=== PATIENT | female | born 1975 | race Caucasian/White ===

== ENCOUNTER 2016-11-19 01:29 | Emergency (ER) | payer OTHER ==
[2016-11-19] MEDS ORDERED: PROMETHAZINE HCL INJ 25 MG/1 ML VIAL IM ONE (02:59)
[2016-11-19] MEDS ORDERED: NORMAL SALINE 1000 ML 1,000 ML IV ONE (03:00)
[2016-11-19] MEDS ORDERED: METHYLPREDNISOLONE INJ 125 MG/2 ML SDV IV ONE (03:00)
[2016-11-19] MEDS ORDERED: HYDROMORPHONE HCL INJ/PF 2 MG/ML AMPULE IV ONE ×2 (03:00→04:52)
[2016-11-19] MEDS ORDERED: DIPHENHYDRAMINE HCL 50 MG/ML VIAL IV ONE (03:00)
--- NOTE | 2016-11-19 03:02 | ER Document Report ---
ED Headache - General Chief Complaint: Headache Stated Complaint: HEADACHE/VOMITING Time seen by provider: 03:01 Notes: Patient is a 41-year-old female that comes emergency department for chief complaint of a migraine headache that started tonight, patient states that she has severe throbbing behind the right side of her face/eye, she reports nausea, denies vomiting. Patient states this is classic for her migraine headaches, states she gets these about once or twice a month on average, used to get them almost daily but improved significantly on Topamax. Patient denies any fever, head injuries, patient has had a partial hysterectomy. TRAVEL OUTSIDE OF THE [place] IN LAST 30 DAYS: No - Related Data Allergies/Adverse Reactions: ibuprofen Allergy (Verified 10/08/16 01:58) latex Allergy (Verified 10/08/16 01:58) metoclopramide [From Reglan] Allergy (Verified 10/08/16 01:58) Penicillins Allergy (Verified 10/08/16 01:58) sulfamethoxazole [From Septra] Allergy (Verified 10/08/16 01:58) sumatriptan [From Imitrex] Allergy (Verified 10/08/16 01:58) tramadol Allergy (Verified 10/08/16 01:58) trimethoprim [From Septra] Allergy (Verified 10/08/16 01:58) zolmitriptan [From Zomig] Allergy (Verified 10/08/16 01:58) prochlorperazine [From Compazine] Adverse Reaction (Verified 11/19/16 01:48) Past Medical History - General Information source: Patient - Social History Smoking Status: Never Smoker Frequency of alcohol use: Social Drug Abuse: None Lives with: Family Family History: Reviewed & Not Pertinent Patient has suicidal ideation: No Patient has homicidal ideation: No Neurological Medical History: Reports: Hx Migraine Renal/ Medical History: Denies: Hx Peritoneal Dialysis Past Surgical History: Reports: Hx Appendectomy, Hx Cholecystectomy, Hx Hysterectomy, Hx Orthopedic Surgery - back - Immunizations Hx Diphtheria, Pertussis, Tetanus Vaccination: Yes Review of Systems - Review of Systems Constitutional: No symptoms reported EENT: No symptoms reported Cardiovascular: No symptoms reported Respiratory: No symptoms reported Gastrointestinal: No symptoms reported Genitourinary: No symptoms reported Female Genitourinary: No symptoms reported Musculoskeletal: No symptoms reported Skin: No symptoms reported Hematologic/Lymphatic: No symptoms reported Neurological/Psychological: See HPI Physical Exam - Vital signs Vitals: Temp Pulse Resp BP Pulse Ox 98.0 F 44 L 18 110/87 H 98 11/19/16 01:39 11/19/16 01:39 11/19/16 01:39 11/19/16 01:39 11/19/16 01:39 Interpretation: Normal - General General appearance: Alert, Anxious In distress: Mild - Patient denies, appears mildly uncomfortable - HEENT Head: Normocephalic, Atraumatic Eyes: Normal Conjunctiva: Normal Extraocular movements intact: Yes Eyelashes: Normal Pupils: PERRL Nasal: Normal Mouth/Lips: Normal Mucous membranes: Normal Pharynx: Normal Neck: Normal - Respiratory Respiratory status: No respiratory distress Chest status: Nontender Breath sounds: Normal Chest palpation: Normal - Cardiovascular Rhythm: Regular Heart sounds: Normal auscultation Murmur: No - Abdominal Inspection: Normal Distension: No distension Bowel sounds: Normal Tenderness: Nontender Organomegaly: No organomegaly - Back Back: Normal, Nontender - Extremities General upper extremity: Normal inspection, Nontender, Normal color, Normal ROM , Normal temperature General lower extremity: Normal inspection, Nontender, Normal color, Normal ROM , Normal temperature, Normal weight bearing. 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 Patient much improved on reevaluation, request slightly more medication to completely resolve her headache. After this. Completely resolved, patient discharged to follow-up with her primary care, given return precautions. - Vital Signs Vital signs: Temp Pulse Resp BP Pulse Ox 97.8 F 90 14 110/71 97 11/19/16 06:10 11/19/16 06:10 11/19/16 06:10 11/19/16 06:10 11/19/16 06:10 Discharge - Discharge Clinical Impression: Headache Qualifiers: Headache type: unspecified Headache chronicity pattern: acute headache Intractability: not intractable Qualified Code(s): R51 - Headache Condition: Stable Disposition: HOME, SELF-CARE Additional Instructions: Your symptoms and response to treatment are consistent with a migraine. Follow-up with your provider for continued management. Return to the emergency department for any return, worsening, or new concerning symptoms. Forms: Return to Work, Treatment of Relative/Child
[2016-11-19] MEDS ORDERED: PROMETHAZINE HCL INJ 25 MG/1 ML VIAL ONE (03:35)
[2016-11-19] MEDS ORDERED: ONDANSETRON HCL INJ/PF 4 MG/2 ML SDV IV ONE (04:52)
[2016-11-19 06:30] VITALS: BP 110/71
== END 2016-11-19 06:10 | disposition home or self-care (01) ==
LOC: ER 01:29
DX: R51 Headache (principal); R11.10 Vomiting, unspecified; Z79.899 Other long term (current) drug therapy
CPT/HCPCS: 96376; 99284; 96372; 96361; 96374; 96375; J1200; J2930; J1170; J2405; J7030; J2550

== ENCOUNTER 2016-12-02 16:15 | Emergency (ER) | payer OTHER ==
[2016-12-02] MEDS ORDERED: NORMAL SALINE 1000 ML 1,000 ML IV ONE (17:17)
--- NOTE | 2016-12-02 17:17 | ER Document Report ---
ED Headache - General Chief Complaint: Headache >24 hrs old Stated Complaint: HEAD ACHE Mode of Arrival: Ambulatory Information source: Patient Notes: 41 y/o female with history of migraines presents with typical migraine headache for the past 3 days. Gradual worsening, right sided throbbing pain similar to prior migraines. She takes daily Topomax, and usually takes Benadryl and Phenergan for headaches. She has run out of benadryl today. She has had 3 episodes of vomiting today, which prompted her to come to the ER. No fevers, chills. NO neck pain or stiffness. [facility] [place], and states that her migraines have intensified secondary to the stress of moving. She has had prior negative brain imaging in the past. TRAVEL OUTSIDE OF THE [place] IN LAST 30 DAYS: No - Related Data Allergies/Adverse Reactions: ibuprofen Allergy (Verified 12/02/16 16:17) latex Allergy (Verified 12/02/16 16:17) metoclopramide [From Reglan] Allergy (Verified 12/02/16 16:17) Penicillins Allergy (Verified 12/02/16 16:17) sulfamethoxazole [From Septra] Allergy (Verified 12/02/16 16:17) sumatriptan [From Imitrex] Allergy (Verified 12/02/16 16:17) tramadol Allergy (Verified 12/02/16 16:17) trimethoprim [From Septra] Allergy (Verified 12/02/16 16:17) zolmitriptan [From Zomig] Allergy (Verified 12/02/16 16:17) prochlorperazine [From Compazine] Adverse Reaction (Verified 12/02/16 16:17) Past Medical History - Social History Smoking Status: Never Smoker Frequency of alcohol use: Occasional Drug Abuse: None Family History: Reviewed & Not Pertinent Patient has suicidal ideation: No Patient has homicidal ideation: No - Medical History Medical History: Other - [employer] - Past Medical History Cardiac Medical History: Reports: None Pulmonary Medical History: Reports: None EENT Medical History: Reports: None Neurological Medical History: Reports: Hx Migraine Other: "pre-diabetes", on Metformin Renal/ Medical History: Reports: Other - PCOS. Denies: Hx Peritoneal Dialysis Malignancy Medical History: Reports: None GI Medical History: Reports: Hx Gastroesophageal Reflux Disease Past Surgical History: Reports: Hx Appendectomy, Hx Cholecystectomy, Hx Hysterectomy, Hx Orthopedic Surgery - back - Immunizations Hx Diphtheria, Pertussis, Tetanus Vaccination: Yes Review of Systems - Review of Systems Notes: REVIEW OF SYSTEMS: CONSTITUTIONAL : Denies fever, chills, or sweats. Denies recent illness. EENT: Denies ear, throat, or mouth pain or symptoms. Denies nasal or sinus congestion. Mild photophobia with headache CARDIOVASCULAR: Denies chest pain. RESPIRATORY: Denies cough, cold, or chest congestion. Denies shortness of breath, difficulty breathing, or wheezing. GASTROINTESTINAL: Denies abdominal pain. Denies diarrhea. Denies constipation. Nausea/vomiting as per HPI GENITOURINARY: Denies difficulty urinating, painful urination, burning, frequency, or blood in urine. FEMALE GENITOURINARY: Denies vaginal bleeding, abnormal or irregular periods. LMP: MUSCULOSKELETAL: Denies neck or back pain or joint pain or swelling. SKIN: Denies rash or skin lesions. HEMATOLOGIC : Denies easy bruising or bleeding. LYMPHATIC: Denies swollen, enlarged glands. NEUROLOGICAL: Denies altered mental status or loss of consciousness. Denies weakness or paralysis or loss of use of either side. Denies problems with gait or speech. Denies sensory or motor loss. PSYCHIATRIC: Denies anxiety or stress or depression. ALL OTHER SYSTEMS REVIEWED AND NEGATIVE. Physical Exam - Vital signs Vitals: Temp Pulse Resp BP Pulse Ox 98.3 F 99 16 123/79 98 12/02/16 16:18 12/02/16 16:18 12/02/16 16:18 12/02/16 16:18 12/02/16 16:18 - Notes Notes: PHYSICAL EXAMINATION: GENERAL: Well-appearing, well-nourished and in no distress but appears uncomfortable with sunglasses on. Pleasant and very conversant. HEAD: Atraumatic, normocephalic. EYES: Pupils equal round and reactive to light, +photophobia, extraocular movements intact, sclera anicteric, conjunctiva are normal. ENT: nares patent, oropharynx clear without exudates. Moist mucous membranes. NECK: Normal range of motion, supple without lymphadenopathy LUNGS: Breath sounds clear to auscultation bilaterally and equal. No wheezes rales or rhonchi. HEART: Regular rate and rhythm without murmurs ABDOMEN: Soft, nontender, normoactive bowel sounds. No guarding, no rebound. No masses appreciated. EXTREMITIES: Normal range of motion, no pitting or edema. No cyanosis. NEUROLOGICAL: Cranial nerves grossly intact. Normal speech, normal gait. Normal sensory, motor, and reflex exams. PSYCH: Normal mood, normal affect. SKIN: Warm, Dry, normal turgor, no rashes or lesions noted. Course - Re-evaluation Re-evalutation: 12/02/16 18:22 Pt states the throbbing and pressure have much improved, but her head still hurts. Will add IV pain medication (dilaudid) and reassess. 12/02/16 19:08 Pt states her headache is improved. We discussed the fact that she has had 5 visits in past 7-8 weeks, and she is instructed to follow up with PCP ANGELA to discuss pain control and migraine maintenance. She verbalizes understanding. Questions answered, strict return precautions discussed. - Vital Signs Vital signs: Temp Pulse Resp BP Pulse Ox 98.3 F 99 16 123/79 98 12/02/16 16:18 12/02/16 16:18 12/02/16 16:18 12/02/16 16:18 12/02/16 16:18 Discharge - Discharge Clinical Impression: Migraine Qualifiers: Migraine type: unspecified Status migrainosus presence: without status migrainosus Intractability: not intractable Qualified Code(s): G43.909 - Migraine, unspecified, not intractable, without status migrainosus Condition: Good Disposition: HOME, SELF-CARE Additional Instructions: HEADACHE: The physician does not feel that the headache you are experiencing has a serious underlying cause. Most headaches are due to emotional stress, with resultant muscle tension (tension headache). Occasionally, headaches are secondary to changes in the blood vessels of the scalp (vascular headache and migraine headache). Sometimes, a headache is the first symptom of another developing illness, such as a viral infection. You have no evidence of stroke, bleeding, meningitis, or other serious cause of your headache. The treatment of headaches varies with the severity and cause of the pain. Not all headaches need pain shots. In fact, there is evidence that using narcotics for headaches may make them worse in the long run. The physician will determine the therapy that's in your best interest. If you develop a fever, if the headache is different from any you've previously experienced, or if the headache progressively worsens, then call your physician at once or go to the emergency room. USE OF DIPHENHYDRAMINE: Diphenhydramine (Benadryl) is an antihistamine and has been recommended to help treat your headache and to prevent side effects of other medications used to treat headaches. The medication can be repeated four times daily. Age Elixir (12.5 mg/tsp) 25 mg pill adult 1-2 tabs Antihistamines may cause drowsiness, especially with the first dose. Do not operate machinery or drive while under the effects of the medication. Do not combine the medication with alcohol, or with any other medication without talking to your doctor. ANTINAUSEA MEDICATION: You have been given a medication to suppress nausea and vomiting. This type of medication can be given as a shot, pill, or suppository. It will usually last for many hours. Pills and shots usually last six to eight hours, suppositories last about 12 hours. For the typical illness, only one or two doses of the medication may be necessary. Mild lightheadedness may occur. This type of medicine can cause drowsiness. Do not drive or operate dangerous machinery while under its influence. Do not mix with alcohol. See your doctor at once if you have muscle spasms or tightness, or uncontrollable motions (particularly of the neck, mouth, or jaw). Persistent vomiting or severe lightheadedness should also be evaluated by the physician. PAIN MEDICATION INJECTION: You have received an injection of a pain medication. You should experience significant pain relief within 45 minutes. This drug is a narcotic - - it will impair your judgement, slow your reaction time and make you sleepy ( as well as relieve your pain). Narcotics also can cause nausea. You should not drive, work with machinery, or perform any task requiring mental alertness until all effects of the medication are gone -- six to eight hours. Do not take any alcohol, or sedatives, and do not take any other medication without checking with your physician. FOLLOW-UP CARE: If you have been referred to a physician for follow-up care, call the physician s office for an appointment as you were instructed or within the next two days. If you experience worsening or a significant change in your symptoms, notify the physician immediately or return to the Emergency Department at any time for re-evaluation. Chronic Pain Control Stress, inactivity, and depression make pain more severe regardless of the cause of the pain. Stress and poor physical condition can cause pain such as headaches and backache. Relaxation: Rest in a quiet place with your eyes closed for 20 minutes twice daily. Concentrate on a pleasant image, or simply "feel" your breathing. Clear your mind. Stress management: Deal with your "stressors." Either take action, or eliminate the stressor from your life. Don't let things hang over you. Accept those things you can't change. Nutrition: Eat small, balanced meals -- don't skip, don't overeat. Meals should be high-carbohydrate, low-sugar, low-fat. Exercise: Exercise helps painful conditions and eases stress. Get 30 minutes of moderate exercise, five days a week. Do an activity that does not flare your pain. Precautions: Pain which continues to disrupt daily activities, or which changes in nature, requires a medical evaluation. Pain Clinic referral is available. We do not manage chronic pain in the Emergency Department. We will try to appropriately help you through an acute flare of your chronic painful condition , but for on-going chronic pain that does not improve, you will need to see your private doctor or interventional pain physician. We do not provide repeated medication management of chronic painful conditions. If you wish, we can provide the name of local pain management physicians.
[2016-12-02] MEDS ORDERED: DIPHENHYDRAMINE HCL 50 MG/ML VIAL IV ONE ×2 (17:18→18:20)
[2016-12-02] MEDS ORDERED: PROMETHAZINE HCL INJ 25 MG/1 ML VIAL IV ONE (17:18)
[2016-12-02] MEDS ORDERED: HYDROMORPHONE HCL INJ/PF 2 MG/ML AMPULE IV ONE ×2 (18:20→19:07)
[2016-12-02 19:38] VITALS: BP 113/69
== END 2016-12-02 19:30 | disposition home or self-care (01) ==
LOC: ER 16:15
DX: G43.909 Migraine, unspecified, not intractable, without status migrainosus (principal); R11.10 Vomiting, unspecified; Z79.899 Other long term (current) drug therapy; Z88.6 Allergy status to analgesic agent; Z91.040 Latex allergy status; Z88.8 Allergy status to other drugs, medicaments and biological substances; Z88.0 Allergy status to penicillin; Z88.5 Allergy status to narcotic agent
CPT/HCPCS: 96376; 99283; 96361; 96374; 96375; J1200; J1170; J2550; J7030

== ENCOUNTER 2016-12-06 21:38 | Emergency (ER) | payer OTHER ==
[2016-12-06] MEDS ORDERED: ONDANSETRON 4 MG TAB.RAPDIS PO ONE (21:49)
--- NOTE | 2016-12-06 21:51 | ER Document Report ---
ED Medical Screen (RME) - General Stated Complaint: POSSIBLE MIGRANE Notes: States the frequency of her migraines has increased to 1-2 times per month, so her primary care physician has put in a consult for neurology for possible Botox injections. She states when she comes to the emergency room she normally gets IV medications and fluids to help with the headache, other medications do not seem to help. I have greeted and performed a rapid initial assessment of this patient. A comprehensive ED assessment and evaluation of the patient, analysis of test results and completion of the medical decision making process will be conducted by additional ED providers. TRAVEL OUTSIDE OF THE [place] IN LAST 30 DAYS: No - Related Data Allergies/Adverse Reactions: ibuprofen Allergy (Verified 12/06/16 21:46) latex Allergy (Verified 12/06/16 21:46) metoclopramide [From Reglan] Allergy (Verified 12/06/16 21:46) Penicillins Allergy (Verified 12/06/16 21:46) sulfamethoxazole [From Septra] Allergy (Verified 12/06/16 21:46) sumatriptan [From Imitrex] Allergy (Verified 12/06/16 21:46) tramadol Allergy (Verified 12/06/16 21:46) trimethoprim [From Septra] Allergy (Verified 12/06/16 21:46) zolmitriptan [From Zomig] Allergy (Verified 12/06/16 21:46) prochlorperazine [From Compazine] Adverse Reaction (Verified 12/06/16 21:46) Past Medical History Neurological Medical History: Reports: Hx Migraine Renal/ Medical History: Denies: Hx Peritoneal Dialysis GI Medical History: Reports: Hx Gastroesophageal Reflux Disease Past Surgical History: Reports: Hx Appendectomy, Hx Cholecystectomy, Hx Hysterectomy, Hx Orthopedic Surgery - back - Immunizations Hx Diphtheria, Pertussis, Tetanus Vaccination: Yes Physical Exam - Vital signs Vitals: Temp Pulse Resp BP Pulse Ox 98.0 F 116 H 22 H 139/96 H 96 12/06/16 21:44 12/06/16 21:44 12/06/16 21:44 12/06/16 21:44 12/06/16 21:44 Course - Vital Signs Vital signs: Temp Pulse Resp BP Pulse Ox 98.0 F 116 H 22 H 139/96 H 96 12/06/16 21:44 12/06/16 21:44 12/06/16 21:44 12/06/16 21:44 12/06/16 21:44
[2016-12-06] MEDS ORDERED: DIPHENHYDRAMINE HCL 50 MG/ML VIAL IV ONE (23:46)
[2016-12-06] MEDS ORDERED: NORMAL SALINE 1000 ML 1,000 ML IV ONE (23:47)
[2016-12-06] MEDS ORDERED: PROMETHAZINE HCL INJ 25 MG/1 ML VIAL IM ONE (23:47)
[2016-12-06] MEDS ORDERED: DEXAMETHASONE SOD PHOS INJ 10 MG/1 ML VIAL IV ONE (23:47)
--- NOTE | 2016-12-06 23:50 | ER Document Report ---
ED General - General Chief Complaint: Headache Stated Complaint: POSSIBLE MIGRANE Notes: Patient is a 41-year-old female who presents with complaint of a headache. Patient history recurrent migraine headaches. She is to receive Botox injections in the past. She has not had them for a while. Recently her headaches have been a very frequent and hard to control. She does take Benadryl Phenergan at home which usually helps; however, she sometimes develops vomiting or headaches that she's been unable to hold down her medications because she's been vomiting this time. I discussed with this current headache is that she did have an episode of passing out with her. She typically does not pass out with her headaches. Headache is in the same location and feels like her usual headaches. She also tried to take Fioricet but also vomited this as well. She takes Topamax daily basis. She has been referred to a specialist of the Botox injections started; however, she is waiting for the referral appointment to come across. She's had multiple workups for headaches in the past. She does have a history of von Willebrand's disease. She is unsure if she hit her head when she passed out. TRAVEL OUTSIDE OF THE [place] IN LAST 30 DAYS: No - Related Data Allergies/Adverse Reactions: ibuprofen Allergy (Verified 12/06/16 21:46) latex Allergy (Verified 12/06/16 21:46) metoclopramide [From Reglan] Allergy (Verified 12/06/16 21:46) Penicillins Allergy (Verified 12/06/16 21:46) sulfamethoxazole [From Septra] Allergy (Verified 12/06/16 21:46) sumatriptan [From Imitrex] Allergy (Verified 12/06/16 21:46) tramadol Allergy (Verified 12/06/16 21:46) trimethoprim [From Septra] Allergy (Verified 12/06/16 21:46) zolmitriptan [From Zomig] Allergy (Verified 12/06/16 21:46) prochlorperazine [From Compazine] Adverse Reaction (Verified 12/06/16 21:46) Past Medical History - Social History Smoking Status: Never Smoker Frequency of alcohol use: None Drug Abuse: None Family History: Reviewed & Not Pertinent Neurological Medical History: Reports: Hx Migraine Renal/ Medical History: Denies: Hx Peritoneal Dialysis GI Medical History: Reports: Hx Gastroesophageal Reflux Disease Past Surgical History: Reports: Hx Appendectomy, Hx Cholecystectomy, Hx Hysterectomy, Hx Orthopedic Surgery - back - Immunizations Hx Diphtheria, Pertussis, Tetanus Vaccination: Yes Review of Systems - Review of Systems Notes: My Normal Review Basic REVIEW OF SYSTEMS: CONSTITUTIONAL : Denies fever, chills, or sweats. Denies recent illness. CARDIOVASCULAR: Denies chest pain. RESPIRATORY: Denies cough, cold, or chest congestion. Denies shortness of breath, difficulty breathing, or wheezing. GASTROINTESTINAL: Denies abdominal pain. Denies nausea, vomiting, or diarrhea. Denies constipation. Last BM: : MUSCULOSKELETAL: Denies neck or back pain or joint pain or swelling. SKIN: Denies rash or skin lesions. NEUROLOGICAL: Syncopal episode. Has a headache. Denies weakness or paralysis or loss of use of either side. Denies problems with gait or speech. Denies sensory or motor loss. ALL OTHER SYSTEMS REVIEWED AND NEGATIVE. Physical Exam - Vital signs Vitals: Temp Pulse Resp BP Pulse Ox 98.0 F 116 H 22 H 139/96 H 96 12/06/16 21:44 12/06/16 21:44 12/06/16 21:44 12/06/16 21:44 12/06/16 21:44 - Notes Notes: General Appearance: Well nourished, alert, cooperative, no acute distress, moderate obvious discomfort. Vitals: reviewed, See vital signs table. Head: no swelling or tenderness to the head Eyes: PERRL, EOMI, Conjuctiva clear Mouth: No decreasd moisture Neck: Supple, no neck tenderness, No thyromegaly Lungs: No wheezing, No rales, No rhonci, No accessory muscle use, good air exchange bilaterally. Heart: Normal rate, Regular rythm, No murmur, no rub Abdomen: Normal BS, soft, No rigidity, No abdominal tenderness, No guarding, no rebound, no abdominal masses, no organomegaly Extremities: strength 5/5 in all extremities, good pulses in all extremities, no swelling or tenderness in the extremities, no edema. Skin: warm, dry, appropriate color, no rash Neuro: speech clear, oriented x 3, normal affect, responds appropriately to questions. Cranial nerves II through XII are intact. Distal sensation intact. Patient moves all extremities without difficulty. No pronator drift.. Course - Vital Signs Vital signs: Temp Pulse Resp BP Pulse Ox 98.0 F 88 18 117/69 96 12/06/16 21:44 12/07/16 04:24 12/07/16 04:24 12/07/16 04:24 12/07/16 04:24 - Transfer of Care Notes: 12/07/16 03:54 Patient's headache is on was completely gone. There is still one area that continues to throb and bother her. She has had ketamine in the past for her more severe headaches which has helped. I will give her low-dose ketamine and hopefully this will help relieve her headache. 12/07/16 06:59 Patient's headache is completely resolved. She feels much improved. We'll discharge her home. I'll write a prescription for suppository Phenergan so that if she does have some nausea issues able to still take her medications. I encourage her to to follow up with her referral. Encouraged return to ER shows internal headache or feels unwell. CT scan was obtained the patient may have hit her head and does have a history of von Willebrand's disease. CT scan was negative. I did not sit suspect subarachnoid hemorrhage and that her headaches are just like her previous chronic recurring migraine headaches and her headache is gradual in onset not sudden or maximal in onset. Dictation of this chart was performed using voice recognition software; therefore, there may be some unintended grammatical errors. Discharge - Discharge Clinical Impression: Head ache Qualifiers: Headache type: unspecified Headache chronicity pattern: acute headache Intractability: not intractable Qualified Code(s): R51 - Headache Condition: Good Disposition: HOME, SELF-CARE Additional Instructions: HEADACHE: The physician does not feel that the headache you are experiencing has a serious underlying cause. Most headaches are due to emotional stress, with resultant muscle tension (tension headache). Occasionally, headaches are secondary to changes in the blood vessels of the scalp (vascular headache and migraine headache). Sometimes, a headache is the first symptom of another developing illness, such as a viral infection. You have no evidence of stroke, bleeding, meningitis, or other serious cause of your headache. The treatment of headaches varies with the severity and cause of the pain. Not all headaches need pain shots. In fact, there is evidence that using narcotics for headaches may make them worse in the long run. The physician will determine the therapy that's in your best interest. If you develop a fever, if the headache is different from any you've previously experienced, or if the headache progressively worsens, then call your physician at once or go to the emergency room. USE OF DIPHENHYDRAMINE: Diphenhydramine (Benadryl) is an antihistamine and has been recommended to help treat your headache and to prevent side effects of other medications used to treat headaches. The medication can be repeated four times daily. Age Elixir (12.5 mg/tsp) 25 mg pill adult 1-2 tabs Antihistamines may cause drowsiness, especially with the first dose. Do not operate machinery or drive while under the effects of the medication. Do not combine the medication with alcohol, or with any other medication without talking to your doctor. ANTINAUSEA MEDICATION: You have been given a medication to suppress nausea and vomiting. This type of medication can be given as a shot, pill, or suppository. It will usually last for many hours. Pills and shots usually last six to eight hours, suppositories last about 12 hours. For the typical illness, only one or two doses of the medication may be necessary. Mild lightheadedness may occur. This type of medicine can cause drowsiness. Do not drive or operate dangerous machinery while under its influence. Do not mix with alcohol. See your doctor at once if you have muscle spasms or tightness, or uncontrollable motions (particularly of the neck, mouth, or jaw). Persistent vomiting or severe lightheadedness should also be evaluated by the physician. PAIN MEDICATION INJECTION: You have received an injection of a pain medication. You should experience significant pain relief within 45 minutes. This drug is a narcotic - - it will impair your judgement, slow your reaction time and make you sleepy ( as well as relieve your pain). Narcotics also can cause nausea. You should not drive, work with machinery, or perform any task requiring mental alertness until all effects of the medication are gone -- six to eight hours. Do not take any alcohol, or sedatives, and do not take any other medication without checking with your physician. FOLLOW-UP CARE: If you have been referred to a physician for follow-up care, call the physician s office for an appointment as you were instructed or within the next two days. If you experience worsening or a significant change in your symptoms, notify the physician immediately or return to the Emergency Department at any time for re-evaluation. please return to the ER if you have worsening pain, fever,s or feel unwell. Please follow up closely with your doctor for your referral for the Botox injections. Prescriptions: Promethazine HCl [Phenergan 25 mg Supp.rect] 1 supp MI Q6H #20 supp.rect Forms: Return to Work
[2016-12-07] MEDS ORDERED: PROMETHAZINE HCL INJ 25 MG/1 ML VIAL ONE (00:20)
[2016-12-07] MEDS ORDERED: HYDROMORPHONE HCL INJ/PF 2 MG/ML AMPULE IV ONE (01:49)
[2016-12-07] MEDS ORDERED: KETAMINE HCL INJ 500 MG/10 ML VIAL IV ONE (03:54)
[2016-12-07 04:28] VITALS: BP 117/69
== END 2016-12-07 04:54 | disposition home or self-care (01) ==
LOC: ER 21:38
DX: G43.909 Migraine, unspecified, not intractable, without status migrainosus (principal); R11.10 Vomiting, unspecified; R55 Syncope and collapse; D68.0 Von Willebrand disease; Z79.899 Other long term (current) drug therapy; Z88.6 Allergy status to analgesic agent; Z91.040 Latex allergy status; Z88.8 Allergy status to other drugs, medicaments and biological substances; Z88.0 Allergy status to penicillin; Z88.5 Allergy status to narcotic agent; Z88.1 Allergy status to other antibiotic agents
CPT/HCPCS: 99284; 96372; 96361; 96374; 96375; 70450; J1200; S0119; J3490; J1170; J2550; J7030; J1100

== ENCOUNTER 2016-12-10 20:18 | Emergency (ER) | payer OTHER ==
--- NOTE | 2016-12-10 21:27 | ER Document Report ---
ED Medical Screen (RME) - General Stated Complaint: HEADACHE Time seen by provider: 21:22 Mode of Arrival: Wheelchair Information source: Patient Notes: 41 yo female presents to ed for migraine headache post botox treatment yesterday. States she has never had a headache after the botox treatment. She states it feels like a pressure cooker that she cannot get the pain out. all the of the injection sites are also painful and they have never been painful before. she has had a low grade migraine all day but it increased around 7pm so she got into a shower and the pain just blossomed. LMP partial hysterectomy 2009. I examined this patient for a rapid screening and she will be re examined and treated by another provider. TRAVEL OUTSIDE OF THE [place] IN LAST 30 DAYS: No - Related Data Allergies/Adverse Reactions: ibuprofen Allergy (Verified 12/06/16 21:46) latex Allergy (Verified 12/06/16 21:46) metoclopramide [From Reglan] Allergy (Verified 12/06/16 21:46) Penicillins Allergy (Verified 12/06/16 21:46) sulfamethoxazole [From Septra] Allergy (Verified 12/06/16 21:46) sumatriptan [From Imitrex] Allergy (Verified 12/06/16 21:46) tramadol Allergy (Verified 12/06/16 21:46) trimethoprim [From Septra] Allergy (Verified 12/06/16 21:46) zolmitriptan [From Zomig] Allergy (Verified 12/06/16 21:46) prochlorperazine [From Compazine] Adverse Reaction (Verified 12/06/16 21:46) Past Medical History Neurological Medical History: Reports: Hx Migraine Renal/ Medical History: Denies: Hx Peritoneal Dialysis GI Medical History: Reports: Hx Gastroesophageal Reflux Disease Past Surgical History: Reports: Hx Appendectomy, Hx Cholecystectomy, Hx Hysterectomy, Hx Orthopedic Surgery - back - Immunizations Hx Diphtheria, Pertussis, Tetanus Vaccination: Yes Physical Exam - Vital signs Vitals: Temp Pulse Resp BP Pulse Ox 98.1 F 106 H 18 112/79 97 12/10/16 20:26 12/10/16 20:26 12/10/16 20:26 12/10/16 20:26 12/10/16 20:26 Course - Vital Signs Vital signs: Temp Pulse Resp BP Pulse Ox 98.1 F 106 H 18 112/79 97 12/10/16 20:26 12/10/16 20:26 12/10/16 20:26 12/10/16 20:26 12/10/16 20:26
[2016-12-10] MEDS ORDERED: ONDANSETRON 4 MG TAB.RAPDIS PO ONE (21:29)
[2016-12-10] MEDS ORDERED: ONDANSETRON 4 MG TAB.RAPDIS ONE (21:31)
[2016-12-11] MEDS ORDERED: DIPHENHYDRAMINE HCL 50 MG/ML VIAL IV ONE (02:36)
[2016-12-11] MEDS ORDERED: PROCHLORPERAZINE EDISYLATE INJ 10 MG/2 ML VIAL IV ONE (02:36)
[2016-12-11] MEDS ORDERED: KETOROLAC TROMETHAMINE INJ/PF 30 MG/1 ML SDV IV ONE (02:36)
[2016-12-11] MEDS ORDERED: NORMAL SALINE 1000 ML 1,000 ML IV ONE (02:37)
[2016-12-11] MEDS ORDERED: HALOPERIDOL LACTATE INJ 5 MG/1 ML VIAL IV ONE (03:00)
[2016-12-11] MEDS ORDERED: HALOPERIDOL LACTATE INJ 5 MG/1 ML VIAL ONE (03:02)
[2016-12-11] MEDS ORDERED: PROMETHAZINE HCL 25 MG TABLET PO ONE (03:32)
--- NOTE | 2016-12-11 03:38 | ER Document Report ---
ED Headache - General Chief Complaint: Headache Stated Complaint: HEADACHE Time seen by provider: 03:33 Mode of Arrival: Wheelchair Information source: Patient Notes: 41-year-old female presents to ED for migraine headaches post Botox treatment . She was in the emergency room on December 06 for the same complaint. She states that she doesn't usually get the headaches after Botox treatments. States there is a lot of pressure in her head but it is relieved a little bit since she got her Haldol and Benadryl and IV fluids. TRAVEL OUTSIDE OF THE [place] IN LAST 30 DAYS: No - HPI Patient complains to provider of: "Migraine" Patient reports: Hx chronic headaches Onset: Other - States she's had her headache for about a week but it got much worse yesterday Onset was: Gradual Timing: Still present Quality of pain: Pressure Severity: Moderate Pain Level: 3 Associated symptoms: Nausea/vomiting, Other - Pain at the site of the Botox injections Exacerbated by: Light, Noise Similar symptoms previously: Yes Recently seen / treated by doctor: Yes - Related Data Allergies/Adverse Reactions: ibuprofen Allergy (Verified 12/10/16 21:22) latex Allergy (Verified 12/10/16 21:22) metoclopramide [From Reglan] Allergy (Verified 12/10/16 21:22) Penicillins Allergy (Verified 12/10/16 21:22) sulfamethoxazole [From Septra] Allergy (Verified 12/10/16 21:22) sumatriptan [From Imitrex] Allergy (Verified 12/10/16 21:22) tramadol Allergy (Verified 12/10/16 21:22) trimethoprim [From Septra] Allergy (Verified 12/10/16 21:22) zolmitriptan [From Zomig] Allergy (Verified 12/10/16 21:22) prochlorperazine [From Compazine] Adverse Reaction (Verified 12/10/16 21:22) Home Medications: Current Home Medications Atorvastatin Calcium [Lipitor 40 mg Tablet] 40 mg PO QHS 12/11/16 [History] Bupropion HCl [Bupropion Xl] 150 mg PO DAILY 12/11/16 [History] Cetirizine HCl [All Day Allergy] 1 tab PO DAILY 12/11/16 [History] Esomeprazole Magnesium [Nexium] 1 cap PO DAILY 12/11/16 [History] L.acidoph & Paracasei,B.lactis [Probiotic] 1 each PO DAILY 12/11/16 [History] Metformin HCl [Metformin HCl] 1 tab PO DAILY 12/11/16 [History] Tolterodine Tartrate [Detrol LA] 1 cap PO DAILY 12/11/16 [History] Topiramate [Topiramate] 150 mg PO DAILY 12/11/16 [History] Past Medical History - General Information source: Patient - Social History Smoking Status: Never Smoker Chew tobacco use (# tins/day): No Frequency of alcohol use: Rare Drug Abuse: None Lives with: Family Family History: Reviewed & Not Pertinent Patient has suicidal ideation: No Patient has homicidal ideation: No - Past Medical History Cardiac Medical History: Reports: None Pulmonary Medical History: Reports: None EENT Medical History: Reports: None Neurological Medical History: Reports: Hx Migraine Endocrine Medical History: Reports: None Renal/ Medical History: Reports: None Malignancy Medical History: Reports: None GI Medical History: Reports: Hx Gastroesophageal Reflux Disease Musculoskeltal Medical History: Reports None Skin Medical History: Reports None Psychiatric Medical History: Reports: None Traumatic Medical History: Reports: None Infectious Medical History: Reports: None Past Surgical History: Reports: Hx Appendectomy, Hx Cholecystectomy, Hx Hysterectomy, Hx Orthopedic Surgery - back - Immunizations Hx Diphtheria, Pertussis, Tetanus Vaccination: Yes Review of Systems - Review of Systems Constitutional: No symptoms reported EENT: No symptoms reported Cardiovascular: No symptoms reported Respiratory: No symptoms reported Gastrointestinal: No symptoms reported Genitourinary: No symptoms reported Female Genitourinary: No symptoms reported Musculoskeletal: No symptoms reported Skin: No symptoms reported Hematologic/Lymphatic: No symptoms reported Neurological/Psychological: Headaches -: Yes All other systems reviewed and negative Physical Exam - Vital signs Vitals: Temp Pulse Resp BP Pulse Ox 98.1 F 106 H 18 112/79 97 12/10/16 20:26 12/10/16 20:26 12/10/16 20:26 12/10/16 20:26 12/10/16 20:26 Interpretation: Normal - General General appearance: Appears well, Alert - HEENT Head: Normocephalic, Atraumatic Eyes: Normal Pupils: PERRL Ears: Normal External canal: Normal Tympanic membrane: Normal Sinus: Normal Nasal: Normal Mouth/Lips: Normal Mucous membranes: Normal Pharynx: Normal Neck: Normal - Respiratory Respiratory status: No respiratory distress Chest status: Nontender Breath sounds: Normal Chest palpation: Normal - Cardiovascular Rhythm: Regular Heart sounds: Normal auscultation Murmur: No - Abdominal Inspection: Normal Distension: No distension Bowel sounds: Normal Tenderness: Nontender Organomegaly: No organomegaly - Back Back: Normal, Nontender - Extremities General upper extremity: Normal inspection, Nontender, Normal color, Normal ROM , Normal temperature General lower extremity: Normal inspection, Nontender, Normal color, Normal ROM , Normal temperature, Normal weight bearing. 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 She states that her migraine started after her Botox injections yesterday. When I reassessed her she states that her headache is getting better it is now a 3 out of 5 and she is ready to go home. Consult to Dr. Sykes will discharge home. - Vital Signs Vital signs: Temp Pulse Resp BP Pulse Ox 97.8 F 91 14 112/60 98 12/11/16 04:31 12/11/16 04:31 12/11/16 04:31 12/11/16 04:31 12/11/16 04:31 Discharge - Discharge Clinical Impression: Head ache Qualifiers: Headache type: unspecified Headache chronicity pattern: acute headache Intractability: not intractable Qualified Code(s): R51 - Headache Condition: Stable Disposition: HOME, SELF-CARE Additional Instructions: HEADACHE: The physician does not feel that the headache you are experiencing has a serious underlying cause. Most headaches are due to emotional stress, with resultant muscle tension (tension headache). Occasionally, headaches are secondary to changes in the blood vessels of the scalp (vascular headache and migraine headache). Sometimes, a headache is the first symptom of another developing illness, such as a viral infection. You have no evidence of stroke, bleeding, meningitis, or other serious cause of your headache. The treatment of headaches varies with the severity and cause of the pain. Not all headaches need pain shots. In fact, there is evidence that using narcotics for headaches may make them worse in the long run. The physician will determine the therapy that's in your best interest. If you develop a fever, if the headache is different from any you've previously experienced, or if the headache progressively worsens, then call your physician at once or go to the emergency room. Chronic Pain Control Stress, inactivity, and depression make pain more severe regardless of the cause of the pain. Stress and poor physical condition can cause pain such as headaches and backache. Relaxation: Rest in a quiet place with your eyes closed for 20 minutes twice daily. Concentrate on a pleasant image, or simply "feel" your breathing. Clear your mind. Stress management: Deal with your "stressors." Either take action, or eliminate the stressor from your life. Don't let things hang over you. Accept those things you can't change. Nutrition: Eat small, balanced meals -- don't skip, don't overeat. Meals should be high-carbohydrate, low-sugar, low-fat. Exercise: Exercise helps painful conditions and eases stress. Get 30 minutes of moderate exercise, five days a week. Do an activity that does not flare your pain. Precautions: Pain which continues to disrupt daily activities, or which changes in nature, requires a medical evaluation. Pain Clinic referral is available. We do not manage chronic pain in the Emergency Department. 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 We do not provide repeated medication management of chronic painful conditions. If you wish, we can provide the name of local pain management physicians. USE OF DIPHENHYDRAMINE: Diphenhydramine (Benadryl) is an antihistamine and has been recommended to help treat your headache and to prevent side effects of other medications used to treat headaches. The medication can be repeated four times daily. Age Elixir (12.5 mg/tsp) 25 mg pill adult 1-2 tabs Antihistamines may cause drowsiness, especially with the first dose. Do not operate machinery or drive while under the effects of the medication. Do not combine the medication with alcohol, or with any other medication without talking to your doctor. ANTINAUSEA MEDICATION: You have been given a medication to suppress nausea and vomiting. This type of medication can be given as a shot, pill, or suppository. It will usually last for many hours. Pills and shots usually last six to eight hours, suppositories last about 12 hours. For the typical illness, only one or two doses of the medication may be necessary. Mild lightheadedness may occur. This type of medicine can cause drowsiness. Do not drive or operate dangerous machinery while under its influence. Do not mix with alcohol. See your doctor at once if you have muscle spasms or tightness, or uncontrollable motions (particularly of the neck, mouth, or jaw). Persistent vomiting or severe lightheadedness should also be evaluated by the physician. Intravenous (IV) Fluids As part of your care today, you received intravenous (IV) fluids. IV fluids are administered to patients who are dehydrated or to those who have certain chemical (electrolyte) abnormalities that need correcting. FOLLOW-UP CARE: If you have been referred to a physician for follow-up care, call the physician s office for an appointment as you were instructed or within the next two days. If you experience worsening or a significant change in your symptoms, notify the physician immediately or return to the Emergency Department at any time for re-evaluation. Please call your primary doctor today and schedule a follow-up appointment for your chronic headaches.
[2016-12-11 04:52] VITALS: BP 112/60
== END 2016-12-11 04:35 | disposition home or self-care (01) ==
LOC: ER 20:18
DX: G43.909 Migraine, unspecified, not intractable, without status migrainosus (principal); R11.2 Nausea with vomiting, unspecified; Z98.890 Other specified postprocedural states; Z88.6 Allergy status to analgesic agent; Z91.040 Latex allergy status; Z88.8 Allergy status to other drugs, medicaments and biological substances; Z88.0 Allergy status to penicillin; Z88.1 Allergy status to other antibiotic agents; Z88.5 Allergy status to narcotic agent
CPT/HCPCS: 99283; 96361; 96374; 96375; J1200; S0119; J1630; J7030

== ENCOUNTER 2016-12-17 23:08 | Emergency (ER) | payer OTHER ==
[2016-12-18] MEDS ORDERED: KETAMINE HCL INJ 500 MG/10 ML VIAL IV ONE (00:15)
[2016-12-18] MEDS ORDERED: NORMAL SALINE 1000 ML 1,000 ML IV ONE (00:15)
--- NOTE | 2016-12-18 00:26 | ER Document Report ---
ED General - General Chief Complaint: Headache Stated Complaint: VOMITING Notes: Patient is a 41-year-old female who presents with complaint of a headache. They came and something was on the right side. Says pain is around the right frontal part of her head as well as around and below the right eye. Some vomiting. No diarrhea. No fevers. Headache started just before 10 PM. She came here immediately shortly after coming here she received a CT scan of her head which was negative. She does have a family history of cerebral aneurysm with her father. She herself has a history of recurrent severe migraines. She just received Botox injections for her migraines a few days ago. She says the injections were more painful than what they have been in the past. She denies any focal weakness or numbness. No other complaints at this time. She does have a history of von Willebrand's disease. TRAVEL OUTSIDE OF THE [place] IN LAST 30 DAYS: No - Related Data Allergies/Adverse Reactions: ibuprofen Allergy (Verified 12/10/16 21:22) latex Allergy (Verified 12/10/16 21:22) metoclopramide [From Reglan] Allergy (Verified 12/10/16 21:22) Penicillins Allergy (Verified 12/10/16 21:22) sulfamethoxazole [From Septra] Allergy (Verified 12/10/16 21:22) sumatriptan [From Imitrex] Allergy (Verified 12/10/16 21:22) tramadol Allergy (Verified 12/10/16 21:22) trimethoprim [From Septra] Allergy (Verified 12/10/16 21:22) zolmitriptan [From Zomig] Allergy (Verified 12/10/16 21:22) prochlorperazine [From Compazine] Adverse Reaction (Verified 12/10/16 21:22) Past Medical History - Social History Smoking Status: Never Smoker Frequency of alcohol use: Rare Drug Abuse: None Family History: Reviewed & Not Pertinent Patient has suicidal ideation: No Patient has homicidal ideation: No Neurological Medical History: Reports: Hx Migraine Renal/ Medical History: Denies: Hx Peritoneal Dialysis GI Medical History: Reports: Hx Gastroesophageal Reflux Disease Past Surgical History: Reports: Hx Appendectomy, Hx Cholecystectomy, Hx Hysterectomy, Hx Orthopedic Surgery - back - Immunizations Hx Diphtheria, Pertussis, Tetanus Vaccination: Yes Review of Systems - Review of Systems Notes: My Normal Review Basic REVIEW OF SYSTEMS: CONSTITUTIONAL : Denies fever, chills, or sweats. Denies recent illness. RESPIRATORY: Denies cough, cold, or chest congestion. Denies shortness of breath, difficulty breathing, or wheezing. GASTROINTESTINAL: Denies abdominal pain. Denies nausea, vomiting, or diarrhea. Denies constipation. Last BM: MUSCULOSKELETAL: Denies neck or back pain or joint pain or swelling. SKIN: Denies rash or skin lesions. HEMATOLOGIC : Von Willebrand's disease NEUROLOGICAL: Denies altered mental status or loss of consciousness. Has a headache. Denies weakness or paralysis or loss of use of either side. Denies problems with gait or speech. Denies sensory or motor loss. ALL OTHER SYSTEMS REVIEWED AND NEGATIVE. Physical Exam - Vital signs Vitals: Temp Pulse Resp BP Pulse Ox 98.1 F 125 H 18 129/92 H 97 12/17/16 23:15 12/17/16 23:15 12/17/16 23:15 12/17/16 23:15 12/17/16 23:15 - Notes Notes: General Appearance: Well nourished, alert, cooperative, no acute distress, mild to moderate obvious discomfort. Vitals: reviewed, See vital signs table. Head: no swelling or tenderness to the head Eyes: PERRL, EOMI, Conjuctiva clear Mouth: No decreasd moisture Neck: Supple, no neck tenderness, No thyromegaly Lungs: No wheezing, No rales, No rhonci, No accessory muscle use, good air exchange bilaterally. Heart: Normal rate, Regular rythm, No murmur, no rub Abdomen: Normal BS, soft, No rigidity, No abdominal tenderness, No guarding, no rebound, no abdominal masses, no organomegaly Extremities: strength 5/5 in all extremities, good pulses in all extremities, no swelling or tenderness in the extremities, no edema. Skin: warm, dry, appropriate color, no rash Neuro: speech clear, oriented x 3, normal affect, responds appropriately to questions. Cranial nerves II through XII are intact. Distal sensation intact. Patient moves all extremities without difficulty. Course - Vital Signs Vital signs: Temp Pulse Resp BP Pulse Ox 98.2 F 83 18 99/67 L 99 12/18/16 05:12 12/18/16 05:12 12/18/16 05:12 12/18/16 05:12 12/18/16 05:12 - Laboratory Result Diagrams: 12/18/16 00:32 12/18/16 00:32 Laboratory results interpreted by me: 12/18/16 12/18/16 00:32 00:32 WBC 15.8 H RDW 14.5 H Absolute Neutrophils 10.4 H Chloride 113 H Carbon Dioxide 17 L Glucose 126 H - Transfer of Care Notes: 12/18/16 06:15 Patient looks and feels much improved. I did obtain a CT into overhead being that patient says the headache was sudden in onset and she has family history of aneurysms. I informed her that I have very low suspicion for aneurysm mainly because she had a noncontrasted CT scan performed in less than 3 hours after the onset of her symptoms and that was negative. She has a history of von Willebrand's disease and therefore I think a risk of developing a spinal hematoma from the procedure does not outweigh the benefit being that subarachnoid hemorrhage is highly unlikely. I did discuss the option of CT angiogram of the head and she does want this performed. CT angiography showed no evidence of aneurysm. Patient is following up with her doctor today. Patient will be discharged home but is encouraged return to ER she has recurrent headaches not responding to her home medications or she feels unwell. Patient agrees with plan and will be discharged home. Dictation of this chart was performed using voice recognition software; therefore, there may be some unintended grammatical errors. Discharge - Discharge Clinical Impression: Headache Qualifiers: Headache type: unspecified Headache chronicity pattern: acute headache Intractability: not intractable Qualified Code(s): R51 - Headache Condition: Good Disposition: HOME, SELF-CARE Additional Instructions: HEADACHE: The physician does not feel that the headache you are experiencing has a serious underlying cause. Most headaches are due to emotional stress, with resultant muscle tension (tension headache). Occasionally, headaches are secondary to changes in the blood vessels of the scalp (vascular headache and migraine headache). Sometimes, a headache is the first symptom of another developing illness, such as a viral infection. You have no evidence of stroke, bleeding, meningitis, or other serious cause of your headache. The treatment of headaches varies with the severity and cause of the pain. Not all headaches need pain shots. In fact, there is evidence that using narcotics for headaches may make them worse in the long run. The physician will determine the therapy that's in your best interest. If you develop a fever, if the headache is different from any you've previously experienced, or if the headache progressively worsens, then call your physician at once or go to the emergency room. FOLLOW-UP CARE: If you have been referred to a physician for follow-up care, call the physician s office for an appointment as you were instructed or within the next two days. If you experience worsening or a significant change in your symptoms, notify the physician immediately or return to the Emergency Department at any time for re-evaluation. Please return to the ER immediately if you develop recurrent worsening headaches not responding to your medications at home, fevers, or feel unwell. Please follow up with your doctor today as scheduled.
[2016-12-18] MEDS ORDERED: ONDANSETRON HCL INJ/PF 4 MG/2 ML SDV IV ONE (00:50)
[2016-12-18 01:19] LABS: ABSOLUTE BASOPHILS # (AUTO) 0.1 10^3/uL (0.0-0.2); ABSOLUTE EOSINOPHILS # (AUTO) 0.1 10^3/uL (0.0-0.6); ABSOLUTE MONOCYTES (AUTO) 1.4 10^3/uL (0.1-1.4); ABSOLUTE NEUT (AUTO) 10.4 10^3/uL (1.7-8.2); BASOPHILS % (AUTO) 0.4 % (0-2); EOSINOPHILS % (AUTO) 0.3 % (0-6); HEMATOCRIT 37.9 % (36.0-47.0); HEMOGLOBIN 12.5 g/dL (12.0-15.5); HGB HCT DIFFERENCE -0.4; LYMPHOCYTES % (AUTO) 25.1 % (13-45); MEAN CORPUSCULAR HEMOGLOBIN 27.4 pg (27.0-33.4); MEAN CORPUSCULAR HGB CONC 32.9 g/dL (32.0-36.0); MEAN CORPUSCULAR VOLUME 83 fl (80-97); MONOCYTES % (AUTO) 8.6 % (3-13); RED BLOOD COUNT 4.55 10^6/uL (3.72-5.28); RED CELL DISTRIBUTION WIDTH 14.5 % (11.5-14.0); SEGMENTED NEUTROPHILS % (AUTO) 65.6 % (42-78); WHITE BLOOD COUNT 15.8 10^3/uL (4.0-10.5)
[2016-12-18 01:20] LABS: ANION GAP 14 (5-19); BLOOD UREA NITROGEN 13 mg/dL (7-20); CALCIUM 9.5 mg/dL (8.4-10.2); CARBON DIOXIDE 17 mmol/L (22-30); CHLORIDE 113 mmol/L (98-107); CREATININE RESULT 0.75 mg/dL (0.52-1.25); GLUCOSE 126 mg/dL (75-110); POTASSIUM 3.7 mmol/L (3.6-5.0); SODIUM 143.9 mmol/L (137-145)
[2016-12-18] MEDS ORDERED: FENTANYL CITRATE INJ/PF 100 MCG/2 ML AMPUL IV ONE (02:39)
[2016-12-18] MEDS ORDERED: DIPHENHYDRAMINE HCL 50 MG/ML VIAL IV ONE (02:50)
[2016-12-18 05:12] VITALS: BP 99/67
== END 2016-12-18 05:13 | disposition home or self-care (01) ==
LOC: ER 23:08
DX: R51 Headache (principal); R11.10 Vomiting, unspecified; Z91.040 Latex allergy status; Z88.6 Allergy status to analgesic agent; Z88.3 Allergy status to other anti-infective agents; Z90.49 Acquired absence of other specified parts of digestive tract; Z90.710 Acquired absence of both cervix and uterus
CPT/HCPCS: 99284; 96361; 96374; 96375; 36415; 85025; 80048; 70450; 70496; J1200; J3010; J3490; J2405; J7030

== ENCOUNTER 2016-12-25 01:00 | Emergency (ER) | payer OTHER ==
--- NOTE | 2016-12-25 01:13 | ER Document Report ---
ED Headache - General Stated Complaint: POSSIBLE MIGRANE Time seen by provider: 01:12 Mode of Arrival: Ambulatory Information source: Patient Notes: 41-year-old female presents to ED for headache with nausea and vomiting for the past 45 minutes. She has a history of migraines and was here for about a week ago for the same. TRAVEL OUTSIDE OF THE [place] IN LAST 30 DAYS: No - Related Data Allergies/Adverse Reactions: ibuprofen Allergy (Verified 12/10/16 21:22) latex Allergy (Verified 12/10/16 21:22) metoclopramide [From Reglan] Allergy (Verified 12/10/16 21:22) Penicillins Allergy (Verified 12/10/16 21:22) sulfamethoxazole [From Septra] Allergy (Verified 12/10/16 21:22) sumatriptan [From Imitrex] Allergy (Verified 12/10/16 21:22) tramadol Allergy (Verified 12/10/16 21:22) trimethoprim [From Septra] Allergy (Verified 12/10/16 21:22) zolmitriptan [From Zomig] Allergy (Verified 12/10/16 21:22) prochlorperazine [From Compazine] Adverse Reaction (Verified 12/10/16 21:22) Past Medical History - Social History Family History: Reviewed & Not Pertinent Neurological Medical History: Reports: Hx Migraine Renal/ Medical History: Denies: Hx Peritoneal Dialysis GI Medical History: Reports: Hx Gastroesophageal Reflux Disease Past Surgical History: Reports: Hx Appendectomy, Hx Cholecystectomy, Hx Hysterectomy, Hx Orthopedic Surgery - back - Immunizations Hx Diphtheria, Pertussis, Tetanus Vaccination: Yes Physical Exam - Vital signs Vitals: Temp Pulse Resp BP Pulse Ox 98.4 F 115 H 20 128/89 H 98 12/25/16 01:04 12/25/16 01:04 12/25/16 01:04 12/25/16 01:04 12/25/16 01:04 Course - Vital Signs Vital signs: Temp Pulse Resp BP Pulse Ox 98.4 F 115 H 20 128/89 H 98 12/25/16 01:04 12/25/16 01:04 12/25/16 01:04 12/25/16 01:04 12/25/16 01:04
[2016-12-25] MEDS ORDERED: ONDANSETRON 4 MG TAB.RAPDIS PO ONE ×2 (01:16→08:32)
[2016-12-25] MEDS ORDERED: ACETAMINOPHEN 325 MG TABLET PO ONE (01:16)
--- NOTE | 2016-12-25 01:16 | ER Document Report ---
ED Medical Screen (RME) - General Chief Complaint: Headache Stated Complaint: POSSIBLE MIGRANE Time seen by provider: 01:15 Mode of Arrival: Ambulatory Information source: Patient Notes: Patient presents to ED for headache with nausea and vomiting the last 45 minutes. She has a history of migraines and was seen in the ED a week ago for the same thing. She has numerous allergies as listed above. I have greeted and performed a rapid initial assessment of this patient. A comprehensive ED assessment and evaluation of the patient, analysis of test results and completion of medical decision making process will be conducted by an additional ED providers. TRAVEL OUTSIDE OF THE [place] IN LAST 30 DAYS: No - Related Data Allergies/Adverse Reactions: ibuprofen Allergy (Verified 12/10/16 21:22) latex Allergy (Verified 12/10/16 21:22) metoclopramide [From Reglan] Allergy (Verified 12/10/16 21:22) Penicillins Allergy (Verified 12/10/16 21:22) sulfamethoxazole [From Septra] Allergy (Verified 12/10/16 21:22) sumatriptan [From Imitrex] Allergy (Verified 12/10/16 21:22) tramadol Allergy (Verified 12/10/16 21:22) trimethoprim [From Septra] Allergy (Verified 12/10/16 21:22) zolmitriptan [From Zomig] Allergy (Verified 12/10/16 21:22) prochlorperazine [From Compazine] Adverse Reaction (Verified 12/10/16 21:22) Past Medical History - Social History Frequency of alcohol use: Rare Drug Abuse: None Neurological Medical History: Reports: Hx Migraine Renal/ Medical History: Denies: Hx Peritoneal Dialysis GI Medical History: Reports: Hx Gastroesophageal Reflux Disease Past Surgical History: Reports: Hx Appendectomy, Hx Cholecystectomy, Hx Hysterectomy, Hx Orthopedic Surgery - back - Immunizations Hx Diphtheria, Pertussis, Tetanus Vaccination: Yes Physical Exam - Vital signs Vitals: Temp Pulse Resp BP Pulse Ox 98.4 F 115 H 20 128/89 H 98 12/25/16 01:04 12/25/16 01:04 12/25/16 01:04 12/25/16 01:04 12/25/16 01:04 Course - Vital Signs Vital signs: Temp Pulse Resp BP Pulse Ox 98.4 F 115 H 20 128/89 H 98 12/25/16 01:04 12/25/16 01:04 12/25/16 01:04 12/25/16 01:04 12/25/16 01:04
[2016-12-25] MEDS ORDERED: HYDROXYZINE HCL INJ 50 MG/1 ML VIAL IM ONE (07:38)
[2016-12-25] MEDS ORDERED: DEXAMETHASONE 4 MG TABLET PO ONE (07:39)
[2016-12-25] MEDS ORDERED: PROMETHAZINE HCL INJ 25 MG/1 ML VIAL IM ONE (09:12)
[2016-12-25] MEDS ORDERED: HYDROMORPHONE HCL INJ/PF 2 MG/ML AMPULE IM ONE (09:13)
--- NOTE | 2016-12-25 09:14 | ER Document Report ---
ED General - General Chief Complaint: Headache Stated Complaint: POSSIBLE MIGRANE Mode of Arrival: Ambulatory TRAVEL OUTSIDE OF THE [place] IN LAST 30 DAYS: No - HPI Patient complains to provider of: migraine headache Notes: Patient coming in for evaluation of a migraine headache. Patient has been seen in this facility multiple times for these headaches in the past. Patient states similar to past episodes currently is pending her neurology appointment. Patient has tried many headache cocktails and was found to be alerted to most of the headache medications. Patient denies any fevers denies any specific neck pain. Denies any head trauma since last visit. Quick review the patient's previous visit was performed. Multiple CAT scans have been performed: CTA of the head showed no signs of aneurysm. - Related Data Allergies/Adverse Reactions: ibuprofen Allergy (Verified 12/25/16 07:51) latex Allergy (Verified 12/25/16 07:51) metoclopramide [From Reglan] Allergy (Verified 12/25/16 07:51) Penicillins Allergy (Verified 12/25/16 07:51) sulfamethoxazole [From Septra] Allergy (Verified 12/25/16 07:51) sumatriptan [From Imitrex] Allergy (Verified 12/25/16 07:51) tramadol Allergy (Verified 12/25/16 07:51) trimethoprim [From Septra] Allergy (Verified 12/25/16 07:51) zolmitriptan [From Zomig] Allergy (Verified 12/25/16 07:51) prochlorperazine [From Compazine] Adverse Reaction (Verified 12/25/16 07:51) Past Medical History - General Information source: Patient - Social History Smoking Status: Never Smoker Frequency of alcohol use: Rare Drug Abuse: None Family History: Reviewed & Not Pertinent Patient has suicidal ideation: No Patient has homicidal ideation: No - Past Medical History Cardiac Medical History: Reports: Hx Hypercholesterolemia Neurological Medical History: Reports: Hx Migraine Renal/ Medical History: Denies: Hx Peritoneal Dialysis GI Medical History: Reports: Hx Gastroesophageal Reflux Disease Past Surgical History: Reports: Hx Appendectomy, Hx Cholecystectomy, Hx Hysterectomy, Hx Orthopedic Surgery - back - Immunizations Hx Diphtheria, Pertussis, Tetanus Vaccination: Yes Review of Systems - Review of Systems Constitutional: No symptoms reported EENT: No symptoms reported Cardiovascular: No symptoms reported Respiratory: No symptoms reported Gastrointestinal: No symptoms reported Genitourinary: No symptoms reported Female Genitourinary: No symptoms reported Musculoskeletal: No symptoms reported Skin: No symptoms reported Hematologic/Lymphatic: No symptoms reported Neurological/Psychological: No symptoms reported, Headaches -: Yes All other systems reviewed and negative Physical Exam - Vital signs Vitals: Temp Pulse Resp BP Pulse Ox 98.4 F 115 H 20 128/89 H 98 12/25/16 01:04 12/25/16 01:04 12/25/16 01:04 12/25/16 01:04 12/25/16 01:04 Interpretation: Normal - General General appearance: Appears well, Alert - HEENT Head: Normocephalic, Atraumatic Eyes: Normal Pupils: PERRL - Respiratory Respiratory status: No respiratory distress Chest status: Nontender Breath sounds: Normal Chest palpation: Normal - Cardiovascular Rhythm: Regular Heart sounds: Normal auscultation Murmur: No - Abdominal Inspection: Normal Distension: No distension Bowel sounds: Normal Tenderness: Nontender Organomegaly: No organomegaly - Back Back: Normal, Nontender - Extremities General upper extremity: Normal inspection, Nontender, Normal color, Normal ROM , Normal temperature General lower extremity: Normal inspection, Nontender, Normal color, Normal ROM , Normal temperature, Normal weight bearing. No: Gary's sign - Neurological Neuro grossly intact: Yes Cognition: Normal Orientation: AAOx4 Noah Coma Scale Eye Opening: Spontaneous [place] Coma Scale Verbal: Oriented [place] Coma Scale Motor: Obeys Commands Noah Coma Scale Total: 15 Speech: Normal Cranial nerves: Normal Cerebellar coordination: Normal Motor strength normal: LUE, RUE, LLE, RLE Sensory: Normal - Psychological Associated symptoms: Normal affect, Normal mood - Skin Skin Temperature: Warm Skin Moisture: Dry Skin Color: Normal Course - Re-evaluation Re-evalutation: 12/25/16 14:03 Patient coming in for evaluation of headache. Patient after evaluation states she thinks that she is not sleeping very well therefore exacerbating her migraine headaches. A dose of Vistaril was given as a the patient states that she did not react well to Haldol in the past. Patient did not receive any good pain relief with Vistaril therefore patient was given IM dose of Dilaudid. Patient did achieve good pain relief. Will give the patient also doesn't Decadron still prescribe Vistaril for the patient to take at nighttime to hopefully aid in sleep. Patient will also be given a small pressure some oxycodone. Patient was encouraged follow-up with her neurologist for further evaluation as of the patient is allergic to most of the headache medications given here in the ER. Patient states understanding and agrees to plan. - Vital Signs Vital signs: Temp Pulse Resp BP Pulse Ox 98.0 F 97 18 124/78 96 12/25/16 11:07 12/25/16 11:07 12/25/16 07:55 12/25/16 11:07 12/25/16 11:07 Discharge - Discharge Clinical Impression: Headache Qualifiers: Headache type: unspecified Headache chronicity pattern: acute headache Intractability: not intractable Qualified Code(s): R51 - Headache Condition: Good Disposition: HOME, SELF-CARE Instructions: Headache ([facility]), Migraine Headache ([facility]) Additional Instructions: Please take medication as prescribed. Follow-up with your primary care physician and your neurologist. Prescriptions: Hydroxyzine Pamoate [Vistaril 50 mg Capsule] 50 mg PO QHS #14 capsule Oxycodone HCl 5 mg PO Q6 #14 tablet Forms: Return to Work
[2016-12-25 11:10] VITALS: BP 129/66
== END 2016-12-25 11:11 | disposition home or self-care (01) ==
LOC: ER 01:00
DX: G43.909 Migraine, unspecified, not intractable, without status migrainosus (principal); Z88.6 Allergy status to analgesic agent; Z91.040 Latex allergy status; Z88.8 Allergy status to other drugs, medicaments and biological substances; Z88.0 Allergy status to penicillin; Z88.1 Allergy status to other antibiotic agents
CPT/HCPCS: 99283; 96372; S0119; J3490; J1170; J2550

== ENCOUNTER 2017-02-17 05:24 | Emergency (ER) | payer OTHER ==
[2017-02-17] MEDS ORDERED: OXYMETAZOLINE HCL 0.05% NASAL SPRAY 15 ML BOTTLE NASL ONE (08:14)
[2017-02-17 08:27] VITALS: BP 96/50
--- NOTE | 2017-02-17 08:58 | ER Document Report ---
ED General - General Chief Complaint: Headache Stated Complaint: HEADACHE TRAVEL OUTSIDE OF THE [place] IN LAST 30 DAYS: No - HPI Patient complains to provider of: migraine headache Notes: Patient's coming in for her migraine headache. Patient's neurologist is Dr. Hunt. Patient currently receives Botox injections and Stadol sprays for her migraine headaches. Patient states headache ongoing for approximately 24 hours same as her headaches in the past however she has been unable to take her Stadol nasal spray as that she has had a few nasal bleeds in the past few days also feels very congested. Patient is currently on Cipro for urinary tract infection. Patient states she also takes Zyrtec and Flonase for her seasonal allergies. Patient denies any change in her headaches. Patient denies any unilateral weakness patient does have photophobia which is consistent with her present patient to migraines. Upon my evaluation patient is easily arousable she is resting moving all 4 extremities - Related Data Allergies/Adverse Reactions: ibuprofen Allergy (Verified 02/17/17 08:25) latex Allergy (Verified 02/17/17 08:25) metoclopramide [From Reglan] Allergy (Verified 02/17/17 08:25) Penicillins Allergy (Verified 02/17/17 08:25) sulfamethoxazole [From Septra] Allergy (Verified 02/17/17 08:25) sumatriptan [From Imitrex] Allergy (Verified 02/17/17 08:25) tramadol Allergy (Verified 02/17/17 08:25) trimethoprim [From Septra] Allergy (Verified 02/17/17 08:25) zolmitriptan [From Zomig] Allergy (Verified 02/17/17 08:25) prochlorperazine [From Compazine] Adverse Reaction (Verified 02/17/17 08:25) Past Medical History - Social History Smoking Status: Unknown if Ever Smoked Family History: Reviewed & Not Pertinent Patient has suicidal ideation: No Patient has homicidal ideation: No - Past Medical History Cardiac Medical History: Reports: Hx Hypercholesterolemia Neurological Medical History: Reports: Hx Migraine Renal/ Medical History: Denies: Hx Peritoneal Dialysis GI Medical History: Reports: Hx Gastroesophageal Reflux Disease Past Surgical History: Reports: Hx Appendectomy, Hx Cholecystectomy, Hx Hysterectomy, Hx Orthopedic Surgery - back - Immunizations Hx Diphtheria, Pertussis, Tetanus Vaccination: Yes Review of Systems - Review of Systems Constitutional: No symptoms reported EENT: No symptoms reported Cardiovascular: No symptoms reported Respiratory: No symptoms reported Gastrointestinal: No symptoms reported Genitourinary: No symptoms reported Female Genitourinary: No symptoms reported Musculoskeletal: No symptoms reported Skin: No symptoms reported Hematologic/Lymphatic: No symptoms reported Neurological/Psychological: Headaches Physical Exam - Vital signs Vitals: Temp Pulse Resp BP Pulse Ox 98.4 F 72 18 120/76 99 02/17/17 05:28 02/17/17 05:28 02/17/17 05:28 02/17/17 05:28 02/17/17 05:28 Interpretation: Normal - General General appearance: Appears well, Alert - HEENT Head: Normocephalic, Atraumatic Eyes: Normal Cornea: Normal Extraocular movements intact: Yes Eyelashes: Normal Pupils: PERRL Sinus: Frontal - Frontal tenderness Nasal: Normal Pharynx: Normal Neck: Normal - Respiratory Respiratory status: No respiratory distress Chest status: Nontender Breath sounds: Normal Chest palpation: Normal - Cardiovascular Rhythm: Regular Heart sounds: Normal auscultation Murmur: No - Abdominal Inspection: Normal Distension: No distension Bowel sounds: Normal Tenderness: Nontender Organomegaly: No organomegaly - Back Back: Normal, Nontender - Extremities General upper extremity: Normal inspection, Nontender, Normal color, Normal ROM , Normal temperature General lower extremity: Normal inspection, Nontender, Normal color, Normal ROM , Normal temperature, Normal weight bearing. No: Gary's sign - Neurological Neuro grossly intact: Yes Cognition: Normal Orientation: AAOx4 Noah Coma Scale Eye Opening: Spontaneous [place] Coma Scale Verbal: Oriented [place] Coma Scale Motor: Obeys Commands Noah Coma Scale Total: 15 Speech: Normal Motor strength normal: LUE, RUE, LLE, RLE Sensory: Normal - Psychological Associated symptoms: Normal affect, Normal mood - Skin Skin Temperature: Warm Skin Moisture: Dry Skin Color: Normal Course - Re-evaluation Re-evalutation: 02/17/17 09:09 Patient coming in for evaluation of her headaches. Patient states she is unable to take her medication because of nasal congestion and previous nosebleeds. Patient was given a nasal clip for her nosebleeds at home consisting of 2 tongue depressors with tape. Patient was also instructed to hold off for approximately one week of her Flonase as that this may be also contributing to her nosebleeds. This time patient has no active bleeding or sites of bleeding. Because of the patient's congestion I will give the patient Afrin to open up her nasal passages itch therefore that she will be able to take her Stadol. I did explain instructed patient on the use of Afrin and to only use it for the next 72 hours as needed twice a day. Patient stated understanding did encourage patient follow-up with her neurologist for further evaluation and possible medication changes. - Vital Signs Vital signs: Temp Pulse Resp BP Pulse Ox 98.4 F 72 18 120/76 99 02/17/17 05:28 02/17/17 05:28 02/17/17 05:28 02/17/17 05:28 02/17/17 05:28 Discharge - Discharge Clinical Impression: Sinus congestion Migraine Qualifiers: Migraine type: unspecified Status migrainosus presence: without status migrainosus Intractability: not intractable Qualified Code(s): G43.909 - Migraine, unspecified, not intractable, without status migrainosus Condition: Good Disposition: HOME, SELF-CARE Additional Instructions: Please use the Afrin provided to alleviate your sinus congestion so that she may use your Stadol for your migraine headaches at home. I would recommend calling your neurologist today to schedule another follow-up visit. You may use the Afrin 1-2 sprays in each nausea oral twice a day as needed for congestion for the next 72 hours. I would refrain from using Flonase for the next week as that this may be contributing to your nasal bleeds. If you do develop another nosebleed please apply the nasal clip to your nose to hold pressure. He should hold pressure for 3 minutes then removed the clip. If you're still having bleeding please apply the clip for another 30 minutes. Avoid excessive nose wiping or blowing of your nose Referrals: FUNMI MARCOS JR, MD [Primary Care Provider] - Follow up in 3-5 days FLORENCIA HUNT MD [ACTIVE STAFF] - Follow up in 3-5 days
== END 2017-02-17 08:31 | disposition home or self-care (01) ==
LOC: ER 05:24
DX: G43.909 Migraine, unspecified, not intractable, without status migrainosus (principal); J30.2 Other seasonal allergic rhinitis; H53.149 Visual discomfort, unspecified; R09.81 Nasal congestion; N39.0 Urinary tract infection, site not specified; Z79.899 Other long term (current) drug therapy; Z88.6 Allergy status to analgesic agent; Z91.040 Latex allergy status; Z88.0 Allergy status to penicillin; Z88.8 Allergy status to other drugs, medicaments and biological substances; Z88.1 Allergy status to other antibiotic agents; Z88.5 Allergy status to narcotic agent
CPT/HCPCS: 99283; J3490

== ENCOUNTER 2017-04-22 01:58 | Emergency (ER) | payer OTHER ==
[2017-04-22 02:09] VITALS: BP 125/79
[2017-04-22] MEDS ORDERED: PROMETHAZINE HCL 25 MG TABLET PO ONE (03:06)
[2017-04-22] MEDS ORDERED: DEXAMETHASONE SOD PHOS INJ 10 MG/1 ML VIAL IV ONE (03:06)
[2017-04-22] MEDS ORDERED: DIPHENHYDRAMINE HCL 50 MG/ML VIAL IV ONE (03:07)
[2017-04-22] MEDS ORDERED: HYDROMORPHONE HCL INJ/PF 2 MG/ML AMPULE IV ONE ×2 (03:07→04:28)
--- NOTE | 2017-04-22 03:20 | ER Document Report ---
ED Headache - General Chief Complaint: Headache Stated Complaint: HEAD PAIN Time Seen by Provider: 04/22/17 02:49 Mode of Arrival: Ambulatory Information source: Patient Notes: 42-year-old female presents to ED for migraine headache started yesterday. TRAVEL OUTSIDE OF THE [place] IN LAST 30 DAYS: No - HPI Patient complains to provider of: Headache, "Migraine" Patient reports: Hx chronic headaches Onset: Yesterday Onset was: Gradual Timing: Still present Quality of pain: Sharp, Throbbing Severity: Severe Pain Level: 5 Associated symptoms: Nausea/vomiting Exacerbated by: Light, Noise, Movement, Position Similar symptoms previously: Yes Recently seen / treated by doctor: No - Related Data Allergies/Adverse Reactions: ibuprofen Allergy (Verified 02/17/17 08:25) latex Allergy (Verified 02/17/17 08:25) metoclopramide [From Reglan] Allergy (Verified 02/17/17 08:25) Penicillins Allergy (Verified 02/17/17 08:25) sulfamethoxazole [From Septra] Allergy (Verified 02/17/17 08:25) sumatriptan [From Imitrex] Allergy (Verified 02/17/17 08:25) tramadol Allergy (Verified 02/17/17 08:25) trimethoprim [From Septra] Allergy (Verified 02/17/17 08:25) zolmitriptan [From Zomig] Allergy (Verified 02/17/17 08:25) prochlorperazine [From Compazine] Adverse Reaction (Verified 02/17/17 08:25) Past Medical History - General Information source: Patient - Social History Smoking Status: Never Smoker Cigarette use (# per day): No Chew tobacco use (# tins/day): No Smoking Education Provided: No Frequency of alcohol use: Occasional Drug Abuse: None Occupation: none Lives with: Family Family History: Arthritis, COPD, CVA, DM, Hyperlipidemia, Hypertension, Malignancy. denies: CAD, Thyroid Disfunction Patient has suicidal ideation: No Patient has homicidal ideation: No - Past Medical History Cardiac Medical History: Reports: Hx Hypercholesterolemia, Other - Von Willebrand's Pulmonary Medical History: Reports: None EENT Medical History: Reports: None Neurological Medical History: Reports: Hx Migraine Endocrine Medical History: Reports: None Renal/ Medical History: Reports: Hx Ovarian Cysts - PCOS Malignancy Medical History: Reports: None GI Medical History: Reports: Hx Gastroesophageal Reflux Disease, Hx Hiatal Hernia Musculoskeltal Medical History: Reports Hx Arthritis, Reports Hx Musculoskeletal Deformity - Scoliosis, Reports Hx Musculoskeletal Trauma Skin Medical History: Reports None Psychiatric Medical History: Reports: Hx Anxiety, Hx Depression Traumatic Medical History: Reports: None Infectious Medical History: Reports: None Past Surgical History: Reports: Hx Appendectomy, Hx Cholecystectomy, Hx Hysterectomy - Partial, Hx Orthopedic Surgery - Alexander rods - Immunizations Hx Diphtheria, Pertussis, Tetanus Vaccination: Yes Review of Systems - Review of Systems Constitutional: No symptoms reported EENT: Nose discharge, Sinus discharge Cardiovascular: No symptoms reported Respiratory: No symptoms reported Gastrointestinal: No symptoms reported Genitourinary: No symptoms reported Female Genitourinary: No symptoms reported Musculoskeletal: No symptoms reported Skin: No symptoms reported Hematologic/Lymphatic: No symptoms reported Neurological/Psychological: Headaches -: Yes All other systems reviewed and negative Physical Exam - Vital signs Vitals: Temp Pulse Resp BP Pulse Ox 98.6 F 111 H 16 125/79 100 04/22/17 02:06 04/22/17 02:06 04/22/17 02:06 04/22/17 02:06 04/22/17 02:06 Interpretation: Normal - General General appearance: Appears well, Alert - HEENT Head: Normocephalic, Atraumatic Eyes: Normal Pupils: PERRL Visual noble normal: Yes Ears: Normal External canal: Normal Tympanic membrane: Normal Sinus: Normal Nasal: Purulent discharge, Swelling Mouth/Lips: Normal Mucous membranes: Normal Pharynx: Post nasal drainage Neck: Normal - Respiratory Respiratory status: No respiratory distress Chest status: Nontender Breath sounds: Normal Chest palpation: Normal - Cardiovascular Rhythm: Regular Heart sounds: Normal auscultation Murmur: No - Abdominal Inspection: Normal Distension: No distension Bowel sounds: Normal Tenderness: Nontender Organomegaly: No organomegaly - Back Back: Normal, Nontender - Extremities General upper extremity: Normal inspection, Nontender, Normal color, Normal ROM , Normal temperature General lower extremity: Normal inspection, Nontender, Normal color, Normal ROM , Normal temperature, Normal weight bearing. No: Gary's sign - Neurological Neuro grossly intact: Yes Cognition: Normal Orientation: AAOx4 [place] Coma Scale Eye Opening: Spontaneous [place] Coma Scale Verbal: Oriented [place] Coma Scale Motor: Obeys Commands [place] Coma Scale Total: 15 Speech: Normal Cranial nerves: Normal Cerebellar coordination: Normal Motor strength normal: LUE, RUE, LLE, RLE Additional motor exam normals: Equal product builder Babinski reflex: Normal (flexor plantar) Sensory: Normal - Psychological Associated symptoms: Normal affect, Normal mood - Skin Skin Temperature: Warm Skin Moisture: Dry Skin Color: Normal Course - Re-evaluation Re-evalutation: 04/22/17 05:29 States headache is much better is ready to go home. Patient instructed to please follow-up with her neurologist within the next day or so and to be sure to take her Botox injection as scheduled. - Vital Signs Vital signs: Temp Pulse Resp BP Pulse Ox 98.6 F 111 H 16 125/79 100 04/22/17 02:06 04/22/17 02:06 04/22/17 02:06 04/22/17 02:06 04/22/17 02:06 Discharge - Discharge Clinical Impression: Migraine Qualifiers: Migraine type: unspecified Status migrainosus presence: without status migrainosus Intractability: not intractable Qualified Code(s): G43.909 - Migraine, unspecified, not intractable, without status migrainosus Condition: Stable Disposition: HOME, SELF-CARE Additional Instructions: HEADACHE: The physician does not feel that the headache you are experiencing has a serious underlying cause. Most headaches are due to emotional stress, with resultant muscle tension (tension headache). Occasionally, headaches are secondary to changes in the blood vessels of the scalp (vascular headache and migraine headache). Sometimes, a headache is the first symptom of another developing illness, such as a viral infection. You have no evidence of stroke, bleeding, meningitis, or other serious cause of your headache. The treatment of headaches varies with the severity and cause of the pain. Not all headaches need pain shots. In fact, there is evidence that using narcotics for headaches may make them worse in the long run. The physician will determine the therapy that's in your best interest. If you develop a fever, if the headache is different from any you've previously experienced, or if the headache progressively worsens, then call your physician at once or go to the emergency room. USE OF DIPHENHYDRAMINE: Diphenhydramine (Benadryl) is an antihistamine and has been recommended to help treat your headache and to prevent side effects of other medications used to treat headaches. The medication can be repeated four times daily. Age Elixir (12.5 mg/tsp) 25 mg pill adult 1-2 tabs Antihistamines may cause drowsiness, especially with the first dose. Do not operate machinery or drive while under the effects of the medication. Do not combine the medication with alcohol, or with any other medication without talking to your doctor. ANTINAUSEA MEDICATION: You have been given a medication to suppress nausea and vomiting. This type of medication can be given as a shot, pill, or suppository. It will usually last for many hours. Pills and shots usually last six to eight hours, suppositories last about 12 hours. For the typical illness, only one or two doses of the medication may be necessary. Mild lightheadedness may occur. This type of medicine can cause drowsiness. Do not drive or operate dangerous machinery while under its influence. Do not mix with alcohol. See your doctor at once if you have muscle spasms or tightness, or uncontrollable motions (particularly of the neck, mouth, or jaw). Persistent vomiting or severe lightheadedness should also be evaluated by the physician. STEROID MEDICATION: You have been given an injection of medicine of the cortisone/steroid class. This medication is used to control inflammation or allergy. It is often continued as a pill for a short period of time, until the acute process subsides. There are usually no side effects from short-term use of cortisone-like medications. Some persons feel an increased sense of well-being and are not sleepy at bedtime. Long-term use of cortisone medications is best avoided, unless required for a severe condition. If your condition does not remit, or relapses after the course of corticosteroid medication, you should consult your physician. PAIN MEDICATION INJECTION: You have received an injection of a pain medication. You should experience significant pain relief within 45 minutes. This drug is a narcotic - - it will impair your judgement, slow your reaction time and make you sleepy ( as well as relieve your pain). Narcotics also can cause nausea. You should not drive, work with machinery, or perform any task requiring mental alertness until all effects of the medication are gone -- six to eight hours. Do not take any alcohol, or sedatives, and do not take any other medication without checking with your physician. Intravenous (IV) Fluids As part of your care today, you received intravenous (IV) fluids. IV fluids are administered to patients who are dehydrated or to those who have certain chemical (electrolyte) abnormalities that need correcting. FOLLOW-UP CARE: If you have been referred to a physician for follow-up care, call the physician s office for an appointment as you were instructed or within the next two days. If you experience worsening or a significant change in your symptoms, notify the physician immediately or return to the Emergency Department at any time for re-evaluation. Referrals: FLORENCIA HUNT MD [ACTIVE STAFF] - Follow up in 3-5 days
[2017-04-22] MEDS ORDERED: NORMAL SALINE 1000 ML 1,000 ML IV ONE (04:28)
== END 2017-04-22 05:31 | disposition home or self-care (01) ==
LOC: ER 01:58
DX: G43.909 Migraine, unspecified, not intractable, without status migrainosus (principal); R11.2 Nausea with vomiting, unspecified; J34.89 Other specified disorders of nose and nasal sinuses; Z88.6 Allergy status to analgesic agent; Z91.040 Latex allergy status; Z88.8 Allergy status to other drugs, medicaments and biological substances; Z88.0 Allergy status to penicillin; Z88.5 Allergy status to narcotic agent; Z88.1 Allergy status to other antibiotic agents
CPT/HCPCS: 96376; 99283; 96361; 96374; 96375; J1200; J1170; J7030; J1100

== ENCOUNTER 2017-06-15 21:15 | Emergency (ER) | payer OTHER ==
[2017-06-15] MEDS ORDERED: ONDANSETRON HCL INJ/PF 4 MG/2 ML SDV IV ONE (23:26)
[2017-06-15] MEDS ORDERED: NORMAL SALINE 1000 ML 1,000 ML IV ONE (23:26)
[2017-06-15] MEDS ORDERED: METHYLPREDNISOLONE INJ 125 MG/2 ML SDV IV ONE (23:43)
[2017-06-15] MEDS ORDERED: DIPHENHYDRAMINE HCL 50 MG/ML VIAL IV ONE (23:43)
[2017-06-16] MEDS: MAGNESIUM SULFATE/D5W 100 ML IV SCH ×2 (00:13→00:37)
--- NOTE | 2017-06-16 00:13 | ER Document Report ---
HPI - HPI Pain Level: 5 Notes: Patient is a 42-year-old female who presents the ED complaining of a migraine headache 4 days that she is unable to break. She states that she has had a history of migraines and has been evaluated in the past. She does take Stadol and other medications at home to help with her pain, but that has been unsuccessful in reducing her pain at this time. Patient states that she also has some nausea and vomiting along with light sensitivity and noise sensitivity. Patient denies any current vision changes. Patient states that she also has some nasal congestion/discharge and sinus pressure 4 days. Patient states that she is able to keep some fluids down. Denies anyfever, head injury, neck pain/stiffness, changes in vision/speech/mentation/hearing, sore throat, chest pain, palpitations, syncope, cough, shortness of breath, wheeze, dyspnea, abdominal pain, diarrhea, urinary retention, dysuria, hematuria , numbness/tingling, saddle anesthesia, muscle paralysis/weakness, or rash. Patient requesting Benadryl, Phenergan, Decadron, Dilaudid for her headache. - ROS Notes: REVIEW OF SYSTEMS: CONSTITUTIONAL : Denies fever, chills, or sweats. EENT: see hpi CARDIOVASCULAR: Denies chest pain. Denies palpitations or racing or irregular heart beat. Denies ankle edema. RESPIRATORY: Denies cough, cold, or chest congestion. Denies shortness of breath, difficulty breathing, or wheezing. GASTROINTESTINAL: see hpi GENITOURINARY: Denies difficulty urinating, painful urination, burning, frequency, blood in urine, or discharge. MUSCULOSKELETAL: Denies back or neck pain or stiffness. Denies joint pain or swelling. SKIN: Denies rash, lesions or sores. NEUROLOGICAL: see hpi. Denies confusion or altered mental status. Denies passing out or loss of consciousness. Denies dizziness or lightheadedness. Denies weakness or paralysis or loss of use of either side. Denies problems with gait or speech. Denies sensory loss, numbness, or tingling. Denies seizures. PSYCHIATRIC: Denies anxiety or stress. Denies depression, suicidal ideation, or homicidal ideation. ALL OTHER SYSTEMS REVIEWED AND NEGATIVE. Dictation was performed using [employer] voice recognition software - REPRODUCTIVE Reproductive: DENIES: : - DERM Skin Color: Normal, [place] Past Medical History - Social History Smoking Status: Unknown if Ever Smoked Family History: Arthritis, COPD, CVA, DM, Hyperlipidemia, Hypertension, Malignancy. denies: CAD, Thyroid Disfunction - Past Medical History Cardiac Medical History: Reports: Hx Hypercholesterolemia Neurological Medical History: Reports: Hx Migraine Renal/ Medical History: Reports: Hx Ovarian Cysts - PCOS. Denies: Hx Peritoneal Dialysis GI Medical History: Reports: Hx Gastroesophageal Reflux Disease, Hx Hiatal Hernia Musculoskeltal Medical History: Reports Hx Arthritis, Reports Hx Musculoskeletal Deformity - Scoliosis, Reports Hx Musculoskeletal Trauma Psychiatric Medical History: Reports: Hx Anxiety, Hx Depression Past Surgical History: Reports: Hx Appendectomy, Hx Cholecystectomy, Hx Hysterectomy - Partial, Hx Orthopedic Surgery - Alexander rods - Immunizations Hx Diphtheria, Pertussis, Tetanus Vaccination: Yes Vertical Provider Document - CONSTITUTIONAL Agree With Documented VS: Yes Notes: PHYSICAL EXAMINATION: GENERAL: Well-appearing, well-nourished and in no acute distress. HEAD: Atraumatic, normocephalic. EYES: Pupils equal round and reactive to light, extraocular movements intact, sclera anicteric, conjunctiva are normal. Visual noble intact. ENT: EAC clear b/l. TM's intact b/l without erythema, fluid, or perforation. Nares patent and without discharge. oropharynx clear without exudates. No tonsilar hypertrophy or erythema. Moist mucous membranes. No sinus tenderness. No facial swelling. Uvula midline. No palatine shift. No tongue protrusion. NECK: Normal range of motion, supple without lymphadenopathy. No rigidity/ meningismus. LUNGS: Breath sounds clear to auscultation bilaterally and equal. No wheezes rales or rhonchi. HEART: Regular rate and rhythm without murmurs, rubs, gallops. ABDOMEN: Soft, nontender, nondistended abdomen. No guarding, no rebound. No masses appreciated. Normal bowel sounds present. No CVA tenderness bilaterally. Musculoskeletal: Ext b/l: FROM to passive/active. Strength 5+/5. No focal deficits noted. Extremities: No cyanosis, clubbing, or edema b/l. Peripheral pulses 2+. Capillary refill less than 3 seconds. NEUROLOGICAL: MMSE intact. Cranial nerves grossly intact. Normal speech, normal gait. Normal sensory, motor exams PSYCH: Normal mood, normal affect. SKIN: Warm, Dry, normal turgor, no rashes or lesions noted. - INFECTION CONTROL TRAVEL OUTSIDE OF THE [place] IN LAST 30 DAYS: No Course - Re-evaluation Re-evalutation: 06/16/17 01:28 Patient is an afebrile, well-hydrated, 42-year-old female who presents the ED with a headache, suspect migraine based on H&P along with acute sinusitis, suspect viral. Vitals are stable. PE otherwise unremarkable for any focal neurological deficits. Low suspicion for any acute glaucoma, temporal arteritis , meningitis, intracranial hemorrhage, ischemic stroke, or fracture at this time. Patient is aware that his condition can change from initial presentation and that he needs to monitor symptoms closely for any acute changes. Reviewed case with Dr. Ashley who is in agreement with discharge plan. Solu-Medrol 125 mg , Benadryl 50 mg, 2 g of magnesium, zofran, 1 L normal saline given IV today. Reviewed with patient that narcotics are not warranted for chronic ongoing condition that we will not be giving her her Dilaudid. Pt able to tolerate PO intake. HECK did improve with treatment provided today. Pt has zofran at home. Pt to be discharged in stable condition. Advised recheck with her neurologist tomorrow. Conservative measures otherwise for symptoms. Recheck with PCM in 2- 3 days. Return to the ED with any worsening/concerning symptoms otherwise as reviewed discharge. Patient is in agreement. Discharge - Discharge Clinical Impression: Headache Qualifiers: Headache type: unspecified Headache chronicity pattern: acute headache Intractability: not intractable Qualified Code(s): R51 - Headache Condition: Stable Disposition: HOME, SELF-CARE Instructions: Antinausea Medication ([facility]), Use of Diphenhydramine, Headache ( [facility]) Additional Instructions: Maintain adequate fluid intake Home medications as needed Take Zofran as needed for nausea Monitor symptoms for any acute changes Recheck with your neurologist tomorrow Recheck with your PCM in 2-3 days Return to the ED with any worsening symptoms and/or development of fever, worsening headache, changes in mentation/vision/speech/hearing/balance, chest pain, palpitations, syncope, shortness of breath, trouble breathing, abdominal pain, n/v/d, blood in stool/urine, loss of control of bowel/bladder, muscle weakness/paralysis, numbness/tingling, or other worsening symptoms that are concerning to you. Referrals: FLORENCIA HUNT MD [ACTIVE STAFF] - Follow up tomorrow
[2017-06-16 02:07] VITALS: BP 110/56
== END 2017-06-16 02:06 | disposition home or self-care (01) ==
LOC: ER 21:15
DX: R51 Headache (principal); Z79.899 Other long term (current) drug therapy
CPT/HCPCS: 99284; 96375; 96365; J1200; J2930; J3475; J2405; J7030

== ENCOUNTER 2017-06-29 09:24 | Emergency (ER) | payer OTHER ==
--- NOTE | 2017-06-29 10:11 | RADIOLOGY REPORT (SQ) ---
EXAM DESCRIPTION: ANKLE RIGHT COMPLETE COMPLETED DATE/TIME: 06/29/2017 10:03 am REASON FOR STUDY: injury COMPARISON: None. NUMBER OF VIEWS: Three views. TECHNIQUE: AP, lateral, and oblique radiographic images acquired of the right ankle. LIMITATIONS: None. FINDINGS: MINERALIZATION: Normal. BONES: No fracture or dislocation. There is a plantar calcaneal spur. JOINTS: No effusions. SOFT TISSUES: No soft tissue swelling. No foreign body. OTHER: No other significant finding. IMPRESSION: Calcaneal spur with no acute osseous or joint abnormality. TECHNICAL DOCUMENTATION: JOB ID: [id number] [employer]- All Rights Reserved
--- NOTE | 2017-06-29 10:32 | ER Document Report ---
HPI - HPI Pain Level: 5 Notes: Patient is a 42-year-old female who presents the ED complaining of chest pain and right lateral ankle pain 1 day. Patient states that she was playing kickball and started running to first base when her leg and calf began to cramp and she rolled her ankle. Patient states that the pain began as a soreness but has developed into a throbbing pain and she can no longer weight-bear on that leg. Patient continues to have calf pain as well. She is taking some over-the- counter meds with minimal relief. The pain does not radiate otherwise. Patient still able to move her toes without difficulties. Patient states that she has noticed swelling to the lateral side. Patient has a past medical history significant for von Willebrand type IIa. Denies any headache, fever, chest pain, palpitations, syncope, cough, shortness of breath, wheeze, dyspnea, abdominal pain, nausea/vomiting/diarrhea, numbness/tingling, muscle paralysis, or rash. - ROS Notes: REVIEW OF SYSTEMS: CONSTITUTIONAL : Denies fever, chills, or sweats. Denies recent illness. EENT: Denies eye, ear, throat, or mouth pain or symptoms. Denies nasal or sinus congestion or discharge. Denies throat, tongue, or mouth swelling or difficulty swallowing. CARDIOVASCULAR: Denies chest pain. Denies palpitations or racing or irregular heart beat. Denies ankle edema. RESPIRATORY: Denies cough, cold, or chest congestion. Denies shortness of breath, difficulty breathing, or wheezing. GASTROINTESTINAL: Denies abdominal pain or distention. Denies nausea, vomiting , or diarrhea. Denies blood in vomitus, stools, or per rectum. Denies black, tarry stools. Denies constipation. GENITOURINARY: Denies difficulty urinating, painful urination, burning, frequency, blood in urine, or discharge. MUSCULOSKELETAL: See HPI SKIN: Denies rash, lesions or sores. NEUROLOGICAL: Denies confusion or altered mental status. Denies passing out or loss of consciousness. Denies dizziness or lightheadedness. Denies headache. Denies weakness or paralysis or loss of use of either side. Denies problems with gait or speech. Denies sensory loss, numbness, or tingling. ALL OTHER SYSTEMS REVIEWED AND NEGATIVE. Dictation was performed using [employer] voice recognition software - CARDIOVASCULAR Cardiovascular: DENIES: Chest pain - REPRODUCTIVE Reproductive: DENIES: : - DERM Skin Color: Normal Past Medical History - Social History Smoking Status: Unknown if Ever Smoked Family History: Arthritis, COPD, CVA, DM, Hyperlipidemia, Hypertension, Malignancy. denies: CAD, Thyroid Disfunction - Past Medical History Cardiac Medical History: Reports: Hx Hypercholesterolemia Neurological Medical History: Reports: Hx Migraine Renal/ Medical History: Reports: Hx Ovarian Cysts - PCOS. Denies: Hx Peritoneal Dialysis GI Medical History: Reports: Hx Gastroesophageal Reflux Disease, Hx Hiatal Hernia Musculoskeltal Medical History: Reports Hx Arthritis, Reports Hx Musculoskeletal Deformity - Scoliosis, Reports Hx Musculoskeletal Trauma Psychiatric Medical History: Reports: Hx Anxiety, Hx Depression Past Surgical History: Reports: Hx Appendectomy, Hx Cholecystectomy, Hx Hysterectomy, Hx Orthopedic Surgery - Alexander rods - Immunizations Hx Diphtheria, Pertussis, Tetanus Vaccination: Yes Vertical Provider Document - CONSTITUTIONAL Agree With Documented VS: Yes Notes: PHYSICAL EXAMINATION: GENERAL: Well-appearing, well-nourished and in no acute distress. LUNGS: Breath sounds clear to auscultation bilaterally and equal. No wheezes rales or rhonchi. HEART: Regular rate and rhythm without murmurs, rubs, gallops. Musculoskeletal: Rt ankle: LROM to passive/active. Strength 4+/5. + swelling noted to the lateral malleolus. No ecchymosis. Pulse 2+. sensation intact distally. FROM of the toes. + tenderness to palp of the lateral malleolus, increased with inversion. Achilles intact. + tenderness to the rt calf, ? gerda. No warmth, erythema, or swelling. Extremities: No cyanosis, clubbing, or edema b/l. Peripheral pulses 2+. Capillary refill less than 3 seconds. NEUROLOGICAL: Normal sensory. PSYCH: Normal mood, normal affect. SKIN: Warm, Dry, normal turgor, no rashes or lesions noted. - INFECTION CONTROL TRAVEL OUTSIDE OF THE [place] IN LAST 30 DAYS: No - RESPIRATORY O2 Sat by Pulse Oximetry: 100 Course - Re-evaluation Re-evalutation: 06/29/17 11:30 Patient is an afebrile, well-hydrated, 42-year-old female who presents the ED with ankle pain, suspect strain/sprain as well as calf strain. Vitals are stable. PE otherwise unremarkable at this time. X-ray of the ankle did not show any acute fracture or dislocation. Venous ultrasound preliminary report was unremarkable for any acute pathology. Formal radiology report is pending. Reviewed case with patient. Patient would like to go home at this time and if any acute changes in her venous ultrasound report, patient agrees that she will return back to the ED for further management. Risks and benefits understood of her decision at this time. Ankle stirrup splint placed today. She states she has crutches at home to use. Recommend conservative measures otherwise for symptoms. Recheck with your PCM this week. Consider consult with orthopedics/ physical therapy for ongoing/worsening symptoms. Return to the ED with any worsening/concerning symptoms otherwise as reviewed in discharge. Patient is in agreement. - Vital Signs Vital signs: Temp Pulse Resp BP Pulse Ox 98.1 F 90 16 111/73 100 06/29/17 09:30 06/29/17 09:30 06/29/17 09:30 06/29/17 09:30 06/29/17 09:30 Discharge - Discharge Clinical Impression: Ankle sprain Qualifiers: Encounter type: initial encounter Involved ligament of ankle: unspecified ligament Laterality: right Qualified Code(s): S93.401A - Sprain of unspecified ligament of right ankle, initial encounter Condition: Stable Disposition: HOME, SELF-CARE Instructions: Ankle Exercise Program ([facility]), Ankle Stirrup Splint ([facility]), Use of Crutches ([facility]), Ice Packs ([facility]), Sprained Ankle ([facility]) Additional Instructions: Rest, Ice, Compression, Elevation Use crutches/ankle stirrup as directed Tylenol as needed Light stretches daily Strength exercises as able Moist heat and massage may help F/u with your PCP in 2-3 days for a recheck Consider consult(s) with Orthopedics/physical therapy for ongoing/worsening symptoms Return to the ED with any worsening symptoms and/or development of fever, headache, chest pain, palpitations, syncope, shortness of breath, trouble breathing, abdominal pain, n/v/d, muscle weakness/paralysis, numbness/tingling, swelling, redness, or other worsening symptoms that are concerning to you. Referrals: [facility] ([facility] [Provider Group] - Follow up as needed FUNMI MARCOS JR, MD [NO LOCAL MD] - Follow up in 3-5 days
[2017-06-29] MEDS ORDERED: ACETAMINOPHEN 325 MG TABLET PO ONE (11:07)
[2017-06-29 11:35] VITALS: BP 110/70
--- NOTE | 2017-06-29 11:40 | RADIOLOGY REPORT (SQ) ---
EXAM DESCRIPTION: VENOUS UNILATERAL LOWER COMPLETED DATE/TIME: 06/29/2017 11:27 am REASON FOR STUDY: rt calf pain COMPARISON: None. TECHNIQUE: Dynamic and static trent scale and color images acquired of the right leg venous system. S elected spectral images acquired with additional compression and augmentation maneuvers. The contrala teral common femoral vein and saphenofemoral junction were also imaged. Images stored on PACS. LIMITATIONS: None. FINDINGS: COMMON FEMORAL: Normal phasicity, compression and augmentation. No visualized echogenic ma terial on trent scale. No defects on color images. FEMORAL: Normal compression and augmentation. No visualized echogenic material on trent scale. No defe cts on color images. POPLITEAL: Normal compression, augmentation. No visualized echogenic material on trent scale. No defec ts on color images. CALF VESSELS: Normal compression, augmentation. No visualized echogenic material on trent scale. No de fects on color images. GSV and SSV: Normal compression, augmentation. No visualized echogenic material on trent scale. No def ects on color images. ANY DEEP VENOUS INSUFFICIENCY: Not evaluated. ANY EVIDENCE OF POPLITEAL CYST: No. OTHER: No other significant finding. CONTRALATERAL COMMON FEMORAL VEIN AND SAPHENOFEMORAL JUNCTION: Normal phasicity, compression and augmentation. No visualized echogenic material on trent scale. No de fects on color images. IMPRESSION: NO EVIDENCE DVT OR SVT IN THE RIGHT LEG. TECHNICAL DOCUMENTATION: JOB ID: [id number] [employer]- All Rights Reserved
== END 2017-06-29 11:35 | disposition home or self-care (01) ==
LOC: ER 09:24
DX: S93.401A Sprain of unspecified ligament of right ankle, initial encounter (principal); Y93.6A Activity, physical games generally associated with school recess, summer camp and children; X50.0XXA Overexertion from strenuous movement or load, initial encounter; R07.9 Chest pain, unspecified; M25.571 Pain in right ankle and joints of right foot; M79.669 Pain in unspecified lower leg; D68.0 Von Willebrand disease
CPT/HCPCS: 99284; 93971; 73610; L4350

== ENCOUNTER 2017-08-08 16:42 | Emergency (ER) | payer OTHER ==
[2017-08-08 16:47] VITALS: BP 120/80
--- NOTE | 2017-08-08 17:14 | ER Document Report ---
ED ENT - General Chief Complaint: Sinus Congestion Stated Complaint: HEADACHE Time Seen by Provider: 08/08/17 16:59 TRAVEL OUTSIDE OF THE [place] IN LAST 30 DAYS: No - HPI Onset: Last week Onset/Duration: Gradual, Persistent Quality of pain: Achy - pressure Location of pain: Sinus Associated symptoms: Headache - migraine, Sinus pain Similar symptoms previously: No Recently seen / treated by doctor: No Notes: has been using netti pot, pseudophed and zyrtec - Related Data Allergies/Adverse Reactions: ibuprofen Allergy (Verified 08/08/17 16:45) latex Allergy (Verified 08/08/17 16:45) metoclopramide [From Reglan] Allergy (Verified 08/08/17 16:45) Penicillins Allergy (Verified 08/08/17 16:45) sulfamethoxazole [From Septra] Allergy (Verified 08/08/17 16:45) sumatriptan [From Imitrex] Allergy (Verified 08/08/17 16:45) tramadol Allergy (Verified 08/08/17 16:45) trimethoprim [From Septra] Allergy (Verified 08/08/17 16:45) zolmitriptan [From Zomig] Allergy (Verified 08/08/17 16:45) prochlorperazine [From Compazine] Adverse Reaction (Verified 08/08/17 16:45) Past Medical History - Social History Smoking Status: Never Smoker Chew tobacco use (# tins/day): No Frequency of alcohol use: Social Drug Abuse: None Family History: Arthritis, COPD, CVA, DM, Hyperlipidemia, Hypertension, Malignancy. denies: CAD, Thyroid Disfunction - Past Medical History Cardiac Medical History: Reports: Hx Hypercholesterolemia Neurological Medical History: Reports: Hx Migraine Renal/ Medical History: Reports: Hx Ovarian Cysts - PCOS. Denies: Hx Peritoneal Dialysis GI Medical History: Reports: Hx Gastroesophageal Reflux Disease, Hx Hiatal Hernia Musculoskeltal Medical History: Reports Hx Arthritis, Reports Hx Musculoskeletal Deformity - Scoliosis, Reports Hx Musculoskeletal Trauma Psychiatric Medical History: Reports: Hx Anxiety, Hx Depression Past Surgical History: Reports: Hx Appendectomy, Hx Cholecystectomy, Hx Hysterectomy, Hx Orthopedic Surgery - Alexander rods - Immunizations Hx Diphtheria, Pertussis, Tetanus Vaccination: No - 2009 Review of Systems - Review of Systems Constitutional: No symptoms reported EENT: See HPI -: Yes All other systems reviewed and negative Physical Exam - Vital signs Vitals: Temp Pulse Resp BP Pulse Ox 98.2 F 97 16 120/80 98 08/08/17 16:46 08/08/17 16:46 08/08/17 16:46 08/08/17 16:46 08/08/17 16:46 - Notes Notes: PHYSICAL EXAM GENERAL: Alert, interacts well. HEAD: Normocephalic, atraumatic. EYES: Pupils equal, round, and reactive to light. Extraocular movements intact. ENT: Bilateral maxillary and frontal sinus tenderness. No evidence of purulent drainage or erythema oral mucosa moist, tongue midline. Uvula midline. Airway patent. No evidence of tonsillar enlargement, peritonsillar abscess, retropharyngeal abscess. NECK: Full range of motion. Supple. Trachea midline. NEUROLOGICAL: Alert and oriented x4. Normal speech. PSYCH: Normal affect, normal mood. SKIN: Warm, dry, normal turgor. No rashes or lesions noted. Course - Re-evaluation Re-evalutation: 08/08/17 1630 Patient is a 42-year-old female is hemodynamically stable, no acute distress and afebrile. Presentation today is consistent with sinus congestion causing headache. Patient received a migraine cocktail that she is received here in the past. States complete resolution of her migraine with only minimal residual maxillary sinus discomfort. Patient states that she will follow up with her primary care provider. Otherwise vital signs stable. No evidence of fever, concern for sinus infection. Patient stable for discharge home - Vital Signs Vital signs: Temp Pulse Resp BP Pulse Ox 98.2 F 97 16 120/80 98 08/08/17 16:46 08/08/17 16:46 08/08/17 16:46 08/08/17 16:46 08/08/17 16:46 Discharge - Discharge Clinical Impression: Sinus congestion Migraine Qualifiers: Intractability: not intractable Condition: Good Disposition: HOME, SELF-CARE Additional Instructions: Please continue to use the Netti pot, pseuodophedrine and zyrtec. Take prednisone as prescribed Prescriptions: Prednisone 5 mg PO ASDIR 6 Days tab.ds.pk
[2017-08-08] MEDS ORDERED: DEXAMETHASONE SOD PHOS INJ 10 MG/1 ML VIAL IM ONE (17:16)
[2017-08-08] MEDS ORDERED: ONDANSETRON HCL INJ/PF 4 MG/2 ML SDV IM ONE (17:16)
[2017-08-08] MEDS ORDERED: HYDROMORPHONE HCL INJ/PF 2 MG/ML AMPULE IM ONE (17:16)
[2017-08-08] MEDS ORDERED: DIPHENHYDRAMINE HCL 50 MG/ML VIAL IM ONE (17:16)
== END 2017-08-08 18:14 | disposition home or self-care (01) ==
LOC: ER 16:42
DX: G43.909 Migraine, unspecified, not intractable, without status migrainosus (principal); R09.81 Nasal congestion
CPT/HCPCS: 99283; 96372; J1200; J1170; J2405; J1100

== ENCOUNTER 2017-08-21 22:58 | Emergency (ER) | payer OTHER ==
--- NOTE | 2017-08-22 00:02 | RADIOLOGY REPORT (SQ) ---
EXAM DESCRIPTION: CT HEAD WITHOUT COMPLETED DATE/TIME: 08/21/2017 11:50 pm REASON FOR STUDY: headache COMPARISON: 12/18/2016 TECHNIQUE: Axial images acquired through the brain without intravenous contrast. Images reviewed wi th bone, brain and subdural windows. Images stored on PACS. All CT scanners at this facility use dose modulation, iterative reconstruction, and/or weight based d osing when appropriate to reduce radiation dose to as low as reasonably achievable (ALARA). [facility]: Dose Right [facility]: CareDose [facility]: Dose Right [facility]: Teradose 4D [facility]: [employer] RADIATION DOSE: Up-to-date CT equipment and radiation dose reduction techniques were employed. CTDIv ol: 64.6 mGy. DLP: 1292 mGy-cm. mGy. LIMITATIONS: None. FINDINGS: VENTRICLES: Normal size and contour. CEREBRUM: No masses. No hemorrhage. No midline shift. No evidence for acute infarction. Normal gra y/white matter differentiation. No areas of low density in the white matter. CEREBELLUM: No masses. No hemorrhage. No alteration of density. No evidence for acute infarction. EXTRAAXIAL SPACES: No fluid collections. No masses. ORBITS AND GLOBE: No intra- or extraconal masses. Normal contour of globe without masses. CALVARIUM: No fracture. PARANASAL SINUSES: No fluid or mucosal thickening. SOFT TISSUES: No mass or hematoma. OTHER: No other significant finding. IMPRESSION: NORMAL BRAIN CT WITHOUT CONTRAST. EVIDENCE OF ACUTE STROKE: NO. COMMENT: Quality ID # [id number]: Final reports with documentation of one or more dose reduction techniques (e.g., Automated exposure control, adjustment of the mA and/or kV according to patient size, use of iterative reconstruction technique) TECHNICAL DOCUMENTATION: JOB ID: [id number] [email or web address]- All Rights Reserved
[2017-08-22] MEDS ORDERED: NORMAL SALINE 1000 ML 1,000 ML IV ONE (00:12)
[2017-08-22] MEDS ORDERED: PROMETHAZINE HCL INJ 25 MG/1 ML VIAL IM ONE (00:12)
[2017-08-22] MEDS ORDERED: HYDROMORPHONE HCL INJ/PF 2 MG/ML AMPULE IV ONE ×2 (00:13→02:32)
[2017-08-22] MEDS ORDERED: DIPHENHYDRAMINE HCL 50 MG/ML VIAL IV ONE (00:13)
[2017-08-22 01:00] LABS: ABSOLUTE BASOPHILS # (AUTO) 0.1 10^3/uL (0.0-0.2); ABSOLUTE EOSINOPHILS # (AUTO) 0.9 10^3/uL (0.0-0.6); ABSOLUTE LYMPHOCYTES (AUTO) 3.7 10^3/uL (0.5-4.7); ABSOLUTE MONOCYTES (AUTO) 0.8 10^3/uL (0.1-1.4); ABSOLUTE NEUT (AUTO) 5.3 10^3/uL (1.7-8.2); EOSINOPHILS % (AUTO) 8.6 % (0-6); HEMOGLOBIN 13.4 g/dL (12.0-15.5); HGB HCT DIFFERENCE 1.2; LYMPHOCYTES % (AUTO) 34.1 % (13-45); MEAN CORPUSCULAR HEMOGLOBIN 28.5 pg (27.0-33.4); MEAN CORPUSCULAR HGB CONC 34.2 g/dL (32.0-36.0); MEAN CORPUSCULAR VOLUME 83 fl (80-97); MONOCYTES % (AUTO) 7.5 % (3-13); RED BLOOD COUNT 4.69 10^6/uL (3.72-5.28); RED CELL DISTRIBUTION WIDTH 13.7 % (11.5-14.0); SEGMENTED NEUTROPHILS % (AUTO) 48.8 % (42-78); WHITE BLOOD COUNT 10.8 10^3/uL (4.0-10.5)
[2017-08-22 01:15] LABS: ANION GAP 16 (5-19); BLOOD UREA NITROGEN 14 mg/dL (7-20); CALCIUM 10.1 mg/dL (8.4-10.2); CARBON DIOXIDE 19 mmol/L (22-30); CHLORIDE 111 mmol/L (98-107); CREATININE RESULT 0.83 mg/dL (0.52-1.25); GLUCOSE 88 mg/dL (75-110); POTASSIUM 3.9 mmol/L (3.6-5.0); SODIUM 145.5 mmol/L (137-145)
[2017-08-22] MEDS ORDERED: DEXAMETHASONE SOD PHOS INJ 10 MG/1 ML VIAL IV ONE (01:36)
--- NOTE | 2017-08-22 02:12 | RADIOLOGY REPORT (SQ) ---
EXAM DESCRIPTION: CTA HEAD COMPLETED DATE/TIME: 08/22/2017 1:58 am REASON FOR STUDY: headache , blurry vision, nausea. COMPARISON: Noncontrast CT head 08/21/2017. CT angiogram head 12/18/2016. TECHNIQUE: Post IV contrast scanning, thin section axial imaging through the brain to evaluate the a rterial structures. Source and MIP images are saved and reviewed on PACS. Advanced 3D imaging as volume-rendering, MIPs, SSD performed? yes All CT scanners at this facility use dose modulation, iterative reconstruction, and/or weight based d osing when appropriate to reduce radiation dose to as low as reasonably achievable (ALARA). [facility]: Dose Right [facility]: CareDose [facility]: Dose Right [facility]: Teradose 4D [facility]: [employer] CONTRAST TYPE AND DOSE: contrast/concentration: Isovue 370.00 mg/ml; Total Contrast Delivered: 70.0 ml; Total Saline Delivered: 75.0 ml RENAL FUNCTION: Creatinine 0.83 LIMITATIONS: None. FINDINGS: [place]: The anterior, middle, posterior cerebral arteries are all patent. No ev idence of aneurysm or focal stenosis. POSTERIOR CIRCULATION: The distal vertebral arteries are patent as is the basilar artery. No aneurysm . BRAIN: No enhancing lesions. BONES: Intact as visualized. SINUSES: No air-fluid levels. IMPRESSION: NO CTA EVIDENCE OF STENOSIS OR ANEURYSM OF THE [place]. TECHNICAL DOCUMENTATION: JOB ID: [id number] Quality ID # [id number]: Final reports with documentation of one or more dose reduction techniques (e.g., Au tomated exposure control, adjustment of the mA and/or kV according to patient size, use of iterative reconstruction technique) 2010 [employer]- All Rights Reserved
[2017-08-22] MEDS ORDERED: ONDANSETRON HCL INJ/PF 4 MG/2 ML SDV IV ONE (02:32)
--- NOTE | 2017-08-22 02:37 | ER Document Report ---
ED General - General Chief Complaint: Headache Stated Complaint: HEADACHE Time Seen by Provider: 08/21/17 23:45 Notes: Patient is a 42-year-old female presents with complaints of a headache. She says it started suddenly around 1 PM when she is reading a book. She has a history of chronic migraines and is followed by Dr. Hunt. He does have Stadol nasal spray which he uses. Says it did not help this headache. She has been seen here several times in the past for headaches as well. She does have a family history of cerebral aneurysms. Her father in 2014 from a cerebral aneurysm. She says her headaches are sometimes gradual onset but she is also had sudden onset headaches in the past as well. She has had previous CT scans and CTs which showed no evidence of aneurysm in the past. She said this headache is different and that she also developed some blurred vision in the right eye. She says she has had some visual disturbances in the past with her previous migraines but not to this extent. She denies any degree. She did have some vomiting. She does have a history of von Willebrand's disease. She denies any recent bleeding or bruising. No other complaints at this time. TRAVEL OUTSIDE OF THE [place] IN LAST 30 DAYS: No - Related Data Allergies/Adverse Reactions: ibuprofen Allergy (Verified 08/08/17 16:45) latex Allergy (Verified 08/08/17 16:45) metoclopramide [From Reglan] Allergy (Verified 08/08/17 16:45) Penicillins Allergy (Verified 08/08/17 16:45) sulfamethoxazole [From Septra] Allergy (Verified 08/08/17 16:45) sumatriptan [From Imitrex] Allergy (Verified 08/08/17 16:45) tramadol Allergy (Verified 08/08/17 16:45) trimethoprim [From Septra] Allergy (Verified 08/08/17 16:45) zolmitriptan [From Zomig] Allergy (Verified 08/08/17 16:45) prochlorperazine [From Compazine] Adverse Reaction (Verified 08/08/17 16:45) Past Medical History - Social History Smoking Status: Unknown if Ever Smoked Frequency of alcohol use: None Drug Abuse: None Family History: Arthritis, COPD, CVA, DM, Hyperlipidemia, Hypertension, Malignancy. denies: CAD, Thyroid Disfunction Patient has suicidal ideation: No Patient has homicidal ideation: No - Past Medical History Cardiac Medical History: Reports: Hx Hypercholesterolemia Neurological Medical History: Reports: Hx Migraine Renal/ Medical History: Reports: Hx Ovarian Cysts - PCOS. Denies: Hx Peritoneal Dialysis GI Medical History: Reports: Hx Gastroesophageal Reflux Disease, Hx Hiatal Hernia Musculoskeltal Medical History: Reports Hx Arthritis, Reports Hx Musculoskeletal Deformity - Scoliosis, Reports Hx Musculoskeletal Trauma Psychiatric Medical History: Reports: Hx Anxiety, Hx Depression Past Surgical History: Reports: Hx Appendectomy, Hx Cholecystectomy, Hx Hysterectomy, Hx Orthopedic Surgery - Alexander rods - Immunizations Hx Diphtheria, Pertussis, Tetanus Vaccination: No - 2009 Review of Systems - Review of Systems Notes: My Normal Review Basic REVIEW OF SYSTEMS: CONSTITUTIONAL : Denies fever, chills, or sweats. Denies recent illness. EENT: Denies eye, ear, throat, or mouth pain or symptoms. Denies nasal or sinus congestion. RESPIRATORY: Denies cough, cold, or chest congestion. Denies shortness of breath, difficulty breathing, or wheezing. GASTROINTESTINAL: Denies abdominal pain. vomiting 1. Denies nausea, vomiting , or diarrhea. Denies constipation. Last BM: MUSCULOSKELETAL: Denies neck or back pain or joint pain or swelling. No associated neck pain or neck stiffness. SKIN: Denies rash or skin lesions. HEMATOLOGIC : Von Willebrand's type II. NEUROLOGICAL: Denies altered mental status or loss of consciousness. Has a headache. Denies weakness or paralysis or loss of use of either side. Patient complains of some dizziness causing difficulty walking. Denies sensory or motor loss. ALL OTHER SYSTEMS REVIEWED AND NEGATIVE. Physical Exam - Vital signs Vitals: Temp Pulse Resp BP Pulse Ox 99.4 F 104 H 16 107/63 98 08/21/17 23:30 08/21/17 23:30 08/21/17 23:30 08/21/17 23:30 08/21/17 23:30 - Notes Notes: General Appearance: Well nourished, alert, cooperative, no acute distress, moderate obvious discomfort. Vitals: reviewed, See vital signs table. Head: no swelling or tenderness to the head Eyes: PERRL, EOMI, Conjuctiva clear Mouth: No decreasd moisture Neck: Supple, no neck tenderness, Lungs: No wheezing, No rales, No rhonci, No accessory muscle use, good air exchange bilaterally. Heart: Normal rate, Regular rythm, No murmur, no rub Abdomen: Normal BS, soft, No rigidity, No abdominal tenderness, No guarding, no rebound, no abdominal masses, no organomegaly Extremities: strength 5/5 in all extremities, good pulses in all extremities, no swelling or tenderness in the extremities, no edema. Skin: warm, dry, appropriate color, no rash Neuro: speech clear, oriented x 3, normal affect, responds appropriately to questions. Cranial nerves II through XII are intact with exception of some blurred vision on the right eye. Patient has good strength and sensation in all 4 extremities. She is slightly staggered and walking which she says is related to her feeling off balance or dizzy. Course - Re-evaluation Re-evalutation: 08/22/17 03:53 Patient is feeling much improved. For the patient safe to be discharged home. I did obtain a repeat CT of the patient's head due to the fact that the headache was sudden onset. She has had previous migraines of her sudden onset; however, this headache was sudden onset and she also has some blurred vision associated with it and therefore CT was performed. This was negative. I think aneurysm rupture is unlikely being that the patient has a negative CTA tonight and also has previous CTs which never showed a previous aneurysm or AV malformation. Patient's symptoms are now completely resolved after treatment of the headache itself. She does have a neurologist that she follows up with. I encourage her to follow-up closely with him. Encouraged her return to ER immediately if she has recurrence of her symptoms, vomiting, fevers, or feels unwell. Patient denies any neck pain or neck stiffness associated with this headache. No recent fevers. I did retest the patient's gait. Gait is now normal. Dictation of this chart was performed using voice recognition software; therefore, there may be some unintended grammatical errors. - Vital Signs Vital signs: Temp Pulse Resp BP Pulse Ox 99.4 F 104 H 16 107/63 98 08/21/17 23:30 08/21/17 23:30 08/21/17 23:30 08/21/17 23:30 08/21/17 23:30 - Laboratory Result Diagrams: 08/22/17 00:49 10/21/17 00:49 Laboratory results interpreted by me: 08/22/17 08/22/17 00:49 00:49 WBC 10.8 H Eosinophils % 8.6 H Absolute Eosinophils 0.9 H Sodium 145.5 H Chloride 111 H Carbon Dioxide 19 L Discharge - Discharge Clinical Impression: Headache Qualifiers: Headache type: unspecified Headache chronicity pattern: acute headache Intractability: not intractable Qualified Code(s): R51 - Headache Condition: Good Disposition: HOME, SELF-CARE Additional Instructions: HEADACHE: The physician does not feel that the headache you are experiencing has a serious underlying cause. Most headaches are due to emotional stress, with resultant muscle tension (tension headache). Occasionally, headaches are secondary to changes in the blood vessels of the scalp (vascular headache and migraine headache). Sometimes, a headache is the first symptom of another developing illness, such as a viral infection. You have no evidence of stroke, bleeding, meningitis, or other serious cause of your headache. The treatment of headaches varies with the severity and cause of the pain. Not all headaches need pain shots. In fact, there is evidence that using narcotics for headaches may make them worse in the long run. The physician will determine the therapy that's in your best interest. If you develop a fever, if the headache is different from any you've previously experienced, or if the headache progressively worsens, then call your physician at once or go to the emergency room. FOLLOW-UP CARE: If you have been referred to a physician for follow-up care, call the physician s office for an appointment as you were instructed or within the next two days. If you experience worsening or a significant change in your symptoms, notify the physician immediately or return to the Emergency Department at any time for re-evaluation. Please return to the ER immediately if you have worsening headaches, vomiting, fevers, or feel unwell. Please follow up with your neurologist, Dr. Hunt, for close reevaluation. Forms: Return to Work Referrals: FLORENCIA HUNT MD [ACTIVE STAFF] - 08/24/17
[2017-08-22 04:05] VITALS: BP 96/56
== END 2017-08-22 04:05 | disposition home or self-care (01) ==
LOC: ER 22:58
DX: R51 Headache (principal); E78.00 Pure hypercholesterolemia, unspecified; Z91.040 Latex allergy status; Z88.6 Allergy status to analgesic agent; Z88.3 Allergy status to other anti-infective agents
CPT/HCPCS: 96376; 99284; 96372; 96361; 96374; 96375; 36415; 85025; 80048; 70450; 70496; J1200; J1170; J2550; J2405; J7030; J1100

== ENCOUNTER 2017-09-16 19:40 | Emergency (ER) | payer OTHER ==
[2017-09-16] MEDS ORDERED: NORMAL SALINE 1000 ML 1,000 ML IV ONE (21:47)
[2017-09-16] MEDS ORDERED: PROMETHAZINE HCL INJ 25 MG/1 ML VIAL IM ONE (21:47)
[2017-09-16] MEDS ORDERED: DIPHENHYDRAMINE HCL 50 MG/ML VIAL IV ONE (21:48)
[2017-09-16] MEDS ORDERED: HYDROMORPHONE HCL INJ/PF 2 MG/ML AMPULE IV ONE (21:49)
[2017-09-16] MEDS ORDERED: DEXAMETHASONE SOD PHOS INJ 10 MG/1 ML VIAL IV ONE (21:49)
--- NOTE | 2017-09-16 21:57 | ER Document Report ---
ED Headache - General Chief Complaint: Headache Stated Complaint: HEADACHE Time Seen by Provider: 09/16/17 21:28 Mode of Arrival: Ambulatory Information source: Patient Notes: 42 year old female presents to ED today with acute concern of migraine headache , right sided blurred vision, and nausea. Pain unilateral (right side) in frontotemporal and ocular regions, with associated symptoms of sensitivity to light and sound. Patient endorses extensive history of headaches with similar symptoms, occurring approximately 2-3x/month, reporting care is currently managed by a Neurologist. Seen in ED last month (August 18) for same symptoms. Head CT performed at that time with negative/normal results. Patient takes Topamax and Mag/COQ10/B2 daily, and Botox injection every 10 weeks (last injection approximately 4-6 weeks ago), but is only able to utilize Phenergan, Zofran, Benadryl, and [place] for breakthrough symptoms due to multiple drug allergies. Patient reports more frequent headaches over the past few months, stating they are "hit or miss" with home treatments, and states PCM and Neurologist believe this could be related to hormone changes from possible menopause. Patient denies injury or trauma prior to symptoms, reporting symptoms began suddenly this evening at approximately [id number], following a short aura of "strobe lights." Patient attempted to [place] symptoms with Zofran 8mg and [place] 10mg but reports she vomited immediately after taking medications - did not attempt to remedicate due to nausea. Denies additional associated symptoms, including fever/chills, weakness/numbness/tingling, or altered mental status. TRAVEL OUTSIDE OF THE [place] IN LAST 30 DAYS: No - Related Data Allergies/Adverse Reactions: ibuprofen Allergy (Verified 09/16/17 20:27) latex Allergy (Verified 09/16/17 20:27) metoclopramide [From Reglan] Allergy (Verified 09/16/17 20:27) Penicillins Allergy (Verified 09/16/17 20:27) sulfamethoxazole [From Septra] Allergy (Verified 09/16/17 20:27) sumatriptan [From Imitrex] Allergy (Verified 09/16/17 20:27) tramadol Allergy (Verified 09/16/17 20:27) trimethoprim [From Septra] Allergy (Verified 09/16/17 20:27) zolmitriptan [From Zomig] Allergy (Verified 09/16/17 20:27) prochlorperazine [From Compazine] Adverse Reaction (Verified 09/16/17 20:27) Home Medications: Current Home Medications Hydrocodone/Acetaminophen [Hydrocodone-Acetamin 10-325 mg] 1 tab PO Q4 PRN 09/16 [History] Ondansetron [Ondansetron Odt] 1 tab PO Q4 PRN 09/16/17 [History] Promethazine HCl 1 tab PO Q4 PRN 09/16/17 [History] Past Medical History - General Information source: Patient - Social History Smoking Status: Unknown if Ever Smoked Family History: Arthritis, COPD, CVA, DM, Hyperlipidemia, Hypertension, Malignancy. denies: CAD, Thyroid Disfunction - Past Medical History Cardiac Medical History: Reports: Hx Hypercholesterolemia Neurological Medical History: Reports: Hx Migraine Renal/ Medical History: Reports: Hx Ovarian Cysts - PCOS. Denies: Hx Peritoneal Dialysis GI Medical History: Reports: Hx Gastroesophageal Reflux Disease, Hx Hiatal Hernia Musculoskeltal Medical History: Reports Hx Arthritis, Reports Hx Musculoskeletal Deformity - Scoliosis, Reports Hx Musculoskeletal Trauma Psychiatric Medical History: Reports: Hx Anxiety, Hx Depression Past Surgical History: Reports: Hx Appendectomy, Hx Cholecystectomy, Hx Hysterectomy, Hx Orthopedic Surgery - Alexander rods - Immunizations Hx Diphtheria, Pertussis, Tetanus Vaccination: No - 2009 Review of Systems - Review of Systems Constitutional: See HPI EENT: See HPI Cardiovascular: No symptoms reported Respiratory: No symptoms reported Gastrointestinal: See HPI Genitourinary: No symptoms reported Female Genitourinary: No symptoms reported Musculoskeletal: No symptoms reported Skin: No symptoms reported Hematologic/Lymphatic: No symptoms reported Neurological/Psychological: See HPI Physical Exam - Vital signs Vitals: Temp Pulse Resp BP Pulse Ox 98.5 F 107 H 18 108/88 H 97 09/16/17 20:28 09/16/17 20:28 09/16/17 20:28 09/16/17 20:28 09/16/17 20:28 - Notes Notes: PHYSICAL EXAMINATION: GENERAL: Uncomfortable appearing, but in no acute distress. Alert, oriented, cooperative with exam. HEAD: Atraumatic, normocephalic, mild generalized tenderness noted to palpation of right side of face EYES: Pupils equal round and reactive to light, extraocular movements intact, sclera anicteric, conjunctiva are normal. NECK: Normal range of motion, supple without lymphadenopathy, no tenderness LUNGS: CTAB and equal. No wheezes rales or rhonchi. HEART: Regular rate and rhythm without murmurs ABDOMEN: Soft, no tenderness, normoactive bowel sounds x 4 EXTREMITIES: Normal range of motion NEUROLOGICAL: Speech clear, cranial nerves grossly intact, with exception of some blurred vision in the right eye, normal sensory/motor exams in all 4 extremities PSYCH: Normal mood, normal affect. SKIN: Warm, Dry, normal turgor Course - Re-evaluation Re-evalutation: Presentation of a headache that appears to be most consistent with migrainous type headache. Current symptoms are acute flare of chronic issue with no new or worsening symptoms reported, headache was not maximal in onset, patient has no new focal neurologic deficits, no nuchal rigidity, vital signs within normal limits, no papilledema, and patient is overall well in appearance. Based on clinical history and examination I do not suspect an acute subarachnoid hemorrhage, dural venous sinus thrombosis, acute meningitis, or intercranial mass. Given my low clinical suspicion for any acute life-threatening etiology, I do not feel advanced neuro imaging or laboratory testing is indicated at this time. Will proceed with headache cocktail and reassess. Patient resting comfortably and reporting great symptom improvement following administration of IV fluids, Phenergan, Dilaudid, Decadron, and Benadryl. Patient will be discharged home with strict follow up instructions and return precautions. - Vital Signs Vital signs: Temp Pulse Resp BP Pulse Ox 98.4 F 87 12 104/67 98 09/16/17 23:42 09/16/17 23:42 09/16/17 23:42 09/16/17 23:42 09/17/17 00:00 Discharge - Discharge Clinical Impression: Headache Qualifiers: Headache type: unspecified Headache chronicity pattern: acute headache Intractability: not intractable Qualified Code(s): R51 - Headache Condition: Stable Disposition: HOME, SELF-CARE Instructions: Headache ([facility]), Pain Medication Injection ([facility]), Steroid Medication Injection Additional Instructions: You have been seen in the Emergency Department (ED) for a headache. As we have discussed, please follow up with your primary care doctor and neurologist as soon as possible regarding today's ED visit and your headache symptoms. Call your doctor or return to the ED if you have a worsening headache, sudden and severe headache, confusion, slurred speech, facial droop, weakness or numbness in any arm or leg, extreme fatigue, or other symptoms that concern you. Referrals: FLORENCIA HUNT MD [ACTIVE STAFF] - Follow up as needed
[2017-09-16 23:43] VITALS: BP 104/67
== END 2017-09-17 00:18 | disposition home or self-care (01) ==
LOC: ER 19:40
DX: R51 Headache (principal); H53.8 Other visual disturbances; R11.0 Nausea; Z79.899 Other long term (current) drug therapy
CPT/HCPCS: 99284; 96372; 96361; 96374; 96375; J1200; J1170; J2550; J7030; J1100

== ENCOUNTER 2017-09-26 01:29 | Emergency (ER) | payer OTHER ==
--- NOTE | 2017-09-26 02:07 | ER Document Report ---
ED General - General Chief Complaint: Pelvic Pain Stated Complaint: PELVIC PAIN Time Seen by Provider: 09/26/17 01:55 TRAVEL OUTSIDE OF THE [place] IN LAST 30 DAYS: No - HPI Notes: Patient is a 42-year-old female with a history of a total hysterectomy who presents the ED complaining of an episode of vaginal bleeding this evening 1. Patient states that she did have pelvic cramping prior to the episode. Patient states that she does continue to have some pelvic cramping, has not noticed any other vaginal bleeding at this time. Patient states that she did clean herself up and brings up to the ED for evaluation. Patient states that they did leave her ovaries and fallopian tubes that she is aware of, but did remove the uterus and cervix. + occ nausea. Patient still eating and drink without difficulties. She is still urinating normally and having normal bowel movements. She has no other concerns or complaints at this time. Denies any other recent illness. Denies any headache, fever, URI, sore throat, chest pain, palpitations, syncope, cough, shortness of breath, wheeze, dyspnea, vomiting/diarrhea, urinary retention, dysuria, hematuria, back pain, loss of control of bowel or bladder, numbness/tingling, saddle anesthesia, muscle paralysis/weakness, or rash. - Related Data Allergies/Adverse Reactions: ibuprofen Allergy (Verified 09/26/17 01:39) latex Allergy (Verified 09/26/17 01:39) metoclopramide [From Reglan] Allergy (Verified 09/26/17 01:39) Penicillins Allergy (Verified 09/26/17 01:39) sulfamethoxazole [From Septra] Allergy (Verified 09/26/17 01:39) sumatriptan [From Imitrex] Allergy (Verified 09/26/17 01:39) tramadol Allergy (Verified 09/26/17 01:39) trimethoprim [From Septra] Allergy (Verified 09/26/17 01:39) zolmitriptan [From Zomig] Allergy (Verified 09/26/17 01:39) prochlorperazine [From Compazine] Adverse Reaction (Verified 09/26/17 01:39) Past Medical History - Social History Smoking Status: Never Smoker Family History: Arthritis, COPD, CVA, DM, Hyperlipidemia, Hypertension, Malignancy. denies: CAD, Thyroid Disfunction - Past Medical History Cardiac Medical History: Reports: Hx Hypercholesterolemia Neurological Medical History: Reports: Hx Migraine Renal/ Medical History: Reports: Hx Ovarian Cysts - PCOS. Denies: Hx Peritoneal Dialysis GI Medical History: Reports: Hx Gastroesophageal Reflux Disease, Hx Hiatal Hernia Musculoskeltal Medical History: Reports Hx Arthritis, Reports Hx Musculoskeletal Deformity - Scoliosis, Reports Hx Musculoskeletal Trauma Psychiatric Medical History: Reports: Hx Anxiety, Hx Depression Past Surgical History: Reports: Hx Appendectomy, Hx Cholecystectomy, Hx Hysterectomy, Hx Orthopedic Surgery - Alexander rods - Immunizations Hx Diphtheria, Pertussis, Tetanus Vaccination: No - 2009 Review of Systems - Review of Systems Notes: REVIEW OF SYSTEMS: CONSTITUTIONAL : Denies fever, chills, or sweats. Denies recent illness. EENT: Denies eye, ear, throat, or mouth pain or symptoms. Denies nasal or sinus congestion or discharge. Denies throat, tongue, or mouth swelling or difficulty swallowing. CARDIOVASCULAR: Denies chest pain. Denies palpitations or racing or irregular heart beat. RESPIRATORY: Denies cough, cold, or chest congestion. Denies shortness of breath, difficulty breathing, or wheezing. GASTROINTESTINAL: Denies abdominal pain or distention. Denies nausea, vomiting , or diarrhea. Denies blood in vomitus, stools, or per rectum. Denies black, tarry stools. Denies constipation. GENITOURINARY: Denies difficulty urinating, painful urination, burning, frequency, blood in urine, or discharge. FEMALE GENITOURINARY: see hpi MUSCULOSKELETAL: Denies back or neck pain or stiffness. Denies joint pain or swelling. SKIN: Denies rash, lesions or sores. NEUROLOGICAL: Denies confusion or altered mental status. Denies passing out or loss of consciousness. Denies dizziness or lightheadedness. Denies headache. Denies weakness or paralysis or loss of use of either side. Denies problems with gait or speech. Denies sensory loss, numbness, or tingling. ALL OTHER SYSTEMS REVIEWED AND NEGATIVE. Dictation was performed using [employer] voice recognition software Physical Exam - Vital signs Vitals: Temp Pulse Resp BP Pulse Ox 98.2 F 90 16 117/77 99 09/26/17 01:39 09/26/17 01:39 09/26/17 01:39 09/26/17 01:39 09/26/17 01:39 Notes: PHYSICAL EXAMINATION: GENERAL: Well-appearing, well-nourished and in no acute distress. A&Ox4. LUNGS: Breath sounds clear to auscultation bilaterally and equal. No wheezes rales or rhonchi. HEART: Regular rate and rhythm without murmurs, rubs, gallops. ABDOMEN: Soft, nondistended abdomen. No guarding, no rebound. No masses appreciated. Normal bowel sounds present. No CVA tenderness bilaterally. + mild tenderness to the pelvic area. No McBurney tenderness or LLQ tenderness. Musculoskeletal: FROM to passive/active. Strength 5+/5. Extremities: No cyanosis, clubbing, or edema b/l. Peripheral pulses 2+. Capillary refill less than 3 seconds. NEUROLOGICAL: Normal speech, normal gait. Normal sensory, motor exams PSYCH: Normal mood, normal affect. SKIN: Warm, Dry, normal turgor, no rashes or lesions noted. Course - Re-evaluation Re-evalutation: 09/26/17 06:41 Patient is an afebrile, well-hydrated, 42-year-old female who presents the ED with an episode of vaginal bleeding. Vitals are stable. PE is otherwise unremarkable. Patient is no longer having any vaginal bleeding. Patient does continue to have intermittent pelvic cramping. Blood work was unremarkable. Transvaginal ultrasound was also unremarkable. Patient was given Morphine IR for her pain. Low suspicion/risk for acute appendicitis, bowel obstruction, acute cholecystitis, acute cholangitis, perforated diverticulitis, incarcerated hernia, pancreatitis, perforated ulcer, peritonitis, sepsis, pelvic inflammatory disease, ectopic , tubo-ovarian abscess, ovarian torsion, or other systemic emergent condition at this time. Patient is aware that her condition can change from initial presentation and she needs to monitor symptoms closely and seek medical attention if any acute changes. Conservative measures otherwise for symptoms. Recheck with OBGYN in 2-3 days. Recheck with your PCM in 3-5 days. Consider consult with a jr. java developer. Return to the ED with any worsening/concerning symptoms otherwise as reviewed in discharge. Patient is in agreement. - Vital Signs Vital signs: Temp Pulse Resp BP Pulse Ox 98.2 F 91 16 100/65 100 09/26/17 01:39 09/26/17 05:06 09/26/17 05:06 09/26/17 05:06 09/26/17 05:06 - Laboratory Laboratory results interpreted by me: 09/26/17 02:10 Urine Protein 30 H Urine Ketones TRACE H Urine Urobilinogen 2.0 H Discharge - Discharge Clinical Impression: Vaginal bleeding Condition: Stable Disposition: HOME, SELF-CARE Additional Instructions: Maintain fluid intake Tylenol as needed Monitor for any worsening symptoms Recheck with OBGYN in 2-3 days Recheck with PCM in 3-5 days Return to the ED with any worsening symptoms and/or development of fever, headache, chest pain, palpitations, syncope, shortness of breath, trouble breathing, abdominal pain, n/v/d, blood in stool/urine, vaginal bleeding, worsening pelvic cramping, or other worsening symptoms that are concerning to you. Referrals: [facility] [Provider Group] - 09/28/17
[2017-09-26] MEDS ORDERED: ONDANSETRON 4 MG TAB.RAPDIS PO ONE (02:08)
[2017-09-26] MEDS ORDERED: MORPHINE SULFATE IR 15 MG TABLET PO ONE ×2 (02:30→04:42)
[2017-09-26 03:24] LABS: BILIRUBIN,URINE NEGATIVE (NEGATIVE); GLUCOSE, URINE NEGATIVE (NEGATIVE); KETONES,URINE TRACE mg/dL (NEGATIVE); LEUKOCYTE ESTERASE,URINE NEGATIVE (NEGATIVE); NITRITE,URINE NEGATIVE (NEGATIVE); PROTEIN,URINE 30 mg/dL (NEGATIVE); URINE SPECIFIC GRAVITY 1.032
[2017-09-26 03:26] LABS: APPEARANCE,URINE CLEAR
--- NOTE | 2017-09-26 03:52 | RADIOLOGY REPORT (SQ) ---
EXAM DESCRIPTION: U/S NON OB PEL TV W/DOPPLER COMPLETED DATE/TIME: 09/26/2017 3:11 am REASON FOR STUDY: vaginal bleed, h/o total hysterectomy COMPARISON: None. TECHNIQUE: Dynamic and static grayscale images acquired of the pelvis via transvaginal approach and recorded on PACS. Additional selected color Doppler and spectral images recorded. LIMITATIONS: None. FINDINGS: UTERUS: Surgically absent. RIGHT OVARY: No abnormal masses. RIGHT OVARY DOPPLER: Normal arterial vascular flow without evidence for torsion. LEFT OVARY: No abnormal masses. LEFT OVARY DOPPLER: Normal arterial vascular flow without evidence for torsion. FREE FLUID: None noted. OTHER: No other significant finding. MEASUREMENTS: UTERUS: Not applicable. RIGHT OVARY: 3.0 cm. LEFT OVARY: 2.5 cm. IMPRESSION: Normal ovaries. Uterus is surgically absent. TECHNICAL DOCUMENTATION: JOB ID: [id number] [employer]- All Rights Reserved
[2017-09-26 05:08] VITALS: BP 100/65
== END 2017-09-26 04:59 | disposition home or self-care (01) ==
LOC: ER 01:29
DX: N93.9 Abnormal uterine and vaginal bleeding, unspecified (principal); R10.2 Pelvic and perineal pain; R11.0 Nausea; Z90.710 Acquired absence of both cervix and uterus; Z88.6 Allergy status to analgesic agent; Z91.040 Latex allergy status; Z88.8 Allergy status to other drugs, medicaments and biological substances; Z88.1 Allergy status to other antibiotic agents; Z88.5 Allergy status to narcotic agent; Z90.49 Acquired absence of other specified parts of digestive tract
CPT/HCPCS: 99284; 87086; 81001; 76830; 93976; S0119

== ENCOUNTER 2017-09-26 10:21 | Emergency (ER) | payer OTHER ==
[2017-09-26] MEDS ORDERED: NORMAL SALINE 1000 ML 1,000 ML IV ONE ×2 (11:01→12:19)
--- NOTE | 2017-09-26 11:03 | ER Document Report ---
ED Medical Screen (RME) - General Chief Complaint: Pelvic Pain Stated Complaint: PELVIC PAIN Time Seen by Provider: 09/26/17 11:02 TRAVEL OUTSIDE OF THE [place] IN LAST 30 DAYS: No - HPI Notes: 09/26/17 11:02 Patient seen less than 12 hours ago for right-sided pelvic pain states continues now is constant pain no longer just cramping. Ultrasound at that time was normal. Patient states history of cholecystectomy and appendectomy.. Patient states nausea vomiting diarrhea some recently with a GI virus. - Related Data Allergies/Adverse Reactions: ibuprofen Allergy (Verified 09/26/17 10:35) latex Allergy (Verified 09/26/17 10:35) metoclopramide [From Reglan] Allergy (Verified 09/26/17 10:35) Penicillins Allergy (Verified 09/26/17 10:35) sulfamethoxazole [From Septra] Allergy (Verified 09/26/17 10:35) sumatriptan [From Imitrex] Allergy (Verified 09/26/17 10:35) tramadol Allergy (Verified 09/26/17 10:35) trimethoprim [From Septra] Allergy (Verified 09/26/17 10:35) zolmitriptan [From Zomig] Allergy (Verified 09/26/17 10:35) prochlorperazine [From Compazine] Adverse Reaction (Verified 09/26/17 10:35) Home Medications: Current Home Medications Ranitidine HCl [Zantac 75 mg Tablet] 75 mg PO BID 09/26/17 [History] Zolpidem Tartrate [Zolpidem Tartrate] 10 mg PO QHS 09/26/17 [History] Past Medical History - Social History Frequency of alcohol use: Social Drug Abuse: None - Past Medical History Cardiac Medical History: Reports: Hx Hypercholesterolemia Neurological Medical History: Reports: Hx Migraine Renal/ Medical History: Reports: Hx Ovarian Cysts - PCOS. Denies: Hx Peritoneal Dialysis GI Medical History: Reports: Hx Gastroesophageal Reflux Disease, Hx Hiatal Hernia Musculoskeltal Medical History: Reports Hx Arthritis, Reports Hx Musculoskeletal Deformity - Scoliosis, Reports Hx Musculoskeletal Trauma Psychiatric Medical History: Reports: Hx Anxiety, Hx Depression Past Surgical History: Reports: Hx Appendectomy, Hx Cholecystectomy, Hx Hysterectomy, Hx Orthopedic Surgery - Alexander rods - Immunizations Hx Diphtheria, Pertussis, Tetanus Vaccination: No - 2009 History of Influenza Vaccine for 08/2017 - 12/2017 Season: Yes Influenza Administration Date for 08/2017 - 12/2017 Season: 12/03/16 Physical Exam - Vital signs Vitals: Temp Pulse Resp BP Pulse Ox 98.5 F 103 H 20 110/78 98 09/26/17 10:32 09/26/17 10:32 09/26/17 10:32 09/26/17 10:32 09/26/17 10:32 - Respiratory Respiratory status: No respiratory distress Chest status: Nontender Breath sounds: Normal Chest palpation: Normal Course - Vital Signs Vital signs: Temp Pulse Resp BP Pulse Ox 98.5 F 103 H 20 110/78 98 09/26/17 10:32 09/26/17 10:32 09/26/17 10:32 09/26/17 10:32 09/26/17 10:32
[2017-09-26 11:31] LABS: ABSOLUTE BASOPHILS # (AUTO) 0.1 10^3/uL (0.0-0.2); ABSOLUTE EOSINOPHILS # (AUTO) 0.9 10^3/uL (0.0-0.6); ABSOLUTE LYMPHOCYTES (AUTO) 3.5 10^3/uL (0.5-4.7); ABSOLUTE MONOCYTES (AUTO) 0.8 10^3/uL (0.1-1.4); ABSOLUTE NEUT (AUTO) 3.9 10^3/uL (1.7-8.2); BASOPHILS % (AUTO) 0.8 % (0-2); EOSINOPHILS % (AUTO) 9.6 % (0-6); HEMATOCRIT 42.1 % (36.0-47.0); HEMOGLOBIN 13.9 g/dL (12.0-15.5); HGB HCT DIFFERENCE -0.4; LYMPHOCYTES % (AUTO) 38.7 % (13-45); MEAN CORPUSCULAR HEMOGLOBIN 27.6 pg (27.0-33.4); MEAN CORPUSCULAR VOLUME 84 fl (80-97); MONOCYTES % (AUTO) 8.3 % (3-13); RED BLOOD COUNT 5.04 10^6/uL (3.72-5.28); SEGMENTED NEUTROPHILS % (AUTO) 42.6 % (42-78); WHITE BLOOD COUNT 9.1 10^3/uL (4.0-10.5)
[2017-09-26 11:54] LABS: ALANINE AMINOTRANSFERASE 105 U/L (9-52); ALKALINE PHOSPHATASE 52 U/L (38-126); ANION GAP 14 (5-19); ASPARTATE AMINO TRANSFERASE 128 U/L (14-36); BILIRUBIN,DIRECT 0.3 mg/dL (0.0-0.4); BILIRUBIN,TOTAL 0.5 mg/dL (0.2-1.3); BLOOD UREA NITROGEN 14 mg/dL (7-20); CALCIUM 9.2 mg/dL (8.4-10.2); CARBON DIOXIDE 21 mmol/L (22-30); CHLORIDE 110 mmol/L (98-107); CREATININE RESULT 0.97 mg/dL (0.52-1.25); GLUCOSE 89 mg/dL (75-110); POTASSIUM 4.1 mmol/L (3.6-5.0); SODIUM 145.3 mmol/L (137-145); TOTAL PROTEIN 6.8 g/dL (6.3-8.2)
[2017-09-26] MEDS ORDERED: ONDANSETRON HCL INJ/PF 4 MG/2 ML SDV IV ONE (12:00)
[2017-09-26] MEDS ORDERED: HYDROMORPHONE HCL INJ/PF 2 MG/ML AMPULE IV ONE ×2 (12:19→13:39)
--- NOTE | 2017-09-26 12:22 | ER Document Report ---
ED GI/ - General Chief Complaint: Pelvic Pain Stated Complaint: PELVIC PAIN Time Seen by Provider: 09/26/17 11:02 Mode of Arrival: Ambulatory Information source: Patient TRAVEL OUTSIDE OF THE [place] IN LAST 30 DAYS: No - HPI Patient complains to provider of: Pelvic pain Onset: Yesterday Timing/Duration: Gradual, Waxing and waning Quality of pain: Cramping Severity at maximum: Severe Severity in ED: Moderate Context: Other - PCOS. denies: Bad food, Lifting, Out of the country travel, , Recent trauma Location: RLQ Vaginal bleeding (Compared to normal period): None Menstrual period history: denies: Sexual history: Active Associated symptoms: Nausea, Vomiting. denies: Diarrhea, Urinary frequency, Urinary urgency, Vaginal discharge Exacerbated by: Denies Relieved by: Denies Similar symptoms previously: Yes - W/ OVARIAN CYSTS/RUPTURE Recently seen / treated by doctor: Yes - BAILEY Chatterjee, LAST PM - Related Data Allergies/Adverse Reactions: ibuprofen Allergy (Verified 09/26/17 10:35) latex Allergy (Verified 09/26/17 10:35) metoclopramide [From Reglan] Allergy (Verified 09/26/17 10:35) Penicillins Allergy (Verified 09/26/17 10:35) sulfamethoxazole [From Septra] Allergy (Verified 09/26/17 10:35) sumatriptan [From Imitrex] Allergy (Verified 09/26/17 10:35) tramadol Allergy (Verified 09/26/17 10:35) trimethoprim [From Septra] Allergy (Verified 09/26/17 10:35) zolmitriptan [From Zomig] Allergy (Verified 09/26/17 10:35) prochlorperazine [From Compazine] Adverse Reaction (Verified 09/26/17 10:35) Home Medications: Current Home Medications Ranitidine HCl [Zantac 75 mg Tablet] 75 mg PO BID 09/26/17 [History] Zolpidem Tartrate [Zolpidem Tartrate] 10 mg PO QHS 09/26/17 [History] Past Medical History - General Information source: Patient, Parent - Social History Smoking Status: Never Smoker Frequency of alcohol use: Social Drug Abuse: None Family History: Arthritis, COPD, CVA, DM, Hyperlipidemia, Hypertension, Malignancy. denies: CAD, Thyroid Disfunction Patient has suicidal ideation: No Patient has homicidal ideation: No - Past Medical History Cardiac Medical History: Reports: Hx Hypercholesterolemia Pulmonary Medical History: Reports: None Neurological Medical History: Reports: Hx Migraine Endocrine Medical History: Reports: None Renal/ Medical History: Reports: Hx Ovarian Cysts - PCOS. Denies: Hx Peritoneal Dialysis GI Medical History: Reports: Hx Gastroesophageal Reflux Disease, Hx Hiatal Hernia Musculoskeltal Medical History: Reports Hx Arthritis, Reports Hx Musculoskeletal Deformity - Scoliosis, Reports Hx Musculoskeletal Trauma Psychiatric Medical History: Reports: Hx Anxiety, Hx Depression Past Surgical History: Reports: Hx Appendectomy, Hx Cholecystectomy, Hx Hysterectomy, Hx Orthopedic Surgery - Alexander rods - Immunizations Hx Diphtheria, Pertussis, Tetanus Vaccination: No - 2009 Review of Systems - Review of Systems Constitutional: No symptoms reported EENT: No symptoms reported Cardiovascular: No symptoms reported Respiratory: No symptoms reported Gastrointestinal: See HPI Genitourinary: See HPI Female Genitourinary: See HPI Musculoskeletal: No symptoms reported Skin: No symptoms reported Neurological/Psychological: No symptoms reported Physical Exam - Vital signs Vitals: Temp Pulse Resp BP Pulse Ox 98.5 F 103 H 20 110/78 98 09/26/17 10:32 09/26/17 10:32 09/26/17 10:32 09/26/17 10:32 09/26/17 10:32 Interpretation: Tachycardic. No: Tachypneic - General General appearance: Appears well, Alert In distress: None - HEENT Head: Normocephalic Eyes: Normal Conjunctiva: Normal Ears: Normal Nasal: Normal Mouth/Lips: Normal Mucous membranes: Normal - Respiratory Respiratory status: No respiratory distress - Cardiovascular Rhythm: Regular, Tachycardia - Abdominal Inspection: Normal Distension: No distension Bowel sounds: Hypoactive - Back Back: Normal - Extremities General upper extremity: Normal inspection General lower extremity: Normal inspection - Neurological Neuro grossly intact: Yes Cognition: Normal Orientation: AAOx4 - Psychological Associated symptoms: Normal affect, Normal mood - Skin Skin Temperature: Warm Skin Moisture: Dry Skin Color: Normal Skin Turgor: Elastic Course - Re-evaluation Re-evalutation: 09/26/17 13:41 Patient reports pain modestly improved. Intravenous hydration is continuing. Results of laboratory and radiographic studies discussed with patient and spouse. - Vital Signs Vital signs: Temp Pulse Resp BP Pulse Ox 98.5 F 103 H 20 110/78 98 09/26/17 10:32 09/26/17 10:32 09/26/17 10:32 09/26/17 10:32 09/26/17 10:32 - Laboratory Result Diagrams: 09/26/17 11:15 09/26/17 11:15 Laboratory results interpreted by me: 09/26/17 09/26/17 11:15 11:15 Eosinophils % 9.6 H Absolute Eosinophils 0.9 H Sodium 145.3 H Chloride 110 H Carbon Dioxide 21 L AST 128 H ALT 105 H - Diagnostic Test Radiology reviewed: Image reviewed, Reports reviewed Discharge - Discharge Clinical Impression: Pelvic pain Condition: Stable Disposition: HOME, SELF-CARE Instructions: Pain Medication Injection ([facility]), Pelvic Pain ([facility]), Intravenous ( IV) Fluids ([facility]), Oral Narcotic Medication ([facility]) Additional Instructions: REST, DRINK PLENTY OF FLUIDS. YOU MAY TAKE HYDROMORPHONE (DILAUDID) FOR PAIN IF NEEDED, OR IBUPROFEN FOR LESS SEVERE PAIN. FOLLOW UP WITH YOUR PRIMARY CARE PROVIDER OR GROUND OPERATIONS SUPERINTENDENT IF PROBLEMS. Prescriptions: Hydromorphone HCl [Dilaudid 2 Mg Tablet] 2 mg PO Q4HP PRN #10 tablet PRN Reason: For Pain
--- NOTE | 2017-09-26 13:14 | RADIOLOGY REPORT (SQ) ---
EXAM DESCRIPTION: CT ABD/PELVIS WITH IV ONLY COMPLETED DATE/TIME: 09/26/2017 12:48 pm REASON FOR STUDY: pelvic pain n/v/d COMPARISON: Pelvic ultrasound earlier. TECHNIQUE: CT scan of the abdomen and pelvis performed using helical scanning technique with dynamic intravenous contrast injection. No oral contrast. Images reviewed with lung, soft tissue, and bone windows. Reconstructed coronal and sagittal MPR images reviewed. Delayed images for evaluation of the urinary system also acquired. All images stored on PACS. All CT scanners at this facility use dose modulation, iterative reconstruction, and/or weight based d osing when appropriate to reduce radiation dose to as low as reasonably achievable (ALARA). [facility]: Dose Right [facility]: CareDose [facility]: Dose Right [facility]: Teradose 4D [facility]: KidAdmit CONTRAST TYPE AND DOSE: contrast/concentration: Isovue 370.00 mg/ml; Total Contrast Delivered: 91.0 ml; Total Saline Delivered: 70.1 ml RENAL FUNCTION: Acceptable. RADIATION DOSE: CT Rad equipment meets quality standard of care and radiation dose reduction techniq ues were employed. CTDIvol: 8.7 - 13.0 mGy. DLP: 1075 mGy-cm.. LIMITATIONS: None. FINDINGS: LOWER CHEST: No significant findings. No nodules or infiltrates. LIVER: Normal size. No masses. No dilated ducts. SPLEEN: Normal size. No focal lesions. PANCREAS: No masses. No significant calcifications. No adjacent inflammation or peripancreatic fluid collections. Pancreatic duct not dilated. GALLBLADDER: Absent. ADRENAL GLANDS: No significant masses or asymmetry. RIGHT KIDNEY AND URETER: No solid masses. No significant calcification. No hydronephrosis or hydroure ter. LEFT KIDNEY AND URETER: No solid masses. No significant calcification. No hydronephrosis or hydrouret er. AORTA AND VESSELS: No aneurysm. No dissection. Renal arteries, SMA, celiac without stenosis. RETROPERITONEUM: No retroperitoneal adenopathy, hemorrhage or masses. BOWEL AND PERITONEAL CAVITY: No masses or inflammatory changes. No free fluid or peritoneal masses. APPENDIX: Surgically absent. PELVIS: No mass. No free fluid. Normal bladder. ABDOMINAL WALL: No masses. No hernias. BONES: No significant or acute findings. OTHER: No other significant finding. IMPRESSION: NO SIGNIFICANT OR ACUTE FINDING IN THE ABDOMEN OR PELVIS ON CT SCAN WITH IV CONTRAST. TECHNICAL DOCUMENTATION: JOB ID: [id number] Quality ID # [id number]: Final reports with documentation of one or more dose reduction techniques (e.g., Au tomated exposure control, adjustment of the mA and/or kV according to patient size, use of iterative reconstruction technique) 2010 [employer]- All Rights Reserved
[2017-09-26 14:01] LABS: CHLAM PCR NOT DETECTED (NOT DETECT)
[2017-09-26 14:32] VITALS: BP 115/70
== END 2017-09-26 14:33 | disposition home or self-care (01) ==
LOC: ER 10:21
DX: R10.2 Pelvic and perineal pain (principal); Z79.899 Other long term (current) drug therapy
CPT/HCPCS: 96376; 99284; 96361; 96374; 96375; 36415; 85025; 80053; 87491; 87591; 74177; J1170; J2405; J7030

== ENCOUNTER 2017-10-07 23:32 | Emergency (ER) | payer OTHER ==
[2017-10-08] MEDS ORDERED: NORMAL SALINE 1000 ML 1,000 ML IV ONE (01:15)
[2017-10-08] MEDS ORDERED: ONDANSETRON HCL INJ/PF 4 MG/2 ML SDV IV ONE (01:15)
[2017-10-08] MEDS ORDERED: DEXAMETHASONE SOD PHOS INJ 10 MG/1 ML VIAL IV ONE (01:15)
[2017-10-08] MEDS ORDERED: DIPHENHYDRAMINE HCL 50 MG/ML VIAL IV ONE (01:16)
[2017-10-08] MEDS ORDERED: HYDROMORPHONE HCL INJ/PF 2 MG/ML AMPULE IV ONE ×2 (01:16→03:23)
--- NOTE | 2017-10-08 01:18 | ER Document Report ---
ED General - General Chief Complaint: Headache Stated Complaint: HEADACHE Time Seen by Provider: 10/08/17 00:51 Notes: Patient is a 42-year-old female who presents with a migraine headache. She describes it as her typical migraine headache. States that it started earlier today approximately around 5 PM. She notes that it was present when she went to bed but she actually woke up from sleep with severe nausea prompting her to vomit. She states she was unable to take any of her medications at home to try to terminate the migraine headache due to her vomiting. Headache was worsened by lights and sounds. She notes that this is similar to prior migraine headaches that she has had in the past. She denies any focal weakness, numbness , altered mental status. No fever or constitutional symptoms. She is scheduled for a Botox injection in the morning to help control her migraine headaches. TRAVEL OUTSIDE OF THE [place] IN LAST 30 DAYS: No - Related Data Allergies/Adverse Reactions: ibuprofen Allergy (Verified 09/26/17 10:35) latex Allergy (Verified 09/26/17 10:35) metoclopramide [From Reglan] Allergy (Verified 09/26/17 10:35) Penicillins Allergy (Verified 09/26/17 10:35) sulfamethoxazole [From Septra] Allergy (Verified 09/26/17 10:35) sumatriptan [From Imitrex] Allergy (Verified 09/26/17 10:35) tramadol Allergy (Verified 09/26/17 10:35) trimethoprim [From Septra] Allergy (Verified 09/26/17 10:35) zolmitriptan [From Zomig] Allergy (Verified 09/26/17 10:35) prochlorperazine [From Compazine] Adverse Reaction (Verified 09/26/17 10:35) Past Medical History - General Information source: Patient - Social History Smoking Status: Never Smoker Frequency of alcohol use: None Drug Abuse: None Lives with: Spouse/Significant other Family History: Arthritis, COPD, CVA, DM, Hyperlipidemia, Hypertension, Malignancy. denies: CAD, Thyroid Disfunction - Past Medical History Cardiac Medical History: Reports: Hx Hypercholesterolemia Neurological Medical History: Reports: Hx Migraine Renal/ Medical History: Reports: Hx Ovarian Cysts - PCOS. Denies: Hx Peritoneal Dialysis GI Medical History: Reports: Hx Gastroesophageal Reflux Disease, Hx Hiatal Hernia Musculoskeltal Medical History: Reports Hx Arthritis, Reports Hx Musculoskeletal Deformity - Scoliosis, Reports Hx Musculoskeletal Trauma Psychiatric Medical History: Reports: Hx Anxiety, Hx Depression Past Surgical History: Reports: Hx Appendectomy, Hx Cholecystectomy, Hx Hysterectomy, Hx Orthopedic Surgery - Alexander rods - Immunizations Hx Diphtheria, Pertussis, Tetanus Vaccination: No - 2009 Review of Systems - Review of Systems Notes: Constitutional: Negative for fever. HENT: Negative for sore throat. Eyes: Negative for visual changes. Cardiovascular: Negative for chest pain. Respiratory: Negative for shortness of breath. Gastrointestinal: Negative for abdominal pain, vomiting or diarrhea. Genitourinary: Negative for dysuria. Musculoskeletal: Negative for back pain. Skin: Negative for rash. Neurological: Positive for headaches, negative for weakness or numbness. 10 point ROS negative except as marked above and in HPI. Physical Exam - Vital signs Vitals: Temp Pulse Resp BP Pulse Ox 98.8 F 115 H 18 103/66 97 10/07/17 23:46 10/07/17 23:46 10/07/17 23:46 10/07/17 23:46 10/07/17 23:46 Interpretation: Tachycardic Notes: PHYSICAL EXAMINATION: GENERAL: Appears uncomfortable, actively vomiting when I walk into the room HEAD: Atraumatic, normocephalic. EYES: Pupils equal round and reactive to light, extraocular movements intact, sclera anicteric, conjunctiva are normal. ENT: nares patent, oropharynx clear without exudates. Moist mucous membranes. NECK: Normal range of motion, supple without lymphadenopathy LUNGS: Breath sounds clear to auscultation bilaterally and equal. No wheezes rales or rhonchi. HEART: Regular rate and rhythm without murmurs ABDOMEN: Soft, nontender, normoactive bowel sounds. No guarding, no rebound. No masses appreciated. EXTREMITIES: Normal range of motion, no pitting or edema. No cyanosis. NEUROLOGICAL: Face symmetric. Tongue protrudes midline. Extraocular motions intact. Pupils are 2 mm and equally reactive. Normal speech, normal gait. 5 out of 5 strength in both the distal and proximal upper and lower extremities bilaterally. Sensation is grossly intact throughout. Finger to nose testing normal. Pronator drift normal. PSYCH: Normal mood, normal affect. SKIN: Warm, Dry, normal turgor, no rashes or lesions noted. Course - Re-evaluation Re-evalutation: 10/08/17 01:18 Presentation of a headache that appears to be most consistent with tension versus migrainous type headache. Headache was not maximal in onset, patient has no focal neurologic deficits, no nuchal rigidity, vital signs within normal limits, no papilledema, and patient is overall well in appearance. Based on clinical history and examination I do not suspect an acute subarachnoid hemorrhage, dural venous sinus thrombosis, acute meningitis, or intercranial mass. Given my low clinical suspicion for any acute life-threatening etiology, I do not feel advanced neuro imaging or laboratory testing is indicated at this time. Will proceed with headache cocktail and reassess. 10/08/17 03:23 Patient has had resolution of her migraine headache. Disposition At this time will discharge with return precautions and follow-up recommendations. Verbal discharge instructions given a the bedside and opportunity for questions given. Medication warnings reviewed. Patient is in agreement with this plan and has verbalized understanding of return precautions and the need for primary care follow-up in the next 24-72 hours. - Vital Signs Vital signs: Temp Pulse Resp BP Pulse Ox 98.8 F 115 H 18 103/66 97 10/07/17 23:46 10/07/17 23:46 10/07/17 23:46 10/07/17 23:46 10/07/17 23:46 Discharge - Discharge Clinical Impression: Migraine headache Qualifiers: Migraine type: unspecified Status migrainosus presence: with status migrainosus Intractability: not intractable Qualified Code(s): G43.901 - Migraine, unspecified, not intractable, with status migrainosus Condition: Good Disposition: HOME, SELF-CARE Additional Instructions: You were seen today for a migraine headache. Please follow-up with your primary care doctor regarding today's ED visit. Return to emergency department immediately if you develop a headache that gets to its maximum severity within 20 minutes of onset, you pass out, you develop weakness, numbness, changes in your vision, become unable to keep any fluids down for more than 12 hours, or develop a fever greater than 100.4 degrees Fahrenheit.
[2017-10-08 04:18] VITALS: BP 109/72
== END 2017-10-08 04:18 | disposition home or self-care (01) ==
LOC: ER 23:32
DX: G43.901 Migraine, unspecified, not intractable, with status migrainosus (principal); Z88.6 Allergy status to analgesic agent; Z91.040 Latex allergy status; Z88.0 Allergy status to penicillin; Z88.8 Allergy status to other drugs, medicaments and biological substances; Z88.1 Allergy status to other antibiotic agents; Z88.5 Allergy status to narcotic agent; R00.0 Tachycardia, unspecified
CPT/HCPCS: 96376; 99283; 96374; 96375; J1200; J1170; J2405; J7030; J1100

== ENCOUNTER 2017-10-17 17:33 | Emergency (ER) | payer OTHER ==
--- NOTE | 2017-10-17 17:58 | ER Document Report ---
ED Medical Screen (RME) - General Chief Complaint: Flank Pain Stated Complaint: RIGHT FLANK PAIN,BACK PAIN, NAUSEA Notes: 42-year-old female patient reports onset yesterday of cloudy urine with bad odor. Today she developed right flank pain with some chills, nausea and some vomiting. She also developed dysuria today. She denies fever. She is on chronic pain management. RETURN TO THE EMERGENCY ROOM IF ANY NEW OR WORSENING SYMPTOMS. TRAVEL OUTSIDE OF THE [place] IN LAST 30 DAYS: No - Related Data Allergies/Adverse Reactions: ibuprofen Allergy (Verified 10/17/17 17:50) latex Allergy (Verified 10/17/17 17:50) metoclopramide [From Reglan] Allergy (Verified 10/17/17 17:50) Penicillins Allergy (Verified 10/17/17 17:50) sulfamethoxazole [From Septra] Allergy (Verified 10/17/17 17:50) sumatriptan [From Imitrex] Allergy (Verified 10/17/17 17:50) tramadol Allergy (Verified 10/17/17 17:50) trimethoprim [From Septra] Allergy (Verified 10/17/17 17:50) zolmitriptan [From Zomig] Allergy (Verified 10/17/17 17:50) prochlorperazine [From Compazine] Adverse Reaction (Verified 10/17/17 17:50) Past Medical History - Social History Chew tobacco use (# tins/day): No Frequency of alcohol use: Social Drug Abuse: None - Past Medical History Cardiac Medical History: Reports: Hx Hypercholesterolemia Neurological Medical History: Reports: Hx Migraine Renal/ Medical History: Reports: Hx Ovarian Cysts - PCOS. Denies: Hx Peritoneal Dialysis GI Medical History: Reports: Hx Gastroesophageal Reflux Disease, Hx Hiatal Hernia Musculoskeltal Medical History: Reports Hx Arthritis, Reports Hx Musculoskeletal Deformity - Scoliosis, Reports Hx Musculoskeletal Trauma Psychiatric Medical History: Reports: Hx Anxiety, Hx Depression Past Surgical History: Reports: Hx Appendectomy, Hx Cholecystectomy, Hx Hysterectomy, Hx Orthopedic Surgery - Alexander rods - Immunizations Hx Diphtheria, Pertussis, Tetanus Vaccination: No - 2009 History of Influenza Vaccine for 08/2017 - 12/2017 Season: Yes Influenza Administration Date for 08/2017 - 12/2017 Season: 12/03/16
[2017-10-17 18:46] LABS: APPEARANCE,URINE CLEAR; BILIRUBIN,URINE NEGATIVE (NEGATIVE); GLUCOSE, URINE NEGATIVE (NEGATIVE); KETONES,URINE NEGATIVE (NEGATIVE); LEUKOCYTE ESTERASE,URINE NEGATIVE (NEGATIVE); NITRITE,URINE POSITIVE (NEGATIVE); PROTEIN,URINE NEGATIVE (NEGATIVE); URINE SPECIFIC GRAVITY 1.004
--- NOTE | 2017-10-17 18:46 | ER Document Report ---
ED GI/ - General Chief Complaint: Flank Pain Stated Complaint: RIGHT FLANK PAIN,BACK PAIN, NAUSEA Time Seen by Provider: 10/17/17 17:58 Notes: 42 years old female presents today with nearly 2 day history of lower abdominal suprapubic discomfort and right flank discomfort with dark urine and frequency of urination. She states she has a history of chronic UTI. She also has a history of WPW, chronic migraine, multiple visits to the ED. Denies any fever chills or other constitutional symptoms. TRAVEL OUTSIDE OF THE [place] IN LAST 30 DAYS: No - Related Data Allergies/Adverse Reactions: ibuprofen Allergy (Verified 10/17/17 17:50) latex Allergy (Verified 10/17/17 17:50) metoclopramide [From Reglan] Allergy (Verified 10/17/17 17:50) Penicillins Allergy (Verified 10/17/17 17:50) sulfamethoxazole [From Septra] Allergy (Verified 10/17/17 17:50) sumatriptan [From Imitrex] Allergy (Verified 10/17/17 17:50) tramadol Allergy (Verified 10/17/17 17:50) trimethoprim [From Septra] Allergy (Verified 10/17/17 17:50) zolmitriptan [From Zomig] Allergy (Verified 10/17/17 17:50) prochlorperazine [From Compazine] Adverse Reaction (Verified 10/17/17 17:50) Past Medical History - Social History Smoking Status: Never Smoker Chew tobacco use (# tins/day): No Frequency of alcohol use: Social Drug Abuse: None Family History: Arthritis, COPD, CVA, DM, Hyperlipidemia, Hypertension, Malignancy. denies: CAD, Thyroid Disfunction Patient has suicidal ideation: No Patient has homicidal ideation: No - Past Medical History Cardiac Medical History: Reports: Hx Hypercholesterolemia Neurological Medical History: Reports: Hx Migraine Renal/ Medical History: Reports: Hx Ovarian Cysts - PCOS. Denies: Hx Peritoneal Dialysis GI Medical History: Reports: Hx Gastroesophageal Reflux Disease, Hx Hiatal Hernia Musculoskeltal Medical History: Reports Hx Arthritis, Reports Hx Musculoskeletal Deformity - Scoliosis, Reports Hx Musculoskeletal Trauma Psychiatric Medical History: Reports: Hx Anxiety, Hx Depression Past Surgical History: Reports: Hx Appendectomy, Hx Cholecystectomy, Hx Hysterectomy, Hx Orthopedic Surgery - Alexander rods - Immunizations Hx Diphtheria, Pertussis, Tetanus Vaccination: No - 2009 Review of Systems - Review of Systems Notes: REVIEW OF SYSTEMS: CONSTITUTIONAL : Denies fever, chills, or sweats. Denies recent illness. EENT: Denies eye, ear, throat, or mouth pain or symptoms. Denies nasal or sinus congestion or discharge. Denies throat, tongue, or mouth swelling or difficulty swallowing. CARDIOVASCULAR: Denies chest pain. Denies palpitations or racing or irregular heart beat. Denies ankle edema. RESPIRATORY: Denies cough, cold, or chest congestion. Denies shortness of breath, difficulty breathing, or wheezing. GASTROINTESTINAL: Denies abdominal pain or distention. Denies nausea, vomiting , or diarrhea. Denies blood in vomitus, stools, or per rectum. Denies black, tarry stools. Denies constipation. GENITOURINARY: Denies blood in urine, or discharge. FEMALE GENITOURINARY: Denies vaginal bleeding, heavy or abnormal periods, irregular periods. Denies vaginal discharge or odor. MUSCULOSKELETAL: Denies back or neck pain or stiffness. Denies joint pain or swelling. SKIN: Denies rash, lesions or sores. HEMATOLOGIC : Denies easy bruising or bleeding. LYMPHATIC: Denies swollen, enlarged glands. NEUROLOGICAL: Denies confusion or altered mental status. Denies passing out or loss of consciousness. Denies dizziness or lightheadedness. Denies headache. Denies weakness or paralysis or loss of use of either side. Denies problems with gait or speech. Denies sensory loss, numbness, or tingling. Denies seizures. PSYCHIATRIC: Denies anxiety or stress. Denies depression, suicidal ideation, or homicidal ideation. ALL OTHER SYSTEMS REVIEWED AND NEGATIVE. PHYSICAL EXAMINATION: GENERAL: Well-appearing, well-nourished and in no acute distress. HEAD: Atraumatic, normocephalic. EYES: Pupils equal round and reactive to light, extraocular movements intact, conjunctiva are normal. ENT: Nares patent, oropharynx clear without exudates. Moist mucous membranes. NECK: Normal range of motion, supple without lymphadenopathy LUNGS: Breath sounds clear to auscultation bilaterally and equal. No wheezes rales or rhonchi. HEART: Regular rate and rhythm without murmurs ABDOMEN: Questionable left flank tendernes, soft, nontender, nondistended abdomen. No guarding, no rebound. No masses appreciated. Female : deferred Musculoskeletal: Normal range of motion, no pitting or edema. No cyanosis. NEUROLOGICAL: Cranial nerves grossly intact. Normal speech, normal gait. Normal sensory, motor exams PSYCH: Normal mood, normal affect. SKIN: Warm, Dry, normal turgor, no rashes or lesions noted. Dictation was performed using [employer] voice recognition software Course - Laboratory Result Diagrams: 10/17/17 19:54 Laboratory results interpreted by me: 10/17/17 18:23 Urine Nitrite POSITIVE H Urine Urobilinogen 4.0 H Discharge - Discharge Clinical Impression: UTI (urinary tract infection) Qualifiers: Urinary tract infection type: acute cystitis Disposition: HOME, SELF-CARE Instructions: Urinary Tract Infection ([facility]) Prescriptions: Ciprofloxacin HCl [Cipro 500 mg Tablet] 500 mg PO BID #20 tablet Ondansetron [Zofran Odt 4 mg Tablet] 1 - 2 tab PO Q4H PRN #15 tab.rapdis PRN Reason: For Nausea/Vomiting
[2017-10-17] MEDS ORDERED: CIPROFLOXACIN HCL 500 MG TABLET PO ONE (19:34)
[2017-10-17 20:06] LABS: ABSOLUTE LYMPHOCYTES (AUTO) 2.5 10^3/uL (0.5-4.7); ABSOLUTE MONOCYTES (AUTO) 1.2 10^3/uL (0.1-1.4); ABSOLUTE NEUT (AUTO) 14.6 10^3/uL (1.7-8.2); BASOPHILS % (AUTO) 0.1 % (0-2); HEMATOCRIT 42.6 % (36.0-47.0); HEMOGLOBIN 14.3 g/dL (12.0-15.5); HGB HCT DIFFERENCE 0.3; LYMPHOCYTES % (AUTO) 13.4 % (13-45); MEAN CORPUSCULAR HEMOGLOBIN 28.1 pg (27.0-33.4); MEAN CORPUSCULAR HGB CONC 33.6 g/dL (32.0-36.0); MEAN CORPUSCULAR VOLUME 84 fl (80-97); MONOCYTES % (AUTO) 6.6 % (3-13); RED BLOOD COUNT 5.08 10^6/uL (3.72-5.28); RED CELL DISTRIBUTION WIDTH 12.6 % (11.5-14.0); SEGMENTED NEUTROPHILS % (AUTO) 79.9 % (42-78); WHITE BLOOD COUNT 18.3 10^3/uL (4.0-10.5)
[2017-10-17] MEDS ORDERED: ONDANSETRON 4 MG TAB.RAPDIS PO ONE (20:13)
== END 2017-10-17 20:20 | disposition home or self-care (01) ==
LOC: ER 17:33
DX: N30.00 Acute cystitis without hematuria (principal); Z88.6 Allergy status to analgesic agent; Z91.040 Latex allergy status; Z88.0 Allergy status to penicillin; Z88.1 Allergy status to other antibiotic agents; Z88.5 Allergy status to narcotic agent; Z88.8 Allergy status to other drugs, medicaments and biological substances
CPT/HCPCS: 99284; 36415; 87086; 85025; 81001; S0119

== ENCOUNTER 2017-10-21 21:34 | Emergency (ER) | payer OTHER ==
[2017-10-22] MEDS ORDERED: HYDROMORPHONE HCL INJ/PF 2 MG/ML AMPULE IV ONE ×2 (00:54→01:57)
[2017-10-22] MEDS ORDERED: DIPHENHYDRAMINE HCL 50 MG/ML VIAL IV ONE (00:55)
[2017-10-22] MEDS ORDERED: NORMAL SALINE 1000 ML 1,000 ML IV ONE (00:55)
[2017-10-22] MEDS ORDERED: PROMETHAZINE HCL INJ 25 MG/1 ML VIAL IV ONE ×2 (00:55→01:57)
--- NOTE | 2017-10-22 00:56 | ER Document Report ---
ED General - General Chief Complaint: Headache Stated Complaint: HEADACHE/ NAUSEA Time Seen by Provider: 10/22/17 00:46 Notes: Patient is a 42-year-old female with a past medical history of recurrent migraine headaches, often presents to the emergency department for pain complaints, does follow with neurology for chronic headaches and does receive narcotic prescriptions through the neurologist who presents with a typical migraine headache. She states that this started approximately 24 hours ago. She reports it is a global, throbbing, constant severe headache. She notes associated photophobia and phonophobia. She has had persistent nausea and vomiting as well as diarrhea which she attributes to starting ciprofloxacin for urinary tract infection. She denies any focal weakness or numbness. No fever, neck pain, or altered mental status. Nothing is new or different about her headache relative to her typical migraine headaches. She has not seen her neurologist or primary doctor regarding today's concerns. She denies any head trauma. TRAVEL OUTSIDE OF THE [place] IN LAST 30 DAYS: No - Related Data Allergies/Adverse Reactions: ibuprofen Allergy (Verified 10/17/17 17:50) latex Allergy (Verified 10/17/17 17:50) metoclopramide [From Reglan] Allergy (Verified 10/17/17 17:50) Penicillins Allergy (Verified 10/17/17 17:50) sulfamethoxazole [From Septra] Allergy (Verified 10/17/17 17:50) sumatriptan [From Imitrex] Allergy (Verified 10/17/17 17:50) tramadol Allergy (Verified 10/17/17 17:50) trimethoprim [From Septra] Allergy (Verified 10/17/17 17:50) zolmitriptan [From Zomig] Allergy (Verified 10/17/17 17:50) prochlorperazine [From Compazine] Adverse Reaction (Verified 10/17/17 17:50) Past Medical History - General Information source: Patient - Social History Smoking Status: Never Smoker Frequency of alcohol use: None Drug Abuse: None Lives with: Spouse/Significant other Family History: Arthritis, COPD, CVA, DM, Hyperlipidemia, Hypertension, Malignancy. denies: CAD, Thyroid Disfunction - Past Medical History Cardiac Medical History: Reports: Hx Hypercholesterolemia Neurological Medical History: Reports: Hx Migraine Renal/ Medical History: Reports: Hx Ovarian Cysts - PCOS. Denies: Hx Peritoneal Dialysis GI Medical History: Reports: Hx Gastroesophageal Reflux Disease, Hx Hiatal Hernia Musculoskeltal Medical History: Reports Hx Arthritis, Reports Hx Musculoskeletal Deformity - Scoliosis, Reports Hx Musculoskeletal Trauma Psychiatric Medical History: Reports: Hx Anxiety, Hx Depression Past Surgical History: Reports: Hx Appendectomy, Hx Cholecystectomy, Hx Hysterectomy, Hx Orthopedic Surgery - Alexander rods - Immunizations Hx Diphtheria, Pertussis, Tetanus Vaccination: No - 2009 Review of Systems - Review of Systems Notes: Constitutional: Negative for fever. HENT: Negative for sore throat. Eyes: Negative for visual changes. Cardiovascular: Negative for chest pain. Respiratory: Negative for shortness of breath. Gastrointestinal: Positive for vomiting Genitourinary: Negative for dysuria. Musculoskeletal: Negative for back pain. Skin: Negative for rash. Neurological: Positive for headache 10 point ROS negative except as marked above and in HPI. Physical Exam - Vital signs Vitals: Temp Pulse Resp BP Pulse Ox 99 F 126 H 19 115/82 99 10/21/17 21:55 10/21/17 21:55 10/21/17 21:55 10/21/17 21:55 10/21/17 21:55 Interpretation: Tachycardic Notes: PHYSICAL EXAMINATION: GENERAL: Well-appearing, well-nourished and in no acute distress. HEAD: Atraumatic, normocephalic. EYES: Pupils equal round and reactive to light, extraocular movements intact, sclera anicteric, conjunctiva are normal. ENT: nares patent, oropharynx clear without exudates. Moist mucous membranes. NECK: Normal range of motion, supple without lymphadenopathy LUNGS: Breath sounds clear to auscultation bilaterally and equal. No wheezes rales or rhonchi. HEART: Regular rate and rhythm without murmurs ABDOMEN: Soft, nontender, normoactive bowel sounds. No guarding, no rebound. No masses appreciated. EXTREMITIES: Normal range of motion, no pitting or edema. No cyanosis. NEUROLOGICAL: Face symmetric. Tongue protrudes midline. Extraocular motions intact. Pupils are 2 mm and equally reactive. Normal speech, normal gait. 5 out of 5 strength in both the distal and proximal upper and lower extremities bilaterally. Sensation is grossly intact throughout. Finger to nose testing normal. Pronator drift normal. PSYCH: Normal mood, normal affect. SKIN: Warm, Dry, normal turgor, no rashes or lesions noted. Course - Re-evaluation Re-evalutation: 10/22/17 00:55 Presentation of a headache that appears to be most consistent with tension versus migrainous type headache. Headache was not maximal in onset, patient has no focal neurologic deficits, no nuchal rigidity, vital signs within normal limits, no papilledema, and patient is overall well in appearance. Based on clinical history and examination I do not suspect an acute subarachnoid hemorrhage, dural venous sinus thrombosis, acute meningitis, or intercranial mass. Given my low clinical suspicion for any acute life-threatening etiology, I do not feel advanced neuro imaging or laboratory testing is indicated at this time. Will proceed with headache cocktail and reassess. 10/22/17 01:31 Patient has had resolution of her tachycardia and her headache has resolved. At this time will discharge with return precautions and follow-up recommendations. Verbal discharge instructions given a the bedside and opportunity for questions given. Medication warnings reviewed. Patient is in agreement with this plan and has verbalized understanding of return precautions and the need for primary care follow-up in the next 24-72 hours. - Vital Signs Vital signs: Temp Pulse Resp BP Pulse Ox 99 F 126 H 19 115/82 99 10/21/17 21:55 10/21/17 21:55 10/21/17 21:55 10/21/17 21:55 10/21/17 21:55 Discharge - Discharge Clinical Impression: Migraine headache Qualifiers: Migraine type: unspecified Status migrainosus presence: with status migrainosus Intractability: not intractable Qualified Code(s): G43.901 - Migraine, unspecified, not intractable, with status migrainosus Condition: Good Disposition: HOME, SELF-CARE Additional Instructions: You were seen today for a migraine headache. Please follow-up with your primary care doctor regarding today's ED visit. Return to emergency department immediately if you develop a headache that gets to its maximum severity within 20 minutes of onset, you pass out, you develop weakness, numbness, changes in your vision, become unable to keep any fluids down for more than 12 hours, or develop a fever greater than 100.4 degrees Fahrenheit.
[2017-10-22 02:48] VITALS: BP 112/70
== END 2017-10-22 02:48 | disposition home or self-care (01) ==
LOC: ER 21:34
DX: G43.901 Migraine, unspecified, not intractable, with status migrainosus (principal); H53.149 Visual discomfort, unspecified; N39.0 Urinary tract infection, site not specified; R11.2 Nausea with vomiting, unspecified; R19.7 Diarrhea, unspecified; Z79.891 Long term (current) use of opiate analgesic; Z88.6 Allergy status to analgesic agent; Z91.040 Latex allergy status; Z88.8 Allergy status to other drugs, medicaments and biological substances; Z88.0 Allergy status to penicillin; Z88.5 Allergy status to narcotic agent
CPT/HCPCS: 96376; 99283; 96361; 96374; 96375; J1200; J1170; J2550; J7030

== ENCOUNTER 2017-10-25 20:33 | Emergency (ER) | payer OTHER ==
[2017-10-25] MEDS ORDERED: MORPHINE SULFATE 10 MG/ML INJ IM ONE (21:09)
[2017-10-25] MEDS ORDERED: PROMETHAZINE HCL INJ 50 MG/1 ML VIAL IM PRN (21:09)
--- NOTE | 2017-10-25 21:12 | ER Document Report ---
ED Headache - General Chief Complaint: Headache Stated Complaint: HEADACHE Time Seen by Provider: 10/25/17 21:09 Mode of Arrival: Ambulatory Information source: Patient Notes: 42 years old female with a history of migraine presents today with headache involving the entire global area of the head. She says during the ovulation she get these headaches. She is on Topamax. Has multiple other allergies. Denies any neck pain neck stiffness. But had nausea and unable to keep things down. Denies any fever chills or other constitutional symptoms TRAVEL OUTSIDE OF THE [place] IN LAST 30 DAYS: No - Related Data Allergies/Adverse Reactions: ibuprofen Allergy (Verified 10/25/17 20:34) latex Allergy (Verified 10/25/17 20:34) metoclopramide [From Reglan] Allergy (Verified 10/25/17 20:34) Penicillins Allergy (Verified 10/25/17 20:34) sulfamethoxazole [From Septra] Allergy (Verified 10/25/17 20:34) sumatriptan [From Imitrex] Allergy (Verified 10/25/17 20:34) tramadol Allergy (Verified 10/25/17 20:34) trimethoprim [From Septra] Allergy (Verified 10/25/17 20:34) zolmitriptan [From Zomig] Allergy (Verified 10/25/17 20:34) prochlorperazine [From Compazine] Adverse Reaction (Verified 10/25/17 20:34) Past Medical History - Social History Smoking Status: Current Every Day Smoker Family History: Arthritis, COPD, CVA, DM, Hyperlipidemia, Hypertension, Malignancy. denies: CAD, Thyroid Disfunction - Past Medical History Cardiac Medical History: Reports: Hx Hypercholesterolemia Neurological Medical History: Reports: Hx Migraine Renal/ Medical History: Reports: Hx Ovarian Cysts - PCOS. Denies: Hx Peritoneal Dialysis GI Medical History: Reports: Hx Gastroesophageal Reflux Disease, Hx Hiatal Hernia Musculoskeltal Medical History: Reports Hx Arthritis, Reports Hx Musculoskeletal Deformity - Scoliosis, Reports Hx Musculoskeletal Trauma Psychiatric Medical History: Reports: Hx Anxiety, Hx Depression Past Surgical History: Reports: Hx Appendectomy, Hx Cholecystectomy, Hx Hysterectomy, Hx Orthopedic Surgery - Alexander rods - Immunizations Hx Diphtheria, Pertussis, Tetanus Vaccination: No - 2009 Review of Systems - Review of Systems Notes: REVIEW OF SYSTEMS: CONSTITUTIONAL : Denies fever, chills, or sweats. Denies recent illness. EENT: Denies eye, ear, throat, or mouth pain or symptoms. Denies nasal or sinus congestion or discharge. Denies throat, tongue, or mouth swelling or difficulty swallowing. CARDIOVASCULAR: Denies chest pain. Denies palpitations or racing or irregular heart beat. Denies ankle edema. RESPIRATORY: Denies cough, cold, or chest congestion. Denies shortness of breath, difficulty breathing, or wheezing. GASTROINTESTINAL: Denies abdominal pain or distention. Denies nausea, vomiting , or diarrhea. Denies blood in vomitus, stools, or per rectum. Denies black, tarry stools. Denies constipation. GENITOURINARY: Denies difficulty urinating, painful urination, burning, frequency, blood in urine, or discharge. FEMALE GENITOURINARY: Denies vaginal bleeding, heavy or abnormal periods, irregular periods. Denies vaginal discharge or odor. MUSCULOSKELETAL: Denies back or neck pain or stiffness. Denies joint pain or swelling. SKIN: Denies rash, lesions or sores. HEMATOLOGIC : Denies easy bruising or bleeding. LYMPHATIC: Denies swollen, enlarged glands. NEUROLOGICAL: Denies confusion or altered mental status. Denies passing out or loss of consciousness. Denies dizziness or lightheadedness. Denies headache. Denies weakness or paralysis or loss of use of either side. Denies problems with gait or speech. Denies sensory loss, numbness, or tingling. Denies seizures. PSYCHIATRIC: Denies anxiety or stress. Denies depression, suicidal ideation, or homicidal ideation. ALL OTHER SYSTEMS REVIEWED AND NEGATIVE. PHYSICAL EXAMINATION: GENERAL: Well-appearing, well-nourished and in no acute distress. Seems to be in mild to moderate discomfort HEAD: Atraumatic, normocephalic. EYES: Pupils equal round and reactive to light, extraocular movements intact, conjunctiva are normal. ENT: Nares patent, oropharynx clear without exudates. Moist mucous membranes. NECK: Normal range of motion, supple without lymphadenopathy LUNGS: Breath sounds clear to auscultation bilaterally and equal. No wheezes rales or rhonchi. HEART: Regular rate and rhythm without murmurs ABDOMEN: Soft, nontender, nondistended abdomen. No guarding, no rebound. No masses appreciated. Female : deferred Musculoskeletal: Normal range of motion, no pitting or edema. No cyanosis. NEUROLOGICAL: Cranial nerves grossly intact. Normal speech, normal gait. Normal sensory, motor exams PSYCH: Normal mood, normal affect. SKIN: Warm, Dry, normal turgor, no rashes or lesions noted. Dictation was performed using [employer] voice recognition software Physical Exam - Vital signs Vitals: Temp Pulse Resp BP Pulse Ox 98.6 F 113 H 17 107/73 99 10/25/17 20:52 10/25/17 20:52 10/25/17 20:52 10/25/17 20:52 10/25/17 20:52 Course - Re-evaluation Re-evalutation: 10/25/17 21:53 Given 8 mg of morphine and promethazine on today. With clinical improvement discharge home - Vital Signs Vital signs: Temp Pulse Resp BP Pulse Ox 98.6 F 89 16 114/78 98 10/25/17 22:01 10/25/17 22:01 10/25/17 22:01 10/25/17 22:01 10/25/17 22:01 Discharge - Discharge Clinical Impression: Migraine headache Qualifiers: Migraine type: without aura Status migrainosus presence: without status migrainosus Intractability: not intractable Qualified Code(s): G43.009 - Migraine without aura, not intractable, without status migrainosus Disposition: HOME, SELF-CARE Instructions: Headache ([facility])
[2017-10-25] MEDS ORDERED: PROMETHAZINE HCL INJ 50 MG/1 ML VIAL ONE (21:26)
[2017-10-25 22:04] VITALS: BP 114/78
== END 2017-10-25 22:04 | disposition home or self-care (01) ==
LOC: ER 20:33
DX: G43.009 Migraine without aura, not intractable, without status migrainosus (principal); R11.0 Nausea; F17.200 Nicotine dependence, unspecified, uncomplicated; Z79.899 Other long term (current) drug therapy
CPT/HCPCS: 99283; 96372; J2270; J2550

== ENCOUNTER 2017-10-27 00:36 | Emergency (ER) | payer OTHER ==
[2017-10-27] MEDS ORDERED: DIPHENHYDRAMINE HCL 50 MG/ML VIAL IV ONE (01:43)
[2017-10-27] MEDS ORDERED: HALOPERIDOL LACTATE INJ 5 MG/1 ML VIAL IM ONE (01:44)
[2017-10-27] MEDS ORDERED: ONDANSETRON HCL INJ/PF 4 MG/2 ML SDV IV ONE ×2 (01:44→04:41)
[2017-10-27] MEDS ORDERED: NORMAL SALINE 1000 ML 1,000 ML IV ONE (01:45)
--- NOTE | 2017-10-27 01:50 | ER Document Report ---
ED General - General Chief Complaint: Headache Stated Complaint: VOMITING Time Seen by Provider: 10/27/17 01:25 Notes: Patient is a 42-year-old female with a history of chronic migraines who presents to the ER with complaint of a migraine. She does receive Botox injections for her migraines. She is followed by Dr. Francisco neurologist. Patient says she used to be on Fioricet for headaches but, was taken off of it because neurologist did not like this medication. She says her headaches are now very intractable. Review of her records she has been here several times a month for the last several months. In reviewing medications receives she seems to not be able to get headaches under control until she receives opiate medications. It seems that only Dilaudid morphine has been able to control her headaches and she will come back several days later. She denies any focal weakness or numbness. She said this headache has been gradually coming and going for the last for 5 days. She does have history of von Willebrand's disease. She did have a CTA a few months ago which showed no evidence of aneurysms. She is Multiple medical allergies. She took Benadryl, Tylenol, and Phenergan at home. She said this did not relieve her headache. She is allergic to Reglan, Compazine, ibuprofen. She says she cannot take Toradol because of her history of fungal elements disease. She also says she is allergic to Imitrex. She denies any recent fevers or infections. TRAVEL OUTSIDE OF THE [place] IN LAST 30 DAYS: No - Related Data Allergies/Adverse Reactions: ibuprofen Allergy (Verified 10/25/17 20:34) latex Allergy (Verified 10/25/17 20:34) metoclopramide [From Reglan] Allergy (Verified 10/25/17 20:34) Penicillins Allergy (Verified 10/25/17 20:34) sulfamethoxazole [From Septra] Allergy (Verified 10/25/17 20:34) sumatriptan [From Imitrex] Allergy (Verified 10/25/17 20:34) tramadol Allergy (Verified 10/25/17 20:34) trimethoprim [From Septra] Allergy (Verified 10/25/17 20:34) zolmitriptan [From Zomig] Allergy (Verified 10/25/17 20:34) prochlorperazine [From Compazine] Adverse Reaction (Verified 10/25/17 20:34) Past Medical History - Social History Smoking Status: Unknown if Ever Smoked Frequency of alcohol use: None Drug Abuse: None Family History: Arthritis, COPD, CVA, DM, Hyperlipidemia, Hypertension, Malignancy. denies: CAD, Thyroid Disfunction - Past Medical History Cardiac Medical History: Reports: Hx Hypercholesterolemia Neurological Medical History: Reports: Hx Migraine Renal/ Medical History: Reports: Hx Ovarian Cysts - PCOS. Denies: Hx Peritoneal Dialysis GI Medical History: Reports: Hx Gastroesophageal Reflux Disease, Hx Hiatal Hernia Musculoskeltal Medical History: Reports Hx Arthritis, Reports Hx Musculoskeletal Deformity - Scoliosis, Reports Hx Musculoskeletal Trauma Psychiatric Medical History: Reports: Hx Anxiety, Hx Depression Past Surgical History: Reports: Hx Appendectomy, Hx Cholecystectomy, Hx Hysterectomy, Hx Orthopedic Surgery - Alexander rods - Immunizations Hx Diphtheria, Pertussis, Tetanus Vaccination: No - 2009 Review of Systems - Review of Systems Notes: My Normal Review Basic REVIEW OF SYSTEMS: CONSTITUTIONAL : Denies fever, chills, or sweats. Denies recent illness. RESPIRATORY: Denies cough, cold, or chest congestion. Denies shortness of breath, difficulty breathing, or wheezing. GASTROINTESTINAL: Denies abdominal pain. Has vomiting. MUSCULOSKELETAL: Denies neck or back pain or joint pain or swelling. SKIN: Denies rash or skin lesions. HEMATOLOGIC : History of von Willebrand's disease. NEUROLOGICAL: Denies altered mental status or loss of consciousness. Has a headache. Denies weakness or paralysis or loss of use of either side. Denies problems with gait or speech. Denies sensory or motor loss. ALL OTHER SYSTEMS REVIEWED AND NEGATIVE. Physical Exam - Vital signs Vitals: Temp Pulse Resp BP Pulse Ox 98.7 F 123 H 18 116/84 97 10/27/17 00:49 10/27/17 00:49 10/27/17 00:49 10/27/17 00:49 10/27/17 00:49 - Notes Notes: General Appearance: Well nourished, alert, cooperative, no acute distress, moderate obvious discomfort. Vitals: reviewed, See vital signs table. Head: no swelling or tenderness to the head Eyes: PERRL, EOMI, Conjuctiva clear Mouth: No decreasd moisture Throat: No tonsillar inflammation, No airway obstruction, No lymphadenopathy Neck: Supple, no neck tenderness, No thyromegaly Lungs: No wheezing, No rales, No rhonci, No accessory muscle use, good air exchange bilaterally. Heart: Normal rate, Regular rythm, No murmur, no rub Extremities: strength 5/5 in all extremities, good pulses in all extremities, no swelling or tenderness in the extremities, no edema. Skin: warm, dry, appropriate color, no rash Neuro: speech clear, oriented x 3, normal affect, responds appropriately to questions. Cranial nerves II through XII are intact. Distal sensation intact. Patient moves all extremities without difficulty. Course - Re-evaluation Re-evalutation: 10/27/17 03:39 I gave the patient a Benadryl. She refused the Haldol. She says that this makes her jittery. She did not have this listed on her previous allergy list. I did talk to patient length informed her that I would prefer not to use opiate medications as she has been here many times recently and her headache have only seem to be resolved with opiate medications and reviewing what she has received. I try to describe to her that appears she is becoming opiate dependent with her headaches and that is why she is having these recurrent rebound headaches almost immediately after she leaves the ER. I told her that opiates would not be a good idea. Patient then requested ketamine. Informed her I do not think ketamine is a good idea either. I am concerned that the patient is requesting medications that have a somewhat euforic effect. She says her nausea is better. I will give her a dose of Decadron give her a dose of Fioricet. 10/27/17 03:42 10/27/17 04:38 Patient's nausea continues to be improved. So the throbbing is little bit better with the Decadron but she still has a severe headache despite holding on the Fioricet. I informed her that we will do 1 dose of ketamine and 1 dose only. I want to avoid all uses of opiates as again I feel that this is become an issue as it appears that her headaches have become opiate dependent and I do not want to prolong long this effect anymore as it will only do her harm in the long run. 10/27/17 04:42 I also talked to the patient about repeating the CT scan. She had a CT scan several months ago with a CTA which shows she has no aneurysms. I told her my concern is that with von Willebrand's disease she may have just a slow worsening bleed such as subdural being that this is the most times she has been seen in such a short period of time for a headache that seems to be chronic and recurring. I told her that I would want to make sure that she does not have something such a slow-growing subdural that is making her headaches recur. Patient is agreeable to this. 10/27/17 06:45 CT scan is negative. Ketamine did help her headache. She is feeling some improved. She will be discharged home. I will place her back on Fioricet being that she said that she is to really help her headaches in the past. I again talked her length about time I feel that opiate medications and appropriate for headaches as she appears to be developing some opiate dependence due to her frequent visits. Patient is understanding of this. CT scan was obtained due to her large increase of visits over the recent timeframe. I did this to rule out things such as a slow-growing subdural hemorrhage or spontaneous bleed due to her history of bundle-branch disease. I do not suspect subarachnoid hemorrhage being that she has no history of previous aneurysms on her recent CTA and the fact that the headaches are waxing and waning. Patient to follow-up closely with her neurologist, Dr. Francisco. Patient to return to ER immediately if she has intractable worsening headache, vomiting, fevers, or she feels unwell. Patient agrees with plan will be discharged home. Dictation of this chart was performed using voice recognition software; therefore, there may be some unintended grammatical errors. - Vital Signs Vital signs: Temp Pulse Resp BP Pulse Ox 98.7 F 123 H 18 116/84 97 10/27/17 00:49 10/27/17 00:49 10/27/17 00:49 10/27/17 00:49 10/27/17 00:49 Discharge - Discharge Clinical Impression: Headache Qualifiers: Headache type: unspecified Headache chronicity pattern: episodic headache Intractability: not intractable Qualified Code(s): R51 - Headache Condition: Good Disposition: HOME, SELF-CARE Additional Instructions: Please take the Fioricet for your headache. Hopefully this will help give better control. Please follow up with your neurologist, Dr. Francisco. please return to the ER immediately if you have fevers, intractable vomiting, or feel unwell. Prescriptions: Butalb/Acetaminophen/Caffeine [Fioricet (50-325-40 mg) Tablet] 1 tab PO Q4HP PRN #14 tab PRN Reason:
[2017-10-27] MEDS ORDERED: BUTALB/ACETAMINOPHEN/CAFFEINE 1 TAB EACH PO ONE (03:45)
[2017-10-27] MEDS ORDERED: DEXAMETHASONE SOD PHOS INJ 10 MG/1 ML VIAL IV ONE (03:45)
[2017-10-27] MEDS ORDERED: KETAMINE HCL INJ 500 MG/10 ML VIAL IV ONE (04:38)
--- NOTE | 2017-10-27 06:38 | RADIOLOGY REPORT (SQ) ---
EXAM DESCRIPTION: CT HEAD WITHOUT CLINICAL HISTORY: headache COMPARISON: 08/21/2017 TECHNIQUE: Axial CT of the head obtained from the skull apex to the skull base without contrast. FINDINGS: No acute intracranial hemorrhage identified. No mass, mass effect, shift of the midline, abnormal extra-axial fluid collection or CT evidence of acute ischemic change identified. The ventricular system is unremarkable. No acute abnormalities of the supratentorial white matter, basal ganglia, cerebellum, or brainstem. The visualized paranasal sinuses and the mastoids are clear. No skull fracture identified. Visualized orbits and globes are unremarkable. DLP:1162.97 mGy-cm IMPRESSION: 1. No acute intracranial abnormality identified. This exam was performed according to our departmental dose-optimization program, which includes automated exposure control, adjustment of the mA and/or kV according to patient size and/or use of iterative reconstruction technique.
[2017-10-27 07:12] VITALS: BP 119/76
== END 2017-10-27 07:09 | disposition home or self-care (01) ==
LOC: ER 00:36
DX: G43.909 Migraine, unspecified, not intractable, without status migrainosus (principal); D68.0 Von Willebrand disease; Z88.8 Allergy status to other drugs, medicaments and biological substances; Z88.6 Allergy status to analgesic agent; Z91.040 Latex allergy status; Z88.1 Allergy status to other antibiotic agents; Z88.5 Allergy status to narcotic agent
CPT/HCPCS: 96376; 99284; 96361; 96374; 96375; 70450; J3490 ×2; J1200; J2405; J7030; J1100

== ENCOUNTER 2017-11-13 09:47 | Emergency (ER) | payer OTHER ==
[2017-11-13] MEDS ORDERED: FENTANYL CITRATE INJ/PF 100 MCG/2 ML AMPUL IV ONE (10:53)
[2017-11-13] MEDS ORDERED: NORMAL SALINE 1000 ML 1,000 ML IV ONE (10:54)
[2017-11-13] MEDS ORDERED: ONDANSETRON HCL INJ/PF 4 MG/2 ML SDV IV ONE ×2 (10:54→13:56)
--- NOTE | 2017-11-13 10:56 | ER Document Report ---
ED Medical Screen (RME) - General Chief Complaint: Abdominal Pain Stated Complaint: RIGHT SIDE ABDOMINAL PAIN Time Seen by Provider: 11/13/17 10:52 Notes: 42-year-old female here with complaints of right upper quadrant abdominal pain that started 2 weeks ago. She saw her PCP and had a CT scan performed the she reports as normal. She states that the symptoms then resolved however started back up again last night and initially pain was intermittent but now has been constant today. She has also had associated vomiting and diarrhea but no shortness of breath cough or chest pain. She reports that she has been told in the past that her liver enzymes were elevated. She does not have her gallbladder or her appendix as they were both surgically removed. EXAM Mild to moderate tenderness to palpation right upper quadrant No peritoneal signs TRAVEL OUTSIDE OF THE [place] IN LAST 30 DAYS: No - Related Data Allergies/Adverse Reactions: ibuprofen Allergy (Verified 11/13/17 09:47) latex Allergy (Verified 11/13/17 09:47) metoclopramide [From Reglan] Allergy (Verified 11/13/17 09:47) Penicillins Allergy (Verified 11/13/17 09:47) sulfamethoxazole [From Septra] Allergy (Verified 11/13/17 09:47) sumatriptan [From Imitrex] Allergy (Verified 11/13/17 09:47) tramadol Allergy (Verified 11/13/17 09:47) trimethoprim [From Septra] Allergy (Verified 11/13/17 09:47) zolmitriptan [From Zomig] Allergy (Verified 11/13/17 09:47) prochlorperazine [From Compazine] Adverse Reaction (Verified 11/13/17 09:47) Home Medications: Current Home Medications Sucralfate [Carafate 1 gm Tablet] 1 gm PO DAILY 11/13/17 [History] Past Medical History - Social History Chew tobacco use (# tins/day): No Frequency of alcohol use: Social Drug Abuse: None - Past Medical History Cardiac Medical History: Reports: Hx Hypercholesterolemia Neurological Medical History: Reports: Hx Migraine Renal/ Medical History: Reports: Hx Ovarian Cysts - PCOS. Denies: Hx Peritoneal Dialysis GI Medical History: Reports: Hx Gastroesophageal Reflux Disease, Hx Hiatal Hernia Musculoskeltal Medical History: Reports Hx Arthritis, Reports Hx Musculoskeletal Deformity - Scoliosis, Reports Hx Musculoskeletal Trauma Psychiatric Medical History: Reports: Hx Anxiety, Hx Depression Past Surgical History: Reports: Hx Appendectomy, Hx Cholecystectomy, Hx Hysterectomy, Hx Orthopedic Surgery - Alexander rods - Immunizations Hx Diphtheria, Pertussis, Tetanus Vaccination: No - 2009 History of Influenza Vaccine for 08/2017 - 12/2017 Season: Yes Influenza Administration Date for 08/2017 - 12/2017 Season: 12/03/16 Physical Exam - Vital signs Vitals: Temp Pulse Resp BP Pulse Ox 98.5 F 97 20 111/82 100 11/13/17 09:58 11/13/17 09:58 11/13/17 09:58 11/13/17 09:58 11/13/17 09:58 Course - Vital Signs Vital signs: Temp Pulse Resp BP Pulse Ox 98.5 F 97 20 111/82 100 11/13/17 09:58 11/13/17 09:58 11/13/17 09:58 11/13/17 09:58 11/13/17 09:58
[2017-11-13 11:15] LABS: APPEARANCE,URINE CLEAR; BILIRUBIN,URINE NEGATIVE (NEGATIVE); COLOR,URINE YELLOW; GLUCOSE, URINE NEGATIVE (NEGATIVE); KETONES,URINE NEGATIVE (NEGATIVE); LEUKOCYTE ESTERASE,URINE NEGATIVE (NEGATIVE); NITRITE,URINE NEGATIVE (NEGATIVE); PROTEIN,URINE NEGATIVE (NEGATIVE); URINE SPECIFIC GRAVITY 1.026; UROBILINOGEN,URINE NEGATIVE mg/dL (<2.0)
[2017-11-13 11:30] LABS: ABSOLUTE BASOPHILS # (AUTO) 0.1 10^3/uL (0.0-0.2); ABSOLUTE EOSINOPHILS # (AUTO) 0.6 10^3/uL (0.0-0.6); ABSOLUTE LYMPHOCYTES (AUTO) 3.6 10^3/uL (0.5-4.7); ABSOLUTE MONOCYTES (AUTO) 0.8 10^3/uL (0.1-1.4); ABSOLUTE NEUT (AUTO) 5.8 10^3/uL (1.7-8.2); BASOPHILS % (AUTO) 0.9 % (0-2); EOSINOPHILS % (AUTO) 5.4 % (0-6); HEMATOCRIT 41.6 % (36.0-47.0); HEMOGLOBIN 13.9 g/dL (12.0-15.5); LYMPHOCYTES % (AUTO) 33.1 % (13-45); MEAN CORPUSCULAR HEMOGLOBIN 27.3 pg (27.0-33.4); MEAN CORPUSCULAR HGB CONC 33.3 g/dL (32.0-36.0); MEAN CORPUSCULAR VOLUME 82 fl (80-97); PLATELET COUNT 323 10^3/uL (150-450); RED BLOOD COUNT 5.07 10^6/uL (3.72-5.28); RED CELL DISTRIBUTION WIDTH 13.2 % (11.5-14.0); SEGMENTED NEUTROPHILS % (AUTO) 53.6 % (42-78); TOTAL CELLS COUNTED % (AUTO) 100 %; WHITE BLOOD COUNT 10.8 10^3/uL (4.0-10.5)
[2017-11-13] MEDS ORDERED: DIPHENHYDRAMINE HCL 50 MG/ML VIAL IV ONE (12:15)
--- NOTE | 2017-11-13 12:18 | RADIOLOGY REPORT (SQ) ---
EXAM DESCRIPTION: U/S ABDOMEN LIMITED W/O DOP COMPLETED DATE/TIME: 11/13/2017 12:03 pm REASON FOR STUDY: hx of 'hepatitis' now RUQ pain COMPARISON: None. TECHNIQUE: Dynamic and static grayscale images acquired of the abdomen and recorded on PACS. Additio nal selected color Doppler and spectral images recorded. LIMITATIONS: None. FINDINGS: PANCREAS: No masses. Visualized pancreatic duct normal caliber. LIVER: No masses. Echotexture normal. LIVER VASCULATURE: Normal directional flow of the main portal vein and hepatic veins. GALLBLADDER: Surgically absent. ULTRASOUND-DETECTED ORR'S SIGN: Not applicable. INTRAHEPATIC DUCTS AND COMMON DUCT: CBD and intrahepatic ducts normal caliber. No filling defects. INFERIOR VENA CAVA: Normal flow. AORTA: No aneurysm. RIGHT KIDNEY: Normal size. Normal echogenicity. No solid or suspicious masses. No hydronephrosis. No calcifications. PERITONEAL AND RIGHT PLEURAL SPACE: No ascites or effusions. OTHER: No other significant findings. IMPRESSION: NORMAL RIGHT UPPER QUADRANT ULTRASOUND. TECHNICAL DOCUMENTATION: JOB ID: [id number] [employer]- All Rights Reserved
[2017-11-13] MEDS ORDERED: HYDROMORPHONE HCL INJ/PF 2 MG/ML AMPULE IV ONE (13:57)
--- NOTE | 2017-11-13 14:02 | ER Document Report ---
ED GI/ - General Mode of Arrival: Ambulatory Information source: Patient TRAVEL OUTSIDE OF THE [place] IN LAST 30 DAYS: No <GAVIOTA MERRILL - Last Filed: 11/13/17 14:09> <TERESSA YAO - Last Filed: 11/13/17 18:06> - General Chief Complaint: Abdominal Pain Stated Complaint: RIGHT SIDE ABDOMINAL PAIN Time Seen by Provider: 11/13/17 10:52 Notes: Patient is a 42 year old female with a history of GERD, pre-diabetes, and kidney infections presents to the emergency department with complaints of abdominal pain onset yesterday. Patient states she had similar symptoms a few weeks ago and she was diagnosed with gastritis. Patient states the pain originally ceased but started back up again last night. Patient's associated symptoms include vomiting and diarrhea. Patient also states she noticed blood on the toilet paper when she had a bowel movement. Patient denies any fevers or a history of pancreatitis. (GAVIOTA MERRILL) - Related Data Allergies/Adverse Reactions: ibuprofen Allergy (Verified 11/13/17 09:47) latex Allergy (Verified 11/13/17 09:47) metoclopramide [From Reglan] Allergy (Verified 11/13/17 09:47) Penicillins Allergy (Verified 11/13/17 09:47) sulfamethoxazole [From Septra] Allergy (Verified 11/13/17 09:47) sumatriptan [From Imitrex] Allergy (Verified 11/13/17 09:47) tramadol Allergy (Verified 11/13/17 09:47) trimethoprim [From Septra] Allergy (Verified 11/13/17 09:47) zolmitriptan [From Zomig] Allergy (Verified 11/13/17 09:47) prochlorperazine [From Compazine] Adverse Reaction (Verified 11/13/17 09:47) Home Medications: Current Home Medications Pantoprazole Sodium [Protonix] 40 mg PO DAILY 11/13/17 [History] Sucralfate [Carafate 1 gm Tablet] 1 gm PO DAILY 11/13/17 [History] Past Medical History - General Information source: Patient - Social History Smoking Status: Never Smoker Chew tobacco use (# tins/day): No Frequency of alcohol use: Social Drug Abuse: None Family History: Arthritis, COPD, CVA, DM, Hyperlipidemia, Hypertension, Malignancy Patient has suicidal ideation: No Patient has homicidal ideation: No - Past Medical History Cardiac Medical History: Reports: Hx Hypercholesterolemia Neurological Medical History: Reports: Hx Migraine Renal/ Medical History: Reports: Hx Ovarian Cysts - PCOS GI Medical History: Reports: Hx Gastroesophageal Reflux Disease, Hx Hiatal Hernia Musculoskeltal Medical History: Reports Hx Arthritis, Reports Hx Musculoskeletal Deformity - Scoliosis, Reports Hx Musculoskeletal Trauma Psychiatric Medical History: Reports: Hx Anxiety, Hx Depression Past Surgical History: Reports: Hx Appendectomy, Hx Cholecystectomy, Hx Hysterectomy, Hx Orthopedic Surgery - Alexander rods - Immunizations Hx Diphtheria, Pertussis, Tetanus Vaccination: No - 2009 <GAVIOTA MERRILL - Last Filed: 11/13/17 14:09> Review of Systems - Review of Systems Constitutional: No symptoms reported EENT: No symptoms reported Cardiovascular: No symptoms reported Respiratory: No symptoms reported Gastrointestinal: See HPI, Abdominal pain, Vomiting Genitourinary: No symptoms reported Female Genitourinary: No symptoms reported Musculoskeletal: No symptoms reported Skin: No symptoms reported Hematologic/Lymphatic: No symptoms reported Neurological/Psychological: No symptoms reported -: Yes All other systems reviewed and negative <GAVIOTA MERRILL - Last Filed: 11/13/17 14:09> Physical Exam <GAVIOTA MERRILL - Last Filed: 11/13/17 14:09> <TERESSA YAO - Last Filed: 11/13/17 18:06> - Vital signs Vitals: Temp Pulse Resp BP Pulse Ox 98.5 F 97 20 111/82 100 11/13/17 09:58 11/13/17 09:58 11/13/17 09:58 11/13/17 09:58 11/13/17 09:58 - Notes Notes: GENERAL: Alert, interacts well. No acute distress. HEAD: Normocephalic, atraumatic. EYES: Pupils equal, round, and reactive to light. Extraocular movements intact. ENT: Oral mucosa moist, tongue midline. NECK: Full range of motion. Supple. Trachea midline. LUNGS: Clear to auscultation bilaterally, no wheezes, rales, or rhonchi. No respiratory distress. HEART: Regular rate and rhythm. No murmurs, gallops, or rubs. ABDOMEN: Soft, RUQ tender to palpation. Non-distended. Bowel sounds present in all 4 quadrants. EXTREMITIES: Moves all 4 extremities spontaneously. NEUROLOGICAL: Alert and oriented x3. Normal speech. PSYCH: Normal affect, normal mood. SKIN: Warm, dry, normal turgor. No rashes or lesions noted. (GAVIOTA MERRILL) Abdomen has no guarding, rigidity or rebounding. (TERESSA YAO) Course - Laboratory Result Diagrams: 11/13/17 11:19 11/13/17 11:19 <GAVIOTA MERRILL - Last Filed: 11/13/17 14:09> - Laboratory Result Diagrams: 11/13/17 11:19 11/13/17 14:53 <TERESSA YAO - Last Filed: 11/13/17 18:06> - Re-evaluation Re-evalutation: 11/13/17 16:13 CBC shows minimal leukocytosis at 10.8, no shift, CMP shows low CO2 at 19, she has been hydrated with a liter of normal saline, no renal dysfunction, LFTs unremarkable at this time, lipase normal, urinalysis somewhat concentrated at 1.026 otherwise unremarkable, 1+ bacteria and 1 squamous epithelial cell, not suggestive of urinary tract infection at this time, it is sent for culture. Discussed with patient that this could represent gastritis as she reports she was diagnosed with a few weeks ago, could also be a form of irritable bowel or inflammatory bowel disease. Strongly recommend she follow-up with a industrial engineering professor as an outpatient. Discussed that she should not be taking Zantac and Protonix at the same time, also discussed that she should not be taking her metformin with the Carafate. At this time identified no acute intra-abdominal pathology, no evidence of infection or surgical pathology. Patient will be discharged to home. (TERESSA YAO) - Vital Signs Vital signs: Temp Pulse Resp BP Pulse Ox 98.5 F 97 20 111/82 100 11/13/17 09:58 11/13/17 09:58 11/13/17 09:58 11/13/17 09:58 11/13/17 09:58 - Laboratory Laboratory results interpreted by me: 11/13/17 11/13/17 11/13/17 11:00 11:19 14:53 WBC 10.8 H Chloride 113 H Carbon Dioxide 19 L Alkaline Phosphatase 37 L Urine Ascorbic Acid 40 H 11/13/17 16:15 WBC Chloride Carbon Dioxide Alkaline Phosphatase Urine Ascorbic Acid 20 H Discharge <GAVIOTA MERRILL - Last Filed: 11/13/17 14:09> <TREESSA YAO - Last Filed: 11/13/17 18:06> - Discharge Clinical Impression: Right upper quadrant abdominal pain of unknown etiology Condition: Stable Disposition: HOME, SELF-CARE Additional Instructions: I do not know what is causing your abdominal pain. It is possible that you have gastritis that is not responding well to medications. Please pick one antacid and take it. Do not continue taking both Protonix and Zantac. You may also switch to Nexium as you have stated that this is worked well for you in the past. If you continue taking the Carafate take it at least an hour after all of your other medications or ulcer other medications will not work. It is also possible this is not coming from gastritis and you may now have a different cause of your intermittent abdominal pain. It is very important that you follow-up with a industrial engineering professor who can do further studies on your stomach including possible endoscopy and colonoscopy where they can either prove or disprove the presence of gastritis. Please return for vomiting blood, fevers, worsening pain or any new or concerning symptoms. Referrals: FUNMI MARCOS JR, MD [Primary Care Provider] - Follow up as needed BRENDON LEACH MD [ACTIVE STAFF] - Follow up in 1 week Scribe Documentation - Scribe Written by Tere:: Tere Huggins, 11/13/2017 14:05 acting as scribe for :: Aracelis <GAVIOTA MERRILL - Last Filed: 11/13/17 14:09>
[2017-11-13 15:43] LABS: ALANINE AMINOTRANSFERASE 39 U/L (9-52); ALBUMIN 4.2 g/dL (3.5-5.0); ALKALINE PHOSPHATASE 37 U/L (38-126); ANION GAP 10 (5-19); ASPARTATE AMINO TRANSFERASE 20 U/L (14-36); BILIRUBIN,DIRECT 0.3 mg/dL (0.0-0.4); BILIRUBIN,TOTAL 0.5 mg/dL (0.2-1.3); BLOOD UREA NITROGEN 13 mg/dL (7-20); CALCIUM 9.3 mg/dL (8.4-10.2); CARBON DIOXIDE 19 mmol/L (22-30); CHLORIDE 113 mmol/L (98-107); GLUCOSE 79 mg/dL (75-110); LIPASE 112.2 U/L (23-300); POTASSIUM 3.8 mmol/L (3.6-5.0); SODIUM 142.3 mmol/L (137-145); TOTAL PROTEIN 7.1 g/dL (6.3-8.2)
[2017-11-13] MEDS ORDERED: OXYCODONE HCL IR 5 MG TABLET PO ONE (16:08)
[2017-11-13 16:59] LABS: APPEARANCE,URINE CLEAR; BILIRUBIN,URINE NEGATIVE (NEGATIVE); COLOR,URINE YELLOW; GLUCOSE, URINE NEGATIVE (NEGATIVE); KETONES,URINE NEGATIVE (NEGATIVE); LEUKOCYTE ESTERASE,URINE NEGATIVE (NEGATIVE); NITRITE,URINE NEGATIVE (NEGATIVE); PROTEIN,URINE NEGATIVE (NEGATIVE); UROBILINOGEN,URINE NEGATIVE mg/dL (<2.0)
[2017-11-13 20:02] VITALS: BP 101/59
== END 2017-11-13 17:30 | disposition home or self-care (01) ==
LOC: ER 09:47
DX: R10.11 Right upper quadrant pain (principal); K21.9 Gastro-esophageal reflux disease without esophagitis; Z79.899 Other long term (current) drug therapy
CPT/HCPCS: 99284; 96361; 96374; 96375; 36415; 87086; 83690; 85025; 80053; 81001; 76705; J1200; J3010; J1170; J2405; J7030

== ENCOUNTER 2017-12-09 08:49 | Emergency (ER) | payer OTHER ==
[2017-12-09] MEDS ORDERED: DIPHENHYDRAMINE HCL 50 MG/ML VIAL IV PRN (09:30)
[2017-12-09] MEDS ORDERED: DEXAMETHASONE SOD PHOS INJ 10 MG/1 ML VIAL IV ONE (09:30)
[2017-12-09] MEDS ORDERED: NORMAL SALINE 1000 ML 1,000 ML IV ONE (09:30)
[2017-12-09] MEDS ORDERED: PROMETHAZINE HCL INJ 25 MG/1 ML VIAL IV ONE (09:30)
--- NOTE | 2017-12-09 09:32 | ER Document Report ---
ED Medical Screen (RME) - General Chief Complaint: Headache <24 hrs old Stated Complaint: HEADACHE Time Seen by Provider: 12/09/17 09:30 Notes: Patient presents with migraine headache. States she is followed by neurology and has had a normal head CT and MRI in the past. She states she cannot take triptan's. She states she does take Phenergan Topamax and [place] at home but it is not relieving the pain and nausea. She states she normally needs Benadryl Phenergan steroids and Dilaudid to help with her pain. TRAVEL OUTSIDE OF THE [place] IN LAST 30 DAYS: No - Related Data Allergies/Adverse Reactions: ibuprofen Allergy (Verified 12/09/17 08:55) latex Allergy (Verified 12/09/17 08:55) metoclopramide [From Reglan] Allergy (Verified 12/09/17 08:55) Penicillins Allergy (Verified 12/09/17 08:55) sulfamethoxazole [From Septra] Allergy (Verified 12/09/17 08:55) sumatriptan [From Imitrex] Allergy (Verified 12/09/17 08:55) tramadol Allergy (Verified 12/09/17 08:55) trimethoprim [From Septra] Allergy (Verified 12/09/17 08:55) zolmitriptan [From Zomig] Allergy (Verified 12/09/17 08:55) prochlorperazine [From Compazine] Adverse Reaction (Verified 12/09/17 08:55) Past Medical History - Social History Chew tobacco use (# tins/day): No Frequency of alcohol use: Rare Drug Abuse: None - Past Medical History Cardiac Medical History: Reports: Hx Hypercholesterolemia Neurological Medical History: Reports: Hx Migraine Renal/ Medical History: Reports: Hx Ovarian Cysts - PCOS. Denies: Hx Peritoneal Dialysis GI Medical History: Reports: Hx Gastroesophageal Reflux Disease, Hx Hiatal Hernia Musculoskeltal Medical History: Reports Hx Arthritis, Reports Hx Musculoskeletal Deformity - Scoliosis, Reports Hx Musculoskeletal Trauma Psychiatric Medical History: Reports: Hx Anxiety, Hx Depression Past Surgical History: Reports: Hx Appendectomy, Hx Cholecystectomy, Hx Hysterectomy, Hx Orthopedic Surgery - Alexander rods - Immunizations Hx Diphtheria, Pertussis, Tetanus Vaccination: No - 2009 History of Influenza Vaccine for 08/2017 - 12/2017 Season: Yes Influenza Administration Date for 08/201712/2017 Season: 12/03/16 Physical Exam - Vital signs Vitals: Temp Pulse BP Pulse Ox 98.6 F 97 106/72 98 12/09/17 09:04 12/09/17 09:04 12/09/17 09:04 12/09/17 09:04 Course - Vital Signs Vital signs: Temp Pulse Resp BP Pulse Ox 98.6 F 97 106/72 98 12/09/17 09:04 12/09/17 09:04 12/09/17 09:04 12/09/17 09:04
[2017-12-09] MEDS ORDERED: MORPHINE SULFATE 10 MG/ML INJ IV ONE (12:01)
[2017-12-09] MEDS ORDERED: ONDANSETRON HCL INJ/PF 4 MG/2 ML SDV IV ONE (12:01)
[2017-12-09] MEDS ORDERED: NORMAL SALINE 1000 ML 1,000 ML IV PRN (12:33)
--- NOTE | 2017-12-09 12:54 | ER Document Report ---
ED Headache - General Chief Complaint: Headache <24 hrs old Stated Complaint: HEADACHE Time Seen by Provider: 12/09/17 09:30 Notes: 42 yo female with hx/o migraine headaches presents today c/o migraine. typical in quality and location for patient. headache started approx 30 min [employer]. pt is followed by neurology, takes Botox, Topimax and [place] for headaches. Reports anaphylactic reaction to triptans. + nausea and dizziness with this headache. denies fever or neck pain TRAVEL OUTSIDE OF THE [place] IN LAST 30 DAYS: No - HPI Patient complains to provider of: "Migraine" Onset: Just prior to arrival Onset was: Gradual Timing: Still present Quality of pain: Achy, Throbbing Preceding symptoms: Typical of prior aura(s) Associated symptoms: Dizzy, Nausea/vomiting, Photophobia. denies: Fever, Speech problems, Stiff neck Exacerbated by: Light, Noise Similar symptoms previously: Yes Recently seen / treated by doctor: Yes - Dr Saldaña - Related Data Allergies/Adverse Reactions: ibuprofen Allergy (Verified 12/09/17 08:55) latex Allergy (Verified 12/09/17 08:55) metoclopramide [From Reglan] Allergy (Verified 12/09/17 08:55) Penicillins Allergy (Verified 12/09/17 08:55) sulfamethoxazole [From Septra] Allergy (Verified 12/09/17 08:55) sumatriptan [From Imitrex] Allergy (Verified 12/09/17 08:55) tramadol Allergy (Verified 12/09/17 08:55) trimethoprim [From Septra] Allergy (Verified 12/09/17 08:55) zolmitriptan [From Zomig] Allergy (Verified 12/09/17 08:55) prochlorperazine [From Compazine] Adverse Reaction (Verified 12/09/17 08:55) Past Medical History - General Information source: Patient - Social History Smoking Status: Never Smoker Chew tobacco use (# tins/day): No Frequency of alcohol use: Rare Drug Abuse: None Lives with: Family Family History: Arthritis, COPD, CVA, DM, Hyperlipidemia, Hypertension, Malignancy Patient has suicidal ideation: No Patient has homicidal ideation: No - Past Medical History Cardiac Medical History: Reports: Hx Hypercholesterolemia Neurological Medical History: Reports: Hx Migraine Renal/ Medical History: Reports: Hx Ovarian Cysts - PCOS. Denies: Hx Peritoneal Dialysis GI Medical History: Reports: Hx Gastroesophageal Reflux Disease, Hx Hiatal Hernia Musculoskeltal Medical History: Reports Hx Arthritis, Reports Hx Musculoskeletal Deformity - Scoliosis, Reports Hx Musculoskeletal Trauma Psychiatric Medical History: Reports: Hx Anxiety, Hx Depression Past Surgical History: Reports: Hx Appendectomy, Hx Cholecystectomy, Hx Hysterectomy, Hx Orthopedic Surgery - Alexander rods - Immunizations Hx Diphtheria, Pertussis, Tetanus Vaccination: No - 2009 Review of Systems - Review of Systems Constitutional: No symptoms reported EENT: No symptoms reported Cardiovascular: No symptoms reported Respiratory: No symptoms reported Gastrointestinal: No symptoms reported Genitourinary: No symptoms reported Female Genitourinary: No symptoms reported Musculoskeletal: No symptoms reported Skin: No symptoms reported Hematologic/Lymphatic: No symptoms reported Neurological/Psychological: No symptoms reported Physical Exam - Vital signs Vitals: Temp Pulse BP Pulse Ox 98.6 F 97 106/72 98 12/09/17 09:04 12/09/17 09:04 12/09/17 09:04 12/09/17 09:04 Interpretation: Normal - General General appearance: Appears well, Alert In distress: None - HEENT Head: Normocephalic, Atraumatic Eyes: Normal Conjunctiva: Normal Extraocular movements intact: Yes Pupils: PERRL Tympanic membrane: Normal Mucous membranes: Moist Pharynx: Normal Neck: Normal, Supple - Respiratory Respiratory status: No respiratory distress Chest status: Nontender Breath sounds: Normal Chest palpation: Normal - Cardiovascular Rhythm: Regular Heart sounds: Normal auscultation Murmur: No - Abdominal Inspection: Normal Distension: No distension Bowel sounds: Normal Tenderness: Nontender Organomegaly: No organomegaly - Back Back: Normal, Nontender - Extremities General upper extremity: Normal inspection, Nontender, Normal color, Normal ROM , Normal temperature General lower extremity: Normal inspection, Nontender, Normal color, Normal ROM , Normal temperature, Normal weight bearing. No: Gary's sign - Neurological Neuro grossly intact: Yes Cognition: Normal Orientation: AAOx4 [place] Coma Scale Eye Opening: Spontaneous [place] Coma Scale Verbal: Oriented [place] Coma Scale Motor: Obeys Commands [place] Coma Scale Total: 15 Speech: Normal Motor strength normal: LUE, RUE, LLE, RLE Sensory: Normal - Psychological Associated symptoms: Normal affect, Normal mood - Skin Skin Temperature: Warm Skin Moisture: Dry Skin Color: Normal Course - Re-evaluation Re-evalutation: 12/09/17 12:52 H&P c/w migraine headache. low suspicion for acute gl;aucome, temporal ateritis , meningitis, stroke. pt is neurologically intact. + relief with meds and IVF. home care, follow up with neurology, ED return precautions discussed with patient 12/09/17 13:00 pt stable for discharge - Vital Signs Vital signs: Temp Pulse Resp BP Pulse Ox 98.6 F 97 106/72 98 12/09/17 09:04 12/09/17 09:04 12/09/17 09:04 12/09/17 09:04 Discharge - Discharge Clinical Impression: Headache Qualifiers: Headache type: unspecified Headache chronicity pattern: acute headache Intractability: not intractable Qualified Code(s): R51 - Headache Condition: Stable Disposition: HOME, SELF-CARE Instructions: Headache ([facility]), Use of Diphenhydramine, Antinausea Medication ( [facility]), Steroid Medication Injection Additional Instructions: rest and increase hydration continue current meds as prescribed by neurology follow up with primary care/neurology as needed
[2017-12-09 13:48] VITALS: BP 101/60
== END 2017-12-09 14:21 | disposition home or self-care (01) ==
LOC: ER 08:49
DX: R51 Headache (principal); R11.2 Nausea with vomiting, unspecified; R42 Dizziness and giddiness; Z91.040 Latex allergy status; Z88.6 Allergy status to analgesic agent; Z88.0 Allergy status to penicillin; Z90.49 Acquired absence of other specified parts of digestive tract; Z90.710 Acquired absence of both cervix and uterus
CPT/HCPCS: 99284; 96361; 96374; 96375; J1200; J2270; J2550; J2405; J7030; J1100

== ENCOUNTER 2017-12-23 02:41 | Emergency (ER) | payer OTHER ==
--- NOTE | 2017-12-23 02:57 | ER Document Report ---
ED Headache - General Chief Complaint: Headache Stated Complaint: HEADACHE Time Seen by Provider: 12/23/17 02:57 TRAVEL OUTSIDE OF THE [place] IN LAST 30 DAYS: No - HPI Notes: 42-year-old with history of chronic migraines presented today for evaluation of a headache. Patient reported that she typically takes [place] for her pain prescribed by her neurologist. Patient had multiple CT scans as well as MRIs of her brain. Patient is requesting Dilaudid as well as ketamine for pain control. Patient also reports that typically Phenergan, Decadron as well as Benadryl helps her symptoms. Patient denies any double vision, ataxia, focal upper or lower extremity weakness. Patient does have photophobia and mild nausea with her symptoms. - Related Data Allergies/Adverse Reactions: ibuprofen Allergy (Verified 12/23/17 02:55) latex Allergy (Verified 12/23/17 02:55) metoclopramide [From Reglan] Allergy (Verified 12/23/17 02:55) NSAIDS (Non-Steroidal Anti-Inflamma Allergy (Verified 12/23/17 03:07) Penicillins Allergy (Verified 12/23/17 02:55) sulfamethoxazole [From Septra] Allergy (Verified 12/23/17 02:55) sumatriptan [From Imitrex] Allergy (Verified 12/23/17 02:55) tramadol Allergy (Verified 12/23/17 02:55) trimethoprim [From Septra] Allergy (Verified 12/23/17 02:55) zolmitriptan [From Zomig] Allergy (Verified 12/23/17 02:55) prochlorperazine [From Compazine] Adverse Reaction (Verified 12/23/17 02:55) Past Medical History - Social History Smoking Status: Never Smoker Chew tobacco use (# tins/day): No Frequency of alcohol use: None Drug Abuse: None Family History: Arthritis, COPD, CVA, DM, Hyperlipidemia, Hypertension, Malignancy Patient has suicidal ideation: No Patient has homicidal ideation: No - Past Medical History Cardiac Medical History: Reports: Hx Hypercholesterolemia Neurological Medical History: Reports: Hx Migraine Renal/ Medical History: Reports: Hx Ovarian Cysts - PCOS. Denies: Hx Peritoneal Dialysis GI Medical History: Reports: Hx Gastroesophageal Reflux Disease, Hx Hiatal Hernia Musculoskeltal Medical History: Reports Hx Arthritis, Reports Hx Musculoskeletal Deformity - Scoliosis, Reports Hx Musculoskeletal Trauma Psychiatric Medical History: Reports: Hx Anxiety, Hx Depression Past Surgical History: Reports: Hx Appendectomy, Hx Cholecystectomy, Hx Hysterectomy, Hx Orthopedic Surgery - Alexander rods - Immunizations Hx Diphtheria, Pertussis, Tetanus Vaccination: No - 2009 Review of Systems - Review of Systems Notes: REVIEW OF SYSTEMS: CONSTITUTIONAL: -fevers, -chills EENT: -eye pain, -difficulty swallowing, -nasal congestion CARDIOVASCULAR: -chest pain, -syncope. RESPIRATORY: -cough, -SOB GASTROINTESTINAL: -abdominal pain, +nausea, -vomiting, -diarrhea GENITOURINARY: -dysuria, -hematuria MUSCULOSKELETAL: -back pain, -neck pain SKIN: -rash or skin lesions. HEMATOLOGIC: -easy bruising or bleeding. LYMPHATIC: -swollen, enlarged glands. NEUROLOGICAL: -altered mental status or loss of consciousness, +headache, - neurologic symptoms PSYCHIATRIC: -anxiety, -depression. ALL OTHER SYSTEMS REVIEWED AND NEGATIVE. Physical Exam - Vital signs Vitals: Temp Pulse Resp BP Pulse Ox 98.7 F 98 18 115/65 99 12/23/17 02:46 12/23/17 02:46 12/23/17 02:46 12/23/17 02:46 12/23/17 02:46 - Notes Notes: Reviewed vital signs and nursing note as charted by RN. CONSTITUTIONAL: Alert and oriented and responds appropriately to questions HEAD: Normocephalic; atraumatic EYES: PERRL ENT: normal nose; NECK: Supple without meningismus; non-tender; no cervical lymphadenopathy, no masses CARD: Regular rate and rhythm; no murmurs, no clicks, no rubs, no gallops; symmetric distal pulses RESP: Normal chest excursion without splinting or tachypnea; breath sounds clear and equal bilaterally ABD/GI: Normal bowel sounds; non-distended; soft, BACK: The back appears normal and is non-tender to palpation EXT: Normal ROM in all joints; non-tender to palpation; no cyanosis, no effusions, no edema SKIN: Normal color for age and race; warm; dry; good turgor; capillary refill < 2 seconds; no acute lesions noted NEURO: Cranial nerves 3-12 intact. Motor strength 5/5 bilaterally. Sensation intact to touch bilaterally. No pronator drift. Finger to nose intact bilaterally PSYCH: The patient's mood and manner are appropriate Course - Re-evaluation Re-evalutation: 12/23/17 03:58 Patient with history of migraines presented today for evaluation of another migraine No suspicion for acute intracranial process such as malignancy, subdural or epidural hematoma, no suspicion for subarachnoid process as well Her headache is gradual in onset, achy, severity of symptoms is 6 out of 10 We will give patient IV Benadryl, Phenergan as well as Decadron I have educated patient that I am not going to treat her migraines with Dilaudid or ketamine She will follow-up with her neurologist - Vital Signs Vital signs: Temp Pulse Resp BP Pulse Ox 98.2 F 93 20 108/59 L 100 12/23/17 03:51 12/23/17 03:51 12/23/17 03:51 12/23/17 03:51 12/23/17 03:51 Discharge - Discharge Clinical Impression: Migraine Condition: Stable Disposition: HOME, SELF-CARE Instructions: Headache ([facility]) Referrals: FLORENCIA HUNT MD [Primary Care Provider] - Follow up as needed
[2017-12-23] MEDS ORDERED: DIPHENHYDRAMINE HCL 50 MG/ML VIAL IV ONE (03:25)
[2017-12-23] MEDS ORDERED: PROMETHAZINE HCL INJ 25 MG/1 ML VIAL IV ONE (03:25)
[2017-12-23] MEDS ORDERED: DEXAMETHASONE SOD PHOS INJ 10 MG/1 ML VIAL IV ONE (03:25)
[2017-12-23 03:52] VITALS: BP 108/59
== END 2017-12-23 04:35 | disposition home or self-care (01) ==
LOC: ER 02:41
DX: G43.909 Migraine, unspecified, not intractable, without status migrainosus (principal); H53.149 Visual discomfort, unspecified; R11.0 Nausea; Z88.6 Allergy status to analgesic agent; Z88.8 Allergy status to other drugs, medicaments and biological substances; Z88.0 Allergy status to penicillin; Z88.1 Allergy status to other antibiotic agents; Z88.5 Allergy status to narcotic agent
CPT/HCPCS: 99284; 96374; 96375; J1200; J2550; J1100

== ENCOUNTER 2018-01-03 23:47 | Emergency (ER) | payer OTHER ==
[2018-01-04] MEDS ORDERED: DEXAMETHASONE SOD PHOS INJ 10 MG/1 ML VIAL IM ONE (00:36)
[2018-01-04] MEDS ORDERED: PROMETHAZINE HCL INJ 25 MG/1 ML VIAL IM ONE (00:36)
[2018-01-04] MEDS ORDERED: DIPHENHYDRAMINE HCL 50 MG/ML VIAL IM ONE (00:36)
--- NOTE | 2018-01-04 00:39 | ER Document Report ---
ED Headache - General Chief Complaint: Headache Stated Complaint: HEADACHE/VOMITING Time Seen by Provider: 01/04/18 00:14 Mode of Arrival: Ambulatory Information source: Patient TRAVEL OUTSIDE OF THE [place] IN LAST 30 DAYS: No - HPI Patient complains to provider of: "Migraine" Patient reports: Hx chronic headaches Onset: Just prior to arrival Timing: Still present Quality of pain: Fullness Severity: Severe Notes: Patient is here with complaints of headache. The patient has a long history of migraine type headaches. She sees a neurologist. She takes Topamax as well as multiple vitamins. She gets Botox injections by her neurologist and takes [place] prescribed by her neurologist when she has a headache. She states that she developed this headache this evening when going to bed. States that she has photophobia with nausea and vomiting associated with it. She states that this is typical of headaches she has had in the past. She is not on blood thinning medications and denies any recent head injuries. She denies any unilateral numbness, tingling, weakness. No fever. No neck stiffness. No rash. She denies any abdominal pain. She denies any chest pain or shortness of breath. Again this feels like prior headache that she has had in the past. In reviewing her records, the patient has been seen multiple times for migraine headaches in the past. She has had negative head CTAs as well as negative head CTs within the last few months. - Related Data Allergies/Adverse Reactions: ibuprofen Allergy (Verified 01/04/18 00:11) latex Allergy (Verified 01/04/18 00:11) metoclopramide [From Reglan] Allergy (Verified 01/04/18 00:11) NSAIDS (Non-Steroidal Anti-Inflamma Allergy (Verified 01/04/18 00:11) Penicillins Allergy (Verified 01/04/18 00:11) sulfamethoxazole [From Septra] Allergy (Verified 01/04/18 00:11) sumatriptan [From Imitrex] Allergy (Verified 01/04/18 00:11) tramadol Allergy (Verified 01/04/18 00:11) trimethoprim [From Septra] Allergy (Verified 01/04/18 00:11) zolmitriptan [From Zomig] Allergy (Verified 01/04/18 00:11) prochlorperazine [From Compazine] Adverse Reaction (Verified 01/04/18 00:11) Past Medical History - Social History Smoking Status: Unknown if Ever Smoked Family History: Arthritis, COPD, CVA, DM, Hyperlipidemia, Hypertension, Malignancy Patient has suicidal ideation: No Patient has homicidal ideation: No - Past Medical History Cardiac Medical History: Reports: Hx Hypercholesterolemia Neurological Medical History: Reports: Hx Migraine Endocrine Medical History: Comment Only: Hx Diabetes Mellitus Type 2 - pre diabetic Renal/ Medical History: Reports: Hx Ovarian Cysts - PCOS. Denies: Hx Peritoneal Dialysis GI Medical History: Reports: Hx Gastroesophageal Reflux Disease, Hx Hiatal Hernia Musculoskeltal Medical History: Reports Hx Arthritis, Reports Hx Musculoskeletal Deformity - Scoliosis, Reports Hx Musculoskeletal Trauma Psychiatric Medical History: Reports: Hx Anxiety, Hx Depression Past Surgical History: Reports: Hx Appendectomy, Hx Cholecystectomy, Hx Hysterectomy, Hx Orthopedic Surgery - Alexander rods - Immunizations Hx Diphtheria, Pertussis, Tetanus Vaccination: No - 2009 Review of Systems - Review of Systems -: Yes All other systems reviewed and negative Physical Exam - Vital signs Vitals: Temp Pulse Resp BP Pulse Ox 98.5 F 101 H 18 102/60 99 01/04/18 00:06 01/04/18 00:06 01/04/18 00:06 01/04/18 00:06 01/04/18 00:06 - Notes Notes: GENERAL: alert, cooperative, nontoxic, no distress. HEAD: normocephalic, atraumatic EYES: conjunctiva pink without discharge, no external redness or swelling. Pupils are equal, round, reactive to light. EARS: no external swelling, no external redness NOSE: atraumatic, no external swelling MOUTH/THROAT: mucous membranes moist and pink, posterior pharynx without erythema, swelling, exudate. No trismus or drooling. NECK: soft, supple, full range of motion, no meningismus. CHEST: no distress, lungs clear and equal throughout. No wheezing, rales, rhonchi. CARDIAC: regular rate and rhythm, no murmur, normal capillary refill, normal pulses. No peripheral edema noted. ABDOMEN: Soft, nontender. No rebound tenderness or guarding. No mass. BACK: full range of motion, no CVA tenderness. EXTREMITIES: full range of motion of all extremities. No redness, no swelling. NEURO: alert and oriented x 3, cranial nerves II through XII are grossly intact. Upper and lower extremities are equal throughout. Normal sensation. No focal deficits, full range of motion of all extremities. normal finger to nose. PYSCH: appropriate mood, affect. Patient is cooperative. SKIN: pink, warm, dry, no rash. Course - Re-evaluation Re-evalutation: 01/04/18 02:30 Patient is nontoxic appearing with stable vitals. The patient is here with a migraine type headache. The patient has a long-standing history of migraine headaches and is been seen in this emergency department multiple times for these headaches. Patient has multiple allergies aside to narcotic medications. She gets Botox injections and has [place] at home to take for her headaches which is prescribed by her neurologist. Patient states this headache started this evening. It is like migraine she has had in the past. She is on no blood thinners. She has no sign of meningitis or subarachnoid hemorrhage. She has a normal nonfocal neurological exam. She is no meningismus. Vitals are stable. Patient was given IM injections of Benadryl, Phenergan, Decadron. She is also given an IM injection of Zofran. Her vomiting has stopped. She states that she continues to have the headache. She is requesting either injections of Dilaudid or ketamine. I explained that these are not appropriate emergency medicine medications for migraine headaches. I instructed her that she should call her neurologist first thing in the morning to see if they have any other thoughts of what could be used to treat her headaches and she is allergic to essentially all of her normal migraine medications aside from narcotic medications. There is a slight concern for some drug-seeking behavior as the patient is here quite frequently for the same complaints and requests only narcotic or ketamine medications for her headaches. This point the patient will be discharged home. I offered her a prescription for Phenergan suppositories which she declined. She states that she has Zofran at home. I instructed her to take her [place] when she gets home since her vomiting has been under control for the last hour. Follow-up sooner for any worsening pain, high fevers, numbness, tingling, weakness, any further concerns. The patient's emergency department workup and current diagnosis were explained to the patient and or family. Follow-up instructions were provided. Medications if prescribed were discussed. Instructions for when to return to the emergency department including specific worrisome symptoms were discussed with the patient and/or family. - Vital Signs Vital signs: Temp Pulse Resp BP Pulse Ox 98.5 F 101 H 18 102/60 99 01/04/18 00:06 01/04/18 00:06 01/04/18 00:06 01/04/18 00:06 01/04/18 00:06 Discharge - Discharge Clinical Impression: Headache Qualifiers: Headache type: unspecified Headache chronicity pattern: chronic headache Intractability: intractable Qualified Code(s): R51 - Headache Condition: Stable Disposition: HOME, SELF-CARE Instructions: Headache ([facility]) Additional Instructions: Take your [place] when you get home. Follow-up with your neurologist at the next available appointment. Follow-up sooner for worsening pain, high fever, persistent vomiting, numbness, tingling, weakness, any further concerns. Forms: Smoking Cessation Education
[2018-01-04] MEDS ORDERED: ONDANSETRON HCL INJ/PF 4 MG/2 ML SDV IM ONE (01:31)
[2018-01-04 02:44] VITALS: BP 109/69
== END 2018-01-04 02:44 | disposition home or self-care (01) ==
LOC: ER 23:47
DX: R51 Headache (principal); E78.00 Pure hypercholesterolemia, unspecified; Z90.49 Acquired absence of other specified parts of digestive tract; Z90.710 Acquired absence of both cervix and uterus; Z88.0 Allergy status to penicillin; Z88.6 Allergy status to analgesic agent; Z91.040 Latex allergy status
CPT/HCPCS: 99283; 96372; J1200; J2550; J2405; J1100

== ENCOUNTER 2018-02-07 10:35 | Emergency (ER) | payer OTHER ==
--- NOTE | 2018-02-07 10:59 | ER Document Report ---
ED Headache - General Chief Complaint: Headache Stated Complaint: HEADACHE Time Seen by Provider: 02/07/18 10:58 Mode of Arrival: Ambulatory Information source: Patient TRAVEL OUTSIDE OF THE [place] IN LAST 30 DAYS: No - HPI Patient complains to provider of: Headache Patient reports: Frequent migraines Onset: Other - 2 DAYS AGO Onset was: Gradual Timing: Worse - MUCH WORSE TODAY Quality of pain: Dull, Throbbing Severity: Moderate Context: denies: CO exposure, Head injury, Insect bite, Meningitis exposure, Tick bite, Other Preceding symptoms: Typical of prior aura(s), Visual disturbance - BLURRED VISIOON IS COMMON, DIPLOPIA IS NEW. Associated symptoms: Neck pain, Trouble walking - MILD DYSEQUILIBRIUM. denies: Chills, Confusion, Fever, Speech problems Exacerbated by: Light, Noise Similar symptoms previously: Yes - DIPLOPIA IS NEW, NOT TYPICAL Recently seen / treated by doctor: No Notes: Patient is on multiple medications as noted, says she has been compliant. Also , receives Botox injections in the neck. - Related Data Allergies/Adverse Reactions: ibuprofen Allergy (Verified 01/04/18 00:11) latex Allergy (Verified 01/04/18 00:11) metoclopramide [From Reglan] Allergy (Verified 01/04/18 00:11) NSAIDS (Non-Steroidal Anti-Inflamma Allergy (Verified 01/04/18 00:11) Penicillins Allergy (Verified 01/04/18 00:11) sulfamethoxazole [From Septra] Allergy (Verified 01/04/18 00:11) sumatriptan [From Imitrex] Allergy (Verified 01/04/18 00:11) tramadol Allergy (Verified 01/04/18 00:11) trimethoprim [From Septra] Allergy (Verified 01/04/18 00:11) zolmitriptan [From Zomig] Allergy (Verified 01/04/18 00:11) prochlorperazine [From Compazine] Adverse Reaction (Verified 01/04/18 00:11) Past Medical History - General Information source: Patient - Social History Smoking Status: Never Smoker Cigarette use (# per day): No Chew tobacco use (# tins/day): No Frequency of alcohol use: Occasional Drug Abuse: None Lives with: Spouse/Significant other Family History: Arthritis, COPD, CVA, DM, Hyperlipidemia, Hypertension, Malignancy Patient has suicidal ideation: No Patient has homicidal ideation: No - Past Medical History Cardiac Medical History: Reports: Hx Hypercholesterolemia Pulmonary Medical History: Reports: None EENT Medical History: Reports: None Neurological Medical History: Reports: Hx Migraine Endocrine Medical History: Comment Only: Hx Diabetes Mellitus Type 2 - pre diabetic Renal/ Medical History: Reports: Hx Ovarian Cysts - PCOS. Denies: Hx Peritoneal Dialysis Malignancy Medical History: Reports: None GI Medical History: Reports: Hx Gastroesophageal Reflux Disease, Hx Hiatal Hernia Musculoskeltal Medical History: Reports Hx Arthritis, Reports Hx Musculoskeletal Deformity - Scoliosis, Reports Hx Musculoskeletal Trauma Psychiatric Medical History: Reports: Hx Anxiety, Hx Depression Past Surgical History: Reports: Hx Appendectomy, Hx Cholecystectomy, Hx Genitourinary Surgery - "BLADDER SLING", Hx Hysterectomy, Hx Orthopedic Surgery - Alexander rods - Immunizations Hx Diphtheria, Pertussis, Tetanus Vaccination: No - 2009 Review of Systems - Review of Systems Constitutional: No symptoms reported EENT: See HPI, Blurred vision, Double vision, Sinus discharge Cardiovascular: No symptoms reported Respiratory: No symptoms reported Gastrointestinal: See HPI, Nausea, Vomiting Genitourinary: No symptoms reported Female Genitourinary: No symptoms reported Musculoskeletal: See HPI, Neck pain Skin: No symptoms reported Neurological/Psychological: See HPI, Other - MILD DYSEQUILIBRIUM. denies: Weakness, Numbness Physical Exam - Vital signs Vitals: Temp Pulse Resp BP Pulse Ox 98.2 F 98 16 124/76 99 02/07/18 10:51 02/07/18 10:51 02/07/18 10:51 02/07/18 10:51 02/07/18 10:51 Interpretation: Normal. No: Tachycardic, Tachypneic, Febrile - General General appearance: Appears well, Alert In distress: None - HEENT Head: Normocephalic Eyes: Normal Conjunctiva: Normal Ears: Normal Nasal: Normal Mouth/Lips: Normal Mucous membranes: Normal Pharynx: Normal Neck: Other - MILDLY TENDER PARASPINOUS MUSCLES C3 THRU C7. NO TRAPEZIUS TENDERNESS - Respiratory Respiratory status: No respiratory distress Breath sounds: Normal - Cardiovascular Rhythm: Regular Heart sounds: Normal auscultation Murmur: No - Abdominal Inspection: Normal Distension: No distension - Back Back: Normal - Extremities General upper extremity: Normal inspection General lower extremity: Normal inspection - Neurological Neuro grossly intact: Yes Cognition: Normal Orientation: AAOx4 - Psychological Associated symptoms: Normal affect, Normal mood - Skin Skin Temperature: Warm Skin Moisture: Dry Skin Color: Normal Skin Turgor: Elastic Course - Re-evaluation Re-evalutation: 02/07/18 17:10 Patient states overall, headache is much improved, nearly gone. There is some residual pain around the right orbit area. There is some slight persistent nausea. Results of imaging studies and laboratory testing discussed with patient and spouse. Treatment strategies discussed. - Vital Signs Vital signs: Temp Pulse Resp BP Pulse Ox 98.2 F 98 16 124/76 99 02/07/18 10:51 02/07/18 10:51 02/07/18 10:51 02/07/18 10:51 02/07/18 10:51 - Laboratory Result Diagrams: 02/07/18 11:53 02/07/18 11:53 Laboratory results interpreted by me: 02/07/18 02/07/18 11:53 11:53 Eosinophils % 10.5 H Absolute Eosinophils 1.1 H Chloride 112 H Carbon Dioxide 15 L Discharge - Discharge Clinical Impression: Headache Qualifiers: Headache type: unspecified Headache chronicity pattern: acute headache Intractability: not intractable Qualified Code(s): R51 - Headache Condition: Stable Disposition: HOME, SELF-CARE Instructions: Antinausea Medication ([facility]), Use of Diphenhydramine, Oral Narcotic Medication ([facility]), Headache ([facility]) Additional Instructions: REST, DRINK PLENTY OF FLUIDS. CONTINUE YOUR USUAL ,MEDS. YOU MAY TAKE FIORICET IF NEEDED FOR HEADACHE PAIN. FOLLOW UP WITH YOUR PRIMARY CARE PROVIDER OR RETURN TO E.R. IF PROBLEMS. Prescriptions: Butalb/Acetaminophen/Caffeine [Fioricet (50-325-40 mg) Tablet] 1 - 2 tab PO Q4H PRN #20 each PRN Reason: For Headache
[2018-02-07] MEDS ORDERED: RINGERS SOLUTION 1,000 ML IV PRN (11:35)
[2018-02-07] MEDS ORDERED: DIPHENHYDRAMINE HCL 50 MG/ML VIAL IV ONE (11:35)
[2018-02-07] MEDS ORDERED: ONDANSETRON HCL INJ/PF 4 MG/2 ML SDV IV ONE ×3 (11:35→17:09)
[2018-02-07] MEDS ORDERED: VALPROATE SODIUM INJ/PF 500 MG/5 ML SDV IV ONE (12:04)
[2018-02-07 12:29] LABS: ABSOLUTE BASOPHILS # (AUTO) 0.1 10^3/uL (0.0-0.2); ABSOLUTE EOSINOPHILS # (AUTO) 1.1 10^3/uL (0.0-0.6); ABSOLUTE LYMPHOCYTES (AUTO) 2.8 10^3/uL (0.5-4.7); ABSOLUTE MONOCYTES (AUTO) 0.6 10^3/uL (0.1-1.4); ABSOLUTE NEUT (AUTO) 5.6 10^3/uL (1.7-8.2); BASOPHILS % (AUTO) 0.8 % (0-2); EOSINOPHILS % (AUTO) 10.5 % (0-6); HEMATOCRIT 43.3 % (36.0-47.0); HEMOGLOBIN 14.4 g/dL (12.0-15.5); LYMPHOCYTES % (AUTO) 27.3 % (13-45); MEAN CORPUSCULAR HEMOGLOBIN 27.6 pg (27.0-33.4); MEAN CORPUSCULAR HGB CONC 33.2 g/dL (32.0-36.0); MEAN CORPUSCULAR VOLUME 83 fl (80-97); MONOCYTES % (AUTO) 6.3 % (3-13); PLATELET COUNT 316 10^3/uL (150-450); RED CELL DISTRIBUTION WIDTH 12.9 % (11.5-14.0); SEGMENTED NEUTROPHILS % (AUTO) 55.1 % (42-78); TOTAL CELLS COUNTED % (AUTO) 100 %; WHITE BLOOD COUNT 10.1 10^3/uL (4.0-10.5)
--- NOTE | 2018-02-07 12:30 | RADIOLOGY REPORT (SQ) ---
EXAM DESCRIPTION: CT HEAD WITHOUT COMPLETED DATE/TIME: 02/07/2018 12:15 pm REASON FOR STUDY: ATYPICAL HEADACHE COMPARISON: None. TECHNIQUE: Axial images acquired through the brain without intravenous contrast. Images reviewed wi th bone, brain and subdural windows. Additional sagittal and coronal reconstructions were generated. Images stored on PACS. All CT scanners at this facility use dose modulation, iterative reconstruction, and/or weight based d osing when appropriate to reduce radiation dose to as low as reasonably achievable (ALARA). [facility]: Dose Right [facility]: CareDose [facility]: Dose Right [facility]: Teradose 4D [facility]: [employer] RADIATION DOSE: CT Rad equipment meets quality standard of care and radiation dose reduction techniq ues were employed. CTDIvol: 48.6 mGy. DLP: 954 mGy-cm. mGy. LIMITATIONS: None. FINDINGS: VENTRICLES: Normal size and contour. CEREBRUM: No masses. No hemorrhage. No midline shift. No evidence for acute infarction. Normal gra y/white matter differentiation. No areas of low density in the white matter. CEREBELLUM: No masses. No hemorrhage. No alteration of density. No evidence for acute infarction. EXTRAAXIAL SPACES: No fluid collections. No masses. ORBITS AND GLOBE: No intra- or extraconal masses. Normal contour of globe without masses. CALVARIUM: No fracture. PARANASAL SINUSES: No fluid or mucosal thickening. SOFT TISSUES: No mass or hematoma. OTHER: No other significant finding. IMPRESSION: NORMAL BRAIN CT WITHOUT CONTRAST. EVIDENCE OF ACUTE STROKE: NO. COMMENT: Quality ID # [id number]: Final reports with documentation of one or more dose reduction techniques (e.g., Automated exposure control, adjustment of the mA and/or kV according to patient size, use of iterative reconstruction technique) TECHNICAL DOCUMENTATION: JOB ID: [id number] [employer]- All Rights Reserved Reading location - IP/workstation name: [email or web address]
[2018-02-07] MEDS ORDERED: RINGERS SOLUTION,LACTATED 1,000 ML IV PRN (12:39)
[2018-02-07 12:48] LABS: ALBUMIN 4.4 g/dL (3.5-5.0); CARBON DIOXIDE 15 mmol/L (22-30)
[2018-02-07 12:49] LABS: ALANINE AMINOTRANSFERASE 29 U/L (9-52); ALKALINE PHOSPHATASE 43 U/L (38-126); ASPARTATE AMINO TRANSFERASE 21 U/L (14-36); BILIRUBIN,DIRECT 0.4 mg/dL (0.0-0.4); BILIRUBIN,TOTAL 0.6 mg/dL (0.2-1.3); BLOOD UREA NITROGEN 13 mg/dL (7-20); CALCIUM 9.6 mg/dL (8.4-10.2); GLUCOSE 100 mg/dL (75-110); POTASSIUM 4.1 mmol/L (3.6-5.0); TOTAL PROTEIN 7.5 g/dL (6.3-8.2)
[2018-02-07 12:50] LABS: ANION GAP 16 (5-19); CHLORIDE 112 mmol/L (98-107); SODIUM 142.7 mmol/L (137-145)
[2018-02-07 14:08] LABS: APPEARANCE,URINE CLEAR; BILIRUBIN,URINE NEGATIVE (NEGATIVE); COLOR,URINE YELLOW; GLUCOSE, URINE NEGATIVE (NEGATIVE); KETONES,URINE NEGATIVE (NEGATIVE); LEUKOCYTE ESTERASE,URINE NEGATIVE (NEGATIVE); NITRITE,URINE NEGATIVE (NEGATIVE); PROTEIN,URINE NEGATIVE (NEGATIVE); UROBILINOGEN,URINE NEGATIVE mg/dL (<2.0)
[2018-02-07] MEDS ORDERED: HYDROMORPHONE HCL INJ/PF 2 MG/ML AMPULE IV ONE ×2 (14:14→17:09)
[2018-02-07] MEDS ORDERED: LORAZEPAM INJ 2 MG/1 ML VIAL IV ONE (14:14)
--- NOTE | 2018-02-07 16:11 | RADIOLOGY REPORT (SQ) ---
EXAM DESCRIPTION: MRA HEAD WITHOUT COMPLETED DATE/TIME: 02/07/2018 3:55 pm REASON FOR STUDY: ATYPICAL HEADACHE, R/O VENOUS SINUS THROMBOSIS COMPARISON: None. TECHNIQUE: Axial 3-D [id number] acquisition imaging performed through the brain . Images reform atted using 3-D MIPS. Routine non contrasted Magnetic resonance venogram brain. Images stored on PACS. LIMITATIONS: None. FINDINGS: SOURCE IMAGES: No unexpected findings on source images. No large masses. 3-D MIP: No occlusions. No significant stenosis. OTHER: No other significant finding. IMPRESSION: NORMAL MRV OF THE BRAIN. TECHNICAL DOCUMENTATION: JOB ID: [id number] CONTRAST TYPE AND DOSE: None Reading location - IP/workstation name: [email or web address]
[2018-02-07] MEDS ORDERED: FAMOTIDINE INJ/PF 20 MG/2 ML SDV IV ONE (17:09)
[2018-02-07 18:29] VITALS: BP 111/74
== END 2018-02-07 18:23 | disposition home or self-care (01) ==
LOC: ER 10:35
DX: R51 Headache (principal); R26.2 Difficulty in walking, not elsewhere classified; R42 Dizziness and giddiness; H53.8 Other visual disturbances; H53.2 Diplopia; M54.2 Cervicalgia; J34.89 Other specified disorders of nose and nasal sinuses; R11.2 Nausea with vomiting, unspecified; Z79.899 Other long term (current) drug therapy; Z88.6 Allergy status to analgesic agent; Z91.040 Latex allergy status; Z88.0 Allergy status to penicillin; Z88.1 Allergy status to other antibiotic agents; Z86.69 Personal history of other diseases of the nervous system and sense organs
CPT/HCPCS: 96376; 99284; 96375; 96365; 96368; 36415; 85025; 80053; 81001; 70544; 70450; J1200; J1170; J2060; J2405; J7120; S0028; J3490

== ENCOUNTER 2018-02-10 00:14 | Emergency (ER) | payer OTHER ==
[2018-02-10] MEDS ORDERED: ONDANSETRON HCL INJ/PF 4 MG/2 ML SDV IV ONE (01:12)
[2018-02-10] MEDS ORDERED: MAG HYDROX/AL HYDROX/SIMETH SUSP 30 ML UDCUP PO ONE (01:12)
[2018-02-10] MEDS ORDERED: LIDOCAINE 2% VISCOUS SOLN 20 ML UDCUP PO ONE (01:12)
--- NOTE | 2018-02-10 01:17 | ER Document Report ---
ED General - General Chief Complaint: Abdominal pain/ nausea/ vomiting Stated Complaint: ABDOMINAL PAIN,VOMITING Time Seen by Provider: 02/10/18 01:00 Notes: She is a 42-year-old female presents with complaint of epigastric abdominal pain with vomiting. She does admit sharp pain in her abdomen. She says she is recently starting prednisone because a history of migraines by primary care doctor. After that she started having worsening of her reflux type symptoms and slight started having some epigastric sharp pain with vomiting. She said one time she did have some dark blood in her emesis. She does have history of von Willebrand's disease. No previous history of upper GI endoscopy. She does have a previous history of cholecystectomy. She denies any recent fevers or infections. She says her stool has been maybe a little bit dark but not black or tarry. No other complaints at this time. TRAVEL OUTSIDE OF THE [place] IN LAST 30 DAYS: No - Related Data Allergies/Adverse Reactions: ibuprofen Allergy (Verified 01/04/18 00:11) latex Allergy (Verified 01/04/18 00:11) metoclopramide [From Reglan] Allergy (Verified 01/04/18 00:11) NSAIDS (Non-Steroidal Anti-Inflamma Allergy (Verified 01/04/18 00:11) Penicillins Allergy (Verified 01/04/18 00:11) sulfamethoxazole [From Septra] Allergy (Verified 01/04/18 00:11) sumatriptan [From Imitrex] Allergy (Verified 01/04/18 00:11) tramadol Allergy (Verified 01/04/18 00:11) trimethoprim [From Septra] Allergy (Verified 01/04/18 00:11) zolmitriptan [From Zomig] Allergy (Verified 01/04/18 00:11) prochlorperazine [From Compazine] Adverse Reaction (Verified 01/04/18 00:11) Past Medical History - Social History Smoking Status: Never Smoker Frequency of alcohol use: None Drug Abuse: None Family History: Arthritis, COPD, CVA, DM, Hyperlipidemia, Hypertension, Malignancy - Past Medical History Cardiac Medical History: Reports: Hx Hypercholesterolemia Neurological Medical History: Reports: Hx Migraine Endocrine Medical History: Comment Only: Hx Diabetes Mellitus Type 2 - pre diabetic Renal/ Medical History: Reports: Hx Ovarian Cysts - PCOS. Denies: Hx Peritoneal Dialysis GI Medical History: Reports: Hx Gastroesophageal Reflux Disease, Hx Hiatal Hernia Musculoskeltal Medical History: Reports Hx Arthritis, Reports Hx Musculoskeletal Deformity - Scoliosis, Reports Hx Musculoskeletal Trauma Psychiatric Medical History: Reports: Hx Anxiety, Hx Depression Past Surgical History: Reports: Hx Appendectomy, Hx Cholecystectomy, Hx Genitourinary Surgery - "BLADDER SLING", Hx Hysterectomy, Hx Orthopedic Surgery - Alexander rodsComment Only: Hx Gynecologic Surgery - cervix and uterus removed - Immunizations Hx Diphtheria, Pertussis, Tetanus Vaccination: No - 2009 Review of Systems - Review of Systems Notes: My Normal Review Basic REVIEW OF SYSTEMS: CONSTITUTIONAL : Denies fever, chills, or sweats. Denies recent illness. EENT: Denies eye, ear, throat, or mouth pain or symptoms. Denies nasal or sinus congestion. CARDIOVASCULAR: Denies chest pain. RESPIRATORY: Denies cough, cold, or chest congestion. Denies shortness of breath, difficulty breathing, or wheezing. GASTROINTESTINAL: Abdominal pain and vomiting. MUSCULOSKELETAL: Denies neck or back pain or joint pain or swelling. SKIN: Denies rash or skin lesions. HEMATOLOGIC : History of von Willebrand's disease. NEUROLOGICAL: Denies altered mental status or loss of consciousness. Denies headache. Denies weakness or paralysis or loss of use of either side. Denies problems with gait or speech. Denies sensory or motor loss. ALL OTHER SYSTEMS REVIEWED AND NEGATIVE. Physical Exam - Vital signs Vitals: Temp Pulse Resp BP Pulse Ox 98.2 F 99 16 112/74 100 02/10/18 00:23 02/10/18 00:02/10/18 00:02/10/18 00:02/10/18 00:23 - Notes Notes: General Appearance: Well nourished, alert, cooperative, no acute distress, mild obvious discomfort. Well appearing Vitals: reviewed, See vital signs table. Head: no swelling or tenderness to the head Eyes: PERRL, EOMI, Conjuctiva clear Mouth: No decreasd moisture Lungs: No wheezing, No rales, No rhonci, No accessory muscle use, good air exchange bilaterally. Heart: Normal rate, Regular rythm, No murmur, no rub Abdomen: Normal BS, soft, No rigidity, mild to moderate epigastric abdominal tenderness to palpation, No guarding, no rebound, Extremities: strength 5/5 in all extremities, good pulses in all extremities, no swelling or tenderness in the extremities, no edema. Skin: warm, dry, appropriate color, no rash Neuro: speech clear, oriented x 3, normal affect, responds appropriately to questions. Course - Re-evaluation Re-evalutation: 02/10/18 04:38 This patient's today when she started mention that she also has a lot of right- sided abdominal pain. She most her pain is epigastric especially with the one episode of vomiting blood. She had no further episodes of vomiting blood here. I asked her history about her right-sided pain. The right-sided pain appears to be a chronic recurrent pain is been ongoing for a long time now. She has been seen by her primary care doctor referred to this surgery. Surgery evaluated did a CT scan which did not show any concerning findings but informed her that the suspect that the pain is related to nerve damage from her previous surgery over the right side of her abdomen. Previous surgery includes a surgery which she had a cholecystectomy as well as an appendectomy. They therefore referred her back to her neurologist, Dr. Francisco. She says that they want neurologist to do studies checking nerve conduction on her abdominal wall to see if this is affecting and causing her recurrent pain. Patient does have a slight leukocytosis. She does not have a left shift. She does not have a fever. Her chemistry panel does show that her CO2 levels little bit low. In reviewing her previous chemistry panels her CO2 usually runs anywhere from 15- 19. This is normal for her review of her previous test results. Clinically she looks well. She does complain of pain in the right side her abdomen is requesting something stronger for pain. She is allergic to all pain medications except for strong opiate medications Tylenol. I informed her that I do not feel opiates are appropriate at this time as they will decrease gastric emptying which would not be good being that she may have a gastritis or ulcer. Informed her that I would not want to get these medications and calls that type of adverse effect. Informed her that Tylenol be appropriate. She has Phenergan at home for nausea. I will place on Prilosec to take twice a day. I will refer her to GI for further evaluation and endoscopy which most likely is needed. I informed her return to ER if she has any recurrent vomiting of blood, worsening pain, fevers, or she feels unwell. Patient agrees with plan will be discharged home. Dictation of this chart was performed using voice recognition software; therefore, there may be some unintended grammatical errors. - Vital Signs Vital signs: Temp Pulse Resp BP Pulse Ox 98.4 F 79 16 106/66 100 02/10/18 03:47 02/10/18 03:47 02/10/18 03:47 02/10/18 03:47 02/10/18 03:47 - Laboratory Result Diagrams: 02/10/18 02:00 02/10/18 02:00 Laboratory results interpreted by me: 02/10/18 02/10/18 02:00 02:00 WBC 14.1 H Absolute Lymphocytes 4.9 H Sodium 147.2 H Potassium 3.5 L Chloride 113 H Carbon Dioxide 18 L Discharge - Discharge Clinical Impression: Abdominal pain Qualifiers: Abdominal location: unspecified location Qualified Code(s): R10.9 - Unspecified abdominal pain Condition: Good Disposition: HOME, SELF-CARE Additional Instructions: Please follow up with your doctor for reevaluation in 1-2 days. Please take Prilosec 20mg twice a day for 7 days and than switch back to your Zantac. I feel it is important that you follow up with a GI physician as you need to eventually have a upper GI endoscopy. Please return to the ER if you have fevers , recurrent blood vomiting, bloody stools, or if you feel that you are worsening. Please avoid spicy foods, fried foods, and acidic foods. Please take Tylenol for pain. Please stick to clear liquids for the next 12 hours and than slowly progress o a bland diet. Prescriptions: Omeprazole Magnesium [Prilosec Otc] 20 mg PO BID #14 tablet. Referrals: BRENDON LEACH MD [ACTIVE STAFF] - Follow up in 3-5 days
[2018-02-10 02:16] LABS: ABSOLUTE BASOPHILS # (AUTO) 0.1 10^3/uL (0.0-0.2); ABSOLUTE EOSINOPHILS # (AUTO) 0.2 10^3/uL (0.0-0.6); ABSOLUTE LYMPHOCYTES (AUTO) 4.9 10^3/uL (0.5-4.7); ABSOLUTE MONOCYTES (AUTO) 1.1 10^3/uL (0.1-1.4); ABSOLUTE NEUT (AUTO) 7.8 10^3/uL (1.7-8.2); BASOPHILS % (AUTO) 0.9 % (0-2); EOSINOPHILS % (AUTO) 1.2 % (0-6); HEMATOCRIT 40.5 % (36.0-47.0); HEMOGLOBIN 13.4 g/dL (12.0-15.5); MEAN CORPUSCULAR VOLUME 82 fl (80-97); PLATELET COUNT 304 10^3/uL (150-450); RED BLOOD COUNT 4.95 10^6/uL (3.72-5.28); RED CELL DISTRIBUTION WIDTH 12.9 % (11.5-14.0); SEGMENTED NEUTROPHILS % (AUTO) 54.9 % (42-78); TOTAL CELLS COUNTED % (AUTO) 100 %; WHITE BLOOD COUNT 14.1 10^3/uL (4.0-10.5)
[2018-02-10 02:22] LABS: INTERNATIONAL RATION (INR) 0.84; PARTIAL THROMBOPLASTIN TIME 26.9 SEC (23.5-35.8); PROTHROMBIN TIME 11.9 SEC (11.4-15.4)
[2018-02-10] MEDS ORDERED: NORMAL SALINE 500 ML IV ONE (02:33)
[2018-02-10] MEDS ORDERED: PANTOPRAZOLE SODIUM 40 MG VIAL IV ONE (02:36)
[2018-02-10 02:37] LABS: ALANINE AMINOTRANSFERASE 25 U/L (9-52); ALBUMIN 4.1 g/dL (3.5-5.0); ALKALINE PHOSPHATASE 38 U/L (38-126); ANION GAP 16 (5-19); ASPARTATE AMINO TRANSFERASE 15 U/L (14-36); BILIRUBIN,DIRECT 0.4 mg/dL (0.0-0.4); BILIRUBIN,TOTAL 0.4 mg/dL (0.2-1.3); BLOOD UREA NITROGEN 14 mg/dL (7-20); CALCIUM 9.6 mg/dL (8.4-10.2); CARBON DIOXIDE 18 mmol/L (22-30); CHLORIDE 113 mmol/L (98-107); GLUCOSE 91 mg/dL (75-110); LIPASE 138.3 U/L (23-300); POTASSIUM 3.5 mmol/L (3.6-5.0); SODIUM 147.2 mmol/L (137-145); TOTAL PROTEIN 7.2 g/dL (6.3-8.2)
[2018-02-10] MEDS ORDERED: ACETAMINOPHEN 325 MG TABLET PO ONE (03:42)
[2018-02-10] MEDS ORDERED: PROMETHAZINE HCL INJ 25 MG/1 ML VIAL IM ONE (03:42)
--- NOTE | 2018-02-10 03:45 | RADIOLOGY REPORT (SQ) ---
EXAM DESCRIPTION: ACUTE ABDOMEN SERIES CLINICAL HISTORY: 42 years, Female, abdominal pain COMPARISON: Ultrasound, 11/13/2017. LIMITATIONS: None. FINDINGS: Hardware fixation of the thoracolumbar spine. Right upper abdominal clips. Bilateral pelvic clips Intestinal gas pattern is within normal limits. No suspicious calcification. Grossly intact skeletal structures. No acute cardiopulmonary findings. IMPRESSION: No acute findings.
[2018-02-10 03:48] VITALS: BP 106/66
== END 2018-02-10 03:58 | disposition home or self-care (01) ==
LOC: ER 00:14
DX: R10.9 Unspecified abdominal pain (principal); R10.13 Epigastric pain; K92.0 Hematemesis; D68.0 Von Willebrand disease; Z90.49 Acquired absence of other specified parts of digestive tract; Z88.6 Allergy status to analgesic agent; Z91.040 Latex allergy status; Z88.8 Allergy status to other drugs, medicaments and biological substances; Z88.0 Allergy status to penicillin; Z88.1 Allergy status to other antibiotic agents; Z88.5 Allergy status to narcotic agent; D72.829 Elevated white blood cell count, unspecified
CPT/HCPCS: 99284; 36415; 83690; 85025; 85610; 85730; 80053; 74022; J3490; S0164; J2550; J2405; J7040

== ENCOUNTER 2018-02-10 17:29 | Emergency (ER) | payer OTHER ==
[2018-02-10] MEDS ORDERED: ONDANSETRON 4 MG TAB.RAPDIS PO ONE (18:25)
[2018-02-10] MEDS ORDERED: MORPHINE SULFATE 10 MG/ML INJ IM ONE (18:25)
--- NOTE | 2018-02-10 18:26 | ER Document Report ---
ED Medical Screen (RME) - General Chief Complaint: Abdominal Pain Stated Complaint: ABDOMINAL PAIN, VOMITING Time Seen by Provider: 02/10/18 18:22 Notes: Patient presents with right upper quadrant pain. She has been seen for this pain multiple times including last evening. She states she has been tried on multiple different reflux medications but these do not help. She also states that she has had a normal CAT scan and ultrasound. She states she has seen both her primary care physician and her surgeon for this pain and they are unable to ascertain a cause for the pain. She states at this time they are thinking of referring her to a neurologist for an assessment of her abdominal wall musculature. TRAVEL OUTSIDE OF THE [place] IN LAST 30 DAYS: No - Related Data Allergies/Adverse Reactions: ibuprofen Allergy (Verified 02/10/18 17:30) latex Allergy (Verified 02/10/18 17:30) metoclopramide [From Reglan] Allergy (Verified 02/10/18 17:30) NSAIDS (Non-Steroidal Anti-Inflamma Allergy (Verified 02/10/18 17:30) Penicillins Allergy (Verified 02/10/18 17:30) sulfamethoxazole [From Septra] Allergy (Verified 02/10/18 17:30) sumatriptan [From Imitrex] Allergy (Verified 02/10/18 17:30) tramadol Allergy (Verified 02/10/18 17:30) trimethoprim [From Septra] Allergy (Verified 02/10/18 17:30) zolmitriptan [From Zomig] Allergy (Verified 02/10/18 17:30) prochlorperazine [From Compazine] Adverse Reaction (Verified 02/10/18 17:30) Past Medical History - Social History Chew tobacco use (# tins/day): No Frequency of alcohol use: Social Drug Abuse: None - Past Medical History Cardiac Medical History: Reports: Hx Hypercholesterolemia Neurological Medical History: Reports: Hx Migraine Endocrine Medical History: Comment Only: Hx Diabetes Mellitus Type 2 - pre diabetic Renal/ Medical History: Reports: Hx Ovarian Cysts - PCOS. Denies: Hx Peritoneal Dialysis GI Medical History: Reports: Hx Gastroesophageal Reflux Disease, Hx Hiatal Hernia Musculoskeltal Medical History: Reports Hx Arthritis, Reports Hx Musculoskeletal Deformity - Scoliosis, Reports Hx Musculoskeletal Trauma Psychiatric Medical History: Reports: Hx Anxiety, Hx Depression Past Surgical History: Reports: Hx Appendectomy, Hx Cholecystectomy, Hx Genitourinary Surgery - "BLADDER SLING", Hx Hysterectomy, Hx Orthopedic Surgery - Alexander rodsComment Only: Hx Gynecologic Surgery - cervix and uterus removed - Immunizations Hx Diphtheria, Pertussis, Tetanus Vaccination: No - 2009 History of Influenza Vaccine for 08/2017 - 12/2017 Season: Yes Influenza Administration Date for 08/2017 - 12/2017 Season: 12/03/16 Physical Exam - Vital signs Vitals: Temp Pulse Resp BP Pulse Ox 98.2 F 85 18 104/64 98 02/10/18 17:34 02/10/18 17:34 02/10/18 17:34 02/10/18 17:34 02/10/18 17:34 Course - Vital Signs Vital signs: Temp Pulse Resp BP Pulse Ox 98.2 F 85 18 104/64 98 02/10/18 17:34 02/10/18 17:34 02/10/18 17:34 02/10/18 17:34 02/10/18 17:34
[2018-02-10 19:15] LABS: ABSOLUTE BASOPHILS # (AUTO) 0.1 10^3/uL (0.0-0.2); ABSOLUTE EOSINOPHILS # (AUTO) 0.3 10^3/uL (0.0-0.6); ABSOLUTE NEUT (AUTO) 9.2 10^3/uL (1.7-8.2); BASOPHILS % (AUTO) 0.9 % (0-2); EOSINOPHILS % (AUTO) 1.9 % (0-6); HEMATOCRIT 41.7 % (36.0-47.0); HEMOGLOBIN 13.7 g/dL (12.0-15.5); LYMPHOCYTES % (AUTO) 27.5 % (13-45); MEAN CORPUSCULAR HEMOGLOBIN 27.3 pg (27.0-33.4); MEAN CORPUSCULAR VOLUME 83 fl (80-97); MONOCYTES % (AUTO) 6.7 % (3-13); PLATELET COUNT 281 10^3/uL (150-450); RED BLOOD COUNT 5.04 10^6/uL (3.72-5.28); RED CELL DISTRIBUTION WIDTH 13.1 % (11.5-14.0); TOTAL CELLS COUNTED % (AUTO) 100 %; WHITE BLOOD COUNT 14.7 10^3/uL (4.0-10.5)
[2018-02-10 19:30] LABS: ALANINE AMINOTRANSFERASE 26 U/L (9-52); ALBUMIN 4.3 g/dL (3.5-5.0); ALKALINE PHOSPHATASE 35 U/L (38-126); ANION GAP 14 (5-19); ASPARTATE AMINO TRANSFERASE 24 U/L (14-36); BILIRUBIN,DIRECT 0.3 mg/dL (0.0-0.4); BILIRUBIN,TOTAL 0.4 mg/dL (0.2-1.3); BLOOD UREA NITROGEN 21 mg/dL (7-20); CALCIUM 9.4 mg/dL (8.4-10.2); CARBON DIOXIDE 21 mmol/L (22-30); CHLORIDE 112 mmol/L (98-107); GLUCOSE 103 mg/dL (75-110); LIPASE 136.3 U/L (23-300); POTASSIUM 3.7 mmol/L (3.6-5.0); SODIUM 146.8 mmol/L (137-145); TOTAL PROTEIN 7.5 g/dL (6.3-8.2)
[2018-02-10] MEDS ORDERED: CYCLOBENZAPRINE HCL 10 MG TABLET PO ONE (22:16)
--- NOTE | 2018-02-10 22:18 | ER Document Report ---
ED GI/ - General Chief Complaint: Abdominal Pain Stated Complaint: ABDOMINAL PAIN, VOMITING Time Seen by Provider: 02/10/18 18:22 Mode of Arrival: Ambulatory Information source: Patient TRAVEL OUTSIDE OF THE [place] IN LAST 30 DAYS: No - HPI Patient complains to provider of: Abdominal pain, Vomiting Onset: Other - 3-4 months Timing/Duration: Intermittent Quality of pain: Burning, Sharp, Stabbing Severity at maximum: Moderate Severity in ED: Moderate Pain Level: 3 Location: Epigastric Associated symptoms: Nausea, Vomiting Exacerbated by: Movement Relieved by: Denies Similar symptoms previously: Yes Recently seen / treated by doctor: Yes Notes: 02/10/18 23:16 Patient is a 42-year-old female presenting to the emergency room complaining of epigastric abdominal pain that has been going on intermittently over the past 3- 4 months, she was seen in this department yesterday and evaluated and discharged with instructions for follow-up, she reports her pain returned today , she has been seen by her primary care provider and a neurologist for these symptoms, but they continue despite having taken Protonix, Zantac, Carafate, GI cocktails, she states she vomited a small amount of blood yesterday and has not since then, she has been working out more, which seems to increase the pain in her abdomen - Related Data Allergies/Adverse Reactions: ibuprofen Allergy (Verified 02/10/18 17:30) latex Allergy (Verified 02/10/18 17:30) metoclopramide [From Reglan] Allergy (Verified 02/10/18 17:30) NSAIDS (Non-Steroidal Anti-Inflamma Allergy (Verified 02/10/18 17:30) Penicillins Allergy (Verified 02/10/18 17:30) sulfamethoxazole [From Septra] Allergy (Verified 02/10/18 17:30) sumatriptan [From Imitrex] Allergy (Verified 02/10/18 17:30) tramadol Allergy (Verified 02/10/18 17:30) trimethoprim [From Septra] Allergy (Verified 02/10/18 17:30) zolmitriptan [From Zomig] Allergy (Verified 02/10/18 17:30) prochlorperazine [From Compazine] Adverse Reaction (Verified 02/10/18 17:30) Past Medical History - General Information source: Patient - Social History Smoking Status: Never Smoker Chew tobacco use (# tins/day): No Frequency of alcohol use: Social Drug Abuse: None Family History: Arthritis, COPD, CVA, DM, Hyperlipidemia, Hypertension, Malignancy Patient has suicidal ideation: No Patient has homicidal ideation: No - Past Medical History Cardiac Medical History: Reports: Hx Hypercholesterolemia Neurological Medical History: Reports: Hx Migraine Endocrine Medical History: Comment Only: Hx Diabetes Mellitus Type 2 - pre diabetic Renal/ Medical History: Reports: Hx Ovarian Cysts - PCOS. Denies: Hx Peritoneal Dialysis GI Medical History: Reports: Hx Gastroesophageal Reflux Disease, Hx Hiatal Hernia Musculoskeltal Medical History: Reports Hx Arthritis, Reports Hx Musculoskeletal Deformity - Scoliosis, Reports Hx Musculoskeletal Trauma Psychiatric Medical History: Reports: Hx Anxiety, Hx Depression Past Surgical History: Reports: Hx Appendectomy, Hx Cholecystectomy, Hx Genitourinary Surgery - "BLADDER SLING", Hx Hysterectomy, Hx Orthopedic Surgery - Alexander rodsComment Only: Hx Gynecologic Surgery - cervix and uterus removed - Immunizations Hx Diphtheria, Pertussis, Tetanus Vaccination: No - 2009 Review of Systems - Review of Systems Constitutional: No symptoms reported EENT: No symptoms reported Cardiovascular: No symptoms reported Respiratory: No symptoms reported Gastrointestinal: See HPI Genitourinary: No symptoms reported Female Genitourinary: No symptoms reported Musculoskeletal: No symptoms reported Skin: No symptoms reported Hematologic/Lymphatic: No symptoms reported Neurological/Psychological: No symptoms reported -: Yes All other systems reviewed and negative Physical Exam - Vital signs Vitals: Temp Pulse Resp BP Pulse Ox 98.2 F 85 18 104/64 98 02/10/18 17:34 02/10/18 17:34 02/10/18 17:34 02/10/18 17:34 02/10/18 17:34 Interpretation: Normal - General General appearance: Appears well, Alert - HEENT Head: Normocephalic, Atraumatic Eyes: Normal Pupils: PERRL - Respiratory Respiratory status: No respiratory distress Chest status: Nontender Breath sounds: Normal Chest palpation: Normal - Cardiovascular Rhythm: Regular Heart sounds: Normal auscultation Murmur: No - Abdominal Inspection: Normal, Healed incision Distension: No distension Bowel sounds: Normal Tenderness: Tender - epigastric Organomegaly: No organomegaly - Back Back: Normal, Nontender - Extremities General upper extremity: Normal inspection, Nontender, Normal color, Normal ROM , Normal temperature General lower extremity: Normal inspection, Nontender, Normal color, Normal ROM , Normal temperature, Normal weight bearing. No: Gary's sign - Neurological Neuro grossly intact: Yes Cognition: Normal Orientation: AAOx4 Mcclave Coma Scale Eye Opening: Spontaneous Noah Coma Scale Verbal: Oriented Mcclave Coma Scale Motor: Obeys Commands Noah Coma Scale Total: 15 Speech: Normal Motor strength normal: LUE, RUE, LLE, RLE Sensory: Normal - Psychological Associated symptoms: Normal affect, Normal mood - Skin Skin Temperature: Warm Skin Moisture: Dry Skin Color: Normal Course - Re-evaluation Re-evalutation: 02/10/18 23:43 Patient with chronic abdominal pain, likely musculoskeletal in nature, possibly from scar tissue from previous surgeries, she is requesting narcotic pain medication to "take the edge off", she was seen in this department yesterday for similar symptoms, had a relatively benign workup, today she noted to once again have mild leukocytosis, bicarb is improving so she is likely hydrating well, she was recently on steroids which is likely the cause of her leukocytosis is there are no other indications for an infectious process, she has a history of cholecystectomy as well as appendectomy, symptoms seem to be worsened when she is exercising, she has been seen by her primary care provider and neurologist for these symptoms, but has not yet seen gas, she reports having a CAT scan in December at [facility] when she was having similar symptoms and was told this was unremarkable, she did have a CAT scan here in September of last year which was unremarkable as well, therefore patient was discharged with instructions for follow-up with gastroenterology and advised to return if symptoms worsen, patient acknowledges understanding and agreement with this plan - Vital Signs Vital signs: Temp Pulse Resp BP Pulse Ox 98.5 F 69 20 104/66 100 02/10/18 22:29 02/10/18 22:29 02/10/18 22:29 02/10/18 22:29 02/10/18 22:29 - Laboratory Result Diagrams: 02/10/18 19:03 02/10/18 19:03 Laboratory results interpreted by me: 02/10/18 02/10/18 19:03 19:03 WBC 14.7 H Absolute Neutrophils 9.2 H Sodium 146.8 H Chloride 112 H Carbon Dioxide 21 L BUN 21 H Alkaline Phosphatase 35 L Discharge - Discharge Clinical Impression: Abdominal pain Qualifiers: Abdominal location: epigastric Qualified Code(s): R10.13 - Epigastric pain Condition: Stable Disposition: HOME, SELF-CARE Instructions: Abdominal Pain ([facility]), Gastroenterology Additional Instructions: Follow up with your primary care provider and sports teacher in one to 2 days. Return to the emergency room immediately if symptoms worsen or any additional concerns.
[2018-02-10 22:31] VITALS: BP 104/66
== END 2018-02-10 22:43 | disposition home or self-care (01) ==
LOC: ER 17:29
DX: G89.29 Other chronic pain (principal); R10.13 Epigastric pain; K21.9 Gastro-esophageal reflux disease without esophagitis; R11.2 Nausea with vomiting, unspecified; D72.829 Elevated white blood cell count, unspecified; Z91.040 Latex allergy status; Z88.6 Allergy status to analgesic agent; Z88.0 Allergy status to penicillin; Z88.5 Allergy status to narcotic agent; Z88.1 Allergy status to other antibiotic agents; Z88.8 Allergy status to other drugs, medicaments and biological substances; Z90.49 Acquired absence of other specified parts of digestive tract
CPT/HCPCS: 99284; 96372; 36415; 83690; 85025; 80053; S0119; J2270

== ENCOUNTER 2018-03-02 09:51 | Emergency (ER) | payer OTHER ==
--- NOTE | 2018-03-02 10:29 | ER Document Report ---
ED Medical Screen (RME) - General Chief Complaint: Back Pain Stated Complaint: LOWER BACK PAIN Time Seen by Provider: 03/02/18 10:15 Notes: Patient is a 42-year-old female, past medical history of scoliosis with thoracic and lumbar fusions, von Willebrand's disease, presents with low back pain and intermittent saddle anesthesia since a Mud Run 3 days ago. She went to her neurosurgeon's office and was told to come to the ER for further evaluation. She denies difficulty walking or difficulty urinating or stooling. PE: Diffuse lower back tenderness, sensation intact in legs I have greeted and performed a rapid initial assessment of this patient. A comprehensive ED assessment and evaluation of the patient, analysis of test results and completion of the medical decision making process will be conducted by additional ED providers. TRAVEL OUTSIDE OF THE [place] IN LAST 30 DAYS: No - Related Data Allergies/Adverse Reactions: ibuprofen Allergy (Verified 03/02/18 09:52) latex Allergy (Verified 03/02/18 09:52) metoclopramide [From Reglan] Allergy (Verified 03/02/18 09:52) NSAIDS (Non-Steroidal Anti-Inflamma Allergy (Verified 03/02/18 09:52) Penicillins Allergy (Verified 03/02/18 09:52) sulfamethoxazole [From Septra] Allergy (Verified 03/02/18 09:52) sumatriptan [From Imitrex] Allergy (Verified 03/02/18 09:52) tramadol Allergy (Verified 03/02/18 09:52) trimethoprim [From Septra] Allergy (Verified 03/02/18 09:52) zolmitriptan [From Zomig] Allergy (Verified 03/02/18 09:52) prochlorperazine [From Compazine] Adverse Reaction (Verified 03/02/18 09:52) Home Medications: zyrtec, zantac, metformin, topamax, ambien, lipitor, zanaflex prn, Multi-vitamins, probiotic, B2, coq10, magnesium Past Medical History - Social History Chew tobacco use (# tins/day): No Frequency of alcohol use: Social Drug Abuse: None - Past Medical History Cardiac Medical History: Reports: Hx Hypercholesterolemia Neurological Medical History: Reports: Hx Migraine Endocrine Medical History: Comment Only: Hx Diabetes Mellitus Type 2 - pre diabetic Renal/ Medical History: Reports: Hx Ovarian Cysts - PCOS. Denies: Hx Peritoneal Dialysis GI Medical History: Reports: Hx Gastroesophageal Reflux Disease, Hx Hiatal Hernia Musculoskeltal Medical History: Reports Hx Arthritis, Reports Hx Musculoskeletal Deformity - Scoliosis, Reports Hx Musculoskeletal Trauma Psychiatric Medical History: Reports: Hx Anxiety, Hx Depression Past Surgical History: Reports: Hx Appendectomy, Hx Cholecystectomy, Hx Genitourinary Surgery - "BLADDER SLING", Hx Hysterectomy, Hx Orthopedic Surgery - Alexander rodsComment Only: Hx Gynecologic Surgery - cervix and uterus removed - Immunizations Hx Diphtheria, Pertussis, Tetanus Vaccination: No - 2009 History of Influenza Vaccine for 08/2017 - 12/2017 Season: Yes Influenza Administration Date for 08/2017 - 12/2017 Season: 12/03/16 Physical Exam - Vital signs Vitals: Temp Pulse Resp BP Pulse Ox 98.5 F 80 16 119/73 99 03/02/18 09:56 03/02/18 09:56 03/02/18 09:56 03/02/18 09:56 03/02/18 09:56 Course - Vital Signs Vital signs: Temp Pulse Resp BP Pulse Ox 98.5 F 80 16 119/73 99 03/02/18 09:56 03/02/18 09:56 03/02/18 09:56 03/02/18 09:56 03/02/18 09:56
[2018-03-02] MEDS ORDERED: DEXAMETHASONE 4 MG TABLET PO ONE (10:30)
--- NOTE | 2018-03-02 10:37 | ER Document Report ---
ED General - General Chief Complaint: Back Pain Stated Complaint: LOWER BACK PAIN Time Seen by Provider: 03/02/18 10:15 Mode of Arrival: Ambulatory Information source: Patient TRAVEL OUTSIDE OF THE [place] IN LAST 30 DAYS: No - HPI Notes: 42-year-old female with a past medical history of thoracic and lumbar scoliosis with fusions presents today for complaints of severe back pain with numbness between her legs that started Thursday after she completed a mud run race x 3 days ago. denies any n/t down her legs. Dr. iNnfa Lepe, pt's neurosurgeon, advised her to go to the ER for further evaluation. Pt has had multiple lumbar fusions performed in the past. Patient denies falling or any trauma. States she is able to walk without issues. Denies fevers, chills, chest pain, palpitations, shortness of breath, dyspnea, nausea, vomiting, diarrhea, abdominal pain, hematuria,blurred vision, double vision, loss of vision, speech changes, LH, dizziness, syncope, headaches, wheezing, ST, URI, neck pain, weakness, bowel or bladder dysfunction, saddle anesthesia, numbness or tingling in bilateral upper or lower extremities equally besides pelvic area, muscle paralysis, weakness in bilateral upper or lower extremities equally or rash. Denies IV drug use. - Related Data Allergies/Adverse Reactions: ibuprofen Allergy (Verified 03/02/18 09:52) latex Allergy (Verified 03/02/18 09:52) metoclopramide [From Reglan] Allergy (Verified 03/02/18 09:52) NSAIDS (Non-Steroidal Anti-Inflamma Allergy (Verified 03/02/18 09:52) Penicillins Allergy (Verified 03/02/18 09:52) sulfamethoxazole [From Septra] Allergy (Verified 03/02/18 09:52) sumatriptan [From Imitrex] Allergy (Verified 03/02/18 09:52) tramadol Allergy (Verified 03/02/18 09:52) trimethoprim [From Septra] Allergy (Verified 03/02/18 09:52) zolmitriptan [From Zomig] Allergy (Verified 03/02/18 09:52) prochlorperazine [From Compazine] Adverse Reaction (Verified 03/02/18 09:52) Home Medications: zyrtec, zantac, metformin, topamax, ambien, lipitor, zanaflex prn, Multi-vitamins, probiotic, B2, coq10, magnesium Past Medical History - General Information source: Patient - Social History Smoking Status: Never Smoker Chew tobacco use (# tins/day): No Frequency of alcohol use: Social Drug Abuse: None Family History: Arthritis, COPD, CVA, DM, Hyperlipidemia, Hypertension, Malignancy Patient has suicidal ideation: No Patient has homicidal ideation: No - Past Medical History Cardiac Medical History: Reports: Hx Hypercholesterolemia Neurological Medical History: Reports: Hx Migraine Endocrine Medical History: Comment Only: Hx Diabetes Mellitus Type 2 - pre diabetic Renal/ Medical History: Reports: Hx Ovarian Cysts - PCOS. Denies: Hx Peritoneal Dialysis GI Medical History: Reports: Hx Gastroesophageal Reflux Disease, Hx Hiatal Hernia Musculoskeltal Medical History: Reports Hx Arthritis, Reports Hx Musculoskeletal Deformity - Scoliosis, Reports Hx Musculoskeletal Trauma Psychiatric Medical History: Reports: Hx Anxiety, Hx Depression Past Surgical History: Reports: Hx Appendectomy, Hx Cholecystectomy, Hx Genitourinary Surgery - "BLADDER SLING", Hx Hysterectomy, Hx Orthopedic Surgery - Alexander rodsComment Only: Hx Gynecologic Surgery - cervix and uterus removed - Immunizations Hx Diphtheria, Pertussis, Tetanus Vaccination: No - 2009 Review of Systems - Review of Systems Constitutional: No symptoms reported EENT: No symptoms reported Cardiovascular: No symptoms reported Respiratory: No symptoms reported Gastrointestinal: No symptoms reported Genitourinary: No symptoms reported Female Genitourinary: No symptoms reported Musculoskeletal: See HPI Skin: No symptoms reported Hematologic/Lymphatic: No symptoms reported Neurological/Psychological: See HPI Physical Exam - Vital signs Vitals: Temp Pulse Resp BP Pulse Ox 98.5 F 80 16 119/73 99 03/02/18 09:56 03/02/18 09:56 03/02/18 09:56 03/02/18 09:56 03/02/18 09:56 - Notes Notes: PHYSICAL EXAMINATION: GENERAL: Well-appearing, well-nourished and in no acute distress. HEAD: Atraumatic, normocephalic. EYES: Pupils equal round and reactive to light, extraocular movements intact, conjunctiva are normal. ENT: Nares patent, oropharynx clear without exudates. Moist mucous membranes. NECK: Normal range of motion, supple without lymphadenopathy LUNGS: Breath sounds clear to auscultation bilaterally and equal. No wheezes rales or rhonchi. HEART: Regular rate and rhythm without murmurs ABDOMEN: Soft, nontender, nondistended abdomen. No guarding, no rebound. No masses appreciated. Female : Patient has good sphincter tone on rectal exam. No external or internal hemorrhoids. Musculoskeletal: Normal range of motion, no pitting or edema. No cyanosis. Pain with flexion and extension at 20 degrees, positive straight leg test bilaterally. Normal hip rotation. DTR +2 in BLE equally. Strength 5 out of 5 both distally and proximally to bilateral lower extremities normal motor and sensory function in BLE equally. Recent able to discuss Finnish between sharp and soft bilateral lower extremities equally. Distal pulses + 2 BLE equally. Noted spinal and paraspinal tenderness near L1 and L3. No CVA tenderness bilaterally. Femoral pulses + 2 bilaterally and equally. No abrasions, scars, lacerations, ecchymosis of any recent trauma. normal gait. NEUROLOGICAL: Cranial nerves grossly intact. Normal speech, normal gait. Normal sensory, motor exams. PERRLA, EOMI. Full motor and sensory function throughout. Interactive Marketing Strategist + 2 equal bilaterally in BUE. Tongue midline. No pronator drift. No ataxia. Neck with APROM. Raises eyebrows. Strength is 5 out of 5 in bilateral upper and lower extremities equally.Speaks in full sentences. Left greater than right with strength 4 out of 5 on right, 5 out of 5 on the left. Romberg gait steady able to walk straight line. Able to recall 5 objects. PSYCH: Normal mood, normal affect. SKIN: Warm, Dry, normal turgor, no rashes or lesions noted. Course - Re-evaluation Re-evalutation: 42-year-old female presents today for evaluation of numbness and tingling to pelvic area that started 3 days after doing a mud run. Patient denies any trauma or falling. Patient has been told by her neurologist to limit the amount of miles that she runs due to extensive damage to back. MRI of lumbar spine was negative but the radiologist was unable to see the conus area due to the surgical hardware that has been placed. pt's rectal is intact. post void residual was zero on bladder scan. rechecked three times by this provider. On reevaluation, patient states her pain reduced to 3 out of 10 after pain medication. She was afebrile, vitals stable she was not in any distress after pain medications were given. Her urinalysis was negative for UTI, hematuria or proteinuria. Discussed diagnostic imaging findings with patient. Discussed with patient that she likely has a musculoskeletal strain, MRI lumbar spine was negative for any acute findings although they could not visualize the conus she does have normal rectal tone and she is not retaining any urine, there is a low risk of cauda equina syndrome as well as osteomyelitis, epidural mass abscess or lesion, fracture, compression fracture, cancer, retroperitoneal bleed, spinal epidural hematoma, herniated disks causing severe spinal stenosis, ruptured abdominal aortic aneurysm patient was able to ambulate though she was experiencing some lower back pain. Her strength is 5 out of 5 bilaterally, full motor and sensory function of bilateral lower extremities. Discussed results with Dr. Ashley, ER attending took the call from Dr. Crump that the conus cannot be visualized, but patient has normal rectal tone as well as not retaining urine, it was felt that patient would be okay to go home with pain medication and the strict instructions to follow-up with her neurosurgeon, Dr. Lepe within the next couple of days, thus I consider the discharge disposition reasonable. I have reevaluated this patient multiple times and no significant life threatening changes, no signs of toxicity, sepsis or peritonitis are noted. The patient and I have discussed the diagnosis and risks, and we agree with discharging home and close follow-up. We also discussed returning to the Emergency Department immediately if new or worsening symptoms occur with the understanding that symptoms and presentations can change. We have discussed the symptoms which are most concerning (e.g., saddle anesthesia, urinary or bowel incontinence or retention, changing or worsening pain) that necessitate immediate return. Patient and agree with plan of care and verbalized understanding plan of care. Patient discharged home. - Vital Signs Vital signs: Temp Pulse Resp BP Pulse Ox 98.4 F 78 16 108/67 99 03/02/18 15:20 03/02/18 15:20 03/02/18 15:20 03/02/18 15:20 03/02/18 15:20 Discharge - Discharge Clinical Impression: Muscle spasm, Acute exacerbation of chronic low back pain Condition: Poor Disposition: HOME, SELF-CARE Instructions: Low Back Pain ([facility]), Muscle Strain ([facility]), Oral Narcotic Medication ([facility]) Additional Instructions: You have been seen in the Emergency Department (ED) today for back pain. Your workup and exam have not shown any acute abnormalities and you are likely suffering from muscle strain or possible problems with your discs, but there is no treatment that will fix your symptoms at this time. Please take the naproxen that has been prescribed as directed. You should also purchase a local lidocaine cream such as "aspercreme with lidocaine" and use per bottle instructions to the affected area. Apply heat to the area as often as you are able. Continue to keep active and avoid prolonged periods of bed rest. Please follow up with your doctor as soon as possible regarding today's ED visit and your back pain. Return to the ED for worsening back pain, fever, weakness or numbness of either leg, or if you develop either (1) an inability to urinate or have bowel movements, or (2) loss of your ability to control your bathroom functions (if you start having "accidents"), or if you develop other new symptoms that concern you.concern you. Follow-up with your neurosurgeon as well as primary care provider as directed. Do not drive, drink or operate heavy machinery while taking Flexeril and [place]. Apply heat 20 minutes on 20 minutes on several times a day. Take prednisone as directed. Advised to discontinue running this will likely aggravate your back/ Return immediately for any new or worsening symptoms. Follow up with primary care provider, call tomorrow to make followup appointment. Prescriptions: Cyclobenzaprine HCl [Flexeril 5 mg Tablet] 5 mg PO TID #15 tablet Prednisone 20 mg PO BID #20 tablet Forms: Return to Work Referrals: FUNMI MARCOS JR, MD [Primary Care Provider] - Follow up as needed NINFA LEPE MD [COMMUNITY BASED STAFF] - Follow up in 3-5 days
[2018-03-02 11:02] LABS: AMORPHOUS SEDIMENT,URINE TRACE /HPF; APPEARANCE,URINE CLOUDY; BILIRUBIN,URINE NEGATIVE (NEGATIVE); COLOR,URINE YELLOW; GLUCOSE, URINE NEGATIVE (NEGATIVE); KETONES,URINE NEGATIVE (NEGATIVE); LEUKOCYTE ESTERASE,URINE NEGATIVE (NEGATIVE); NITRITE,URINE NEGATIVE (NEGATIVE); PROTEIN,URINE NEGATIVE (NEGATIVE); URINE SPECIFIC GRAVITY 1.018; UROBILINOGEN,URINE NEGATIVE mg/dL (<2.0)
[2018-03-02] MEDS ORDERED: LORAZEPAM 0.5 MG TABLET PO ONE (11:05)
[2018-03-02] MEDS ORDERED: ONDANSETRON 4 MG TAB.RAPDIS PO ONE ×2 (11:15→14:00)
[2018-03-02] MEDS ORDERED: ONDANSETRON 4 MG TAB.RAPDIS ONE (11:17)
--- NOTE | 2018-03-02 12:35 | RADIOLOGY REPORT (SQ) ---
EXAM DESCRIPTION: MRI LUMBAR SPINE WITHOUT COMPLETED DATE/TIME: 03/02/2018 12:14 pm REASON FOR STUDY: saddle anesthesia COMPARISON: MRV of the brain 02/07/2018 CT brain 02/07/2018 CT abdomen pelvis 09/26/2017 TECHNIQUE: Sagittal and Axial imaging includes T1, T2, STIR and gradient echo sequences. Coronal T2/ HASTE imaging. LIMITATIONS: Patient has had scoliosis surgery with thoracic Alexander rods. The rods extend infer iorly down to the L1 posterior elements which effectively obscures the conus from metallic artifact. Limitations of this study were discussed with Dr. Ashley in the emergency room FINDINGS: VISUALIZED UPPER ABDOMEN: Convex leftward lumbar curvature. Artifact from Alexander rods over the upper lumbar spine SEGMENTATION: No transitional anatomy. The lowest well-developed disc space is labeled L5-S1. ALIGNMENT: Convex leftward lumbar curvature VERTEBRAE: Intact. BONE MARROW: Normal. No marrow replacement or reactive changes. DISC SIGNAL: Diffuse decreased T2 weighted intervertebral disc signal throughout the lumbar spine POSTERIOR ELEMENTS: Diffuse lumbar facet arthropathy HARDWARE: Alexander rods are present obscuring the posterior elements at the T12, L1, and upper L2 l evels. CORD AND CONUS: Not visualized due to metallic hardware from Alexander rods SOFT TISSUES: No aortic aneurysm seen. No bulky retroperitoneal adenopathy or mass. No paraspinal mas s or fluid. L1-L2: Not visualized due date Alexander rods L2-L3: No significant spinal stenosis or exit foraminal stenosis. Moderate lumbar facet arthropathy L3-L4: Borderline central canal narrowing results from broad diffuse posterior disc bulge and bulky b ilateral facet arthropathy. No significant foraminal narrowing. L4-L5: Borderline central canal narrowing results from broad diffuse posterior disc bulge and moderat e bilateral facet and ligament hypertrophy. No significant foraminal narrowing. L5-S1: No significant spinal stenosis or exit foraminal stenosis. LOWER THORACIC: Not visualized due to metallic artifact SACRUM: Grossly intact OTHER: Findings and limitations of this study were discussed with Dr. Ashley in the emergency room IMPRESSION: No high-grade lumbar central or foraminal stenosis. Conus not visualized due to metallic artifact from Alexander rods TECHNICAL DOCUMENTATION: JOB ID: [id number] [employer]- All Rights Reserved Reading location - IP/workstation name: [email or web address]
[2018-03-02] MEDS ORDERED: HYDROCODONE/ACETAMINOPHEN 7.5-325 MG TABLET PO ONE (13:42)
[2018-03-02] MEDS ORDERED: HYDROCODONE/ACETAMINOPHEN 5-325 MG (6 TAB/ER DISP) PO PRN (14:18)
[2018-03-02 15:22] VITALS: BP 108/67
== END 2018-03-02 15:03 | disposition home or self-care (01) ==
LOC: ER 09:51
DX: M54.5 Low back pain (principal); G89.29 Other chronic pain; M62.838 Other muscle spasm; R20.0 Anesthesia of skin; E78.00 Pure hypercholesterolemia, unspecified; R73.03 Prediabetes; K21.9 Gastro-esophageal reflux disease without esophagitis; Z79.899 Other long term (current) drug therapy; Z79.84 Long term (current) use of oral hypoglycemic drugs; Z98.1 Arthrodesis status; Z88.6 Allergy status to analgesic agent; Z91.040 Latex allergy status; Z88.8 Allergy status to other drugs, medicaments and biological substances; Z88.0 Allergy status to penicillin; Z88.1 Allergy status to other antibiotic agents; R20.2 Paresthesia of skin
CPT/HCPCS: 99284; 81025; 81001; 72148; S0119

== ENCOUNTER 2018-04-16 03:40 | Emergency (ER) | payer OTHER ==
[2018-04-16] MEDS ORDERED: ONDANSETRON HCL INJ/PF 4 MG/2 ML SDV IV ONE (04:20)
[2018-04-16] MEDS ORDERED: NORMAL SALINE 1000 ML 1,000 ML IV ONE (04:21)
--- NOTE | 2018-04-16 04:25 | ER Document Report ---
ED Medical Screen (RME) - General Chief Complaint: Nausea/Vomiting/Diarrhea Stated Complaint: ABDOMINAL PAIN Time Seen by Provider: 04/16/18 04:18 Mode of Arrival: Ambulatory Information source: Patient Notes: 43-year-old female patient presenting with complaint of nausea vomiting and diarrhea. Diarrhea has been ongoing for the last 2 days. Nausea and vomiting began last night after eating dinner. Patient reports that she has had a cholecystectomy in the past and that this feels similar to when she had her gallbladder issues prior to surgery. Patient denies any fever, denies any blood in her stool or emesis, patient denies any urinary symptoms. I have greeted and performed a rapid initial assessment of this patient. A comprehensive ED assessment and evaluation of the patient, analysis of test results and completion of the medical decision making process will be conducted by additional ED providers. TRAVEL OUTSIDE OF THE [place] IN LAST 30 DAYS: No - Related Data Allergies/Adverse Reactions: ibuprofen Allergy (Verified 03/02/18 09:52) latex Allergy (Verified 03/02/18 09:52) metoclopramide [From Reglan] Allergy (Verified 03/02/18 09:52) NSAIDS (Non-Steroidal Anti-Inflamma Allergy (Verified 03/02/18 09:52) Penicillins Allergy (Verified 03/02/18 09:52) sulfamethoxazole [From Septra] Allergy (Verified 03/02/18 09:52) sumatriptan [From Imitrex] Allergy (Verified 03/02/18 09:52) tramadol Allergy (Verified 03/02/18 09:52) trimethoprim [From Septra] Allergy (Verified 03/02/18 09:52) zolmitriptan [From Zomig] Allergy (Verified 03/02/18 09:52) prochlorperazine [From Compazine] Adverse Reaction (Verified 03/02/18 09:52) Past Medical History - General Information source: Patient - Social History Chew tobacco use (# tins/day): No Frequency of alcohol use: Social Drug Abuse: None Lives with: Family Family history: Reviewed & Not Pertinent - Past Medical History Cardiac Medical History: Reports: Hx Hypercholesterolemia Neurological Medical History: Reports: Hx Migraine Endocrine Medical History: Comment Only: Hx Diabetes Mellitus Type 2 - pre diabetic Renal/ Medical History: Reports: Hx Ovarian Cysts - PCOS. Denies: Hx Peritoneal Dialysis GI Medical History: Reports: Hx Gastroesophageal Reflux Disease, Hx Hiatal Hernia Musculoskeltal Medical History: Reports Hx Arthritis, Reports Hx Musculoskeletal Deformity - Scoliosis, Reports Hx Musculoskeletal Trauma Psychiatric Medical History: Reports: Hx Anxiety, Hx Depression Past Surgical History: Reports: Hx Appendectomy, Hx Cholecystectomy, Hx Genitourinary Surgery - "BLADDER SLING", Hx Hysterectomy, Hx Orthopedic Surgery - Alexander rodsComment Only: Hx Gynecologic Surgery - cervix and uterus removed - Immunizations Hx Diphtheria, Pertussis, Tetanus Vaccination: No - 2009 History of Influenza Vaccine for 08/2017 - 12/2017 Season: Yes Influenza Administration Date for 08/2017 - 12/2017 Season: 12/03/16 Review of Systems - Review of Systems Constitutional: No symptoms reported EENT: No symptoms reported Cardiovascular: No symptoms reported Respiratory: No symptoms reported Gastrointestinal: See HPI Genitourinary: No symptoms reported Female Genitourinary: No symptoms reported Musculoskeletal: No symptoms reported Skin: No symptoms reported Hematologic/Lymphatic: No symptoms reported Neurological/Psychological: No symptoms reported Physical Exam - Vital signs Vitals: Temp Pulse Resp BP Pulse Ox 98.1 F 105 H 20 117/72 98 04/16/18 03:47 04/16/18 03:47 04/16/18 03:47 04/16/18 03:47 04/16/18 03:47 - Notes Notes: PHYSICAL EXAMINATION: GENERAL: Well-appearing, well-nourished and in no acute distress. HEAD: Atraumatic, normocephalic. EYES: Pupils equal round and reactive to light, extraocular movements intact, conjunctiva are normal. ENT: Nares patent, oropharynx clear without exudates. Moist mucous membranes. NECK: Normal range of motion, supple without lymphadenopathy LUNGS: Breath sounds clear to auscultation bilaterally and equal. No wheezes rales or rhonchi. HEART: Regular rate and rhythm without murmurs ABDOMEN: Soft, nondistended abdomen. TTP to upper abdomen/epigastric area with radiation to right flank/back. No guarding, no rebound. No masses appreciated. Female : deferred Musculoskeletal: Normal range of motion, no pitting or edema. No cyanosis. NEUROLOGICAL: Cranial nerves grossly intact. Normal speech, normal gait. Normal sensory, motor exams PSYCH: Normal mood, normal affect. SKIN: Warm, Dry, normal turgor, no rashes or lesions noted. Course - Vital Signs Vital signs: Temp Pulse Resp BP Pulse Ox 98.1 F 105 H 20 117/72 98 04/16/18 03:47 04/16/18 03:47 04/16/18 03:47 04/16/18 03:47 04/16/18 03:47 Doctor's Discharge - Discharge Referrals: FUNMI MARCOS JR, MD [Primary Care Provider] - Follow up as needed
--- NOTE | 2018-04-16 04:29 | ER Document Report ---
ED General - General Chief Complaint: Nausea/Vomiting/Diarrhea Stated Complaint: ABDOMINAL PAIN Time Seen by Provider: 04/16/18 04:18 Mode of Arrival: Ambulatory Notes: 43-year-old female patient presenting with complaint of nausea vomiting and diarrhea. Diarrhea has been ongoing for the last 2 days. Nausea and vomiting began last night after eating dinner. Patient reports that she has had a cholecystectomy in the past and that this feels similar to when she had her gallbladder issues prior to surgery. Patient denies any fever, denies any blood in her stool or emesis, patient denies any urinary symptoms. TRAVEL OUTSIDE OF THE [place] IN LAST 30 DAYS: No - Related Data Allergies/Adverse Reactions: ibuprofen Allergy (Verified 03/02/18 09:52) latex Allergy (Verified 03/02/18 09:52) metoclopramide [From Reglan] Allergy (Verified 03/02/18 09:52) NSAIDS (Non-Steroidal Anti-Inflamma Allergy (Verified 03/02/18 09:52) Penicillins Allergy (Verified 03/02/18 09:52) sulfamethoxazole [From Septra] Allergy (Verified 03/02/18 09:52) sumatriptan [From Imitrex] Allergy (Verified 03/02/18 09:52) tramadol Allergy (Verified 03/02/18 09:52) trimethoprim [From Septra] Allergy (Verified 03/02/18 09:52) zolmitriptan [From Zomig] Allergy (Verified 03/02/18 09:52) prochlorperazine [From Compazine] Adverse Reaction (Verified 03/02/18 09:52) Past Medical History - General Information source: Patient - Social History Smoking Status: Never Smoker Chew tobacco use (# tins/day): No Frequency of alcohol use: Social Drug Abuse: None Lives with: Family Family History: Arthritis, COPD, CVA, DM, Hyperlipidemia, Hypertension, Malignancy Patient has suicidal ideation: No Patient has homicidal ideation: No - Past Medical History Cardiac Medical History: Reports: Hx Hypercholesterolemia Neurological Medical History: Reports: Hx Migraine Endocrine Medical History: Comment Only: Hx Diabetes Mellitus Type 2 - pre diabetic Renal/ Medical History: Reports: Hx Ovarian Cysts - PCOS. Denies: Hx Peritoneal Dialysis GI Medical History: Reports: Hx Gastroesophageal Reflux Disease, Hx Hiatal Hernia Musculoskeltal Medical History: Reports Hx Arthritis, Reports Hx Musculoskeletal Deformity - Scoliosis, Reports Hx Musculoskeletal Trauma Psychiatric Medical History: Reports: Hx Anxiety, Hx Depression Past Surgical History: Reports: Hx Appendectomy, Hx Cholecystectomy, Hx Genitourinary Surgery - "BLADDER SLING", Hx Hysterectomy, Hx Orthopedic Surgery - Alexander rodsComment Only: Hx Gynecologic Surgery - cervix and uterus removed - Immunizations Hx Diphtheria, Pertussis, Tetanus Vaccination: No - 2009 Review of Systems - Review of Systems Constitutional: No symptoms reported EENT: No symptoms reported Cardiovascular: No symptoms reported Respiratory: No symptoms reported Gastrointestinal: See HPI Genitourinary: No symptoms reported Female Genitourinary: No symptoms reported Musculoskeletal: No symptoms reported Skin: No symptoms reported Hematologic/Lymphatic: No symptoms reported Neurological/Psychological: No symptoms reported Physical Exam - Vital signs Vitals: Temp Pulse Resp BP Pulse Ox 98.1 F 105 H 20 117/72 98 04/16/18 03:47 04/16/18 03:47 04/16/18 03:47 04/16/18 03:47 04/16/18 03:47 - Notes Notes: PHYSICAL EXAMINATION: GENERAL: Well-appearing, well-nourished and in no acute distress. HEAD: Atraumatic, normocephalic. EYES: Pupils equal round and reactive to light, extraocular movements intact, conjunctiva are normal. ENT: Nares patent, oropharynx clear without exudates. Moist mucous membranes. NECK: Normal range of motion, supple without lymphadenopathy LUNGS: Breath sounds clear to auscultation bilaterally and equal. No wheezes rales or rhonchi. HEART: Regular rate and rhythm without murmurs ABDOMEN: Soft, nondistended abdomen. TTP to upper abdomen/epigastric area with radiation to right flank/back. No guarding, no rebound. No masses appreciated. Female : No CVA tenderness Musculoskeletal: Normal range of motion, no pitting or edema. No cyanosis. NEUROLOGICAL: Cranial nerves grossly intact. Normal speech, normal gait. Normal sensory, motor exams PSYCH: Normal mood, normal affect. SKIN: Warm, Dry, normal turgor, no rashes or lesions noted. Course - Re-evaluation Re-evalutation: 48-year-old non-toxic well-appearing female patient presenting with nausea and vomiting and right upper quadrant pain that started last night after eating dinner. Patient has been here recently for the same complaint and had an extensive workup. Today patient's labs to include CBC, comprehensive, lipase and urinalysis are all unremarkable. Patient was treated with antiemetics which resolved her nausea. Patient states that she has a pending referral to a system validation engineer. Patient will be discharged home with antiemetics and given ED return precautions. Patient is agreeable to this plan of care. - Vital Signs Vital signs: Temp Pulse Resp BP Pulse Ox 98.1 F 105 H 20 117/72 98 04/16/18 03:47 04/16/18 03:47 04/16/18 03:47 04/16/18 03:47 04/16/18 03:47 - Laboratory Result Diagrams: 04/16/18 04:20 04/16/18 04:20 Laboratory results interpreted by me: 04/16/18 04/16/18 04/16/18 04:20 04:20 04:20 WBC 11.4 H Eosinophils % 11.0 H Absolute Eosinophils 1.3 H Chloride 108 H Urine Blood SMALL H Discharge - Discharge Clinical Impression: Abdominal pain Qualifiers: Abdominal location: upper abdomen, unspecified Qualified Code(s): R10.10 - Upper abdominal pain, unspecified Nausea & vomiting Qualifiers: Vomiting type: unspecified Vomiting Intractability: non-intractable Qualified Code(s): R11.2 - Nausea with vomiting, unspecified Additional Instructions: Please follow-up with your primary care doctor in the next 2-3 days for recheck. You mentioned that you have a pending referral to a GI specialist. Please call today to your aviation operations specialist and see if you can get this appointment scheduled. Return to the emergency department if you develop abdominal pain that is accompanied by fever, persistent vomiting that is unrelieved by Zofran. Prescriptions: Ondansetron [Zofran Odt 4 mg Tablet] 1 - 2 tab PO Q4H PRN #15 tab.rapdis PRN Reason: For Nausea/Vomiting Referrals: FUNMI MARCOS JR, MD [Primary Care Provider] - Follow up as needed
[2018-04-16 04:45] LABS: ABSOLUTE BASOPHILS # (AUTO) 0.1 10^3/uL (0.0-0.2); ABSOLUTE EOSINOPHILS # (AUTO) 1.3 10^3/uL (0.0-0.6); ABSOLUTE LYMPHOCYTES (AUTO) 4.1 10^3/uL (0.5-4.7); ABSOLUTE MONOCYTES (AUTO) 0.9 10^3/uL (0.1-1.4); ABSOLUTE NEUT (AUTO) 5.1 10^3/uL (1.7-8.2); BASOPHILS % (AUTO) 0.8 % (0-2); HEMATOCRIT 42.2 % (36.0-47.0); LYMPHOCYTES % (AUTO) 35.9 % (13-45); MEAN CORPUSCULAR HEMOGLOBIN 27.2 pg (27.0-33.4); MEAN CORPUSCULAR HGB CONC 33.2 g/dL (32.0-36.0); MEAN CORPUSCULAR VOLUME 82 fl (80-97); MONOCYTES % (AUTO) 7.9 % (3-13); PLATELET COUNT 318 10^3/uL (150-450); RED BLOOD COUNT 5.15 10^6/uL (3.72-5.28); RED CELL DISTRIBUTION WIDTH 13.4 % (11.5-14.0); SEGMENTED NEUTROPHILS % (AUTO) 44.4 % (42-78); TOTAL CELLS COUNTED % (AUTO) 100 %; WHITE BLOOD COUNT 11.4 10^3/uL (4.0-10.5)
[2018-04-16 04:50] LABS: APPEARANCE,URINE SLIGHTLY-CLOUDY; BILIRUBIN,URINE NEGATIVE (NEGATIVE); COLOR,URINE YELLOW; GLUCOSE, URINE NEGATIVE (NEGATIVE); KETONES,URINE NEGATIVE (NEGATIVE); LEUKOCYTE ESTERASE,URINE NEGATIVE (NEGATIVE); NITRITE,URINE NEGATIVE (NEGATIVE); PROTEIN,URINE NEGATIVE (NEGATIVE); URINE SPECIFIC GRAVITY 1.019; UROBILINOGEN,URINE NEGATIVE mg/dL (<2.0)
[2018-04-16 04:58] LABS: ALANINE AMINOTRANSFERASE 40 U/L (9-52); ALBUMIN 4.3 g/dL (3.5-5.0); ALKALINE PHOSPHATASE 54 U/L (38-126); ANION GAP 13 (5-19); ASPARTATE AMINO TRANSFERASE 27 U/L (14-36); BILIRUBIN,DIRECT 0.3 mg/dL (0.0-0.4); BILIRUBIN,TOTAL 0.5 mg/dL (0.2-1.3); BLOOD UREA NITROGEN 18 mg/dL (7-20); CALCIUM 9.9 mg/dL (8.4-10.2); CARBON DIOXIDE 23 mmol/L (22-30); CHLORIDE 108 mmol/L (98-107); GLUCOSE 101 mg/dL (75-110); LIPASE 162.4 U/L (23-300); POTASSIUM 4.1 mmol/L (3.6-5.0); TOTAL PROTEIN 7.5 g/dL (6.3-8.2)
[2018-04-16] MEDS ORDERED: ONDANSETRON ODT 4 MG TAB (6 TAB/ER DISP) PO PRN (05:31)
[2018-04-16 05:59] VITALS: BP 103/64
== END 2018-04-16 06:02 | disposition home or self-care (01) ==
LOC: ER 03:40
DX: R10.11 Right upper quadrant pain (principal); R11.2 Nausea with vomiting, unspecified; R19.7 Diarrhea, unspecified; Z90.49 Acquired absence of other specified parts of digestive tract; R73.03 Prediabetes
CPT/HCPCS: 99284; 96361; 96374; 36415; 83690; 85025; 80053; 81001; J2405; J7030

== ENCOUNTER 2018-06-21 04:04 | Emergency (ER) | payer OTHER ==
[2018-06-21] MEDS ORDERED: ONDANSETRON HCL INJ/PF 4 MG/2 ML SDV IV ONE (04:40)
[2018-06-21] MEDS ORDERED: HYDROMORPHONE HCL INJ/PF 2 MG/ML AMPULE IV ONE ×2 (04:40→06:10)
[2018-06-21] MEDS ORDERED: NORMAL SALINE 1000 ML 1,000 ML IV ONE ×2 (04:41→06:09)
--- NOTE | 2018-06-21 04:42 | ER Document Report ---
ED Medical Screen (RME) - General Chief Complaint: Vomiting Stated Complaint: VOMITING Time Seen by Provider: 06/21/18 04:34 Notes: 43-year-old female with chief complaint of sudden onset sharp right pelvic pain causing her to vomit several times, symptoms started just prior to arrival, she does have a history of ovarian cysts with PCO S, she has had a partial hysterectomy, appendectomy, cholecystectomy. TRAVEL OUTSIDE OF THE [place] IN LAST 30 DAYS: No - Related Data Allergies/Adverse Reactions: ibuprofen Allergy (Verified 03/02/18 09:52) latex Allergy (Verified 03/02/18 09:52) metoclopramide [From Reglan] Allergy (Verified 03/02/18 09:52) NSAIDS (Non-Steroidal Anti-Inflamma Allergy (Verified 03/02/18 09:52) Penicillins Allergy (Verified 03/02/18 09:52) sulfamethoxazole [From Septra] Allergy (Verified 03/02/18 09:52) sumatriptan [From Imitrex] Allergy (Verified 03/02/18 09:52) tramadol Allergy (Verified 03/02/18 09:52) trimethoprim [From Septra] Allergy (Verified 03/02/18 09:52) zolmitriptan [From Zomig] Allergy (Verified 03/02/18 09:52) prochlorperazine [From Compazine] Adverse Reaction (Verified 03/02/18 09:52) Past Medical History - Social History Family history: Reviewed & Not Pertinent - Past Medical History Cardiac Medical History: Reports: Hx Hypercholesterolemia Neurological Medical History: Reports: Hx Migraine Endocrine Medical History: Comment Only: Hx Diabetes Mellitus Type 2 - pre diabetic Renal/ Medical History: Reports: Hx Ovarian Cysts - PCOS. Denies: Hx Peritoneal Dialysis GI Medical History: Reports: Hx Gastroesophageal Reflux Disease, Hx Hiatal Hernia Musculoskeltal Medical History: Reports Hx Arthritis, Reports Hx Musculoskeletal Deformity - Scoliosis, Reports Hx Musculoskeletal Trauma Psychiatric Medical History: Reports: Hx Anxiety, Hx Depression Past Surgical History: Reports: Hx Appendectomy, Hx Cholecystectomy, Hx Genitourinary Surgery - "BLADDER SLING", Hx Hysterectomy, Hx Orthopedic Surgery - Alexander rodsComment Only: Hx Gynecologic Surgery - cervix and uterus removed - Immunizations Hx Diphtheria, Pertussis, Tetanus Vaccination: No - 2009 History of Influenza Vaccine for 08/2017 - 12/2017 Season: Yes Influenza Administration Date for 08/2017 - 12/2017 Season: 12/03/16 Physical Exam - Vital signs Vitals: Temp Pulse Resp BP Pulse Ox 98.2 F 104 H 20 121/80 99 06/21/18 04:09 06/21/18 04:09 06/21/18 04:09 06/21/18 04:09 06/21/18 04:09 - Abdominal Tenderness: Tender - Very tender in the right pelvic area, remaining abdomen is soft and benign Course - Vital Signs Vital signs: Temp Pulse Resp BP Pulse Ox 98.2 F 104 H 20 121/80 99 06/21/18 04:09 06/21/18 04:09 06/21/18 04:09 06/21/18 04:09 06/21/18 04:09 Doctor's Discharge - Discharge Referrals: FUNMI MARCOS JR, MD [Primary Care Provider] - Follow up as needed
[2018-06-21] MEDS ORDERED: FENTANYL CITRATE INJ/PF 100 MCG/2 ML AMPUL IV ONE (04:43)
[2018-06-21 05:10] LABS: ABSOLUTE BASOPHILS # (AUTO) 0.1 10^3/uL (0.0-0.2); ABSOLUTE EOSINOPHILS # (AUTO) 1.5 10^3/uL (0.0-0.6); ABSOLUTE LYMPHOCYTES (AUTO) 3.3 10^3/uL (0.5-4.7); ABSOLUTE MONOCYTES (AUTO) 0.9 10^3/uL (0.1-1.4); ABSOLUTE NEUT (AUTO) 5.1 10^3/uL (1.7-8.2); BASOPHILS % (AUTO) 0.7 % (0-2); EOSINOPHILS % (AUTO) 13.4 % (0-6); HEMATOCRIT 37.2 % (36.0-47.0); HEMOGLOBIN 12.4 g/dL (12.0-15.5); LYMPHOCYTES % (AUTO) 30.7 % (13-45); MEAN CORPUSCULAR HEMOGLOBIN 27.4 pg (27.0-33.4); MEAN CORPUSCULAR HGB CONC 33.2 g/dL (32.0-36.0); MEAN CORPUSCULAR VOLUME 83 fl (80-97); MONOCYTES % (AUTO) 8.3 % (3-13); PLATELET COUNT 323 10^3/uL (150-450); RED BLOOD COUNT 4.51 10^6/uL (3.72-5.28); RED CELL DISTRIBUTION WIDTH 13.9 % (11.5-14.0); SEGMENTED NEUTROPHILS % (AUTO) 46.9 % (42-78); TOTAL CELLS COUNTED % (AUTO) 100 %; WHITE BLOOD COUNT 10.9 10^3/uL (4.0-10.5)
[2018-06-21] MEDS ORDERED: DIPHENHYDRAMINE HCL 25 MG CAPSULE PO ONE (05:19)
[2018-06-21 05:28] LABS: ALANINE AMINOTRANSFERASE 45 U/L (9-52); ALBUMIN 4.2 g/dL (3.5-5.0); ALKALINE PHOSPHATASE 61 U/L (38-126); ANION GAP 14 (5-19); ASPARTATE AMINO TRANSFERASE 45 U/L (14-36); BILIRUBIN,DIRECT 0.3 mg/dL (0.0-0.4); BILIRUBIN,TOTAL 0.5 mg/dL (0.2-1.3); BLOOD UREA NITROGEN 11 mg/dL (7-20); CARBON DIOXIDE 21 mmol/L (22-30); CHLORIDE 109 mmol/L (98-107); GLUCOSE 122 mg/dL (75-110); POTASSIUM 3.6 mmol/L (3.6-5.0); SODIUM 143.5 mmol/L (137-145); TOTAL PROTEIN 7.7 g/dL (6.3-8.2)
[2018-06-21 06:30] LABS: APPEARANCE,URINE SLIGHTLY-CLOUDY; BILIRUBIN,URINE NEGATIVE (NEGATIVE); COLOR,URINE STRAW; GLUCOSE, URINE NEGATIVE (NEGATIVE); KETONES,URINE NEGATIVE (NEGATIVE); LEUKOCYTE ESTERASE,URINE NEGATIVE (NEGATIVE); NITRITE,URINE NEGATIVE (NEGATIVE); PROTEIN,URINE NEGATIVE (NEGATIVE); URINE SPECIFIC GRAVITY 1.003; UROBILINOGEN,URINE NEGATIVE mg/dL (<2.0)
[2018-06-21 06:48] LABS: URINE AMPHETAMINES SCREEN NEGATIVE; URINE BARBITURATES SCREEN NEGATIVE; URINE BENZODIAZEPINES SCREEN NEGATIVE; URINE COCAINE SCREEN NEGATIVE; URINE MARIJUANA (THC) SCREEN NEGATIVE; URINE METHADONE SCREEN NEGATIVE; URINE PHENCYCLIDINE SCREEN NEGATIVE
--- NOTE | 2018-06-21 07:38 | RADIOLOGY REPORT (SQ) ---
EXAM DESCRIPTION: U/S NON OB PEL TV W/DOPPLER COMPLETED DATE/TIME: 06/21/2018 6:02 am REASON FOR STUDY: right pelvic pain, vomiting COMPARISON: CT abdomen pelvis 09/26/2017 Ob ultrasound 09/26/2017 TECHNIQUE: Dynamic and static grayscale images acquired of the pelvis via transvaginal approach and recorded on PACS. Additional selected color Doppler and spectral images recorded. LIMITATIONS: None. FINDINGS: UTERUS: Surgically absent RIGHT OVARY AND DOPPLER: Not visualized due to adnexal bowel gas LEFT OVARY AND DOPPLER: Not visualized due to adnexal bowel gas. FREE FLUID: No posterior cul-de-sac free fluid. OTHER: No other significant finding. IMPRESSION: Post hysterectomy Ovaries not visualized TECHNICAL DOCUMENTATION: JOB ID: [id number] [employer] ([employer])- All Rights Reserved Rev-03/19 Reading location - IP/workstation name: [email or web address] BY [facility]
[2018-06-21] MEDS ORDERED: PROMETHAZINE HCL INJ 25 MG/1 ML VIAL IV ONE (08:28)
--- NOTE | 2018-06-21 08:43 | RADIOLOGY REPORT (SQ) ---
EXAM DESCRIPTION: CT ABD/PELVIS WITH IV ONLY COMPLETED DATE/TIME: 06/21/2018 8:29 am REASON FOR STUDY: abdominal pain COMPARISON: None. TECHNIQUE: CT scan of the abdomen and pelvis performed using helical scanning technique with dynamic intravenous contrast injection. No oral contrast. Images reviewed with lung, soft tissue, and bone windows. Reconstructed coronal and sagittal MPR images reviewed. Delayed images for evaluation of the urinary system also acquired. All images stored on PACS. All CT scanners at this facility use dose modulation, iterative reconstruction, and/or weight based d osing when appropriate to reduce radiation dose to as low as reasonably achievable (ALARA). [facility]: Dose Right [facility]: CareDose [facility]: Dose Right [facility]: Teradose 4D [facility]: Mayi Zhaopin CONTRAST TYPE AND DOSE: contrast/concentration: Isovue 350.00 mg/ml; Total Contrast Delivered: 98.0 ml; Total Saline Delivered: 43.6 ml RENAL FUNCTION: GFR > 60. RADIATION DOSE: CT Rad equipment meets quality standard of care and radiation dose reduction techniq ues were employed. CTDIvol: 14.0 - 17.6 mGy. DLP: 1705 mGy-cm.. LIMITATIONS: Artifact from spinal fusion. FINDINGS: LOWER CHEST: Hiatal hernia. LIVER: Normal size. No masses. No dilated ducts. SPLEEN: Normal size. No focal lesions. PANCREAS: No masses. No significant calcifications. No adjacent inflammation or peripancreatic fluid collections. Pancreatic duct not dilated. GALLBLADDER: Surgically absent. ADRENAL GLANDS: No significant masses or asymmetry. RIGHT KIDNEY AND URETER: No solid masses. No significant calcifications. No hydronephrosis or hyd roureter. LEFT KIDNEY AND URETER: No solid masses. No significant calcifications. No hydronephrosis or hydr oureter. AORTA AND VESSELS: No aneurysm. No dissection. Renal arteries, SMA, celiac without stenosis. RETROPERITONEUM: No retroperitoneal adenopathy, hemorrhage or masses. BOWEL AND PERITONEAL CAVITY: No masses or inflammatory changes. No free fluid or peritoneal masses. APPENDIX: Surgically absent. PELVIS: No mass. No free fluid. Normal bladder. ABDOMINAL WALL: No masses. No hernias. BONES: Scoliosis status post spinal fusion. OTHER: No other significant finding. IMPRESSION: No acute findings. TECHNICAL DOCUMENTATION: JOB ID: [id number] Quality ID # [id number]: Final reports with documentation of one or more dose reduction techniques (e.g., Au tomated exposure control, adjustment of the mA and/or kV according to patient size, use of iterative reconstruction technique) 2010 [employer]- All Rights Reserved Reading location - IP/workstation name: [email or web address]
--- NOTE | 2018-06-21 10:20 | ER Document Report ---
ED GI/ - General Chief Complaint: Vomiting Stated Complaint: VOMITING Time Seen by Provider: 06/21/18 04:34 Mode of Arrival: Ambulatory Information source: Patient Notes: Patient said that only narcotics help with abdominal pain. TRAVEL OUTSIDE OF THE [place] IN LAST 30 DAYS: No - HPI Patient complains to provider of: Abdominal pain Onset: This morning Timing/Duration: Sudden Quality of pain: Cramping, Sharp Severity at maximum: Severe Severity in ED: Moderate Pain Level: 4 Location: No: Chest pain Vaginal bleeding (Compared to normal period): None Associated symptoms: Nausea, Vomiting. denies: Fever Exacerbated by: Denies Relieved by: Other - Narcotic pain medicine Similar symptoms previously: Yes Recently seen / treated by doctor: No - Related Data Allergies/Adverse Reactions: ibuprofen Allergy (Verified 06/21/18 06:40) latex Allergy (Verified 06/21/18 06:40) metoclopramide [From Reglan] Allergy (Verified 06/21/18 06:40) NSAIDS (Non-Steroidal Anti-Inflamma Allergy (Verified 06/21/18 06:40) Penicillins Allergy (Verified 06/21/18 06:40) sulfamethoxazole [From Septra] Allergy (Verified 06/21/18 06:40) sumatriptan [From Imitrex] Allergy (Verified 06/21/18 06:40) tramadol Allergy (Verified 06/21/18 06:40) trimethoprim [From Septra] Allergy (Verified 06/21/18 06:40) zolmitriptan [From Zomig] Allergy (Verified 06/21/18 06:40) prochlorperazine [From Compazine] Adverse Reaction (Verified 06/21/18 06:40) Past Medical History - Social History Smoking Status: Current Every Day Smoker Chew tobacco use (# tins/day): No Family History: Arthritis, COPD, CVA, DM, Hyperlipidemia, Hypertension, Malignancy Patient has suicidal ideation: No Patient has homicidal ideation: No - Past Medical History Cardiac Medical History: Reports: Hx Hypercholesterolemia Neurological Medical History: Reports: Hx Migraine Endocrine Medical History: Comment Only: Hx Diabetes Mellitus Type 2 - pre diabetic Renal/ Medical History: Reports: Hx Ovarian Cysts - PCOS. Denies: Hx Peritoneal Dialysis GI Medical History: Reports: Hx Gastroesophageal Reflux Disease, Hx Hiatal Hernia Musculoskeletal Medical History: Reports Hx Arthritis, Reports Hx Musculoskeletal Deformity - Scoliosis, Reports Hx Musculoskeletal Trauma Psychiatric Medical History: Reports: Hx Anxiety, Hx Depression Past Surgical History: Reports: Hx Appendectomy, Hx Cholecystectomy, Hx Genitourinary Surgery - "BLADDER SLING", Hx Hysterectomy, Hx Orthopedic Surgery - Alexander rodsComment Only: Hx Gynecologic Surgery - cervix and uterus removed - Immunizations Hx Diphtheria, Pertussis, Tetanus Vaccination: No - 2009 Review of Systems - Review of Systems Constitutional: denies: Chills, Fever EENT: No symptoms reported Cardiovascular: No symptoms reported Respiratory: denies: Cough, Short of breath Gastrointestinal: Abdominal pain, Nausea, Vomiting Genitourinary: No symptoms reported Female Genitourinary: No symptoms reported Musculoskeletal: No symptoms reported Skin: No symptoms reported Hematologic/Lymphatic: No symptoms reported Neurological/Psychological: No symptoms reported -: Yes All other systems reviewed and negative Physical Exam - Vital signs Vitals: Temp Pulse Resp BP Pulse Ox 98.2 F 104 H 20 121/80 99 06/21/18 04:09 06/21/18 04:09 06/21/18 04:09 06/21/18 04:09 06/21/18 04:09 - General General appearance: Appears well, Alert In distress: None - HEENT Head: Normocephalic, Atraumatic Eyes: Normal Pupils: PERRL - Respiratory Respiratory status: No respiratory distress Chest status: Nontender Breath sounds: Normal Chest palpation: Normal - Cardiovascular Rhythm: Regular Heart sounds: Normal auscultation Murmur: No - Abdominal Inspection: Normal Distension: No distension Bowel sounds: Normal Tenderness: Nontender Organomegaly: No organomegaly - Back Back: Normal, Nontender - Extremities General upper extremity: Normal inspection, Nontender, Normal color, Normal ROM , Normal temperature General lower extremity: Normal inspection, Nontender, Normal color, Normal ROM , Normal temperature, Normal weight bearing. No: Gary's sign - Neurological Neuro grossly intact: Yes Cognition: Normal Orientation: AAOx4 Noah Coma Scale Eye Opening: Spontaneous Noah Coma Scale Verbal: Oriented Noah Coma Scale Motor: Obeys Commands [place] Coma Scale Total: 15 Speech: Normal Motor strength normal: LUE, RUE, LLE, RLE Sensory: Normal - Psychological Associated symptoms: Normal affect, Normal mood - Skin Skin Temperature: Warm Skin Moisture: Dry Skin Color: Normal Course - Re-evaluation Re-evalutation: 06/21/18 16:50 On reevaluation patient abdominal pain has resolved. We will discharge home to follow-up with a windlace machine operator. - Vital Signs Vital signs: Temp Pulse Resp BP Pulse Ox 98.1 F 76 16 91/53 L 97 06/21/18 10:39 06/21/18 10:39 06/21/18 10:39 06/21/18 10:39 06/21/18 10:39 - Laboratory Result Diagrams: 06/21/18 05:00 06/21/18 05:00 Laboratory results interpreted by me: 06/21/18 06/21/18 05:00 05:00 WBC 10.9 H Eosinophils % 13.4 H Absolute Eosinophils 1.5 H Chloride 109 H Carbon Dioxide 21 L Glucose 122 H AST 45 H Discharge - Discharge Clinical Impression: Abdominal pain Qualifiers: Abdominal location: generalized Qualified Code(s): R10.84 - Generalized abdominal pain Condition: Stable Disposition: HOME, SELF-CARE Instructions: Abdominal Pain ([facility]) Additional Instructions: Please follow-up with Dr. Kiran Sarmiento for further evaluation regarding abdominal pain. Return to the emergency room if her condition worsens. Prescriptions: Acetaminophen [Tylenol Extra Strength 500 mg Tablet] 1 tab PO Q6 PRN #20 tab PRN Reason: pain Ondansetron [Zofran Odt 4 mg Tablet] 1 tab PO Q4H PRN #15 tab.rapdis PRN Reason: For Nausea/Vomiting Referrals: FUNMI MARCOS JR, MD [Primary Care Provider] - Follow up as needed ISAIAH SARMIENTO MD [ACTIVE STAFF] - Follow up as needed
[2018-06-21 10:42] VITALS: BP 91/53
== END 2018-06-21 10:50 | disposition home or self-care (01) ==
LOC: ER 04:04
DX: R10.84 Generalized abdominal pain (principal); R11.2 Nausea with vomiting, unspecified; F17.200 Nicotine dependence, unspecified, uncomplicated; Z88.6 Allergy status to analgesic agent; Z91.040 Latex allergy status; Z88.8 Allergy status to other drugs, medicaments and biological substances; Z88.0 Allergy status to penicillin; Z88.1 Allergy status to other antibiotic agents; Z90.49 Acquired absence of other specified parts of digestive tract; Z90.710 Acquired absence of both cervix and uterus
CPT/HCPCS: 99284; 96361; 96374; 96375; 36415; 85025; 80053; 81001; 80307; 76830; 93976; 74177; J3010; J1170; J2550; J2405; J7030

== ENCOUNTER 2018-08-01 19:41 | Emergency (ER) | payer OTHER ==
[2018-08-01] MEDS ORDERED: NORMAL SALINE 1000 ML 1,000 ML IV ONE (20:24)
[2018-08-01] MEDS ORDERED: ONDANSETRON HCL INJ/PF 4 MG/2 ML SDV IV ONE (20:25)
--- NOTE | 2018-08-01 20:26 | ER Document Report ---
ED Medical Screen (RME) - General Chief Complaint: Nausea/Vomiting Stated Complaint: CHEST PAIN,NAUSEA/VOMITING/FEVER Time Seen by Provider: 08/01/18 20:24 Mode of Arrival: Ambulatory Information source: Patient Notes: There is this is a 43-year-old female with a history of PCO S, migraines, reflux , dyslipidemia who presents to the emergency room with fever of 101.5, right chest pain worse with cough, dizziness, decreased p.o. intake. TRAVEL OUTSIDE OF THE [place] IN LAST 30 DAYS: No - Related Data Allergies/Adverse Reactions: ibuprofen Allergy (Verified 06/21/18 06:40) latex Allergy (Verified 06/21/18 06:40) metoclopramide [From Reglan] Allergy (Verified 06/21/18 06:40) NSAIDS (Non-Steroidal Anti-Inflamma Allergy (Verified 06/21/18 06:40) Penicillins Allergy (Verified 06/21/18 06:40) sulfamethoxazole [From Septra] Allergy (Verified 06/21/18 06:40) sumatriptan [From Imitrex] Allergy (Verified 06/21/18 06:40) tramadol Allergy (Verified 06/21/18 06:40) trimethoprim [From Septra] Allergy (Verified 06/21/18 06:40) zolmitriptan [From Zomig] Allergy (Verified 06/21/18 06:40) haloperidol [From Haldol] Adverse Reaction (Verified 08/01/18 19:45) prochlorperazine [From Compazine] Adverse Reaction (Verified 06/21/18 06:40) Past Medical History - Social History Family history: Reviewed & Not Pertinent - Past Medical History Cardiac Medical History: Reports: Hx Hypercholesterolemia Neurological Medical History: Reports: Hx Migraine Endocrine Medical History: Comment Only: Hx Diabetes Mellitus Type 2 - pre diabetic Renal/ Medical History: Reports: Hx Ovarian Cysts - PCOS. Denies: Hx Peritoneal Dialysis GI Medical History: Reports: Hx Gastroesophageal Reflux Disease, Hx Hiatal Hernia Musculoskeltal Medical History: Reports Hx Arthritis, Reports Hx Musculoskeletal Deformity - Scoliosis, Reports Hx Musculoskeletal Trauma Psychiatric Medical History: Reports: Hx Anxiety, Hx Depression Past Surgical History: Reports: Hx Appendectomy, Hx Cholecystectomy, Hx Genitourinary Surgery - "BLADDER SLING", Hx Hysterectomy, Hx Orthopedic Surgery - Alexander rodsComment Only: Hx Gynecologic Surgery - cervix and uterus removed - Immunizations Hx Diphtheria, Pertussis, Tetanus Vaccination: No - 2009 History of Influenza Vaccine for 08/2017 - 12/2017 Season: Yes Influenza Administration Date for 08/2017 - 12/2017 Season: 12/03/16 Physical Exam - Vital signs Vitals: Temp Pulse Resp BP Pulse Ox 101.0 F H 109 H 22 H 127/73 H 99 08/01/18 20:01 08/01/18 20:01 08/01/18 20:01 08/01/18 20:01 08/01/18 20:01 Course - Vital Signs Vital signs: Temp Pulse Resp BP Pulse Ox 101.0 F H 109 H 20 127/73 H 99 08/01/18 20:01 08/01/18 20:01 08/01/18 20:02 08/01/18 20:01 08/01/18 20:01 Doctor's Discharge - Discharge Referrals: FUNMI MARCOS JR, MD [Primary Care Provider] - Follow up as needed
[2018-08-01 21:06] LABS: ABSOLUTE LYMPHOCYTES (AUTO) 1.3 10^3/uL (0.5-4.7); ABSOLUTE MONOCYTES (AUTO) 1.7 10^3/uL (0.1-1.4); ABSOLUTE NEUT (AUTO) 12.8 10^3/uL (1.7-8.2); BASOPHILS % (AUTO) 0.2 % (0-2); EOSINOPHILS % (AUTO) 0.1 % (0-6); HEMATOCRIT 40.1 % (36.0-47.0); HEMOGLOBIN 13.6 g/dL (12.0-15.5); LYMPHOCYTES % (AUTO) 8.3 % (13-45); MEAN CORPUSCULAR HGB CONC 34.1 g/dL (32.0-36.0); MEAN CORPUSCULAR VOLUME 82 fl (80-97); MONOCYTES % (AUTO) 10.5 % (3-13); PLATELET COUNT 275 10^3/uL (150-450); RED BLOOD COUNT 4.88 10^6/uL (3.72-5.28); RED CELL DISTRIBUTION WIDTH 13.2 % (11.5-14.0); SEGMENTED NEUTROPHILS % (AUTO) 80.9 % (42-78); TOTAL CELLS COUNTED % (AUTO) 100 %; WHITE BLOOD COUNT 15.8 10^3/uL (4.0-10.5)
[2018-08-01 21:07] LABS: VENOUS BLOOD BASE EXCESS -1.7 mmol/L; VENOUS BLOOD HCO3 22.7 mmol/L (20-32); VENOUS BLOOD PCO2 37.8 mmHg (35-63); VENOUS BLOOD PH 7.4 (7.30-7.42)
--- NOTE | 2018-08-01 21:08 | EKG REPORT ---
SEVERITY:- BORDERLINE ECG - SINUS TACHYCARDIA BORDERLINE T ABNORMALITIES, INFERIOR LEADS : Confirmed by: Cintia Plascencia MD 01-Aug-2018 21:07:35
[2018-08-01 21:14] LABS: INTERNATIONAL RATION (INR) 1.04; PROTHROMBIN TIME 14.1 SEC (11.4-15.4)
--- NOTE | 2018-08-01 22:51 | RADIOLOGY REPORT (SQ) ---
EXAM DESCRIPTION: XR CHEST 1 VIEW COMPLETED DATE/TME: 08/01/2018 20:17 CLINICAL HISTORY: 43 years Female, fever COMPARISON: None. NUMBER OF VIEWS/TECHNIQUE: 1/AP FINDINGS: Adequate lung volume, moderate consolidated diffuse hazy opacification of the right upper lobe with air bronchograms, normal cardiac silhouette, and extensive spinal hardware. IMPRESSION: Right upper lobar pneumonia.
[2018-08-01] MEDS ORDERED: DOXYCYCLINE HYCLATE 100 MG TABLET PO ONE (23:10)
[2018-08-01] MEDS ORDERED: LIDOCAINE 5% (700 MG) TRANSDERMAL ADH..PATCH TP ONE (23:10)
[2018-08-01] MEDS ORDERED: MORPHINE SULFATE IR 15 MG TABLET PO ONE (23:10)
[2018-08-01 23:18] LABS: APPEARANCE,URINE CLOUDY; BILIRUBIN,URINE NEGATIVE (NEGATIVE); COLOR,URINE AMBER; GLUCOSE, URINE NEGATIVE (NEGATIVE); KETONES,URINE NEGATIVE (NEGATIVE); LEUKOCYTE ESTERASE,URINE NEGATIVE (NEGATIVE); NITRITE,URINE NEGATIVE (NEGATIVE); PROTEIN,URINE >=500 mg/dL (NEGATIVE); URINE SPECIFIC GRAVITY 1.025
[2018-08-01] MEDS ORDERED: PROMETHAZINE HCL 25 MG TABLET PO ONE (23:30)
--- NOTE | 2018-08-01 23:32 | ER Document Report ---
ED General - General Chief Complaint: Nausea/Vomiting Stated Complaint: CHEST PAIN,NAUSEA/VOMITING/FEVER Time Seen by Provider: 08/01/18 20:24 Mode of Arrival: Ambulatory Notes: Patient is a 43-year-old female with a past medical history of von Willebrand's disease, cholesterolemia, who presents with 2 days of right-sided chest pain, shortness of breath and cough. She also notes that she has had nausea with associated vomiting. Symptoms started gradually, been worsening since that time. Describes the pain of her right chest as being a throbbing, aching, constant pain worsened by taking a deep breath. She has not tried any to improve her symptoms. Nothing has worsened her symptoms. She has not seen her general doctor regarding today's concerns. She denies a history of similar symptoms in the past. She denies any history of DVT or pulmonary embolus. TRAVEL OUTSIDE OF THE [place] IN LAST 30 DAYS: No - Related Data Allergies/Adverse Reactions: ibuprofen Allergy (Verified 06/21/18 06:40) latex Allergy (Verified 06/21/18 06:40) metoclopramide [From Reglan] Allergy (Verified 06/21/18 06:40) NSAIDS (Non-Steroidal Anti-Inflamma Allergy (Verified 06/21/18 06:40) Penicillins Allergy (Verified 06/21/18 06:40) sulfamethoxazole [From Septra] Allergy (Verified 06/21/18 06:40) sumatriptan [From Imitrex] Allergy (Verified 06/21/18 06:40) tramadol Allergy (Verified 06/21/18 06:40) trimethoprim [From Septra] Allergy (Verified 06/21/18 06:40) zolmitriptan [From Zomig] Allergy (Verified 06/21/18 06:40) haloperidol [From Haldol] Adverse Reaction (Verified 08/01/18 19:45) prochlorperazine [From Compazine] Adverse Reaction (Verified 06/21/18 06:40) Past Medical History - General Information source: Patient - Social History Smoking Status: Never Smoker Frequency of alcohol use: None Drug Abuse: None Lives with: Spouse/Significant other Family History: Arthritis, COPD, CVA, DM, Hyperlipidemia, Hypertension, Malignancy Patient has suicidal ideation: No Patient has homicidal ideation: No - Past Medical History Cardiac Medical History: Reports: Hx Hypercholesterolemia Neurological Medical History: Reports: Hx Migraine Endocrine Medical History: Comment Only: Hx Diabetes Mellitus Type 2 - pre diabetic Renal/ Medical History: Reports: Hx Ovarian Cysts - PCOS. Denies: Hx Peritoneal Dialysis GI Medical History: Reports: Hx Gastroesophageal Reflux Disease, Hx Hiatal Hernia Musculoskeletal Medical History: Reports Hx Arthritis, Reports Hx Musculoskeletal Deformity - Scoliosis, Reports Hx Musculoskeletal Trauma Psychiatric Medical History: Reports: Hx Anxiety, Hx Depression Past Surgical History: Reports: Hx Appendectomy, Hx Cholecystectomy, Hx Genitourinary Surgery - "BLADDER SLING", Hx Hysterectomy, Hx Orthopedic Surgery - Alexander rodsComment Only: Hx Gynecologic Surgery - cervix and uterus removed - Immunizations Hx Diphtheria, Pertussis, Tetanus Vaccination: No - 2009 Review of Systems - Review of Systems Notes: Constitutional: Positive for fever. HENT: Negative for sore throat. Eyes: Negative for visual changes. Cardiovascular: Positive for chest pain. Respiratory: Positive for shortness of breath. Gastrointestinal: Negative for abdominal pain, vomiting or diarrhea. Genitourinary: Negative for dysuria. Musculoskeletal: Negative for back pain. Skin: Negative for rash. Neurological: Negative for headaches, weakness or numbness. 10 point ROS negative except as marked above and in HPI. Physical Exam - Vital signs Vitals: Temp Pulse Resp BP Pulse Ox 101.0 F H 109 H 22 H 127/73 H 99 08/01/18 20:01 08/01/18 20:01 08/01/18 20:01 08/01/18 20:01 08/01/18 20:01 Interpretation: Tachycardic, Tachypneic, Febrile Notes: PHYSICAL EXAMINATION: GENERAL: Well-appearing, well-nourished and in no acute distress. HEAD: Atraumatic, normocephalic. EYES: Pupils equal round and reactive to light, extraocular movements intact, sclera anicteric, conjunctiva are normal. ENT: nares patent, oropharynx clear without exudates. Moderately dry mucous membranes. NECK: Normal range of motion, supple without lymphadenopathy LUNGS: No wheezing or rales. Mildly diminished breath sounds at the right upper lobe. HEART: Regular rate and rhythm without murmurs ABDOMEN: Soft, nontender, normoactive bowel sounds. No guarding, no rebound. No masses appreciated. EXTREMITIES: Normal range of motion, no pitting or edema. No cyanosis. NEUROLOGICAL: No focal neurological deficits. Moves all extremities spontaneously and on command. PSYCH: Normal mood, normal affect. SKIN: Warm, Dry, normal turgor, no rashes or lesions noted. Course - Re-evaluation Re-evalutation: 08/01/18 23:30 Patient presents with complaints of right sided chest wall pain with fever, cough, and nausea and vomiting. Chest x-ray shows a prominent right upper lobe pneumonia which would be consistent with the patient's presentation. She is otherwise nontoxic in appearance, no longer tachycardic the time my assessment after defervescing and having IV fluids. She has been able to tolerate oral intake without any difficulty. Abdominal exam is benign without any localization of tenderness and patient does deny any abdominal pain. The patient is appropriate for outpatient management. Curb 65 score is 0. She has been started on doxycycline for the next 10 days. At this time will discharge with return precautions and follow-up recommendations. Verbal discharge instructions given a the bedside and opportunity for questions given. Medication warnings reviewed. Patient is in agreement with this plan and has verbalized understanding of return precautions and the need for primary care follow-up in the next 24-72 hours. - Vital Signs Vital signs: Temp Pulse Resp BP Pulse Ox 101.0 F H 109 H 23 H 104/65 100 08/01/18 20:01 08/01/18 20:01 08/02/18 00:22 08/02/18 00:23 08/01/18 23:00 - Laboratory Result Diagrams: 08/01/18 20:41 08/01/18 22:55 Laboratory results interpreted by me: 08/01/18 08/01/18 08/01/18 20:41 22:55 22:55 WBC 15.8 H Seg Neutrophils % 80.9 H Lymphocytes % 8.3 L Absolute Neutrophils 12.8 H Absolute Monocytes 1.7 H Carbon Dioxide 17 L Total Bilirubin 1.5 H Direct Bilirubin 1.1 H AST 38 H Urine Protein >=500 H Urine Urobilinogen 4.0 H - Diagnostic Test Radiology reviewed: Image reviewed, Reports reviewed Radiology results interpreted by me: 08/01/18 23:31 Chest x-ray: Right upper lobe infiltrate consistent with a right upper lobe pneumonia Discharge - Discharge Clinical Impression: Right-sided chest wall pain Right upper lobe pneumonia Qualifiers: Pneumonia type: due to unspecified organism Qualified Code(s): J18.1 - Lobar pneumonia, unspecified organism Nausea and vomiting Qualifiers: Vomiting type: unspecified Vomiting Intractability: non-intractable Qualified Code(s): R11.2 - Nausea with vomiting, unspecified Condition: Good Disposition: HOME, SELF-CARE Additional Instructions: You have been diagnosed with a pneumonia. It is very important that you take all of your antibiotics until they are gone even if you are feeling better. Please return to the emergency department immediately if you began having worsening shortness of breath, become confused, have worsening pain, pass out, have persistent vomiting that prevents you from being able to drink fluids for more than 12 hours, or have any other symptoms that are worrisome to you. Please follow-up with your primary care doctor in the next 1-2 days. Prescriptions: Doxycycline Hyclate 100 mg PO BID #20 capsule Referrals: FUNMI MARCOS JR, MD [NO LOCAL MD] - Follow up tomorrow
[2018-08-02 00:32] VITALS: BP 104/65
[2018-08-02 02:31] LABS: ALANINE AMINOTRANSFERASE 42 U/L (9-52); ALBUMIN 4.1 g/dL (3.5-5.0); ALKALINE PHOSPHATASE 90 U/L (38-126); ANION GAP 16 (5-19); ASPARTATE AMINO TRANSFERASE 38 U/L (14-36); BILIRUBIN,DIRECT 1.1 mg/dL (0.0-0.4); BILIRUBIN,TOTAL 1.5 mg/dL (0.2-1.3); BLOOD UREA NITROGEN 9 mg/dL (7-20); CALCIUM 9.3 mg/dL (8.4-10.2); CARBON DIOXIDE 17 mmol/L (22-30); CHLORIDE 105 mmol/L (98-107); GLUCOSE 104 mg/dL (75-110); POTASSIUM 3.7 mmol/L (3.6-5.0); SODIUM 137.6 mmol/L (137-145)
== END 2018-08-02 00:33 | disposition home or self-care (01) ==
LOC: ER 19:41
DX: J18.1 Lobar pneumonia, unspecified organism (principal); R11.2 Nausea with vomiting, unspecified; R07.89 Other chest pain; R06.02 Shortness of breath; R05 Cough; R50.9 Fever, unspecified; Z88.6 Allergy status to analgesic agent; Z91.040 Latex allergy status; Z88.8 Allergy status to other drugs, medicaments and biological substances; Z88.0 Allergy status to penicillin; Z88.1 Allergy status to other antibiotic agents
CPT/HCPCS: 93005; 99284; 96361; 96374; 36415; 87040; 87086; 84703; 85025; 85610; 80053; 81001; 82803; 83605; 71045; 93010; J2405

== ENCOUNTER 2018-09-24 15:31 | Emergency (ER) | payer OTHER ==
[2018-09-24] MEDS ORDERED: DEXAMETHASONE SOD PHOS INJ 10 MG/1 ML VIAL IM ONE (18:22)
--- NOTE | 2018-09-24 18:30 | ER Document Report ---
ED Neck/Back Problem - General Chief Complaint: Leg Pain Stated Complaint: LEG PAIN Time Seen by Provider: 09/24/18 17:56 Mode of Arrival: Ambulatory Information source: Patient Notes: 43-year-old female presents to ED with complaint of pain to the low back left buttocks going down the left leg with numbness to across the buttocks and down the leg for 1 day. She states she been being treated for piriformis muscle injury since before [place] and she saw Dr. Crawford on 08/14/2018 and was told that she had piriformis muscle injury. She states that she gave her steroid Medrol Dosepak Zanaflex and oxycodone and she completed the steroid pack and has been taking the Zanaflex and oxycodone but yesterday when she was standing a lot to do Thanksgiving the pain got a lot more severe and then today she did do stretching exercises in the heat and things were worse. She states she was a little unsteady on her feet so she became concerned and came to the emergency room. She states her primary doctor through [facility]. She has a history of scoliosis with her Alexander rods and screws. TRAVEL OUTSIDE OF THE [place] IN LAST 30 DAYS: No - HPI Patient complains to provider of: Pain, Lower back Onset: Other - She has had pain off and on in the low back but she injured it during the last [place] and worse yesterday Where: Outdoors Onset: Chronic Timing: Waxing and waning, Worse Quality of pain: Sharp, Other - With numbness Severity: Moderate Pain Level: 4 Context: Turning, Other - Sitting Recent injury: No Associated symptoms: Like prior neck/back pain, Numbness/tingling, Radiation to leg, Lower back pain. denies: Constipation, Incontinence, Radiation to arm, Radiation to chest, Unable to urinate, Upper back pain Exacerbated by: Movement of trunk, Sitting position Relieved by: Nothing Similar symptoms previously: Yes Recently seen / treated by doctor: Yes - Related Data Allergies/Adverse Reactions: ibuprofen Allergy (Verified 06/21/18 06:40) latex Allergy (Verified 06/21/18 06:40) metoclopramide [From Reglan] Allergy (Verified 06/21/18 06:40) NSAIDS (Non-Steroidal Anti-Inflamma Allergy (Verified 06/21/18 06:40) Penicillins Allergy (Verified 06/21/18 06:40) sulfamethoxazole [From Septra] Allergy (Verified 06/21/18 06:40) sumatriptan [From Imitrex] Allergy (Verified 06/21/18 06:40) tramadol Allergy (Verified 06/21/18 06:40) trimethoprim [From Septra] Allergy (Verified 06/21/18 06:40) zolmitriptan [From Zomig] Allergy (Verified 06/21/18 06:40) haloperidol [From Haldol] Adverse Reaction (Verified 08/01/18 19:45) prochlorperazine [From Compazine] Adverse Reaction (Verified 06/21/18 06:40) Past Medical History - General Information source: Patient - Social History Smoking Status: Never Smoker Cigarette use (# per day): No Chew tobacco use (# tins/day): No Smoking Education Provided: No Frequency of alcohol use: Rare Lives with: Family Family History: Arthritis, COPD, CVA, DM, Hyperlipidemia, Hypertension, Malignancy - Past Medical History Cardiac Medical History: Reports: Hx Hypercholesterolemia Pulmonary Medical History: Reports: None Neurological Medical History: Reports: Hx Migraine Endocrine Medical History: Comment Only: Hx Diabetes Mellitus Type 2 - pre diabetic Renal/ Medical History: Reports: Hx Ovarian Cysts - PCOS Malignancy Medical History: Reports: None GI Medical History: Reports: Hx Gastroesophageal Reflux Disease, Hx Hiatal Hernia Musculoskeletal Medical History: Reports Hx Arthritis, Reports Hx Musculoskeletal Deformity - Scoliosis, Reports Hx Musculoskeletal Trauma Skin Medical History: Reports None Psychiatric Medical History: Reports: Hx Anxiety, Hx Depression Traumatic Medical History: Reports: Hx Fractures - Arm Infectious Medical History: Reports: None Past Surgical History: Reports: Hx Appendectomy, Hx Cholecystectomy, Hx Genitourinary Surgery - "BLADDER SLING", Hx Hysterectomy, Hx Orthopedic Surgery - Alexander rods - Immunizations Hx Diphtheria, Pertussis, Tetanus Vaccination: No - 2009 Review of Systems - Review of Systems Notes: REVIEW OF SYSTEMS: CONSTITUTIONAL : Denies fever, chills, or sweats. Denies recent illness. EENT: Denies eye, ear, throat, or mouth pain or symptoms. Denies nasal or sinus congestion or discharge. Denies throat, tongue, or mouth swelling or difficulty swallowing. CARDIOVASCULAR: Denies chest pain. Denies palpitations or racing or irregular heart beat. Denies ankle edema. RESPIRATORY: Denies cough, cold, or chest congestion. Denies shortness of breath, difficulty breathing, or wheezing. GASTROINTESTINAL: Denies abdominal pain or distention. Denies nausea, vomiting , or diarrhea. Denies blood in vomitus, stools, or per rectum. Denies black, tarry stools. Denies constipation. GENITOURINARY: Denies difficulty urinating, painful urination, burning, frequency, blood in urine, or discharge. FEMALE GENITOURINARY: Denies vaginal bleeding, heavy or abnormal periods, irregular periods. Denies vaginal discharge or odor. MUSCULOSKELETAL: Complains of low back pain radiating across the left buttocks and down the left leg all the way to the foot. She states she does have some numbness to the buttocks and the thigh. She denies any loss of control of bowel or bladder loss control of the lower extremity.. Patient states she has been being treated for piriformis syndrome with oxycodone, Zanaflex, and a Medrol Dosepak. She states she finished the steroids and she did a lot on Thanksgiving and the pain got a lot worse. SKIN: Denies rash, lesions or sores. HEMATOLOGIC : Denies easy bruising or bleeding. LYMPHATIC: Denies swollen, enlarged glands. NEUROLOGICAL: Denies confusion or altered mental status. Denies passing out or loss of consciousness. Denies dizziness or lightheadedness. Denies headache. Denies weakness or paralysis or loss of use of either side. Denies problems with gait or speech. Denies sensory loss, numbness, or tingling. Denies seizures. PHYSICAL EXAMINATION: GENERAL: Well-appearing, well-nourished and in no acute distress. HEAD: Atraumatic, normocephalic. EYES: Pupils equal round and reactive to light, extraocular movements intact, conjunctiva are normal. ENT: Nares patent, oropharynx clear without exudates. Moist mucous membranes. NECK: Normal range of motion, supple without lymphadenopathy LUNGS: Breath sounds clear to auscultation bilaterally and equal. No wheezes rales or rhonchi. HEART: Regular rate and rhythm without murmurs ABDOMEN: Soft, nontender, nondistended abdomen. No guarding, no rebound. No masses appreciated. Female : deferred Musculoskeletal: Pain with any movement to the low back or left leg. Tenderness to the lumbar spine SI joint and down the left thigh. NEUROLOGICAL: Cranial nerves grossly intact. Normal speech, normal gait. Normal sensory, motor exams PSYCH: Normal mood, normal affect. SKIN: Warm, Dry, normal turgor, no rashes or lesions noted. PSYCHIATRIC: Denies anxiety or stress. Denies depression, suicidal ideation, or homicidal ideation. ALL OTHER SYSTEMS REVIEWED AND NEGATIVE. Dictation was performed using [email or web address] voice recognition software Physical Exam - Vital signs Vitals: Temp Pulse Resp BP Pulse Ox 98.2 F 96 16 119/76 99 09/24/18 16:34 09/24/18 16:34 09/24/18 16:34 09/24/18 16:34 09/24/18 16:34 Course - Vital Signs Vital signs: Temp Pulse Resp BP Pulse Ox 98.2 F 79 17 117/73 98 09/24/18 19:47 09/24/18 19:47 09/24/18 19:47 09/24/18 19:47 09/24/18 19:47 - Diagnostic Test Radiology reviewed: Image reviewed, Reports reviewed Discharge - Discharge Clinical Impression: Chronic low back pain with left-sided sciatica Qualifiers: Back pain laterality: left Qualified Code(s): M54.42 - Lumbago with sciatica, left side Condition: Stable Disposition: HOME, SELF-CARE Additional Instructions: LOW BACK PAIN: Three out of every four people will have an episode of disabling back pain during their lifetime. Most commonly the pain is due to straining of the muscles and ligaments in the low back. Usual treatment includes: (1) Rest on a firm surface. Avoid lying on your stomach. (2) Ice pack the painful area. After a few days, gentle heat may be used intermittently to relax the area, or ice packs can be continued. (3) Medication may be needed -- muscle relaxers and antiinflammatory medicines are commonly used. (4) As the back improves, exercises are prescribed to strengthen the back and abdominal muscles. Your doctor will advise you on the proper care for your back at each stage in your recovery. You may be better in a few days -- or healing may take several weeks. If new symptoms of a "herniated disc" (radiation of pain, numbness, or tingling down the back of the leg or weakness in the leg) occur, you should be re-examined. Further testing may be necessary. Sciatica Your symptoms suggest "sciatica." The pain of sciatica typically radiates down the leg. Numbness in the foot or calf may also occur. Sciatica is caused by irritation of the sciatic nerve or its branches. The irritation can be due to a herniated disk in the spine, swelling and inflammation in the muscles surrounding the sciatic nerve, or direct injury of the nerve itself. Most cases of sciatica will resolve with medical treatment. Bed rest is usually recommended initially. Surgery is only necessary when the condition will not improve with rest and antiinflammatory medication. Muscle relaxers are often given if muscle soreness is present. A CAT scan of the back may be performed if a herniated disk is suspected. Re-examination is necessary if you develop increasing numbness, localized weakness in the foot or ankle, or if the pain does not respond to rest. ORAL NARCOTIC MEDICATION: You have been given a percocet for pain control. This medication is a narcotic. It's best taken with food, as nausea can result if taken on an empty stomach. Don't operate machinery or drive within six hours of taking this medication. Do not combine this medicine with alcohol, or with any medication which can cause sedation (such as cold tablets or sleeping pills) unless you get permission from the physician. Narcotics tend to cause constipation. If possible, drink plenty of fluids and eat a diet high in fiber and fruits. Please be aware that prescription narcotics also have the potential for abuse. People become addicted to these medications because of the general sense of wellbeing that they induce. This feeling along with a significant reduction in tension, anxiety, and aggression provides a stimulating seductive quality to these drugs. Once your pain is under control, we encourage you to discard your unused narcotics. STEROID MEDICATION: You have been given an injection of medicine of the cortisone/steroid class. This medication is used to control inflammation or allergy. It is often continued as a pill for a short period of time, until the acute process subsides. There are usually no side effects from short-term use of cortisone-like medications. Some persons feel an increased sense of well-being and are not sleepy at bedtime. Long-term use of cortisone medications is best avoided, unless required for a severe condition. If your condition does not remit, or relapses after the course of corticosteroid medication, you should consult your physician. Antinausea Medication You have been given a medication to suppress nausea and vomiting. This type of medication can be given as a shot, pill, or suppository. It will usually last for many hours. Pills and shots usually last six to eight hours, suppositories last about 12 hours. For the typical illness, only one or two doses of the medication may be necessary. Mild lightheadedness may occur. This type of medicine can cause drowsiness. Do not drive or operate dangerous machinery while under its influence. Do not mix with alcohol. See your doctor at once if you have muscle spasms or tightness, or uncontrollable motions (particularly of the neck, mouth, or jaw). Persistent vomiting or severe lightheadedness should also be evaluated by the physician. ICE PACKS: Apply ice packs frequently against the painful area. Many different schedules are recommended, such as "20 minutes on, 20 minutes off" or "one hour ice, two hours rest." If you need to work, you may need to go longer between ice treatments. You should plan to have the area ice packed AT LEAST one fourth of the time. The ice should be applied over the wrap, tape, or splint, or over a layer of cloth -- not directly against the skin. Some ice bags have a built-in cloth and can be put directly on the skin. WARM PACKS: After approximately two days, apply gentle heat (such as a heating pad or hot water bottle) for about 20 to 30 minutes about every two hours -- at least four times daily. Warmth and elevation will help you make a more rapid recovery , and will ease the pain considerably. Do not use HOT heat, and never apply heat for longer than 30 minutes. The continuous heat can invisibly damage skin and muscles -- even when no burn is seen on the surface. Damaged muscles can make you MORE sore. Stretching Exercises for the Back The physician has recommended that you begin stretching exercises for your back. These are often used even while the back is painful. However, you should notify the physician if the activities seem to increase your pain. PELVIC TILT: Lie flat on your back with knees bent. Tighten your stomach and buttock muscles so it flattens your lower back against the floor. Hold 10 seconds. Repeat 10 times, twice daily. KNEE RAISE: Lying on the back with knees bent, raise one knee to your chest, then the other. Hold both knees against the chest 10 seconds, then lower one knee at a time. Repeat 10 times, twice daily. PARTIAL TRUNK RAISE: Lie face down, arms at your sides. Keeping your waist on the floor, use your arms raise your chest up. Support yourself on your elbows for 30 seconds. Repeat twice daily, increasing the time to two minutes as you recover. FOLLOW-UP CARE: If you have been referred to a physician for follow-up care, call the physician s office for an appointment as you were instructed or within the next two days. If you experience worsening or a significant change in your symptoms, notify the physician immediately or return to the Emergency Department at any time for re-evaluation. Please follow-up with your primary doctor and your neurosurgeon or neurologist on Thursday. I have given you a CD of your x-ray to take with you for your follow -up.
--- NOTE | 2018-09-24 18:51 | RADIOLOGY REPORT (SQ) ---
EXAM DESCRIPTION: L SPINE WHOLE COMPLETED DATE/TIME: 09/24/2018 6:38 pm REASON FOR STUDY: pain with radiation to left leg COMPARISON: None. NUMBER OF VIEWS: Five views including obliques. TECHNIQUE: AP, lateral, oblique, and sacral radiographic images acquired of the lumbar spine. LIMITATIONS: None. FINDINGS: MINERALIZATION: Normal. SEGMENTATION: Normal. No transitional anatomy. ALIGNMENT: Rotatory levoscoliosis. VERTEBRAE: Maintained height. No fracture or worrisome bone lesion. DISCS: Preserved height. No significant osteophytes or end plate irregularity. POSTERIOR ELEMENTS: Hypertrophic facet changes from L2-S1. HARDWARE: Rods are present extending from L1 up into the thoracic spine. PARASPINAL SOFT TISSUES: Normal. PELVIS: Intact as visualized. No fractures or worrisome bone lesions. SI joints intact. OTHER: No other significant finding. IMPRESSION: Scoliosis. Facet arthropathy. No acute abnormality. Surgical changes. TECHNICAL DOCUMENTATION: JOB ID: [id number] [employer]- All Rights Reserved Reading location - IP/workstation name: [email or web address]
[2018-09-24] MEDS ORDERED: ONDANSETRON 4 MG TAB.RAPDIS PO ONE (19:08)
[2018-09-24] MEDS ORDERED: OXYCODONE-ACETAMINOPHEN 5-325 MG TABLET PO ONE (19:23)
[2018-09-24] MEDS ORDERED: DIPHENHYDRAMINE HCL 50 MG CAPSULE PO ONE (19:23)
[2018-09-24 19:48] VITALS: BP 117/73
== END 2018-09-24 19:47 | disposition home or self-care (01) ==
LOC: ER 15:31
DX: M54.42 Lumbago with sciatica, left side (principal); M79.605 Pain in left leg; G57.02 Lesion of sciatic nerve, left lower limb; R73.03 Prediabetes; Z79.899 Other long term (current) drug therapy
CPT/HCPCS: 99283; 96372; 72110; S0119; J1100

== ENCOUNTER 2018-09-25 08:17 | Emergency (ER) | payer OTHER ==
[2018-09-25] MEDS ORDERED: OXYCODONE-ACETAMINOPHEN 5-325 MG TABLET PO ONE (09:31)
[2018-09-25] MEDS ORDERED: ONDANSETRON 4 MG TAB.RAPDIS PO ONE (09:31)
--- NOTE | 2018-09-25 09:37 | ER Document Report ---
ED General - General Chief Complaint: Urinary Problem Stated Complaint: BACK PAIN, BLOOD IN URINE Time Seen by Provider: 09/25/18 09:08 TRAVEL OUTSIDE OF THE [place] IN LAST 30 DAYS: No - HPI Notes: Patient is a 43 that presents to the emergency department for chief complaint of dysuria and hematuria. Patient states she has a history of chronic UTIs. She is not on any baseline prophylactic antibiotic. She was seen in the emergency room yesterday for low back pain and pain in her left gluteal region. She does have a history of piriformis syndrome and states that pain was an exacerbation of her piriformis syndrome. She received a steroid injection yesterday and is complaining of pain in her injection site. She states that her low back pain has gotten worse. She denies new injury or trauma. She denies any fevers or chills but does feel nauseated. She has not had any episodes of emesis. She denies any saddle anesthesia, lower extremity numbness or weakness, and incontinence. Past Medical History: Piriformis syndrome, frequent UTIs, von Willebrand's, migraines, PCOS, eosinophilic esophagitis Past Surgical History: Cholecystectomy, appendectomy, partial hysterectomy, back surgery Social History: Denies tobacco. Occasional alcohol. Denies drugs. Family History: Reviewed and noncontributory for presenting illness Allergies: Reviewed, see documented allergy list. REVIEW OF SYSTEMS: CONSTITUTIONAL : No fever chills No diaphoresis No recent illness EENT: No vision changes No congestion No sore throat CARDIOVASCULAR: No chest pain No palpitations RESPIRATORY: No shortness of breath No cough No difficulty breathing GASTROINTESTINAL: No abdominal pain nausea No vomiting No diarrhea GENITOURINARY: dysuria hematuria No difficulty urinating MUSCULOSKELETAL: back pain No leg pain No arm pain SKIN: No rashes No lesions LYMPHATIC: No swollen, enlarged glands. NEUROLOGICAL: No lightheadedness No headache No weakness No paresthesias PSYCHIATRIC: No anxiety No depression PHYSICAL EXAMINATION: Vital signs reviewed, nursing noted reviewed. GENERAL: Well-appearing, well-nourished and in no acute distress. HEAD: Atraumatic, normocephalic. EYES: Eyes appear normal, extraocular movements intact, sclera anicteric, conjunctiva are normal. ENT: nares patent, oropharynx clear without exudates. Moist mucous membranes. NECK: Normal range of motion, supple without lymphadenopathy LUNGS: Breath sounds clear to auscultation bilaterally and equal. No wheezes rales or rhonchi. HEART: Regular rate and rhythm without murmurs ABDOMEN: Soft, nontender, normoactive bowel sounds. No rebound, guarding, or rigidity. No masses appreciated. EXTREMITIES: Nontender, good range of motion, no pitting or edema. Back: No midline spinal tenderness. Bilateral lumbar paraspinal tenderness. No overlying erythema or rash. NEUROLOGICAL: No focal neurological deficits. Moves all extremities spontaneously Motor and sensory grossly intact on exam. PSYCH: Normal mood, normal affect. SKIN: Warm, Dry, normal turgor, no rashes or lesions noted on exposed skin. No visible injection site on gluteal region - Related Data Allergies/Adverse Reactions: ibuprofen Allergy (Verified 06/21/18 06:40) latex Allergy (Verified 06/21/18 06:40) metoclopramide [From Reglan] Allergy (Verified 06/21/18 06:40) NSAIDS (Non-Steroidal Anti-Inflamma Allergy (Verified 06/21/18 06:40) Penicillins Allergy (Verified 06/21/18 06:40) sulfamethoxazole [From Septra] Allergy (Verified 06/21/18 06:40) sumatriptan [From Imitrex] Allergy (Verified 06/21/18 06:40) tramadol Allergy (Verified 06/21/18 06:40) trimethoprim [From Septra] Allergy (Verified 06/21/18 06:40) zolmitriptan [From Zomig] Allergy (Verified 06/21/18 06:40) haloperidol [From Haldol] Adverse Reaction (Verified 08/01/18 19:45) prochlorperazine [From Compazine] Adverse Reaction (Verified 06/21/18 06:40) Past Medical History - Social History Smoking Status: Never Smoker Chew tobacco use (# tins/day): No Frequency of alcohol use: Rare Drug Abuse: None Family History: Arthritis, COPD, CVA, DM, Hyperlipidemia, Hypertension, Malignancy Patient has suicidal ideation: No Patient has homicidal ideation: No - Past Medical History Cardiac Medical History: Reports: Hx Hypercholesterolemia Neurological Medical History: Reports: Hx Migraine Endocrine Medical History: Comment Only: Hx Diabetes Mellitus Type 2 - pre diabetic Renal/ Medical History: Reports: Hx Ovarian Cysts - PCOS. Denies: Hx Peritoneal Dialysis GI Medical History: Reports: Hx Gastroesophageal Reflux Disease, Hx Hiatal Hernia Musculoskeletal Medical History: Reports Hx Arthritis, Reports Hx Musculoskeletal Deformity - Scoliosis, Reports Hx Musculoskeletal Trauma Psychiatric Medical History: Reports: Hx Anxiety, Hx Depression Traumatic Medical History: Reports: Hx Fractures - Arm Past Surgical History: Reports: Hx Appendectomy, Hx Cholecystectomy, Hx Genitourinary Surgery - "BLADDER SLING", Hx Hysterectomy, Hx Orthopedic Surgery - Alexander rods - Immunizations Hx Diphtheria, Pertussis, Tetanus Vaccination: No - 2009 Review of Systems - Review of Systems Notes: Dictated Physical Exam - Vital signs Vitals: Temp Pulse Resp BP Pulse Ox 97.8 F 99 18 130/85 H 98 09/25/18 08:26 09/25/18 08:26 09/25/18 08:26 09/25/18 08:26 09/25/18 08:26 - Notes Notes: Dictated Course - Re-evaluation Re-evalutation: 09/25/18 09:45 Vitals reviewed. Nursing notes reviewed. Patient is nontoxic-appearing. She was given Zofran and 1 Percocet for symptom medic management. 09/25/18 13:13 Patient reevaluated and is hemodynamically stable. She did get improvement of symptoms after pain medication. CT scan shows no acute process. Lab work shows no renal insufficiency or electrolyte derangements. She has a mild leukocytosis but did receive steroids yesterday. Patient may have passed a small kidney stone but none is currently visualized. I did psychosocial rehabilitation counselor her on her hematuria. She has not had hematuria while in the emergency room and I do not suspect active bleeding. She will be discharged home in stable condition. She will follow with primary care for reevaluation in the next few days. She will return for new or worsening symptoms. Stable at discharge. Laboratory 09/25/18 09/25/18 09/25/18 09:18 10:42 10:42 WBC 13.3 H RBC 4.81 Hgb 13.2 Hct 39.0 MCV 81 MCH 27.4 MCHC 33.7 RDW 13.5 Plt Count 335 Seg Neutrophils % 73.9 Lymphocytes % 18.7 Monocytes % 7.1 Eosinophils % 0.0 Basophils % 0.3 Absolute Neutrophils 9.8 H Absolute Lymphocytes 2.5 Absolute Monocytes 1.0 Absolute Eosinophils 0.0 Absolute Basophils 0.0 Sodium 142.1 Potassium 4.4 Chloride 106 Carbon Dioxide 22 Anion Gap 14 BUN 15 Creatinine 0.65 Est GFR ( Amer) > 60 Est GFR (Non-Af Amer) > 60 Glucose 132 H Calcium 10.1 Urine Color YELLOW Urine Appearance SLIGHTLY-CLOUDY Urine pH 5.0 Ur Specific [place] 1.028 Urine Protein NEGATIVE Urine Glucose (UA) NEGATIVE Urine Ketones NEGATIVE Urine Blood SMALL H Urine Nitrite NEGATIVE Urine Bilirubin NEGATIVE Urine Urobilinogen NEGATIVE Ur Leukocyte Esterase NEGATIVE Urine WBC (Auto) 1 Urine RBC (Auto) 3 Squamous Epi Cells Auto 3 Urine Mucus (Auto) FEW Urine Ascorbic Acid NEGATIVE Abdomen/Pelvis CT 09/25/18 10:17 IMPRESSION: NO SIGNIFICANT OR ACUTE PROCESS IN THE ABDOMEN OR PELVIS. - Vital Signs Vital signs: Temp Pulse Resp BP Pulse Ox 97.8 F 99 18 130/85 H 98 09/25/18 08:26 09/25/18 08:26 09/25/18 08:26 09/25/18 08:26 09/25/18 08:26 - Laboratory Result Diagrams: 09/25/18 10:42 09/25/18 10:42 Laboratory results interpreted by me: 09/25/18 09/25/18 09/25/18 09:18 10:42 10:42 WBC 13.3 H Absolute Neutrophils 9.8 H Glucose 132 H Urine Blood SMALL H Discharge - Discharge Clinical Impression: Back pain Qualifiers: Back pain location: low back pain Chronicity: acute Back pain laterality: unspecified Sciatica presence: without sciatica Qualified Code(s): M54.5 - Low back pain Hematuria Qualifiers: Hematuria type: other microscopic Qualified Code(s): R31.29 - Other microscopic hematuria; R31.2 - Other microscopic hematuria Condition: Stable Disposition: HOME, SELF-CARE Instructions: Hematuria ([facility]), Low Back Pain ([facility]) Additional Instructions: Please return to the emergency department if you have any worsening, or concern of your symptoms. Please return to the emergency department if you develop chest pain, difficulty breathing, severe abdominal pain, or ongoing vomiting. Please follow-up with your primary care physician in 2-3 days and any other recommended physicians. If prescribed, take all medications as directed. If you have any questions or concerns do not hesitate to return the emergency department for evaluation. [] Referrals: [facility] [Provider Group] - Follow up in 3-5 days
[2018-09-25 09:41] LABS: APPEARANCE,URINE SLIGHTLY-CLOUDY; BILIRUBIN,URINE NEGATIVE (NEGATIVE); COLOR,URINE YELLOW; GLUCOSE, URINE NEGATIVE (NEGATIVE); KETONES,URINE NEGATIVE (NEGATIVE); LEUKOCYTE ESTERASE,URINE NEGATIVE (NEGATIVE); NITRITE,URINE NEGATIVE (NEGATIVE); PROTEIN,URINE NEGATIVE (NEGATIVE); URINE SPECIFIC GRAVITY 1.028; UROBILINOGEN,URINE NEGATIVE mg/dL (<2.0)
[2018-09-25] MEDS ORDERED: NORMAL SALINE 1000 ML 1,000 ML IV ONE (10:17)
[2018-09-25 10:57] LABS: ABSOLUTE LYMPHOCYTES (AUTO) 2.5 10^3/uL (0.5-4.7); ABSOLUTE NEUT (AUTO) 9.8 10^3/uL (1.7-8.2); BASOPHILS % (AUTO) 0.3 % (0-2); HEMOGLOBIN 13.2 g/dL (12.0-15.5); LYMPHOCYTES % (AUTO) 18.7 % (13-45); MEAN CORPUSCULAR HEMOGLOBIN 27.4 pg (27.0-33.4); MEAN CORPUSCULAR HGB CONC 33.7 g/dL (32.0-36.0); MEAN CORPUSCULAR VOLUME 81 fl (80-97); MONOCYTES % (AUTO) 7.1 % (3-13); PLATELET COUNT 335 10^3/uL (150-450); RED BLOOD COUNT 4.81 10^6/uL (3.72-5.28); RED CELL DISTRIBUTION WIDTH 13.5 % (11.5-14.0); SEGMENTED NEUTROPHILS % (AUTO) 73.9 % (42-78); TOTAL CELLS COUNTED % (AUTO) 100 %; WHITE BLOOD COUNT 13.3 10^3/uL (4.0-10.5)
[2018-09-25 11:24] LABS: ANION GAP 14 (5-19); BLOOD UREA NITROGEN 15 mg/dL (7-20); CALCIUM 10.1 mg/dL (8.4-10.2); CARBON DIOXIDE 22 mmol/L (22-30); CHLORIDE 106 mmol/L (98-107); GLUCOSE 132 mg/dL (75-110); POTASSIUM 4.4 mmol/L (3.6-5.0); SODIUM 142.1 mmol/L (137-145)
[2018-09-25] MEDS ORDERED: ONDANSETRON HCL INJ/PF 4 MG/2 ML SDV IV ONE (11:56)
[2018-09-25] MEDS ORDERED: MORPHINE SULFATE 10 MG/ML INJ IV ONE ×2 (11:56→13:20)
[2018-09-25] MEDS ORDERED: DIPHENHYDRAMINE HCL 25 MG CAPSULE PO ONE (12:15)
--- NOTE | 2018-09-25 12:39 | RADIOLOGY REPORT (SQ) ---
EXAM DESCRIPTION: CT ABD/PELVIS NO ORAL OR IV COMPLETED DATE/TIME: 09/25/2018 12:07 pm REASON FOR STUDY: right flank pain COMPARISON: CT abdomen pelvis 06/21/2018, 09/26/2017 TECHNIQUE: CT scan of the abdomen and pelvis performed without intravenous or oral contrast. Images reviewed with lung, soft tissue, and bone windows. Reconstructed coronal and sagittal MPR images revi ewed. All images stored on PACS. All CT scanners at this facility use dose modulation, iterative reconstruction, and/or weight based d osing when appropriate to reduce radiation dose to as low as reasonably achievable (ALARA). [facility]: Dose Right [facility]: CareDose [facility]: Dose Right [facility]: Teradose 4D [facility]: [employer] RADIATION DOSE: CT Rad equipment meets quality standard of care and radiation dose reduction techniq ues were employed. CTDIvol: 14.4 mGy. DLP: 799 mGy-cm.mGy. LIMITATIONS: None. FINDINGS: LOWER CHEST: Small hiatal hernia. Lung bases are clear. Alexander rods over the lower t horacic and upper lumbar spine. NON-CONTRASTED LIVER, SPLEEN, ADRENALS: Evaluation limited by lack of IV contrast. No identified sign ificant masses. PANCREAS: No masses. No peripancreatic inflammatory changes. GALLBLADDER: Surgically absent RIGHT KIDNEY AND URETER: No suspicious masses. Assessment limited by lack of IV contrast. No signif icant calcifications. No hydronephrosis or hydroureter. LEFT KIDNEY AND URETER: No suspicious masses. Assessment limited by lack of IV contrast. 2 mm left upper pole intrarenal nonobstructive stone No hydronephrosis or hydroureter. AORTA AND RETROPERITONEUM: No aneurysm. No retroperitoneal masses or adenopathy. BOWEL AND PERITONEAL CAVITY: No obvious masses or inflammatory changes. No free fluid. APPENDIX: Surgically absent PELVIS, BLADDER, AND ABDOMINAL WALL:No abnormal masses. No free fluid. Bladder normal. Post hysterec valentina BONES: Convex leftward lumbar curvature OTHER: No other significant finding. IMPRESSION: NO SIGNIFICANT OR ACUTE PROCESS IN THE ABDOMEN OR PELVIS. COMMENT: Quality ID # [id number]: Final reports with documentation of one or more dose reduction techniques (e.g., Automated exposure control, adjustment of the mA and/or kV according to patient size, use of iterative reconstruction technique) TECHNICAL DOCUMENTATION: JOB ID: [id number]- All Rights Reserved Reading location - IP/workstation name: [email or web address]
[2018-09-25 13:13] VITALS: BP 118/67
== END 2018-09-25 13:35 | disposition home or self-care (01) ==
LOC: ER 08:17
DX: R31.29 Other microscopic hematuria (principal); G57.00 Lesion of sciatic nerve, unspecified lower limb; M54.5 Low back pain; R11.0 Nausea; R30.0 Dysuria; D72.829 Elevated white blood cell count, unspecified; Z87.440 Personal history of urinary (tract) infections; Z88.6 Allergy status to analgesic agent; Z91.040 Latex allergy status; Z88.8 Allergy status to other drugs, medicaments and biological substances; Z88.0 Allergy status to penicillin; Z88.1 Allergy status to other antibiotic agents; Z88.5 Allergy status to narcotic agent
CPT/HCPCS: 96376; 99284; 96361; 96374; 96375; 36415; 85025; 80048; 81001; 74176; S0119; J2270; J2405; J7030

== ENCOUNTER 2018-09-29 23:19 | Emergency (ER) | payer OTHER ==
[2018-09-29] MEDS ORDERED: ONDANSETRON HCL INJ/PF 4 MG/2 ML SDV IV ONE (23:56)
[2018-09-29] MEDS ORDERED: NORMAL SALINE 1000 ML 1,000 ML IV ONE (23:57)
[2018-09-30 00:17] LABS: APPEARANCE,URINE CLEAR; BILIRUBIN,URINE NEGATIVE (NEGATIVE); GLUCOSE, URINE NEGATIVE (NEGATIVE); KETONES,URINE NEGATIVE (NEGATIVE); LEUKOCYTE ESTERASE,URINE NEGATIVE (NEGATIVE); NITRITE,URINE POSITIVE (NEGATIVE); PROTEIN,URINE NEGATIVE (NEGATIVE); URINE SPECIFIC GRAVITY 1.004
[2018-09-30] MEDS ORDERED: MORPHINE SULFATE 10 MG/ML INJ IV ONE (00:20)
[2018-09-30 00:21] LABS: COLOR,URINE YELLOW
[2018-09-30] MEDS ORDERED: DIPHENHYDRAMINE HCL 50 MG/ML VIAL IV ONE (00:21)
[2018-09-30 00:22] LABS: ABSOLUTE BASOPHILS # (AUTO) 0.1 10^3/uL (0.0-0.2); ABSOLUTE EOSINOPHILS # (AUTO) 0.4 10^3/uL (0.0-0.6); ABSOLUTE LYMPHOCYTES (AUTO) 4.4 10^3/uL (0.5-4.7); ABSOLUTE MONOCYTES (AUTO) 1.1 10^3/uL (0.1-1.4); ABSOLUTE NEUT (AUTO) 6.8 10^3/uL (1.7-8.2); BASOPHILS % (AUTO) 0.8 % (0-2); EOSINOPHILS % (AUTO) 3.4 % (0-6); HEMATOCRIT 41.2 % (36.0-47.0); HEMOGLOBIN 13.7 g/dL (12.0-15.5); LYMPHOCYTES % (AUTO) 34.3 % (13-45); MEAN CORPUSCULAR HGB CONC 33.3 g/dL (32.0-36.0); MEAN CORPUSCULAR VOLUME 81 fl (80-97); MONOCYTES % (AUTO) 8.2 % (3-13); PLATELET COUNT 342 10^3/uL (150-450); RED BLOOD COUNT 5.07 10^6/uL (3.72-5.28); RED CELL DISTRIBUTION WIDTH 13.7 % (11.5-14.0); SEGMENTED NEUTROPHILS % (AUTO) 53.3 % (42-78); TOTAL CELLS COUNTED % (AUTO) 100 %; WHITE BLOOD COUNT 12.8 10^3/uL (4.0-10.5)
[2018-09-30 00:33] LABS: ALANINE AMINOTRANSFERASE 19 U/L (9-52); ALBUMIN 4.5 g/dL (3.5-5.0); ALKALINE PHOSPHATASE 51 U/L (38-126); ANION GAP 15 (5-19); ASPARTATE AMINO TRANSFERASE 19 U/L (14-36); BILIRUBIN,DIRECT 0.1 mg/dL (0.0-0.4); BILIRUBIN,TOTAL 0.5 mg/dL (0.2-1.3); BLOOD UREA NITROGEN 14 mg/dL (7-20); CALCIUM 9.8 mg/dL (8.4-10.2); CARBON DIOXIDE 22 mmol/L (22-30); CHLORIDE 104 mmol/L (98-107); GLUCOSE 100 mg/dL (75-110); SODIUM 141.3 mmol/L (137-145); TOTAL PROTEIN 7.8 g/dL (6.3-8.2)
--- NOTE | 2018-09-30 00:41 | ER Document Report ---
ED General - General Chief Complaint: Flank Pain Stated Complaint: FLANK PAIN, BLADDER PAIN Time Seen by Provider: 09/29/18 23:36 Notes: Patient is a 43-year-old female presenting to the emergency department complaining of left flank pain. Patient states she has had left flank pain for the last couple of days and has also complaining of hematuria. Patient states she was to this facility on 09/25/[address] States staff at this facility told her she did not have a kidney stone and that was not the cause of her back pain. Patient states she went to her primary care provider Dr. Le at the [facility] on Thursday where she got a repeat CT and UA. Patient states she met with Dr. Le today who told her her urine was infected and that she did have a kidney stone. States he placed her on Pyridium and Cipro. States she has taken 1 dose of each[address] States Dr. Le did not give her any pain medicine. Patient states she presents to the emergency room because left flank pain has increased and she was not given pain medicine by Dr. Le. Patient does admit to some nausea with one episode of vomiting today. Patient denies diarrhea, or abdominal pain. Patient also denies suprapubic tenderness. Patient denies fever. Past medical history: Von Willebrand's, migraines, PCOS, eosinophilic esophagitis, GERD, hyperlipidemia Medications: Metformin, Topamax, Lipitor, Nexium, Zyrtec, calcium, Ambien Allergies: Ibuprofen, latex, metoclopamide surgical history: Cholecystectomy, appendectomy, Partial hysterectomy to include her cervix and uterus. Patient denies cigarette smoking, denies illicit drug use, admits to occasional EtOH use. TRAVEL OUTSIDE OF THE [place] IN LAST 30 DAYS: No - Related Data Allergies/Adverse Reactions: ibuprofen Allergy (Verified 06/21/18 06:40) latex Allergy (Verified 06/21/18 06:40) metoclopramide [From Reglan] Allergy (Verified 06/21/18 06:40) NSAIDS (Non-Steroidal Anti-Inflamma Allergy (Verified 06/21/18 06:40) Penicillins Allergy (Verified 06/21/18 06:40) sulfamethoxazole [From Septra] Allergy (Verified 06/21/18 06:40) sumatriptan [From Imitrex] Allergy (Verified 06/21/18 06:40) tramadol Allergy (Verified 06/21/18 06:40) trimethoprim [From Septra] Allergy (Verified 06/21/18 06:40) zolmitriptan [From Zomig] Allergy (Verified 06/21/18 06:40) haloperidol [From Haldol] Adverse Reaction (Verified 08/01/18 19:45) prochlorperazine [From Compazine] Adverse Reaction (Verified 06/21/18 06:40) Past Medical History - Social History Smoking Status: Never Smoker Chew tobacco use (# tins/day): No Frequency of alcohol use: None Drug Abuse: None Family History: Arthritis, COPD, CVA, DM, Hyperlipidemia, Hypertension, Malignancy Patient has suicidal ideation: No Patient has homicidal ideation: No - Past Medical History Cardiac Medical History: Reports: Hx Hypercholesterolemia Neurological Medical History: Reports: Hx Migraine Endocrine Medical History: Comment Only: Hx Diabetes Mellitus Type 2 - pre diabetic Renal/ Medical History: Reports: Hx Ovarian Cysts - PCOS. Denies: Hx Peritoneal Dialysis GI Medical History: Reports: Hx Gastroesophageal Reflux Disease, Hx Hiatal Hernia Musculoskeletal Medical History: Reports Hx Arthritis, Reports Hx Musculoskeletal Deformity - Scoliosis, Reports Hx Musculoskeletal Trauma Psychiatric Medical History: Reports: Hx Anxiety, Hx Depression Traumatic Medical History: Reports: Hx Fractures - Arm Past Surgical History: Reports: Hx Appendectomy, Hx Cholecystectomy, Hx Genitourinary Surgery - "BLADDER SLING", Hx Hysterectomy, Hx Orthopedic Surgery - Alexander rods - Immunizations Hx Diphtheria, Pertussis, Tetanus Vaccination: No - 2009 Review of Systems - Review of Systems Constitutional: denies: Fever, Weakness EENT: No symptoms reported Cardiovascular: No symptoms reported Respiratory: No symptoms reported Gastrointestinal: See HPI Genitourinary: See HPI Female Genitourinary: See HPI Musculoskeletal: See HPI Skin: No symptoms reported Hematologic/Lymphatic: No symptoms reported Neurological/Psychological: No symptoms reported Physical Exam - Vital signs Vitals: Temp Pulse Resp BP Pulse Ox 98.2 F 105 H 17 123/89 H 98 09/29/18 23:24 09/29/18 23:24 09/29/18 23:24 09/29/18 23:24 09/29/18 23:24 Course - Re-evaluation Re-evalutation: In reviewing Pts CT on 09/25/2018 it appears Pt. has a 2mm L upper pole intrarenal non obstructive stone. 11/29/18 00:37 Pt. stated that when she gets the morphine she is also to get Benadryl. Stated with Morphine alone she gets "itchy" denies hives or shortness of breath. Urine does show +nitrites but Pt. is already being treated for UTI with Cipro. Discussed continuing Cipro at home. +small blood also seen. 09/30/18 00:46 Leukocytosis 12.8, down from 13.3 on 09/25/2018 09/30/18 02:58 Attempted to p.o. the patient prior to discharge. She was able to drink a half a small glass of ledy terra and then states she vomited it. Pure ledy terra was seen in the emesis basin, nursing staff or myself did not see the patient vomit. Will try Phenergan at this time. Patient states she does have a prescription for Phenergan at home states it typically helps better than Zofran. Phenergan helped to the patient's nausea, she was able to p.o. ledy terra without vomiting. Discussed need for follow-up with primary care provider. Ultrasound shows equivocal hydronephrosis left kidney. Last HR noted on monitor was 99. - Vital Signs Vital signs: Temp Pulse Resp BP Pulse Ox 98.2 F 98 17 116/74 98 09/29/18 23:24 09/30/18 03:01 09/29/18 23:24 09/30/18 02:44 09/30/18 02:44 - Laboratory Result Diagrams: 09/30/18 00:08 09/30/18 00:08 Laboratory results interpreted by me: 09/29/18 09/30/18 23:40 00:08 WBC 12.8 H Urine Blood SMALL H Urine Nitrite POSITIVE H Urine Urobilinogen 2.0 H Discharge - Discharge Clinical Impression: Left flank pain Hematuria Qualifiers: Hematuria type: unspecified type Qualified Code(s): R31.9 - Hematuria, unspecified Vomiting Qualifiers: Vomiting type: unspecified Vomiting Intractability: non-intractable Nausea presence: with nausea Qualified Code(s): R11.2 - Nausea with vomiting, unspecified Urinary tract infection Qualifiers: Urinary tract infection type: site unspecified Hematuria presence: with hematuria Qualified Code(s): N39.0 - Urinary tract infection, site not specified Condition: Stable Disposition: HOME, SELF-CARE Instructions: Antinausea Medication ([facility]), Flank Pain ([facility]), Intravenous (IV) Fluids ([facility]), Urinary Anesthetic Agent ([facility]), Urinary Tract Infection ([facility]) Additional Instructions: As we discussed you have been seen and treated in the emergency department for left flank pain. You should take medications as prescribed. Please follow-up with your primary care provider in the next 24-48 hours. Please return to the emergency room for any other concerning symptoms. Referrals: FUNMI LE JR, MD [Primary Care Provider] - Follow up as needed
[2018-09-30] MEDS ORDERED: ONDANSETRON HCL INJ/PF 4 MG/2 ML SDV IV ONE (01:40)
--- NOTE | 2018-09-30 02:09 | RADIOLOGY REPORT (SQ) ---
EXAM DESCRIPTION: US RETROPERITONEUM LIMITED COMPLETED DATE/TME: 09/29/2018 23:59 CLINICAL HISTORY: 43 years, Female, BL flank pain COMPARISON: CT 09/25/2018 TECHNIQUE: Transverse and longitudinal sonographic images of the kidneys and urinary bladder LIMITATIONS: None. FINDINGS: Right kidney has maximal diameter of 10.4 cm, the left 10.8 cm. Equivocal/mild left-sided hydronephrosis. No discrete renal calculus or mass. No perinephric fluid collection. The cortical medullary differentiation is preserved bilaterally. Bilateral ureteral jets extending into the urinary bladder. Prevoid urinary bladder volume 239 mL. Post void residual 60 mL. IMPRESSION: Equivocal/mild left hydronephrosis. Remainder unremarkable copyright 2010 [employer]- All Rights Reserved
[2018-09-30] MEDS ORDERED: PROMETHAZINE HCL INJ 25 MG/1 ML VIAL IV ONE (02:58)
[2018-09-30 03:23] VITALS: BP 118/68
== END 2018-09-30 03:25 | disposition home or self-care (01) ==
LOC: ER 23:19
DX: N39.0 Urinary tract infection, site not specified (principal); R31.9 Hematuria, unspecified; R11.2 Nausea with vomiting, unspecified; G43.909 Migraine, unspecified, not intractable, without status migrainosus; K21.9 Gastro-esophageal reflux disease without esophagitis; E78.5 Hyperlipidemia, unspecified; E78.00 Pure hypercholesterolemia, unspecified; E28.2 Polycystic ovarian syndrome; Z79.84 Long term (current) use of oral hypoglycemic drugs; Z79.899 Other long term (current) drug therapy; Z88.6 Allergy status to analgesic agent; Z91.040 Latex allergy status; Z88.8 Allergy status to other drugs, medicaments and biological substances; Z88.0 Allergy status to penicillin; Z88.1 Allergy status to other antibiotic agents; Z88.5 Allergy status to narcotic agent
CPT/HCPCS: 96376; 99284; 96361; 96374; 96375; 36415; 85025; 80053; 81001; 76775; J1200; J2270; J2550; J2405; J7030

== ENCOUNTER 2018-10-28 21:02 | Emergency (ER) | payer OTHER ==
[2018-10-28] MEDS ORDERED: ONDANSETRON 4 MG TAB.RAPDIS PO ONE (22:52)
--- NOTE | 2018-10-28 22:53 | ER Document Report ---
ED Medical Screen (RME) - General Chief Complaint: Nausea/Vomiting/Diarrhea Stated Complaint: URINARY COMPLAINTS Time Seen by Provider: 10/28/18 22:50 Notes: 43-year-old female with complaints of dysuria starting 4 days ago, she had recently completed a course of Cipro for UTI, she was placed on Macrobid but states her symptoms have not improved for the past 4 days. She has had vomiting, pain starting in her left abdomen to her left flank. She has had chills but denies fevers. She has also started to have diarrhea, she has had C. difficile in the past. She states she was told she had a stone in her left kidney, does not believe she is ever passed it. TRAVEL OUTSIDE OF THE [place] IN LAST 30 DAYS: No - Related Data Allergies/Adverse Reactions: ibuprofen Allergy (Verified 06/21/18 06:40) latex Allergy (Verified 06/21/18 06:40) metoclopramide [From Reglan] Allergy (Verified 06/21/18 06:40) NSAIDS (Non-Steroidal Anti-Inflamma Allergy (Verified 06/21/18 06:40) Penicillins Allergy (Verified 06/21/18 06:40) sulfamethoxazole [From Septra] Allergy (Verified 06/21/18 06:40) sumatriptan [From Imitrex] Allergy (Verified 06/21/18 06:40) tramadol Allergy (Verified 06/21/18 06:40) trimethoprim [From Septra] Allergy (Verified 06/21/18 06:40) zolmitriptan [From Zomig] Allergy (Verified 06/21/18 06:40) haloperidol [From Haldol] Adverse Reaction (Verified 08/01/18 19:45) prochlorperazine [From Compazine] Adverse Reaction (Verified 06/21/18 06:40) Past Medical History - Social History Family history: Reviewed & Not Pertinent - Past Medical History Cardiac Medical History: Reports: Hx Hypercholesterolemia Neurological Medical History: Reports: Hx Migraine Endocrine Medical History: Comment Only: Hx Diabetes Mellitus Type 2 - pre diabetic Renal/ Medical History: Reports: Hx Ovarian Cysts - PCOS. Denies: Hx Peritoneal Dialysis GI Medical History: Reports: Hx Gastroesophageal Reflux Disease, Hx Hiatal Hernia Musculoskeltal Medical History: Reports Hx Arthritis, Reports Hx Musculoskeletal Deformity - Scoliosis, Reports Hx Musculoskeletal Trauma Psychiatric Medical History: Reports: Hx Anxiety, Hx Depression Traumatic Medical History: Reports: Hx Fractures - Arm Past Surgical History: Reports: Hx Appendectomy, Hx Cholecystectomy, Hx Genitourinary Surgery - "BLADDER SLING", Hx Hysterectomy, Hx Orthopedic Surgery - Alexander rods - Immunizations Hx Diphtheria, Pertussis, Tetanus Vaccination: No - 2009 History of Influenza Vaccine for 08/2017 - 12/2017 Season: Yes Influenza Administration Date for 08/2017 - 12/2017 Season: 12/03/16 Physical Exam - Vital signs Vitals: Temp Pulse Resp BP Pulse Ox 98.8 F 96 18 120/78 96 10/28/18 21:57 10/28/18 21:57 10/28/18 21:57 10/28/18 21:57 10/28/18 21:57 - General General appearance: Appears well In distress: None - Abdominal Tenderness: Tender - Tender in the general left abdomen, nonspecific, no specific guarding Course - Re-evaluation Re-evalutation: I have greeted and performed a rapid initial assessment of this patient. A comprehensive ED assessment and evaluation of the patient, analysis of test results and completion of the medical decision making process will be conducted by additional ED providers. - Vital Signs Vital signs: Temp Pulse Resp BP Pulse Ox 98.8 F 96 18 120/78 96 10/28/18 21:57 10/28/18 21:57 10/28/18 21:57 10/28/18 21:57 10/28/18 21:57 Doctor's Discharge - Discharge Referrals: FUNMI MARCOS JR, MD [Primary Care Provider] - Follow up as needed
[2018-10-28 23:20] LABS: ABSOLUTE BASOPHILS # (AUTO) 0.1 10^3/uL (0.0-0.2); ABSOLUTE EOSINOPHILS # (AUTO) 0.4 10^3/uL (0.0-0.6); ABSOLUTE LYMPHOCYTES (AUTO) 3.2 10^3/uL (0.5-4.7); ABSOLUTE MONOCYTES (AUTO) 0.9 10^3/uL (0.1-1.4); ABSOLUTE NEUT (AUTO) 7.8 10^3/uL (1.7-8.2); BASOPHILS % (AUTO) 0.9 % (0-2); HEMATOCRIT 44.2 % (36.0-47.0); HEMOGLOBIN 14.8 g/dL (12.0-15.5); MEAN CORPUSCULAR HEMOGLOBIN 27.6 pg (27.0-33.4); MEAN CORPUSCULAR HGB CONC 33.5 g/dL (32.0-36.0); MEAN CORPUSCULAR VOLUME 82 fl (80-97); MONOCYTES % (AUTO) 7.3 % (3-13); PLATELET COUNT 396 10^3/uL (150-450); RED BLOOD COUNT 5.36 10^6/uL (3.72-5.28); RED CELL DISTRIBUTION WIDTH 13.7 % (11.5-14.0); SEGMENTED NEUTROPHILS % (AUTO) 62.8 % (42-78); TOTAL CELLS COUNTED % (AUTO) 100 %; WHITE BLOOD COUNT 12.5 10^3/uL (4.0-10.5)
[2018-10-28 23:44] LABS: BILIRUBIN,URINE NEGATIVE (NEGATIVE); COLOR,URINE AMBER; GLUCOSE, URINE NEGATIVE (NEGATIVE); KETONES,URINE NEGATIVE (NEGATIVE); LEUKOCYTE ESTERASE,URINE NEGATIVE (NEGATIVE); NITRITE,URINE POSITIVE (NEGATIVE); PROTEIN,URINE NEGATIVE (NEGATIVE); URINE SPECIFIC GRAVITY 1.023
[2018-10-28 23:49] LABS: ALANINE AMINOTRANSFERASE 18 U/L (9-52); ALBUMIN 4.9 g/dL (3.5-5.0); ALKALINE PHOSPHATASE 48 U/L (38-126); ANION GAP 13 (5-19); ASPARTATE AMINO TRANSFERASE 16 U/L (14-36); BILIRUBIN,TOTAL 0.7 mg/dL (0.2-1.3); BLOOD UREA NITROGEN 16 mg/dL (7-20); CALCIUM 10.5 mg/dL (8.4-10.2); CARBON DIOXIDE 21 mmol/L (22-30); CHLORIDE 109 mmol/L (98-107); GLUCOSE 99 mg/dL (75-110); TOTAL PROTEIN 8.5 g/dL (6.3-8.2)
[2018-10-28 23:57] LABS: APPEARANCE,URINE TURBID
[2018-10-29] MEDS ORDERED: MORPHINE SULFATE 10 MG/ML INJ IV ONE (00:19)
--- NOTE | 2018-10-29 00:26 | ER Document Report ---
ED General - General Chief Complaint: Nausea/Vomiting/Diarrhea Stated Complaint: URINARY COMPLAINTS Time Seen by Provider: 10/28/18 22:50 Notes: 43-year-old female with history of UTIs since to the emergency department with chief complaint of "goff to pee ". She said when she urinated that "particles were coming out of my pee". Patient was seen at the [facility] 2 days ago and was diagnosed with a UTI and placed on Macrobid which she is actively taking, this is day 2. She endorses chills, hot flashes, vomiting, diarrhea that started today, abdominal pain in the left lower quadrant, left flank pain, dysuria, frequency. She denies fevers, sweats, shortness of breath, chest pain. Patient was seen in this emergency room 1 month ago for similar symptoms, CT abdomen was performed which revealed a 2 mm stone within the left kidney. TRAVEL OUTSIDE OF THE [place] IN LAST 30 DAYS: No - HPI Patient complains to provider of: goff to urinate - Related Data Allergies/Adverse Reactions: ibuprofen Allergy (Verified 06/21/18 06:40) latex Allergy (Verified 06/21/18 06:40) metoclopramide [From Reglan] Allergy (Verified 06/21/18 06:40) NSAIDS (Non-Steroidal Anti-Inflamma Allergy (Verified 06/21/18 06:40) Penicillins Allergy (Verified 06/21/18 06:40) sulfamethoxazole [From Septra] Allergy (Verified 06/21/18 06:40) sumatriptan [From Imitrex] Allergy (Verified 06/21/18 06:40) tramadol Allergy (Verified 06/21/18 06:40) trimethoprim [From Septra] Allergy (Verified 06/21/18 06:40) zolmitriptan [From Zomig] Allergy (Verified 06/21/18 06:40) haloperidol [From Haldol] Adverse Reaction (Verified 08/01/18 19:45) prochlorperazine [From Compazine] Adverse Reaction (Verified 06/21/18 06:40) Past Medical History - Social History Smoking Status: Never Smoker Family History: Arthritis, COPD, CVA, DM, Hyperlipidemia, Hypertension, Malignancy - Past Medical History Cardiac Medical History: Reports: Hx Hypercholesterolemia Neurological Medical History: Reports: Hx Migraine Endocrine Medical History: Comment Only: Hx Diabetes Mellitus Type 2 - pre diabetic Renal/ Medical History: Reports: Hx Ovarian Cysts - PCOS. Denies: Hx Peritoneal Dialysis GI Medical History: Reports: Hx Gastroesophageal Reflux Disease, Hx Hiatal Hernia Musculoskeletal Medical History: Reports Hx Arthritis, Reports Hx Musculoskeletal Deformity - Scoliosis, Reports Hx Musculoskeletal Trauma Psychiatric Medical History: Reports: Hx Anxiety, Hx Depression Traumatic Medical History: Reports: Hx Fractures - Arm Past Surgical History: Reports: Hx Appendectomy, Hx Cholecystectomy, Hx Genitourinary Surgery - "BLADDER SLING", Hx Hysterectomy, Hx Orthopedic Surgery - Alexander rods - Immunizations Hx Diphtheria, Pertussis, Tetanus Vaccination: No - 2009 Review of Systems - Review of Systems Constitutional: See HPI EENT: No symptoms reported Cardiovascular: See HPI Respiratory: See HPI Gastrointestinal: See HPI Genitourinary: See HPI Female Genitourinary: No symptoms reported Musculoskeletal: No symptoms reported Skin: No symptoms reported Hematologic/Lymphatic: No symptoms reported Neurological/Psychological: No symptoms reported Physical Exam - Vital signs Vitals: Temp Pulse Resp BP Pulse Ox 98.8 F 96 18 120/78 96 10/28/18 21:57 10/28/18 21:57 10/28/18 21:57 10/28/18 21:57 10/28/18 21:57 - Notes Notes: Reviewed vital signs and nursing note as charted by RN. CONSTITUTIONAL: Well-appearing, well-nourished, acting appropriately for age HEAD: Normocephalic, atraumatic, no swelling EYES: PERRL, Conjunctivae clear, no drainage, EOMI, no scleral icterus ENT: External ears without lesions, External auditory canal is patent, airway patent, mucous membranes pink and moist NECK: Supple, no cervical lymphadenopathy, no masses CARD: Regular rate and rhythm, no murmurs, no rubs, no gallops, symmetric pulses RESP: The lungs are clear to auscultation bilaterally, no wheezing, no rales, no rhonchi. Respiratory rate and effort are normal, normal chest excursion. No respiratory distress, no retractions, no stridor, no nasal flaring, no accessory muscle use. ABD/GI: Normal bowel sounds, non-distended, soft, tenderness to palpation left lower quadrant, no rebound, no guarding, no palpable organomegaly : CVA tenderness to light palpation EXT: Normal ROM in all joints, non-tender to palpation, no effusions, no edema SKIN: Normal color for age and race, warm, dry, good turgor, no acute lesions noted NEURO: No facial asymmetry, moves all extremities equally, motor and sensory function intact Course - Re-evaluation Re-evalutation: 10/29/18 00:26 Well-appearing 43-year-old female in no acute distress presents to the emergency department for urinary symptoms of dysuria, frequency, left flank and left lower quadrant abdominal pain. She was seen at the [facility] 2 days ago and was diagnosed with a UTI and placed on Macrobid for which she is on day 2 of treatment. Also, she was seen here 1 month ago for similar symptoms, CT was performed which revealed a 2 mm stone within her left kidney. She has exquisite left CVA tenderness and some left lower quadrant abdominal pain. Ultrasound was ordered to assess for hydronephrosis. Urinalysis was positive for nitrites but patient has recently taken Pyridium which could confound the result. Furthermore patient is on a course of Macrobid for 1 week, currently on day 2. Patient cannot take NSAIDs due to history of von Willebrand's disease. At this time plan is to give morphine 2 mg for pain control so she can tolerate the ultrasound. 10/29/18 01:57 Ultrasound performed and radiologist read completed. Read stated mild hydronephrosis of left kidney consistent with previous exam. Radiologist did not see any renal calculus. Patient with equivocal UTI, plan is to instruct patient to complete her course of Macrobid follow-up with a primary care doctor. It could be that the stone has exited the kidney and is currently passing in the ureter. 10/29/18 01:58 - Vital Signs Vital signs: Temp Pulse Resp BP Pulse Ox 98.8 F 96 18 120/78 96 10/28/18 21:57 10/28/18 21:57 10/28/18 21:57 10/28/18 21:57 10/28/18 21:57 - Laboratory Result Diagrams: 10/28/18 23:07 10/28/18 23:07 Laboratory results interpreted by me: 10/28/18 10/28/18 10/28/18 21:52 23:07 23:07 WBC 12.5 H RBC 5.36 H Chloride 109 H Carbon Dioxide 21 L Calcium 10.5 H Total Protein 8.5 H Urine Nitrite POSITIVE H Urine Urobilinogen 4.0 H Discharge - Discharge Clinical Impression: Abdominal pain Qualifiers: Abdominal location: left lower quadrant Qualified Code(s): R10.32 - Left lower quadrant pain Condition: Good Disposition: HOME, SELF-CARE Instructions: Abdominal Pain ([facility]) Additional Instructions: You were seen in the emergency department this evening for back and abdominal pain. The ultrasound showed no evidence of a kidney stone in the actual kidney which means that you could currently be passing it. Also, your urinalysis did not show any evidence of a UTI, although you should continue taking the Macrobid and complete the entire course. We are sending you home with some pain medication, you can take this for breakthrough pain. If you develop fever, severe, intractable abdominal pain, you pass out, or have any other concerns please immediately return to the emergency department. Referrals: FUNMI MARCOS JR, MD [Primary Care Provider] - Follow up as needed ISHAAN ALVAREZ MD [NO LOCAL MD] - Follow up as needed
[2018-10-29] MEDS ORDERED: DIPHENHYDRAMINE HCL 50 MG/ML VIAL IV ONE (01:01)
--- NOTE | 2018-10-29 01:03 | RADIOLOGY REPORT (SQ) ---
EXAM DESCRIPTION: US RETROPERITONEUM COMPLETED DATE/TME: 10/28/2018 22:51 CLINICAL HISTORY: 43 years, Female, left flank pain COMPARISON: Prior ultrasound 09/30/2018. TECHNIQUE: Transverse and longitudinal sonographic images of the kidneys and urinary bladder LIMITATIONS: None. FINDINGS: The right kidney measures 10.4 x 5.4 x 4.1 cm. Left kidney measures 11.4 x 5.9 x 5.2 cm. Urinary bladder is not distended, limiting its evaluation. No renal calculus, mass, or right-sided hydronephrosis. Equivocal prominence of the left pelvicalyceal system as before may reflect mild left hydronephrosis. No perinephric fluid collection. Cortical medullary differentiation preserved bilaterally. IMPRESSION: Equivocal left-sided hydronephrosis, similar to the prior. Remainder unremarkable copyright 2011 [employer] [facility] [employer] [facility]- All Rights Reserved
[2018-10-29] MEDS ORDERED: HYDROCODONE/ACETAMINOPHEN 5-325 MG TABLET PO PRN (02:03)
[2018-10-29] MEDS ORDERED: HYDROCODONE/ACETAMINOPHEN 5-325 MG (6 TAB/ER DISP) PO PRN (02:05)
[2018-10-29 02:22] VITALS: BP 111/70
== END 2018-10-29 02:39 | disposition home or self-care (01) ==
LOC: ER 21:02
DX: N39.0 Urinary tract infection, site not specified (principal); N13.30 Unspecified hydronephrosis; R10.32 Left lower quadrant pain; R68.83 Chills (without fever); R19.7 Diarrhea, unspecified; R11.2 Nausea with vomiting, unspecified; Z87.442 Personal history of urinary calculi; Z88.6 Allergy status to analgesic agent; Z91.040 Latex allergy status; Z88.8 Allergy status to other drugs, medicaments and biological substances; Z88.0 Allergy status to penicillin; Z88.1 Allergy status to other antibiotic agents; Z88.5 Allergy status to narcotic agent
CPT/HCPCS: 99284; 96374; 96375; 36415; 87086; 85025; 87088; 80053; 81001; 76770; J1200; S0119; J2270

== ENCOUNTER 2018-11-21 03:05 | Emergency (ER) | payer OTHER ==
[2018-11-21] MEDS ORDERED: ONDANSETRON 4 MG TAB.RAPDIS PO ONE (04:19)
[2018-11-21] MEDS ORDERED: HYDROMORPHONE HCL INJ/PF 2 MG/ML AMPULE IM ONE (04:19)
[2018-11-21] MEDS ORDERED: DIAZEPAM 5 MG TABLET PO ONE (04:20)
--- NOTE | 2018-11-21 04:25 | ER Document Report ---
ED General - General Chief Complaint: Abdominal Pain Stated Complaint: LEFT SIDE PAIN Time Seen by Provider: 11/21/18 04:05 Mode of Arrival: Ambulatory Information source: Patient, [facility] Records Notes: 43-year-old female with hyperlipidemia, type 2 diabetes, depression, anxiety, von Willebrand's disorder, known left urolithiasis presents with complaint of left flank pain that started 2 days prior to arrival. Patient dips scribes the pain as throbbing, intermittent and now with radiation to the left lower quadrant. Patient has been seen 4 times in the last 2 months for similar symptoms. Her last visit was on October 28, 2018 where she was diagnosed with a urinary tract infection and placed on Macrobid. Patient states since that time she has been under urology care. She states that the urologist told her that he does see the kidney stones and expects her to be able to pass it within the next few weeks because the size is small. Patient has had associated nausea, vomiting but denies fever, chills, chest pain. TRAVEL OUTSIDE OF THE [place] IN LAST 30 DAYS: No - HPI Onset: Other Onset/Duration: Intermittent, Worse Quality of pain: Stabbing Severity: Moderate Associated symptoms: Nausea, Vomiting. denies: Chest pain, Chills, Fever, Headache, Shortness of breath, Slow to respond Exacerbated by: Movement Relieved by: Denies Similar symptoms previously: Yes Recently seen / treated by doctor: Yes - Related Data Allergies/Adverse Reactions: ibuprofen Allergy (Verified 06/21/18 06:40) latex Allergy (Verified 06/21/18 06:40) metoclopramide [From Reglan] Allergy (Verified 06/21/18 06:40) NSAIDS (Non-Steroidal Anti-Inflamma Allergy (Verified 06/21/18 06:40) Penicillins Allergy (Verified 06/21/18 06:40) sulfamethoxazole [From Septra] Allergy (Verified 06/21/18 06:40) sumatriptan [From Imitrex] Allergy (Verified 06/21/18 06:40) tramadol Allergy (Verified 06/21/18 06:40) trimethoprim [From Septra] Allergy (Verified 06/21/18 06:40) zolmitriptan [From Zomig] Allergy (Verified 06/21/18 06:40) haloperidol [From Haldol] Adverse Reaction (Verified 08/01/18 19:45) prochlorperazine [From Compazine] Adverse Reaction (Verified 06/21/18 06:40) Past Medical History - General Information source: Patient, [facility] Records - Social History Smoking Status: Never Smoker Frequency of alcohol use: None Drug Abuse: None Lives with: Spouse/Significant other Family History: Arthritis, COPD, CVA, DM, Hyperlipidemia, Hypertension, Malignancy Patient has suicidal ideation: No Patient has homicidal ideation: No - Past Medical History Cardiac Medical History: Reports: Hx Hypercholesterolemia Neurological Medical History: Reports: Hx Migraine Endocrine Medical History: Comment Only: Hx Diabetes Mellitus Type 2 - pre diabetic Renal/ Medical History: Reports: Hx Ovarian Cysts - PCOS. Denies: Hx Peritoneal Dialysis GI Medical History: Reports: Hx Gastroesophageal Reflux Disease, Hx Hiatal Hernia Musculoskeletal Medical History: Reports Hx Arthritis, Reports Hx Musculoskeletal Deformity - Scoliosis, Reports Hx Musculoskeletal Trauma Psychiatric Medical History: Reports: Hx Anxiety, Hx Depression Traumatic Medical History: Reports: Hx Fractures - Arm Past Surgical History: Reports: Hx Appendectomy, Hx Cholecystectomy, Hx Genitourinary Surgery - "BLADDER SLING", Hx Hysterectomy, Hx Orthopedic Surgery - Alexander rods - Immunizations Hx Diphtheria, Pertussis, Tetanus Vaccination: No - 2009 Review of Systems - Review of Systems Notes: REVIEW OF SYSTEMS: CONSTITUTIONAL : Denies fever, chills, or sweats. Denies recent illness. Denies weight loss, recent hospitalizations. EENT: Denies visual changes, eye pain. Denies sore throat, oral lesions, difficulty swallowing. CARDIOVASCULAR: Denies chest pain. Denies palpitations. Denies lower extremity edema. RESPIRATORY: Denies cough. Denies shortness of breath, wheezing. GASTROINTESTINAL: Denies abdominal pain or distention. Denies diarrhea. Denies blood in vomitus, stools, or per rectum. Denies black, tarry stools. Denies constipation. GENITOURINARY: Denies painful urination, frequency, blood in urine, or vaginal discharge. MUSCULOSKELETAL: Denies neck pain or stiffness. Denies joint pain or swelling. SKIN: Denies rash, lesions or sores. HEMATOLOGIC : Denies easy bruising or bleeding. LYMPHATIC: Denies swollen glands. NEUROLOGICAL: Denies confusion or altered mental status. Denies loss of consciousness. Denies dizziness or lightheadedness. Denies headache. Denies weakness or paralysis. Denies problems difficulty with ambulation, slurred speech. Denies sensory loss, numbness, or tingling. Denies seizures. PSYCHIATRIC: Denies anxiety or stress. Denies depression, suicidal ideation, or homicidal ideation. Denies visual or auditory hallucinations. Physical Exam - Vital signs Vitals: Temp Pulse Resp BP Pulse Ox 98.3 F 100 22 H 120/90 H 96 11/21/18 03:12 11/21/18 03:12 11/21/18 03:12 11/21/18 03:12 11/21/18 03:12 - Notes Notes: PHYSICAL EXAMINATION: GENERAL: Well-appearing, well-nourished and in no acute distress. HEAD: Atraumatic, normocephalic. EYES: Pupils equal round and reactive to light, extraocular movements intact, conjunctiva are normal. ENT: Nares patent, oropharynx clear without exudates. Moist mucous membranes. NECK: Normal range of motion, supple without lymphadenopathy LUNGS: Breath sounds clear to auscultation bilaterally and equal. No wheezes rales or rhonchi. HEART: Regular rate and rhythm without murmurs ABDOMEN: Tenderness with palpation to the left lower quadrant. No guarding, no rebound. No masses appreciated. No CVA tenderness. Female : deferred Musculoskeletal: Normal range of motion, no pitting or edema. No cyanosis. NEUROLOGICAL: Cranial nerves grossly intact. Normal speech, normal gait. Normal sensory, motor exams PSYCH: Normal mood, normal affect. SKIN: Warm, Dry, normal turgor, no rashes or lesions noted. Course - Re-evaluation Re-evalutation: Temp Pulse Resp BP Pulse Ox 98.2 F 85 20 122/76 98 11/21/18 05:52 11/21/18 05:52 11/21/18 05:52 11/21/18 05:52 11/21/18 05:52 Laboratory 11/21/18 11/21/18 04:00 04:00 WBC 11.2 H RBC 5.08 Hgb 13.8 Hct 41.8 MCV 82 MCH 27.1 MCHC 33.0 RDW 12.9 Plt Count 312 Seg Neutrophils % 52.5 Lymphocytes % 32.6 Monocytes % 7.9 Eosinophils % 6.1 H Basophils % 0.9 Absolute Neutrophils 5.9 Absolute Lymphocytes 3.6 Absolute Monocytes 0.9 Absolute Eosinophils 0.7 H Absolute Basophils 0.1 Sodium 142.9 Potassium 4.1 Chloride 113 H Carbon Dioxide 19 L Anion Gap 11 BUN 15 Creatinine 0.72 Est GFR ( Amer) > 60 Est GFR (Non-Af Amer) > 60 Glucose 111 H Calcium 9.8 Total Bilirubin 0.4 Direct Bilirubin 0.3 Neonat Total Bilirubin Not Reportable Neonat Direct Bilirubin Not Reportable Neonat Indirect Bili Not Reportable AST 38 H ALT 62 H Alkaline Phosphatase 68 Total Protein 7.7 Albumin 4.6 Lipase 124.1 Temp Pulse Resp BP Pulse Ox 98.2 F 85 20 122/76 98 11/21/18 05:52 11/21/18 05:52 11/21/18 05:52 11/21/18 05:52 11/21/18 05:52 11/21/18 19:04 43-year-old female presents with left flank pain. Patient has presented multiple times for similar symptoms. She has a known stone and is being seen by urology. She is afebrile, normotensive, not tachycardic or hypoxic. She appears uncomfortable but not toxic or dehydrated. Previous medical records and nursing notes were reviewed as well as previous imaging. Patient reports recent follow-up with your her urologist who has a urine culture pending. Because of her history of chronic recurrent urinary tract infections and recent antibiotic therapy I have told the patient that she should contact her urologist to find out the results of the straight cath culture. Patient did receive IM pain medications and on reevaluation is resting more comfortably. She is tolerating p.o. Patient encouraged to follow-up with urology for any further pain complaints. Patient was evaluated and treated as appropriate for the patient's presenting symptoms and complaint, with consideration of any critical or life threatening conditions that may be associated with their obtained history and exam as noted above. All results were discussed with patient. Patient provided the opportunity to ask questions, and express concerns. Patient was educated on treatments based on their presumed diagnosis as noted above. At this time we will discharge the patient with return precautions and follow-up recommendations. Verbal discharge instructions given a the bedside. Medication warnings reviewed. Patient is in agreement with this plan and has verbalized understanding of return precautions. After careful consideration I feel that that patient can be safely discharged from the emergency department, they were advised to followup with a primary care physician in 2-3 days. Dictation on this chart was performed using voice recognition software and may result in unintended grammatical, spelling, syntax or errors. - Vital Signs Vital signs: Temp Pulse Resp BP Pulse Ox 98.2 F 85 20 122/76 98 11/21/18 05:52 11/21/18 05:52 11/21/18 05:52 11/21/18 05:52 11/21/18 05:52 - Laboratory Result Diagrams: 11/21/18 04:00 11/21/18 04:00 Laboratory results interpreted by me: 11/21/18 11/21/18 04:00 04:00 WBC 11.2 H Eosinophils % 6.1 H Absolute Eosinophils 0.7 H Chloride 113 H Carbon Dioxide 19 L Glucose 111 H AST 38 H ALT 62 H Discharge - Discharge Clinical Impression: Chronic left flank pain, History of left hydronephrosis, Nephrolithiasis, Renal colic on left side Condition: Good Disposition: HOME, SELF-CARE Instructions: Antinausea Medication ([facility]), Colic ([facility]), Pain Medication Injection ([facility]) Additional Instructions: Your symptoms should improve over the course of the next one week. If you continue to have pain for greater than one week or your pain is not controlled with the pain medications that you have been sent home with you need to return to the emergency department. Please also return if you develop fever, persistent vomiting, or any other symptoms that are concerning to you. You should take i Tylenol every 4 hours and use the Vicodin as prescribed only for pain not controlled by ibuprofen. You've been given Zofran to assist with nausea. Please follow-up with urology in the next 2-3 days. Prescriptions: Hydrocodone/Acetaminophen [Carey 5-325 mg Tablet] 1 tab PO Q6H #12 tablet Ondansetron [Zofran Odt 4 mg Tablet] 1 - 2 tab PO Q4H PRN #15 tab.rapdis PRN Reason: For Nausea/Vomiting Forms: Elevated Blood Pressure, Return to Work Referrals: FUNMI MARCOS JR, MD [Primary Care Provider] - Follow up as needed
[2018-11-21 04:28] LABS: ALANINE AMINOTRANSFERASE 62 U/L (9-52); ALBUMIN 4.6 g/dL (3.5-5.0); ALKALINE PHOSPHATASE 68 U/L (38-126); ANION GAP 11 (5-19); ASPARTATE AMINO TRANSFERASE 38 U/L (14-36); BILIRUBIN,DIRECT 0.3 mg/dL (0.0-0.4); BILIRUBIN,TOTAL 0.4 mg/dL (0.2-1.3); BLOOD UREA NITROGEN 15 mg/dL (7-20); CALCIUM 9.8 mg/dL (8.4-10.2); CARBON DIOXIDE 19 mmol/L (22-30); CHLORIDE 113 mmol/L (98-107); GLUCOSE 111 mg/dL (75-110); LIPASE 124.1 U/L (23-300); POTASSIUM 4.1 mmol/L (3.6-5.0); SODIUM 142.9 mmol/L (137-145); TOTAL PROTEIN 7.7 g/dL (6.3-8.2)
[2018-11-21 04:29] LABS: ABSOLUTE BASOPHILS # (AUTO) 0.1 10^3/uL (0.0-0.2); ABSOLUTE EOSINOPHILS # (AUTO) 0.7 10^3/uL (0.0-0.6); ABSOLUTE LYMPHOCYTES (AUTO) 3.6 10^3/uL (0.5-4.7); ABSOLUTE MONOCYTES (AUTO) 0.9 10^3/uL (0.1-1.4); ABSOLUTE NEUT (AUTO) 5.9 10^3/uL (1.7-8.2); BASOPHILS % (AUTO) 0.9 % (0-2); EOSINOPHILS % (AUTO) 6.1 % (0-6); HEMATOCRIT 41.8 % (36.0-47.0); HEMOGLOBIN 13.8 g/dL (12.0-15.5); LYMPHOCYTES % (AUTO) 32.6 % (13-45); MEAN CORPUSCULAR HEMOGLOBIN 27.1 pg (27.0-33.4); MEAN CORPUSCULAR VOLUME 82 fl (80-97); MONOCYTES % (AUTO) 7.9 % (3-13); PLATELET COUNT 312 10^3/uL (150-450); RED BLOOD COUNT 5.08 10^6/uL (3.72-5.28); RED CELL DISTRIBUTION WIDTH 12.9 % (11.5-14.0); SEGMENTED NEUTROPHILS % (AUTO) 52.5 % (42-78); TOTAL CELLS COUNTED % (AUTO) 100 %; WHITE BLOOD COUNT 11.2 10^3/uL (4.0-10.5)
[2018-11-21 05:55] VITALS: BP 122/76
== END 2018-11-21 06:09 | disposition home or self-care (01) ==
LOC: ER 03:05
DX: N20.0 Calculus of kidney (principal); R10.9 Unspecified abdominal pain; G89.29 Other chronic pain; R11.2 Nausea with vomiting, unspecified; R10.814 Left lower quadrant abdominal tenderness; Z87.440 Personal history of urinary (tract) infections; Z88.6 Allergy status to analgesic agent; Z91.040 Latex allergy status; Z88.8 Allergy status to other drugs, medicaments and biological substances; Z88.0 Allergy status to penicillin; Z88.1 Allergy status to other antibiotic agents; Z88.5 Allergy status to narcotic agent; Z87.19 Personal history of other diseases of the digestive system; Z90.49 Acquired absence of other specified parts of digestive tract
CPT/HCPCS: 99284; 96372; 51701; 36415; 83690; 85025; 80053; S0119; J1170

== ENCOUNTER 2018-12-01 03:39 | Emergency (ER) | payer OTHER ==
--- NOTE | 2018-12-01 04:22 | ER Document Report ---
ED GI/ - General Chief Complaint: Flank Pain Stated Complaint: FLANK PAIN Time Seen by Provider: 12/01/18 04:21 Primary Care Provider: FUNMI MARCOS JR, MD [Primary Care Provider] - Follow up as needed Mode of Arrival: Ambulatory Information source: Patient Notes: HISTORY OF PRESENT ILLNESS: Patient is a 43-year-old female with a past medical history of several chronic health conditions including chronic abdominal pain, von Willebrand's disease, and recent treatment for both urinary tract infection as well as a 6 mm left ureteral stone status post lithotripsy status post left ureteral stent placement 1 week ago who presents with worsening left-sided flank pain. Patient denies fevers or chills, nausea with nonbloody and nonbilious emesis, has had normal bowel movements. Of note, the patient has been evaluated multiple times in the emergency department for similar symptoms in the past 4-8 weeks. Location: Left flank Onset: Gradual, chronic Alleviation: None Provocation: Movement Quality: Aching, twisting, sharp Radiation: None Severity: "Severe" Timing: Constant History of abdominal surgery: Yes, lithotripsy and ureteral stent placed 1 week ago Associated symptoms: Nausea, no fevers or chills, normal bowel movements Last bowel movement: Yesterday Last menstrual period: Patient is status post hysterectomy REVIEW OF SYSTEMS: CONSTITUTIONAL : Denies fever or chills, no sweats. Denies recent illness. EENT: Denies eye, ear, throat, or mouth pain or symptoms. Denies nasal or sinus congestion. CARDIOVASCULAR: Denies chest pain. Denies swelling of the legs. RESPIRATORY: Denies cough, cold, or chest congestion. Denies shortness of abelardo ath or difficulty breathing. Denies wheezing. GASTROINTESTINAL: Positive for abdominal and left flank pain. Positive for nonbilious and non-bloody emesis, no diarrhea. Denies constipation. GENITOURINARY: Denies difficulty urinating, painful urination, burning, frequency, or blood in urine. FEMALE GENITOURINARY: Denies vaginal bleeding, abnormal or irregular periods. MUSCULOSKELETAL: Denies neck or back pain or joint pain or swelling. SKIN: Denies rash or skin lesions. HEMATOLOGIC : Denies easy bruising or bleeding. LYMPHATIC: Denies swollen, enlarged glands. NEUROLOGICAL: Denies altered mental status or loss of consciousness. Denies headache. Denies weakness or paralysis or loss of use of either side. Denies problems with gait or speech. Denies sensory or motor loss. PSYCHIATRIC: Denies anxiety or stress or depression. All other systems reviewed and negative. PHYSICAL EXAMINATION: GENERAL: Well-appearing, well-nourished and in no acute distress. HEAD: Atraumatic, normocephalic. No scalp deformity, depression, or crepitance. EYES: Pupils are 3 mm and equal/round/reactive to light, extraocular movements intact, sclera anicteric, conjunctiva are normal. ENT: Nares patent bilaterally, oropharynx. Moist mucous membranes. No tonsil hypertrophy. NECK: Normal range of motion, supple without lymphadenopathy. LUNGS: Breath sounds present, equal, and clear to auscultation bilaterally. No wheezes, rales, or rhonchi. HEART: Regular rate and rhythm without murmurs, rubs, or gallops. 2+ peripheral pulses. Normal capillary refill. ABDOMEN: Soft and nondistended, moderate left lower quadrant and left flank tenderness without CVA tenderness. Normoactive bowel sounds. No guarding, no rebound. No masses appreciated. BACK: Normal contour, no midline tenderness. Rectal exam deferred. GENITAL/PELVIC: Deferred. EXTREMITIES: Normal range of motion, no pitting or edema. No cyanosis. NEUROLOGICAL: No focal neurological deficits. Moves all extremities spontaneousl y and on command. PSYCH: Normal mood, normal affect. No suicidal thoughts/ideations. No homocidal thoughts/ideations. No hallucinations. SKIN: Warm, dry, normal turgor, no rashes or lesions noted. ASSESSMENT AND PLAN: This patient is a 43-year-old female who presents with recurrent left flank pain in the setting of a recent lithotripsy with left ureteral stent placement 1 week ago. The patient was instructed by her urologist that it was okay to have it pulled this week, which the did at home and reports it was uneventful. Question injury to the left kidney versus pyelonephritis versus UTI versus retained stone. 1. Will obtain labs, urine with drug screen, and obtain CT scan stone protocol. 2. Will give IV fluids with morphine and Zofran then reassess. TRAVEL OUTSIDE OF THE [place] IN LAST 30 DAYS: No - Related Data Allergies/Adverse Reactions: ibuprofen Allergy (Verified 06/21/18 06:40) latex Allergy (Verified 06/21/18 06:40) metoclopramide [From Reglan] Allergy (Verified 06/21/18 06:40) NSAIDS (Non-Steroidal Anti-Inflamma Allergy (Verified 06/21/18 06:40) Penicillins Allergy (Verified 06/21/18 06:40) sulfamethoxazole [From Septra] Allergy (Verified 06/21/18 06:40) sumatriptan [From Imitrex] Allergy (Verified 06/21/18 06:40) tramadol Allergy (Verified 06/21/18 06:40) trimethoprim [From Septra] Allergy (Verified 06/21/18 06:40) zolmitriptan [From Zomig] Allergy (Verified 06/21/18 06:40) haloperidol [From Haldol] Adverse Reaction (Verified 08/01/18 19:45) prochlorperazine [From Compazine] Adverse Reaction (Verified 06/21/18 06:40) Past Medical History - General Information source: Patient - Social History Smoking Status: Never Smoker Chew tobacco use (# tins/day): No Frequency of alcohol use: None Drug Abuse: None Lives with: Family Family History: Arthritis, COPD, CVA, DM, Hyperlipidemia, Hypertension, Malignancy Patient has suicidal ideation: No Patient has homicidal ideation: No - Past Medical History Cardiac Medical History: Reports: Hx Hypercholesterolemia Pulmonary Medical History: Reports: None EENT Medical History: Reports: None Neurological Medical History: Reports: Hx Migraine Endocrine Medical History: Reports: NoneComment Only: Hx Diabetes Mellitus Type 2 - pre diabetic Renal/ Medical History: Reports: Hx Ovarian Cysts - PCOS. Denies: Hx Peritoneal Dialysis Malignancy Medical History: Reports: None GI Medical History: Reports: Hx Gastroesophageal Reflux Disease, Hx Hiatal Hernia Musculoskeletal Medical History: Reports Hx Arthritis, Reports Hx Musculoskeletal Deformity - Scoliosis, Reports Hx Musculoskeletal Trauma Skin Medical History: Reports None Psychiatric Medical History: Reports: Hx Anxiety, Hx Depression Traumatic Medical History: Reports: Hx Fractures - Arm Infectious Medical History: Reports: None Past Surgical History: Reports: Hx Appendectomy, Hx Cholecystectomy, Hx Genit ourinary Surgery - "BLADDER SLING", Hx Hysterectomy, Hx Orthopedic Surgery - Alexander rods - Immunizations Hx Diphtheria, Pertussis, Tetanus Vaccination: No - 2009 Physical Exam - Vital signs Vitals: Pulse Resp BP Pulse Ox 117 H 24 H 136/104 H 99 12/01/18 03:41 12/01/18 03:41 12/01/18 03:41 12/01/18 03:41 Course - Vital Signs Vital signs: Temp Pulse Resp BP Pulse Ox 117 H 16 134/97 H 100 12/01/18 03:41 12/01/18 06:01 12/01/18 06:01 12/01/18 06:01 - Laboratory Result Diagrams: 12/01/18 04:20 12/01/18 04:20 Laboratory results interpreted by me: 12/01/18 12/01/18 04:20 04:20 Eosinophils % 11.6 H Absolute Eosinophils 0.9 H AST 68 H ALT 103 H - Diagnostic Test Radiology reviewed: Image reviewed, Reports reviewed - Transfer of Care Care transferred to following provider: Dr. Archuleta Notes: 12/01/18 06:35 Plan is to await urinalysis and disposition accordingly. If evidence of UTI, patient will be given antibiotics. I have already instructed the patient to follow-up with her this Thursday, 3 days away, as planned. She will also be provided with a 3-day prescription for pain medications. Discharge - Discharge Clinical Impression: Flank pain Condition: Good Instructions: Flank Pain ([facility]) Additional Instructions: You have been evaluated in the Emergency Department for flank pain related to a recently removed ureteral stent after having removal of a kidney stone. All of your labs, including kidney function, are normal a CT scan was performed that showed no evidence of injury to the kidney or a left over kidney stone. Please follow-up with your urologist this Thursday as scheduled. You have been provided with prescriptions for medications, take these as instructed. Return to the Emergency Department if you experience the inability to urinate, high fevers, or any other concerning symptoms. Prescriptions: Hydrocodone/Acetaminophen [Omega 5-325 Tablet] 1 each PO Q6H PRN #12 tablet PRN Reason: For Pain Referrals: FUNMI MARCOS JR, MD [Primary Care Provider] - Follow up as needed Print Language: Nepalese
[2018-12-01] MEDS ORDERED: MORPHINE SULFATE 10 MG/ML INJ IV ONE (05:11)
[2018-12-01 05:23] LABS: ABSOLUTE BASOPHILS # (AUTO) 0.1 10^3/uL (0.0-0.2); ABSOLUTE EOSINOPHILS # (AUTO) 0.9 10^3/uL (0.0-0.6); ABSOLUTE LYMPHOCYTES (AUTO) 2.3 10^3/uL (0.5-4.7); ABSOLUTE MONOCYTES (AUTO) 0.7 10^3/uL (0.1-1.4); ABSOLUTE NEUT (AUTO) 3.8 10^3/uL (1.7-8.2); EOSINOPHILS % (AUTO) 11.6 % (0-6); HEMATOCRIT 39.8 % (36.0-47.0); HEMOGLOBIN 13.2 g/dL (12.0-15.5); LYMPHOCYTES % (AUTO) 29.7 % (13-45); MEAN CORPUSCULAR HEMOGLOBIN 27.6 pg (27.0-33.4); MEAN CORPUSCULAR HGB CONC 33.2 g/dL (32.0-36.0); MEAN CORPUSCULAR VOLUME 83 fl (80-97); MONOCYTES % (AUTO) 8.8 % (3-13); PLATELET COUNT 310 10^3/uL (150-450); SEGMENTED NEUTROPHILS % (AUTO) 48.9 % (42-78); TOTAL CELLS COUNTED % (AUTO) 100 %; WHITE BLOOD COUNT 7.7 10^3/uL (4.0-10.5)
[2018-12-01 05:28] LABS: ALANINE AMINOTRANSFERASE 103 U/L (9-52); ALBUMIN 4.4 g/dL (3.5-5.0); ALKALINE PHOSPHATASE 65 U/L (38-126); ANION GAP 9 (5-19); ASPARTATE AMINO TRANSFERASE 68 U/L (14-36); BILIRUBIN,DIRECT 0.4 mg/dL (0.0-0.4); BILIRUBIN,TOTAL 0.5 mg/dL (0.2-1.3); BLOOD UREA NITROGEN 13 mg/dL (7-20); CALCIUM 9.3 mg/dL (8.4-10.2); CARBON DIOXIDE 29 mmol/L (22-30); CHLORIDE 106 mmol/L (98-107); GLUCOSE 106 mg/dL (75-110); LIPASE 60.1 U/L (23-300); SODIUM 144.2 mmol/L (137-145); TOTAL PROTEIN 7.7 g/dL (6.3-8.2)
--- NOTE | 2018-12-01 06:03 | RADIOLOGY REPORT (SQ) ---
CLINICAL HISTORY: Flank pain COMPARISON: September 25, 2018. 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 FINDINGS: Lower lungs are clear. Abdomen: The liver is normal in appearance. There is no biliary dilatation. Cholecystectomy was performed. The pancreas and spleen are normal in appearance. Adrenal glands and right kidney are unremarkable. There is mild left hydronephrosis. Left ureter is dilated. There are no clear obstructing lesions. Abdominal aorta is normal in course and caliber without aneurysm. There is no free air. There is no retroperitoneal adenopathy. Pelvis: There is no bowel obstruction. Urinary bladder is unremarkable. There is no free fluid. Hysterectomy was performed. Appendix is not clearly seen. Skeleton: There are no acute osseous findings. No suspicious bony lesions. IMPRESSION: New left hydronephrosis with no clear obstructing lesion. This may be secondary to recently passed calculus versus a soft tissue ureteral lesion. Underlying pyelonephritis is not excluded.
[2018-12-01] MEDS ORDERED: DIPHENHYDRAMINE HCL 50 MG/ML VIAL IV ONE (06:17)
[2018-12-01 06:54] LABS: APPEARANCE,URINE SLIGHTLY-CLOUDY; BILIRUBIN,URINE NEGATIVE (NEGATIVE); COLOR,URINE YELLOW; GLUCOSE, URINE NEGATIVE (NEGATIVE); KETONES,URINE NEGATIVE (NEGATIVE); LEUKOCYTE ESTERASE,URINE NEGATIVE (NEGATIVE); NITRITE,URINE NEGATIVE (NEGATIVE); PROTEIN,URINE 100 mg/dL (NEGATIVE); URINE SPECIFIC GRAVITY 1.024; UROBILINOGEN,URINE NEGATIVE mg/dL (<2.0)
[2018-12-01 07:08] LABS: URINE AMPHETAMINES SCREEN NEGATIVE; URINE BARBITURATES SCREEN NEGATIVE; URINE BENZODIAZEPINES SCREEN UNCONFIRMED POSITIVE; URINE COCAINE SCREEN NEGATIVE; URINE MARIJUANA (THC) SCREEN NEGATIVE; URINE METHADONE SCREEN NEGATIVE; URINE PHENCYCLIDINE SCREEN NEGATIVE
[2018-12-01 09:05] VITALS: BP 123/86
== END 2018-12-01 09:09 | disposition home or self-care (01) ==
LOC: ER 03:39
DX: R10.9 Unspecified abdominal pain (principal); R11.0 Nausea; E78.00 Pure hypercholesterolemia, unspecified; Z90.710 Acquired absence of both cervix and uterus; Z88.6 Allergy status to analgesic agent; Z91.040 Latex allergy status; Z88.2 Allergy status to sulfonamides; Z90.49 Acquired absence of other specified parts of digestive tract
CPT/HCPCS: 99284; 96374; 96375; 36415; 83690; 85025; 80053; 81001; 80307; 74176; J1200; J2270

== ENCOUNTER 2018-12-28 01:33 | Emergency (ER) | payer OTHER ==
[2018-12-28] MEDS ORDERED: OXYCODONE-ACETAMINOPHEN 5-325 MG TABLET PO ONE (03:01)
[2018-12-28] MEDS ORDERED: PROMETHAZINE HCL 25 MG TABLET PO ONE (03:01)
--- NOTE | 2018-12-28 03:03 | ER Document Report ---
ED Medical Screen (RME) - General Chief Complaint: Flank Pain Stated Complaint: FLANK PAIN Time Seen by Provider: 12/28/18 03:01 Primary Care Provider: FUNMI MARCOS JR, MD [Primary Care Provider] - Follow up as needed Notes: 43-year-old female with a history of kidney stones, just had a large stone removed via a stent which was placed at [facility], she states she self removed the stent Thursday morning using strings as she was instructed, she states that this evening she started having severe pain which caused vomiting. Denies fever or chills. TRAVEL OUTSIDE OF THE [place] IN LAST 30 DAYS: No - Related Data Allergies/Adverse Reactions: ibuprofen Allergy (Verified 06/21/18 06:40) latex Allergy (Verified 06/21/18 06:40) metoclopramide [From Reglan] Allergy (Verified 06/21/18 06:40) NSAIDS (Non-Steroidal Anti-Inflamma Allergy (Verified 06/21/18 06:40) Penicillins Allergy (Verified 06/21/18 06:40) sulfamethoxazole [From Septra] Allergy (Verified 06/21/18 06:40) sumatriptan [From Imitrex] Allergy (Verified 06/21/18 06:40) tramadol Allergy (Verified 06/21/18 06:40) trimethoprim [From Septra] Allergy (Verified 06/21/18 06:40) zolmitriptan [From Zomig] Allergy (Verified 06/21/18 06:40) haloperidol [From Haldol] Adverse Reaction (Verified 08/01/18 19:45) prochlorperazine [From Compazine] Adverse Reaction (Verified 06/21/18 06:40) Past Medical History - Social History Family history: Reviewed & Not Pertinent - Past Medical History Cardiac Medical History: Reports: Hx Hypercholesterolemia Neurological Medical History: Reports: Hx Migraine Endocrine Medical History: Comment Only: Hx Diabetes Mellitus Type 2 - pre diabetic Renal/ Medical History: Reports: Hx Ovarian Cysts - PCOS. Denies: Hx Peritoneal Dialysis GI Medical History: Reports: Hx Gastroesophageal Reflux Disease, Hx Hiatal Hernia Musculoskeltal Medical History: Reports Hx Arthritis, Reports Hx Musculoskeletal Deformity - Scoliosis, Reports Hx Musculoskeletal Trauma Psychiatric Medical History: Reports: Hx Anxiety, Hx Depression Traumatic Medical History: Reports: Hx Fractures - Arm Past Surgical History: Reports: Hx Appendectomy, Hx Cholecystectomy, Hx Genitourinary Surgery - "BLADDER SLING", Hx Hysterectomy, Hx Orthopedic Surgery - Alexander rods - Immunizations Hx Diphtheria, Pertussis, Tetanus Vaccination: No - 2009 History of Influenza Vaccine for 08/2017 - 12/2017 Season: Yes Influenza Administration Date for 08/2017 - 12/2017 Season: 12/03/16 Physical Exam - Vital signs Vitals: Temp Pulse Resp BP Pulse Ox 98.9 F 103 H 18 119/84 97 12/28/18 01:50 12/28/18 01:50 12/28/18 01:50 12/28/18 01:50 12/28/18 01:50 - General General appearance: Anxious In distress: Mild - Back Back: Other - Left-sided CVA tenderness which is mild Course - Vital Signs Vital signs: Temp Pulse Resp BP Pulse Ox 98.9 F 103 H 18 119/84 97 12/28/18 01:50 12/28/18 01:50 12/28/18 01:50 12/28/18 01:50 12/28/18 01:50 Doctor's Discharge - Discharge Referrals: FUNMI MARCOS JR, MD [Primary Care Provider] - Follow up as needed
[2018-12-28 04:58] LABS: ABSOLUTE BASOPHILS # (AUTO) 0.1 10^3/uL (0.0-0.2); ABSOLUTE EOSINOPHILS # (AUTO) 0.3 10^3/uL (0.0-0.6); ABSOLUTE LYMPHOCYTES (AUTO) 2.5 10^3/uL (0.5-4.7); ABSOLUTE MONOCYTES (AUTO) 0.7 10^3/uL (0.1-1.4); ABSOLUTE NEUT (AUTO) 4.6 10^3/uL (1.7-8.2); BASOPHILS % (AUTO) 1.2 % (0-2); EOSINOPHILS % (AUTO) 3.8 % (0-6); HEMATOCRIT 39.9 % (36.0-47.0); HEMOGLOBIN 13.7 g/dL (12.0-15.5); LYMPHOCYTES % (AUTO) 30.9 % (13-45); MEAN CORPUSCULAR HGB CONC 34.3 g/dL (32.0-36.0); MEAN CORPUSCULAR VOLUME 82 fl (80-97); PLATELET COUNT 388 10^3/uL (150-450); RED BLOOD COUNT 4.87 10^6/uL (3.72-5.28); RED CELL DISTRIBUTION WIDTH 13.8 % (11.5-14.0); SEGMENTED NEUTROPHILS % (AUTO) 56.1 % (42-78); TOTAL CELLS COUNTED % (AUTO) 100 %; WHITE BLOOD COUNT 8.1 10^3/uL (4.0-10.5)
[2018-12-28 05:01] LABS: APPEARANCE,URINE SLIGHTLY-CLOUDY; BILIRUBIN,URINE NEGATIVE (NEGATIVE); COLOR,URINE YELLOW; GLUCOSE, URINE NEGATIVE (NEGATIVE); KETONES,URINE NEGATIVE (NEGATIVE); LEUKOCYTE ESTERASE,URINE NEGATIVE (NEGATIVE); NITRITE,URINE NEGATIVE (NEGATIVE); PROTEIN,URINE NEGATIVE (NEGATIVE); URINE SPECIFIC GRAVITY 1.025; UROBILINOGEN,URINE NEGATIVE mg/dL (<2.0)
[2018-12-28 05:14] LABS: ANION GAP 14 (5-19); BLOOD UREA NITROGEN 19 mg/dL (7-20); CALCIUM 10.2 mg/dL (8.4-10.2); CARBON DIOXIDE 22 mmol/L (22-30); CHLORIDE 108 mmol/L (98-107); GLUCOSE 102 mg/dL (75-110); POTASSIUM 3.9 mmol/L (3.6-5.0)
--- NOTE | 2018-12-28 05:18 | RADIOLOGY REPORT (SQ) ---
EXAM DESCRIPTION: CT ABDOMEN PELVIS WITHOUT IV CONTRAST COMPLETED DATE/TME: 12/28/2018 03:01 CLINICAL HISTORY: 43 years Female, left flank pain, abd pain, vomiting, recent stent Comparison:12/01/2018 Technique: No contrast. Coronal and sagittal reformat. This exam was performed according to our departmental dose-optimization program, which includes automated exposure control, adjustment of the mA and/or kV according to patient size and/or use of iterative reconstruction technique.[facility]: Dose Right [facility]: CareDose [facility]: Dose Right [facility]: Teradose 4D [facility]: [employer] LIMITATIONS: None Findings: Moderate hiatal hernia. Cholecystectomy. Appendectomy. Uterus not discerned which may indicate prior hysterectomy. Thoracolumbar spinal hardware. Stool retention. No ascites. No pneumoperitoneum. No bowel obstruction. No hydronephrosis or hydroureter. No renal/ureteral stone. Unenhanced lower thorax, abdominopelvic structures, and musculoskeleton appear otherwise grossly unremarkable. Impression: No acute findings. Moderate hiatal hernia.
[2018-12-28] MEDS ORDERED: ONDANSETRON 4 MG TAB.RAPDIS PO ONE (07:10)
[2018-12-28] MEDS ORDERED: HYDROMORPHONE HCL INJ/PF 2 MG/ML AMPULE IM ONE (07:10)
--- NOTE | 2018-12-28 07:12 | ER Document Report ---
ED General - General Chief Complaint: Flank Pain Stated Complaint: FLANK PAIN Time Seen by Provider: 12/28/18 03:01 Primary Care Provider: FUNMI MARCOS JR, MD [Primary Care Provider] - Follow up in 3-5 days Notes: Patient is a 43-year-old female with history of kidney stones and von Willebrand's disease that presents to the emergency department for chief complaint of left flank pain. Patient was recently diagnosed with a kidney stone, and had ureteral stenting, on 25 November, she had a removed on the , she removed at home. Was a 6 mm stone, she states she was doing relatively well over the past several weeks, the last night she turned over in her left side, and had significant pain and nausea and decided come back to the emergency department to be reevaluated as she is concerned that she may have another kidney stone, or something happened when she removed the stent. She did have an episode of vomiting in the emergency department, prior to my evaluation. She is still complaining of nausea and some pain on the left side which she currently rates as a 7 out of 10 describes as an aching constant sensation. She denies any dysuria, hematuria prior to ED arrival, however in the ED she felt that she had a burning and pressure sensation when she urinated. Past Medical History: Kidney stones, von Willebrand disease, migraines Past Surgical History: Ureteral stenting, Alexander rods, hysterectomy Social History: Denies tobacco, alcohol or drug use. Family History: Reviewed and noncontributory for presenting illness Allergies: Reviewed, see documented allergy list. REVIEW OF SYSTEMS: Other than noted above, the 12 point review of systems was reviewed with the patient and were negative, all pertinent findings are included in the HPI. PHYSICAL EXAMINATION: Vital signs reviewed, nursing noted reviewed. GENERAL: Patient appears uncomfortable, but no apparent significant distress HEAD: Atraumatic, normocephalic. EYES: Eyes appear normal, extraocular movements intact, sclera anicteric, conjunctiva are normal. ENT: nares patent, oropharynx clear without exudates. Moist mucous membranes. NECK: Normal range of motion, supple without lymphadenopathy LUNGS: Breath sounds clear to auscultation bilaterally and equal. No wheezes rales or rhonchi. HEART: Regular rate and rhythm without murmurs ABDOMEN: Soft, mild left-sided CVA tenderness with palpation, normoactive bowel sounds. No rebound, guarding, or rigidity. No masses appreciated. EXTREMITIES: Nontender, good range of motion, no pitting or edema. NEUROLOGICAL: No focal neurological deficits. Moves all extremities spontaneously Motor and sensory grossly intact on exam. PSYCH: Normal mood, normal affect. SKIN: Warm, Dry, normal turgor, no rashes or lesions noted on exposed skin TRAVEL OUTSIDE OF THE [place] IN LAST 30 DAYS: No - Related Data Allergies/Adverse Reactions: ibuprofen Allergy (Verified 06/21/18 06:40) latex Allergy (Verified 06/21/18 06:40) metoclopramide [From Reglan] Allergy (Verified 06/21/18 06:40) NSAIDS (Non-Steroidal Anti-Inflamma Allergy (Verified 06/21/18 06:40) Penicillins Allergy (Verified 06/21/18 06:40) sulfamethoxazole [From Septra] Allergy (Verified 06/21/18 06:40) sumatriptan [From Imitrex] Allergy (Verified 06/21/18 06:40) tramadol Allergy (Verified 06/21/18 06:40) trimethoprim [From Septra] Allergy (Verified 06/21/18 06:40) zolmitriptan [From Zomig] Allergy (Verified 06/21/18 06:40) haloperidol [From Haldol] Adverse Reaction (Verified 08/01/18 19:45) prochlorperazine [From Compazine] Adverse Reaction (Verified 06/21/18 06:40) Past Medical History - Social History Smoking Status: Unknown if Ever Smoked Family History: Arthritis, COPD, CVA, DM, Hyperlipidemia, Hypertension, Ma lignancy Patient has suicidal ideation: No Patient has homicidal ideation: No - Past Medical History Cardiac Medical History: Reports: Hx Hypercholesterolemia Neurological Medical History: Reports: Hx Migraine Endocrine Medical History: Comment Only: Hx Diabetes Mellitus Type 2 - pre diabetic Renal/ Medical History: Reports: Hx Ovarian Cysts - PCOS. Denies: Hx Peritoneal Dialysis GI Medical History: Reports: Hx Gastroesophageal Reflux Disease, Hx Hiatal Hernia Musculoskeletal Medical History: Reports Hx Arthritis, Reports Hx Musculoskeletal Deformity - Scoliosis, Reports Hx Musculoskeletal Trauma Psychiatric Medical History: Reports: Hx Anxiety, Hx Depression Traumatic Medical History: Reports: Hx Fractures - Arm Past Surgical History: Reports: Hx Appendectomy, Hx Cholecystectomy, Hx Genitourinary Surgery - "BLADDER SLING", Hx Hysterectomy, Hx Orthopedic Surgery - Alexander rods - Immunizations Hx Diphtheria, Pertussis, Tetanus Vaccination: No - 2009 Physical Exam - Vital signs Vitals: Temp Pulse Resp BP Pulse Ox 98.9 F 103 H 18 119/84 97 12/28/18 01:50 12/28/18 01:50 12/28/18 01:50 12/28/18 01:50 12/28/18 01:50 Course - Re-evaluation Re-evalutation: Patient seen and examined vital signs reviewed. Laboratory data and imaging were ordered as appropriate for the patient's presenting symptoms and complaint, with consideration of any critical or life threatening conditions that may be associated with their obtained history and exam as noted above. Patient was treated with p.o. Phenergan and Percocet initially, which she states she threw up shortly after taking it, she was therefore given IM Dilaudid, and p.o. Zofran Results were reviewed when available and demonstrated negative CT imaging of the abdomen and pelvis, no renal stone, blood work was unremarkable as well, only trace blood in the urine, otherwise negative The patient was re-evaluated and was stable and improved Evaluation was most consistent with flank pain, possibly recently passed stone versus renal colic, advised follow-up with urology, given a prescription for Percocet and Zofran to take at home. Results were discussed with the patient at this point, after careful consideration I feel that that patient can be discharged from the emergency department, the patient was educated treatments and reasons to return to the emergency department based on their presumed diagnosis as noted above, they were advised to followup with a primary care physician in 2-3 days. Patient was agreeable to plan of care. *Note is created using voice recognition software and may contain spelling, syntax or grammatical errors. Laboratory 12/28/18 12/28/18 12/28/18 04:00 04:00 04:00 WBC Cancelled RBC Cancelled Hgb Cancelled Hct Cancelled MCV Cancelled MCH Cancelled MCHC Cancelled RDW Cancelled Plt Count Cancelled Seg Neutrophils % Cancelled Lymphocytes % Cancelled Monocytes % Cancelled Eosinophils % Cancelled Basophils % Cancelled Absolute Neutrophils Cancelled Absolute Lymphocytes Cancelled Absolute Monocytes Cancelled Absolute Eosinophils Cancelled Absolute Basophils Cancelled Platelet Estimate Cancelled Sodium Cancelled Potassium Cancelled Chloride Cancelled Carbon Dioxide Cancelled Anion Gap Cancelled BUN Cancelled Creatinine Cancelled Est GFR ( Amer) Cancelled Est GFR (Non-Af Amer) Cancelled Glucose Cancelled Calcium Cancelled Serum HCG, Qual Cancelled Urine Color Urine Appearance Urine pH Ur Specific [place] Urine Protein Urine Glucose (UA) Urine Ketones Urine Blood Urine Nitrite Urine Bilirubin Urine Urobilinogen Ur Leukocyte Esterase Urine WBC (Auto) Urine RBC (Auto) Urine Bacteria (Auto) Squamous Epi Cells Auto Urine Mucus (Auto) Urine Ascorbic Acid Slides for Path Review Cancelled 12/28/18 12/28/18 12/28/18 04:00 04:48 04:48 WBC 8.1 RBC 4.87 Hgb 13.7 Hct 39.9 MCV 82 MCH 28.0 MCHC 34.3 RDW 13.8 Plt Count 388 Seg Neutrophils % 56.1 Lymphocytes % 30.9 Monocytes % 8.0 Eosinophils % 3.8 Basophils % 1.2 Absolute Neutrophils 4.6 Absolute Lymphocytes 2.5 Absolute Monocytes 0.7 Absolute Eosinophils 0.3 Absolute Basophils 0.1 Platelet Estimate Sodium 144.0 Potassium 3.9 Chloride 108 H Carbon Dioxide 22 Anion Gap 14 BUN 19 Creatinine 0.79 Est GFR ( Amer) > 60 Est GFR (Non-Af Amer) > 60 Glucose 102 Calcium 10.2 Serum HCG, Qual Urine Color YELLOW Urine Appearance SLIGHTLY-CLOUDY Urine pH 5.0 Ur Specific [place] 1.025 Urine Protein NEGATIVE Urine Glucose (UA) NEGATIVE Urine Ketones NEGATIVE Urine Blood SMALL H Urine Nitrite NEGATIVE Urine Bilirubin NEGATIVE Urine Urobilinogen NEGATIVE Ur Leukocyte Esterase NEGATIVE Urine WBC (Auto) 0 Urine RBC (Auto) 1 Urine Bacteria (Auto) TRACE Squamous Epi Cells Auto 6 Urine Mucus (Auto) RARE Urine Ascorbic Acid NEGATIVE Slides for Path Review 12/28/18 04:48 WBC RBC Hgb Hct MCV MCH MCHC RDW Plt Count Seg Neutrophils % Lymphocytes % Monocytes % Eosinophils % Basophils % Absolute Neutrophils Absolute Lymphocytes Absolute Monocytes Absolute Eosinophils Absolute Basophils Platelet Estimate Sodium Potassium Chloride Carbon Dioxide Anion Gap BUN Creatinine Est GFR ( Amer) Est GFR (Non-Af Amer) Glucose Calcium Serum HCG, Qual NEGATIVE Urine Color Urine Appearance Urine pH Ur Specific [place] Urine Protein Urine Glucose (UA) Urine Ketones Urine Blood Urine Nitrite Urine Bilirubin Urine Urobilinogen Ur Leukocyte Esterase Urine WBC (Auto) Urine RBC (Auto) Urine Bacteria (Auto) Squamous Epi Cells Auto Urine Mucus (Auto) Urine Ascorbic Acid Slides for Path Review - Vital Signs Vital signs: Temp Pulse Resp BP Pulse Ox 98.5 F 85 16 127/89 H 99 12/28/18 07:27 12/28/18 07:27 12/28/18 07:27 12/28/18 07:27 12/28/18 07:27 - Laboratory Result Diagrams: 12/28/18 04:48 12/28/18 04:48 Laboratory results interpreted by me: 12/28/18 12/28/18 04:00 04:48 Chloride 108 H Urine Blood SMALL H Discharge - Discharge Clinical Impression: Flank pain Condition: Stable Disposition: HOME, SELF-CARE Instructions: Flank Pain ([facility]) Additional Instructions: Please follow-up with your urologist, continue to drink plenty of fluids, you can take the prescribed Zofran and Percocet if needed for nausea, vomiting and pain. If your symptoms worsen or do not improve or if you develop fevers, or intractable pain, do not hesitate to return to the emergency department. Prescriptions: Ondansetron [Zofran Odt 4 mg Tablet] 1 tab PO Q8H PRN #15 tab.rapdis PRN Reason: For Nausea/Vomiting Oxycodone HCl/Acetaminophen [Percocet 5-325 mg Tablet] 1 tab PO Q8H PRN #15 tab PRN Reason: general pain Referrals: FUNMI MARCOS JR, MD [Primary Care Provider] - Follow up in 3-5 days
[2018-12-28 07:28] VITALS: BP 127/89
== END 2018-12-28 07:36 | disposition home or self-care (01) ==
LOC: ER 01:33
DX: R10.9 Unspecified abdominal pain (principal); D68.0 Von Willebrand disease; E11.9 Type 2 diabetes mellitus without complications
CPT/HCPCS: 99284; 96372; 36415; 84703; 85025; 80048; 81001; 74176; S0119; J1170

== ENCOUNTER 2019-03-26 01:17 | Emergency (ER) | payer OTHER ==
[2019-03-26] MEDS ORDERED: ONDANSETRON 4 MG TAB.RAPDIS PO ONE (02:44)
--- NOTE | 2019-03-26 02:44 | ER Document Report ---
ED Medical Screen (RME) - General Chief Complaint: Abdominal Pain Stated Complaint: ABDOMINAL PAIN Time Seen by Provider: 03/26/19 02:39 Primary Care Provider: FUNMI MARCOS JR, MD [Primary Care Provider] - Follow up as needed TRAVEL OUTSIDE OF THE [place] IN LAST 30 DAYS: No - HPI Notes: 03/26/19 02:41 Patient is a 44-year-old female with a history of von Willebrand's, EOE, jason ady, PCOS who presents to the emergency department for left upper quadrant pain. Patient states that the pain started 2 days ago and has become more continuous and painful. Patient states she does see Dr. Martin her motorboat operator for her EOE. Patient states that she spoke with him yesterday regarding the discomfort that she was having and was told to try some medications to see if it would help. Patient has taken Bentyl, Nexium, Carafate, viscous lidocaine, and Tylenol without relief. Patient has had her gallbladder and appendix removed. Patient denies drinking alcohol. Patient s tates that the pain in the left upper quadrant is sharp in nature and worse when eating or attempting to drink. Patient reports nausea and vomiting x2. Patient denies urinary symptoms. - Related Data Allergies/Adverse Reactions: ibuprofen Allergy (Verified 06/21/18 06:40) latex Allergy (Verified 06/21/18 06:40) metoclopramide [From Reglan] Allergy (Verified 06/21/18 06:40) NSAIDS (Non-Steroidal Anti-Inflamma Allergy (Verified 06/21/18 06:40) Penicillins Allergy (Verified 06/21/18 06:40) sulfamethoxazole [From Septra] Allergy (Verified 06/21/18 06:40) sumatriptan [From Imitrex] Allergy (Verified 06/21/18 06:40) tramadol Allergy (Verified 06/21/18 06:40) trimethoprim [From Septra] Allergy (Verified 06/21/18 06:40) zolmitriptan [From Zomig] Allergy (Verified 06/21/18 06:40) haloperidol [From Haldol] Adverse Reaction (Verified 08/01/18 19:45) prochlorperazine [From Compazine] Adverse Reaction (Verified 06/21/18 06:40) Past Medical History - Social History Family history: Reviewed & Not Pertinent - Past Medical History Cardiac Medical History: Reports: Hx Hypercholesterolemia Neurological Medical History: Reports: Hx Migraine Endocrine Medical History: Comment Only: Hx Diabetes Mellitus Type 2 - pre diabetic Renal/ Medical History: Reports: Hx Ovarian Cysts - PCOS. Denies: Hx Peritoneal Dialysis GI Medical History: Reports: Hx Gastroesophageal Reflux Disease, Hx Hiatal Hernia Musculoskeltal Medical History: Reports Hx Arthritis, Reports Hx Musculoskeletal Deformity - Scoliosis, Reports Hx Musculoskeletal Trauma Psychiatric Medical History: Reports: Hx Anxiety, Hx Depression Traumatic Medical History: Reports: Hx Fractures - Arm Past Surgical History: Reports: Hx Appendectomy, Hx Cholecystectomy, Hx Genitourinary Surgery - "BLADDER SLING", Hx Hysterectomy, Hx Orthopedic Surgery - Alexander rods - Immunizations Hx Diphtheria, Pertussis, Tetanus Vaccination: No - 2009 History of Influenza Vaccine for 08/2017 - 12/2017 Season: Yes Influenza Administration Date for 08/2017 - 12/2017 Season: 12/03/16 Physical Exam - Vital signs Vitals: Temp Pulse Resp BP Pulse Ox 98.5 F 92 20 113/78 97 03/26/19 01:36 03/26/19 01:36 03/26/19 01:36 03/26/19 01:36 03/26/19 01:36 - Abdominal Inspection: Normal Distension: No distension Bowel sounds: Normal Tenderness: Tender - LUQ tenderness Course - Re-evaluation Re-evalutation: 03/26/19 02:44 I have greeted and performed a rapid initial assessment of this patient. A comprehensive ED assessment and evaluation of the patient, analysis of test results and completion of the medical decision making process will be conducted by additional ED providers. - Vital Signs Vital signs: Temp Pulse Resp BP Pulse Ox 98.5 F 92 20 113/78 97 03/26/19 01:36 03/26/19 01:36 03/26/19 01:36 03/26/19 01:36 03/26/19 01:36 Doctor's Discharge - Discharge Referrals: FUNMI MARCOS JR, MD [Primary Care Provider] - Follow up as needed
[2019-03-26 04:09] LABS: ABSOLUTE BASOPHILS # (AUTO) 0.1 10^3/uL (0.0-0.2); ABSOLUTE EOSINOPHILS # (AUTO) 0.4 10^3/uL (0.0-0.6); ABSOLUTE LYMPHOCYTES (AUTO) 3.4 10^3/uL (0.5-4.7); ABSOLUTE MONOCYTES (AUTO) 0.9 10^3/uL (0.1-1.4); ABSOLUTE NEUT (AUTO) 6.6 10^3/uL (1.7-8.2); BASOPHILS % (AUTO) 0.8 % (0-2); EOSINOPHILS % (AUTO) 3.7 % (0-6); HEMOGLOBIN 13.7 g/dL (12.0-15.5); LYMPHOCYTES % (AUTO) 29.9 % (13-45); MEAN CORPUSCULAR HEMOGLOBIN 27.3 pg (27.0-33.4); MEAN CORPUSCULAR HGB CONC 33.5 g/dL (32.0-36.0); MEAN CORPUSCULAR VOLUME 82 fl (80-97); MONOCYTES % (AUTO) 8.3 % (3-13); PLATELET COUNT 350 10^3/uL (150-450); RED BLOOD COUNT 5.03 10^6/uL (3.72-5.28); RED CELL DISTRIBUTION WIDTH 13.2 % (11.5-14.0); SEGMENTED NEUTROPHILS % (AUTO) 57.3 % (42-78); TOTAL CELLS COUNTED % (AUTO) 100 %; WHITE BLOOD COUNT 11.4 10^3/uL (4.0-10.5)
[2019-03-26 04:19] LABS: APPEARANCE,URINE CLOUDY; BILIRUBIN,URINE NEGATIVE (NEGATIVE); COLOR,URINE YELLOW; GLUCOSE, URINE NEGATIVE (NEGATIVE); KETONES,URINE NEGATIVE (NEGATIVE); LEUKOCYTE ESTERASE,URINE NEGATIVE (NEGATIVE); NITRITE,URINE NEGATIVE (NEGATIVE); PROTEIN,URINE NEGATIVE (NEGATIVE); URINE SPECIFIC GRAVITY 1.027; UROBILINOGEN,URINE NEGATIVE mg/dL (<2.0)
[2019-03-26 04:23] LABS: ALANINE AMINOTRANSFERASE 23 U/L (9-52); ALBUMIN 4.7 g/dL (3.5-5.0); ALKALINE PHOSPHATASE 56 U/L (38-126); ANION GAP 13 (5-19); ASPARTATE AMINO TRANSFERASE 16 U/L (14-36); BILIRUBIN,DIRECT 0.2 mg/dL (0.0-0.4); BILIRUBIN,TOTAL 0.3 mg/dL (0.2-1.3); BLOOD UREA NITROGEN 13 mg/dL (7-20); CARBON DIOXIDE 24 mmol/L (22-30); CHLORIDE 108 mmol/L (98-107); GLUCOSE 106 mg/dL (75-110); LIPASE 84.2 U/L (23-300); POTASSIUM 4.1 mmol/L (3.6-5.0); SODIUM 145.1 mmol/L (137-145); TOTAL PROTEIN 8.1 g/dL (6.3-8.2)
[2019-03-26] MEDS ORDERED: DIPHENHYDRAMINE HCL 50 MG/ML VIAL IV ONE (06:32)
[2019-03-26] MEDS ORDERED: ONDANSETRON HCL INJ/PF 4 MG/2 ML SDV IV ONE (06:33)
[2019-03-26] MEDS ORDERED: FAMOTIDINE INJ/PF 20 MG/2 ML SDV IV ONE (06:40)
[2019-03-26] MEDS ORDERED: MORPHINE SULFATE 10 MG/ML INJ IV ONE (06:40)
--- NOTE | 2019-03-26 07:15 | ER Document Report ---
ED General - General Chief Complaint: Abdominal Pain Stated Complaint: ABDOMINAL PAIN Time Seen by Provider: 03/26/19 02:39 Primary Care Provider: FUNMI MARCOS JR, MD [Primary Care Provider] - Follow up as needed Mode of Arrival: Ambulatory Information source: Patient Notes: Patient is a 44-year-old female with a history of von Willebrand's, EOE, migraines, PCOS, chronic abdominal pain who presents to the emergency department for left upper quadrant pain, nausea, vomiting. Patient states that the pain started 2 days ago and has become more continuous and painful. Patient states she does see Dr. Martin her reference investigator for her EOE. Patient states that she spoke with him yesterday regarding the discomfort that she was having and was told to try some medications to see if it would help. Patient has taken Bentyl, Nexium, Carafate, viscous lidocaine, and Tylenol without relief. Patient has had her gallbladder and appendix removed. Patient denies drinking alcohol. Patient states that the pain in the left upper quadrant is sharp in nature and worse when eating or attempting to drink. Patient reports nausea and vomiting x2. Patient denies urinary symptoms. TRAVEL OUTSIDE OF THE [place] IN LAST 30 DAYS: No - HPI Onset: Other Onset/Duration: Gradual, Persistent Quality of pain: Achy, Burning Severity: Moderate Pain Level: 2 Associated symptoms: Nausea, Vomiting Exacerbated by: Food Relieved by: Denies Similar symptoms previously: Yes Recently seen / treated by doctor: Yes - Related Data Allergies/Adverse Reactions: ibuprofen Allergy (Verified 06/21/18 06:40) latex Allergy (Verified 06/21/18 06:40) metoclopramide [From Reglan] Allergy (Verified 06/21/18 06:40) NSAIDS (Non-Steroidal Anti-Inflamma Allergy (Verified 06/21/18 06:40) Penicillins Allergy (Verified 06/21/18 06:40) sulfamethoxazole [From Septra] Allergy (Verified 06/21/18 06:40) sumatriptan [From Imitrex] Allergy (Verified 06/21/18 06:40) tramadol Allergy (Verified 06/21/18 06:40) trimethoprim [From Septra] Allergy (Verified 06/21/18 06:40) zolmitriptan [From Zomig] Allergy (Verified 06/21/18 06:40) haloperidol [From Haldol] Adverse Reaction (Verified 08/01/18 19:45) prochlorperazine [From Compazine] Adverse Reaction (Verified 06/21/18 06:40) Past Medical History - General Information source: Patient - Social History Smoking Status: Never Smoker Frequency of alcohol use: None Drug Abuse: None Lives with: Spouse/Significant other Family History: Arthritis, COPD, CVA, DM, Hyperlipidemia, Hypertension, Malignancy Patient has suicidal ideation: No Patient has homicidal ideation: No - Past Medical History Cardiac Medical History: Reports: Hx Hypercholesterolemia Neurological Medical History: Reports: Hx Migraine Endocrine Medical History: Comment Only: Hx Diabetes Mellitus Type 2 - pre diabetic Renal/ Medical History: Reports: Hx Ovarian Cysts - PCOS. Denies: Hx Peritoneal Dialysis GI Medical History: Reports: Hx Gastroesophageal Reflux Disease, Hx Hiatal Hernia Musculoskeletal Medical History: Reports Hx Arthritis, Reports Hx Musculoskeletal Deformity - Scoliosis, Reports Hx Musculoskeletal Trauma Psychiatric Medical History: Reports: Hx Anxiety, Hx Depression Traumatic Medical History: Reports: Hx Fractures - Arm Past Surgical History: Reports: Hx Appendectomy, Hx Cholecystectomy, Hx Genitourinary Surgery - "BLADDER SLING", Hx Hysterectomy, Hx Orthopedic Surgery - Alexander rods - Immunizations Hx Diphtheria, Pertussis, Tetanus Vaccination: No - 2009 Review of Systems - Review of Systems Notes: REVIEW OF SYSTEMS: CONSTITUTIONAL : Denies fever, chills, or sweats. Denies recent illness. Denies weight loss, recent hospitalizations. EENT: Denies visual changes, eye pain. Denies sore throat, oral lesions, difficulty swallowing. CARDIOVASCULAR: Denies chest pain. Denies palpitations. Denies lower extremity edema. RESPIRATORY: Denies cough. Denies shortness of breath, wheezing. GASTROINTESTINAL: Denies abdominal distention. Denies blood in vomitus, stools, or per rectum. Denies black, tarry stools. Denies constipation. GENITOURINARY: Denies difficulty urinating, painful urination, frequency, blood in urine, or vaginal discharge. MUSCULOSKELETAL: Denies back or neck pain or stiffness. Denies joint pain or swelling. SKIN: Denies rash, lesions or sores. HEMATOLOGIC : Denies easy bruising or bleeding. LYMPHATIC: Denies swollen glands. NEUROLOGICAL: Denies confusion or altered mental status. Denies loss of consciousness. Denies dizziness or lightheadedness. Denies headache. Denies weakness or paralysis. Denies problems difficulty with ambulation, slurred speech. Denies sensory loss, numbness, or tingling. Denies seizures. PSYCHIATRIC: Denies anxiety or stress. Denies depression, suicidal ideation, or homicidal ideation. Denies visual or auditory hallucinations. Physical Exam - Vital signs Vitals: Temp Pulse Resp BP Pulse Ox 98.5 F 92 20 113/78 97 03/26/19 01:36 03/26/19 01:36 03/26/19 01:36 03/26/19 01:36 03/26/19 01:36 - Notes Notes: PHYSICAL EXAMINATION: GENERAL: Well-appearing, well-nourished and in no acute distress. HEAD: Atraumatic, normocephalic. EYES: Pupils equal round and reactive to light, extraocular movements intact, conjunctiva are normal. ENT: Nares patent, oropharynx clear without exudates. Moist mucous membranes. NECK: Normal range of motion, supple without lymphadenopathy LUNGS: Breath sounds clear to auscultation bilaterally and equal. No wheezes rales or rhonchi. HEART: Regular rate and rhythm without murmurs ABDOMEN: Soft, mild epigastric tenderness with palpation, nondistended abdomen. No guarding, no rebound. No masses appreciated. Female : deferred Musculoskeletal: Normal range of motion, no pitting or edema. No cyanosis. NEUROLOGICAL: Cranial nerves grossly intact. Normal speech, normal gait. Normal sensory, motor exams PSYCH: Normal mood, normal affect. SKIN: Warm, Dry, normal turgor, no rashes or lesions noted. Course - Re-evaluation Re-evalutation: 03/26/19 08:58 Laboratory 03/26/19 03/26/19 03/26/19 03:53 03:53 04:05 WBC 11.4 H RBC 5.03 Hgb 13.7 Hct 41.0 MCV 82 MCH 27.3 MCHC 33.5 RDW 13.2 Plt Count 350 Seg Neutrophils % 57.3 Lymphocytes % 29.9 Monocytes % 8.3 Eosinophils % 3.7 Basophils % 0.8 Absolute Neutrophils 6.6 Absolute Lymphocytes 3.4 Absolute Monocytes 0.9 Absolute Eosinophils 0.4 Absolute Basophils 0.1 Sodium 145.1 H Potassium 4.1 Chloride 108 H Carbon Dioxide 24 Anion Gap 13 BUN 13 Creatinine 0.97 Est GFR ( Amer) > 60 Est GFR (Non-Af Amer) > 60 Glucose 106 Calcium 10.0 Total Bilirubin 0.3 Direct Bilirubin 0.2 Neonat Total Bilirubin Not Reportable Neonat Direct Bilirubin Not Reportable Neonat Indirect Bili Not Reportable AST 16 ALT 23 Alkaline Phosphatase 56 Total Protein 8.1 Albumin 4.7 Lipase 84.2 Urine Color YELLOW Urine Appearance CLOUDY Urine pH 5.0 Ur Specific [place] 1.027 Urine Protein NEGATIVE Urine Glucose (UA) NEGATIVE Urine Ketones NEGATIVE Urine Blood SMALL H Urine Nitrite NEGATIVE Urine Bilirubin NEGATIVE Urine Urobilinogen NEGATIVE Ur Leukocyte Esterase NEGATIVE Urine WBC (Auto) 3 Urine RBC (Auto) 3 Squamous Epi Cells Auto 20 Urine Mucus (Auto) MOD Urine Ascorbic Acid NEGATIVE Temp Pulse Resp BP Pulse Ox 97.5 F 87 14 93/62 L 98 03/26/19 07:36 03/26/19 07:36 03/26/19 07:36 03/26/19 07:36 03/26/19 07:36 Presentation of an overall well-appearing patient in no acute distress with complaints of nausea, vomiting, abdominal cramping. This is consistent with likely viral gastroenteritis. Patient has no abdominal tenderness on exam and specifically no tenderness in the RLQ, LLQ, RUQ. Overall well hydrated on exam. Able to tolerate oral intake here in the emergency department. Low clinical suspicion for any acute life-threatening etiology based on exam and history including acute cholecystitis, SBO, appendicitis, nephrolithiasis, or pylonephr itis. CMP without evidence of acute hepatitis or significant dehydration. Will plan for discharge at this time with return precautions and followup recommendations. - Vital Signs Vital signs: Temp Pulse Resp BP Pulse Ox 97.5 F 87 14 93/62 L 98 03/26/19 07:36 03/26/19 07:36 03/26/19 07:36 03/26/19 07:36 03/26/19 07:36 - Laboratory Result Diagrams: 03/26/19 03:53 03/26/19 03:53 Laboratory results interpreted by me: 03/26/19 03/26/19 03/26/19 03:53 03:53 04:05 WBC 11.4 H Sodium 145.1 H Chloride 108 H Urine Blood SMALL H Discharge - Discharge Clinical Impression: Upper abdominal pain Nausea & vomiting Qualifiers: Vomiting type: unspecified Vomiting Intractability: intractable Qualified Code(s): R11.2 - Nausea with vomiting, unspecified Condition: Good Disposition: HOME, SELF-CARE Instructions: Abdominal Pain ([facility]), Vomiting ([facility]) Additional Instructions: Follow up with your [id number] hours for further care or return to the ED IMMEDIATELY if symptoms worsen or you have any concerns. If you cannot afford to follow up with your primary care physician a list of low cost clinics have been provided at the end of your discharge papers as well. Most prescribed medications have multiple side effects. The safest thing to do is when filling your prescription speak to your pharmacist regarding possible interactions with your normal home medications and over the counter medications such as Ibuprofen, Tylenol, Benadryl. If you experience any symptoms that cause you discomfort or concern you should discontinue the medication immediately and return to the emergency room or call your primary care physician. Prescriptions: Hydrocodone/Acetaminophen [[place] 5-325 Tablet] 1 each PO Q6H #12 tablet Referrals: FUNMI MARCOS JR, MD [Primary Care Provider] - Follow up as needed
[2019-03-26 07:37] VITALS: BP 93/62
== END 2019-03-26 07:38 | disposition home or self-care (01) ==
LOC: ER 01:17
DX: R10.12 Left upper quadrant pain (principal); R10.9 Unspecified abdominal pain; R11.2 Nausea with vomiting, unspecified; R73.03 Prediabetes; Z79.899 Other long term (current) drug therapy
CPT/HCPCS: 99284; 96374; 96375; 36415; 83690; 85025; 80053; 81001; J1200; S0119; J2270; J2405; S0028

== ENCOUNTER 2019-03-29 06:09 | Emergency (ER) | payer OTHER ==
[2019-03-29 08:37] LABS: APPEARANCE,URINE CLEAR; BILIRUBIN,URINE NEGATIVE (NEGATIVE); COLOR,URINE YELLOW; GLUCOSE, URINE NEGATIVE (NEGATIVE); KETONES,URINE NEGATIVE (NEGATIVE); LEUKOCYTE ESTERASE,URINE NEGATIVE (NEGATIVE); NITRITE,URINE NEGATIVE (NEGATIVE); PROTEIN,URINE NEGATIVE (NEGATIVE); URINE SPECIFIC GRAVITY 1.005; UROBILINOGEN,URINE NEGATIVE mg/dL (<2.0)
[2019-03-29] MEDS ORDERED: ONDANSETRON 4 MG TAB.RAPDIS PO ONE (08:41)
[2019-03-29] MEDS ORDERED: ACETAMINOPHEN 325 MG TABLET PO ONE (08:41)
--- NOTE | 2019-03-29 09:06 | RADIOLOGY REPORT (SQ) ---
EXAM DESCRIPTION: [employer]/S [employer] COMPLETED DATE/TIME: 03/29/2019 8:46 am REASON FOR STUDY: left flank pain, eval for hydronephrosis COMPARISON: None. TECHNIQUE: Dynamic and static grayscale images acquired of the kidneys and bladder and recorded on P ACS. Additional selected color Doppler and spectral images recorded. LIMITATIONS: None. FINDINGS: RIGHT KIDNEY: The right kidney measures 9.96 x 4.1 x 4.8 cm. The right kidney demonstrat es no hydronephrosis. Doppler flow is noted. No renal calculus identified. LEFT KIDNEY: The left kidney measures 11.2 by 5.9 by 5.3 cm. The left kidney demonstrates no hydron ephrosis. Doppler flow is noted. No renal calculus identified. BLADDER. No abnormality. OTHER FINDINGS: No other significant finding. IMPRESSION: Normal bilateral renal ultrasound. TECHNICAL DOCUMENTATION: JOB ID: [id number] [employer]- All Rights Reserved Reading location - IP/workstation name: [email or web address]
[2019-03-29] MEDS ORDERED: ONDANSETRON HCL INJ/PF 4 MG/2 ML SDV IM ONE (09:32)
--- NOTE | 2019-03-29 09:58 | ER Document Report ---
ED General - General Chief Complaint: Possible Kidney Stone Stated Complaint: FLANK PAIN Time Seen by Provider: 03/29/19 06:50 Primary Care Provider: FUNMI MARCOS JR, MD [Primary Care Provider] - Follow up as needed TRAVEL OUTSIDE OF THE [place] IN LAST 30 DAYS: No - Related Data Allergies/Adverse Reactions: ibuprofen Allergy (Verified 06/21/18 06:40) latex Allergy (Verified 06/21/18 06:40) metoclopramide [From Reglan] Allergy (Verified 06/21/18 06:40) NSAIDS (Non-Steroidal Anti-Inflamma Allergy (Verified 06/21/18 06:40) Penicillins Allergy (Verified 06/21/18 06:40) sulfamethoxazole [From Septra] Allergy (Verified 06/21/18 06:40) sumatriptan [From Imitrex] Allergy (Verified 06/21/18 06:40) tramadol Allergy (Verified 06/21/18 06:40) trimethoprim [From Septra] Allergy (Verified 06/21/18 06:40) zolmitriptan [From Zomig] Allergy (Verified 06/21/18 06:40) haloperidol [From Haldol] Adverse Reaction (Verified 08/01/18 19:45) prochlorperazine [From Compazine] Adverse Reaction (Verified 06/21/18 06:40) Past Medical History - Social History Smoking Status: Unknown if Ever Smoked Family History: Arthritis, COPD, CVA, DM, Hyperlipidemia, Hypertension, Malignancy Patient has suicidal ideation: No Patient has homicidal ideation: No - Past Medical History Cardiac Medical History: Reports: Hx Hypercholesterolemia Neurological Medical History: Reports: Hx Migraine Endocrine Medical History: Comment Only: Hx Diabetes Mellitus Type 2 - pre diabetic Renal/ Medical History: Reports: Hx Ovarian Cysts - PCOS. Denies: Hx Peritoneal Dialysis GI Medical History: Reports: Hx Gastroesophageal Reflux Disease, Hx Hiatal Hernia Musculoskeletal Medical History: Reports Hx Arthritis, Reports Hx Musculoskeletal Deformity - Scoliosis, Reports Hx Musculoskeletal Trauma Psychiatric Medical History: Reports: Hx Anxiety, Hx Depression Traumatic Medical History: Reports: Hx Fractures - Arm Past Surgical History: Reports: Hx Appendectomy, Hx Cholecystectomy, Hx Genitourinary Surgery - "BLADDER SLING", Hx Hysterectomy, Hx Orthopedic Surgery - Alexander rods - Immunizations Hx Diphtheria, Pertussis, Tetanus Vaccination: No - 2009 Physical Exam - Vital signs Vitals: Temp Pulse Resp BP Pulse Ox 98.2 F 93 18 134/82 H 97 03/29/19 06:15 03/29/19 06:15 03/29/19 06:15 03/29/19 06:15 03/29/19 06:15 Course - Vital Signs Vital signs: Temp Pulse Resp BP Pulse Ox 98.2 F 93 18 134/82 H 97 03/29/19 06:15 03/29/19 06:15 03/29/19 06:15 03/29/19 06:15 03/29/19 06:15 - Laboratory Laboratory results interpreted by me: 03/29/19 08:10 Urine Blood SMALL H Discharge - Discharge Clinical Impression: Left inguinal pain Nausea & vomiting Qualifiers: Vomiting Intractability: intractable Condition: Stable Disposition: HOME, SELF-CARE Instructions: Abdominal Pain ([facility]) Additional Instructions: Muscle Relaxers Muscle relaxing medications are usually prescribed for acute muscle spasm or injury to the neck and back. They are often combined with antiinflammatory pain medication for increased relief. You may stop the muscle relaxer when the pain and stiffness have improved. Start the medication again if spasms recur. Muscle relaxers may cause drowsiness, especially with the first dose. Do not operate machinery or drive while under the effects of the medication. Most muscle relaxers last up to 24 hours. Do not combine the medication with alcohol. Stay hydrated with small, frequent sips of fluids. Take medications as prescribed. Follow-up with your doctor this week. Return to the emergency department with worsening or new concerning symptoms. Referrals: FUNMI MARCOS JR, MD [Primary Care Provider] - Follow up as needed
[2019-03-29 10:09] VITALS: BP 111/71
== END 2019-03-29 10:09 | disposition home or self-care (01) ==
LOC: ER 06:09
DX: R10.32 Left lower quadrant pain (principal); R11.2 Nausea with vomiting, unspecified; E78.00 Pure hypercholesterolemia, unspecified; Z88.6 Allergy status to analgesic agent; Z91.040 Latex allergy status; Z88.0 Allergy status to penicillin; Z90.49 Acquired absence of other specified parts of digestive tract; Z90.710 Acquired absence of both cervix and uterus
CPT/HCPCS: 99284; 96372; 81001; 76775; S0119; J2405

== ENCOUNTER 2019-05-03 06:23 | Emergency (ER) | payer OTHER ==
[2019-05-03 06:27] VITALS: BP 127/84
--- NOTE | 2019-05-03 07:17 | ER Document Report ---
HPI - HPI Time Seen by Provider: 05/03/19 06:53 Pain Level: 5 Context: Patient is a 44-year-old female with a history of von Willebrand's, PCOS, migraines, kidney stones who presents to the emergency department with a chief complaint of right lower dental pain. Patient states that last night around 7 PM she was eating noodles when her crown came out on her tooth on the bottom right side. She states initially she was not in pain but woke up around 4 AM in excruciating right lower dental pain. Patient reports mild swelling to the right face. Patient denies fever. Patient denies nausea vomiting or diarrhea. Patient denies difficulty swallowing. Patient denies difficulty closing and opening jaw. - REPRODUCTIVE Reproductive: DENIES: : Past Medical History - General Information source: Patient - Social History Smoking Status: Never Smoker Cigarette use (# per day): No Chew tobacco use (# tins/day): No Frequency of alcohol use: None Drug Abuse: None Lives with: Spouse/Significant other Family History: Arthritis, COPD, CVA, DM, Hyperlipidemia, Hypertension, Malignancy Patient has suicidal ideation: No Patient has homicidal ideation: No - Past Medical History Cardiac Medical History: Reports: Hx Hypercholesterolemia Pulmonary Medical History: Reports: None EENT Medical History: Reports: None Neurological Medical History: Reports: Hx Migraine Endocrine Medical History: Reports: NoneComment Only: Hx Diabetes Mellitus Type 2 - pre diabetic Renal/ Medical History: Reports: Hx Ovarian Cysts - PCOS. Denies: Hx Peritoneal Dialysis Malignancy Medical History: Reports: None GI Medical History: Reports: Hx Gastroesophageal Reflux Disease, Hx Hiatal Hernia Musculoskeletal Medical History: Reports Hx Arthritis, Reports Hx Musculoskeletal Deformity - Scoliosis, Reports Hx Musculoskeletal Trauma Skin Medical History: Reports None Psychiatric Medical History: Reports: Hx Anxiety, Hx Depression Traumatic Medical History: Reports: Hx Fractures - Arm Infectious Medical History: Reports: None Past Surgical History: Reports: Hx Appendectomy, Hx Cholecystectomy, Hx Genitourinary Surgery - "BLADDER SLING", Hx Hysterectomy, Hx Orthopedic Surgery - Alexander rods - Immunizations Hx Diphtheria, Pertussis, Tetanus Vaccination: No - 2009 Vertical Provider Document - CONSTITUTIONAL Agree With Documented VS: Yes Exam Limitations: No Limitations General Appearance: No Apparent Distress - INFECTION CONTROL TRAVEL OUTSIDE OF THE [place] IN LAST 30 DAYS: No - HEENT HEENT: Atraumatic, Normal ENT Exam, Normocephalic, PERRLA Mouth Diagram: 1 - Broken tooth Notes: Patient has extremely poor dentition and is missing multiple teeth. No obvious abscess to the gum or around the tooth. There is minimal swelling to the right cheek. Patient states that the right lower dental pain radiates into the right ear. Patient's right ear was unremarkable as there was no erythema to the tympanic membrane, ear canal, external ear. There is no mastoid tenderness or tragus tenderness. - NECK Neck: Normal Inspection - RESPIRATORY Respiratory: Breath Sounds Normal, No Respiratory Distress - CARDIOVASCULAR Cardiovascular: Regular Rate, Regular Rhythm - GI/ABDOMEN Gastrointestinal: Abdomen Soft, Abdomen Non-Tender - BACK Back: Normal Inspection - NEURO Level of Consciousness: Awake, Alert, Appropriate - DERM Integumentary: Warm, Dry, No Rash Course - Re-evaluation Re-evalutation: 05/03/19 07:15 Initial assessment patient resting comfortably on stretcher and sitting upright. Please see physical examination. Patient is able to swallow without difficulty. Airway is patent. Will prescribe antibiotic as well as pain medication until patient is able to follow-up with a dentist. States she does have health insurance. - Vital Signs Vital signs: Temp Pulse Resp BP Pulse Ox 97.6 F 94 22 H 127/84 H 97 05/03/19 06:26 05/03/19 06:26 05/03/19 06:26 05/03/19 06:26 05/03/19 06:26 Discharge - Discharge Clinical Impression: Dental infection Condition: Stable Disposition: HOME, SELF-CARE Instructions: Clindamycin ([facility]), Oral Narcotic Medication ([facility]), Toothache ([facility]) Additional Instructions: Today you were seen in the emergency department for dental pain. You are being prescribed Clindamycin which is an antibiotic that you will take for its entire course. Please follow-up with a dentist to fix the crown that was broken. Return to the emergency department for swelling of the face, fever, worsening signs or symptoms. If you develop high fever with chills, worsening pain, or increasing swelling in the area, see a dentist or oral surgeon immediately or return to the Emergency Department immediately. *You have been evaluated for dental pain *Take medications as prescribed *Follow up with dentist *Return to ED for worsening condition, changes, needs Prescriptions: Clindamycin HCl 450 mg PO TID 7 Days #21 capsule Clindamycin HCl [Cleocin 150 mg Capsule] 450 mg PO TID 7 Days #63 capsule Referrals: FUNMI MARCOS JR, MD [Primary Care Provider] - Follow up as needed
[2019-05-03] MEDS ORDERED: OXYCODONE HCL IR 5 MG TABLET PO ONE (07:31)
== END 2019-05-03 07:48 | disposition home or self-care (01) ==
LOC: ER 06:23
DX: K04.7 Periapical abscess without sinus (principal); K08.89 Other specified disorders of teeth and supporting structures
CPT/HCPCS: 99282

== ENCOUNTER 2019-06-13 23:36 | Emergency (ER) | payer OTHER ==
[2019-06-13] MEDS ORDERED: ASPIRIN 81 MG TABLET, CHEWABLE PO ONE (23:39)
--- NOTE | 2019-06-14 00:14 | RADIOLOGY REPORT (SQ) ---
EXAM DESCRIPTION: XR CHEST 2 VIEWS COMPLETED DATE/TME: 06/13/2019 00:00 CLINICAL HISTORY: 44 years, Female, cp Comparison: None FINDINGS: No focal lung consolidation. No pleural effusion. No pneumothorax. Cardiac and mediastinal silhouette is unremarkable. Alexander karlie fixation of the thoracic spine. Mild dextroscoliosis. Soft tissues are unremarkable. IMPRESSION: No acute findings. No focal lung consolidation.
[2019-06-14] MEDS ORDERED: ONDANSETRON HCL INJ/PF 4 MG/2 ML SDV IV ONE ×2 (05:05→09:08)
[2019-06-14] MEDS ORDERED: DIPHENHYDRAMINE HCL 50 MG/ML VIAL IV ONE (05:06)
[2019-06-14] MEDS ORDERED: FAMOTIDINE 20 MG TABLET PO ONE (05:06)
[2019-06-14] MEDS ORDERED: HYDROMORPHONE HCL INJ/PF 2 MG/ML AMPULE IV ONE (05:06)
[2019-06-14] MEDS ORDERED: SUCRALFATE 1 GM TABLET PO ONE (05:07)
--- NOTE | 2019-06-14 05:13 | ER Document Report ---
ED General - General Chief Complaint: Chest Pain Stated Complaint: CHEST PAIN Time Seen by Provider: 06/14/19 04:46 Primary Care Provider: FUNMI MARCOS JR, MD [Primary Care Provider] - Follow up as needed Mode of Arrival: Ambulatory Information source: Patient TRAVEL OUTSIDE OF THE [place] IN LAST 30 DAYS: No - HPI Notes: Patient is a 44-year-old female history of chronic abdominal pain related to eosinophilic esophagitis, history of migraines and [id number] diabetes presents to the emergency department with report of chest pain that came on earlier in the day and then worsened at 1900 after sneezing associated with shortness of breath and nausea. The patient denies any vomiting. The patient states chest pain is pleuritic and left-sided and radiates through to the back. The patient denies this being her typical eosinophilic esophagitis symptoms. The patient reports no cough or congestion nor constipation or diarrhea or dysuria. Family history dad with CHF no significant cardiac disease at young ages. Social history patient does not smoke. There is rare alcohol use. Medications Nexium that she takes daily, lidocaine as needed, Lipitor, metformin, Topamax, Wellbutrin, Vesicare, Ambien, Zyrtec, Stadol nasal spray. Patient previously was on Carafate but she ran out. Patient does have a history of von Willebrand's disease 2A. - Related Data Allergies/Adverse Reactions: ibuprofen Allergy (Verified 05/11/19 16:59) latex Allergy (Verified 05/11/19 16:59) metoclopramide [From Reglan] Allergy (Verified 05/11/19 16:59) NSAIDS (Non-Steroidal Anti-Inflamma Allergy (Verified 05/11/19 16:59) Penicillins Allergy (Verified 05/11/19 16:59) sulfamethoxazole [From Septra] Allergy (Verified 05/11/19 16:59) sumatriptan [From Imitrex] Allergy (Verified 05/11/19 16:59) tramadol Allergy (Verified 05/11/19 16:59) trimethoprim [From Septra] Allergy (Verified 05/11/19 16:59) zolmitriptan [From Zomig] Allergy (Verified 05/11/19 16:59) haloperidol [From Haldol] Adverse Reaction (Verified 05/11/19 16:59) prochlorperazine [From Compazine] Adverse Reaction (Verified 05/11/19 16:59) Past Medical History - General Information source: Patient - Social History Smoking Status: Never Smoker Frequency of alcohol use: Rare Drug Abuse: None Lives with: Family Family History: Arthritis, COPD, CVA, DM, Hyperlipidemia, Hypertension, Malig hernán - Past Medical History Cardiac Medical History: Reports: Hx Hypercholesterolemia Neurological Medical History: Reports: Hx Migraine Endocrine Medical History: Comment Only: Hx Diabetes Mellitus Type 2 - pre diabetic Renal/ Medical History: Reports: Hx Ovarian Cysts - PCOS. Denies: Hx Peritoneal Dialysis GI Medical History: Reports: Hx Gastroesophageal Reflux Disease, Hx Hiatal Hernia Musculoskeletal Medical History: Reports Hx Arthritis, Reports Hx Musculoskeletal Deformity - Scoliosis, Reports Hx Musculoskeletal Trauma Psychiatric Medical History: Reports: Hx Anxiety, Hx Depression Traumatic Medical History: Reports: Hx Fractures - Arm Past Surgical History: Reports: Hx Appendectomy, Hx Cholecystectomy, Hx Genitourinary Surgery - "BLADDER SLING", Hx Hysterectomy, Hx Orthopedic Surgery - Alexander rods - Immunizations Hx Diphtheria, Pertussis, Tetanus Vaccination: No - 2009 Review of Systems - Review of Systems -: Yes All other systems reviewed and negative Physical Exam - Vital signs Vitals: Temp Pulse Resp BP Pulse Ox 99.1 F 98 20 131/85 H 98 06/13/19 23:51 06/13/19 23:51 06/13/19 23:51 06/13/19 23:51 06/13/19 23:51 - Notes Notes: PHYSICAL EXAMINATION: GENERAL: Well-appearing, well-nourished and in no acute distress. HEAD: Atraumatic, normocephalic. EYES: Pupils equal round and reactive to light, extraocular movements intact, conjunctiva are normal. ENT: Nares patent, oropharynx clear without exudates. Moist mucous membranes. NECK: Normal range of motion, supple without lymphadenopathy LUNGS: Breath sounds clear to auscultation bilaterally and equal. No wheezes rales or rhonchi. HEART: Regular rate and rhythm without murmurs. Reproducible left and midline chest wall pain. No breast mass or crepitance or bony deformity or erythema. ABDOMEN: Soft, nondistended abdomen. No guarding, no rebound. No masses appreciated. Very minimal tenderness midepigastric region. Female : deferred Musculoskeletal: Normal range of motion, no pitting or edema. No cyanosis. NEUROLOGICAL: Cranial nerves grossly intact. Normal speech, normal gait. Normal sensory, motor exams PSYCH: Normal mood, normal affect. SKIN: Warm, Dry, normal turgor, no rashes or lesions noted. Course - Re-evaluation Re-evalutation: 06/14/19 05:12 Patient initially had attempts made at IV access and blood draw which were unsuccessful. She briefly refused having further blood draw attempts. After my discussion with the patient, voicing my concern that we could not exclude cardiac etiology or pulmonary embolus, patient consented and agreed to another attempted IV access. 06/14/19 06:28 Patient given medications for pain and for esophagitis. Care turned over to Dr. Archuleta at 0600. - Vital Signs Vital signs: Temp Pulse Resp BP Pulse Ox 99.1 F 98 20 131/85 H 98 06/13/19 23:51 06/13/19 23:51 06/13/19 23:51 06/13/19 23:51 06/13/19 23:51 - Laboratory Result Diagrams: 06/14/19 05:20 06/14/19 05:20 Laboratory results interpreted by me: 06/14/19 05:20 Carbon Dioxide 21 L - EKG Interpretation by Mn EKG shows normal: Sinus rhythm Rate: Normal Additional EKG results interpreted by ms: 06/14/19 05:11 EKG as interpreted by ms showed normal sinus rhythm heart rate of 94. There is no gross evidence for acute HI or ischemia noted. There is no change from previous EKG reviewed from 08/01/2018. Discharge - Discharge Clinical Impression: Esophagitis Chest pain Qualifiers: Chest pain type: pleurodynia Qualified Code(s): R07.81 - Pleurodynia Disposition: OTHER Referrals: FUNMI MARCOS JR, MD [Primary Care Provider] - Follow up as needed
[2019-06-14 05:55] LABS: ABSOLUTE BASOPHILS # (AUTO) 0.1 10^3/uL (0.0-0.2); ABSOLUTE EOSINOPHILS # (AUTO) 0.5 10^3/uL (0.0-0.6); ABSOLUTE LYMPHOCYTES (AUTO) 2.7 10^3/uL (0.5-4.7); ABSOLUTE MONOCYTES (AUTO) 0.8 10^3/uL (0.1-1.4); BASOPHILS % (AUTO) 1.4 % (0-2); HEMATOCRIT 36.8 % (36.0-47.0); HEMOGLOBIN 12.3 g/dL (12.0-15.5); LYMPHOCYTES % (AUTO) 29.1 % (13-45); MEAN CORPUSCULAR HEMOGLOBIN 27.4 pg (27.0-33.4); MEAN CORPUSCULAR HGB CONC 33.4 g/dL (32.0-36.0); MEAN CORPUSCULAR VOLUME 82 fl (80-97); MONOCYTES % (AUTO) 9.1 % (3-13); PLATELET COUNT 280 10^3/uL (150-450); RED BLOOD COUNT 4.49 10^6/uL (3.72-5.28); RED CELL DISTRIBUTION WIDTH 13.9 % (11.5-14.0); SEGMENTED NEUTROPHILS % (AUTO) 55.4 % (42-78); TOTAL CELLS COUNTED % (AUTO) 100 %; WHITE BLOOD COUNT 9.1 10^3/uL (4.0-10.5)
[2019-06-14 06:14] LABS: ALBUMIN 3.9 g/dL (3.5-5.0); ALKALINE PHOSPHATASE 47 U/L (38-126); ANION GAP 10 (5-19); ASPARTATE AMINO TRANSFERASE 35 U/L (14-36); BILIRUBIN,DIRECT 0.3 mg/dL (0.0-0.4); BILIRUBIN,TOTAL 0.4 mg/dL (0.2-1.3); BLOOD UREA NITROGEN 13 mg/dL (7-20); CALCIUM 9.1 mg/dL (8.4-10.2); CARBON DIOXIDE 21 mmol/L (22-30); CHLORIDE 107 mmol/L (98-107); CREATINE KINASE 39 U/L (30-135); GLUCOSE 99 mg/dL (75-110); POTASSIUM 4.1 mmol/L (3.6-5.0)
[2019-06-14] MEDS ORDERED: HYDROCODONE/ACETAMINOPHEN 5-325 MG TABLET PO ONE (09:08)
--- NOTE | 2019-06-14 09:13 | ER Document Report ---
ED General - General Chief Complaint: Chest Pain Stated Complaint: CHEST PAIN Time Seen by Provider: 06/14/19 04:46 Primary Care Provider: FUNMI MARCOS JR, MD [Primary Care Provider] - Follow up as needed Mode of Arrival: Ambulatory Notes: Patient was signed out to me at shift change please see Dr. Fiore's note for HPI and review of systems TRAVEL OUTSIDE OF THE [place] IN LAST 30 DAYS: No - Related Data Allergies/Adverse Reactions: ibuprofen Allergy (Verified 05/11/19 16:59) latex Allergy (Verified 05/11/19 16:59) metoclopramide [From Reglan] Allergy (Verified 05/11/19 16:59) NSAIDS (Non-Steroidal Anti-Inflamma Allergy (Verified 05/11/19 16:59) Penicillins Allergy (Verified 05/11/19 16:59) sulfamethoxazole [From Septra] Allergy (Verified 05/11/19 16:59) sumatriptan [From Imitrex] Allergy (Verified 05/11/19 16:59) tramadol Allergy (Verified 05/11/19 16:59) trimethoprim [From Septra] Allergy (Verified 05/11/19 16:59) zolmitriptan [From Zomig] Allergy (Verified 05/11/19 16:59) haloperidol [From Haldol] Adverse Reaction (Verified 05/11/19 16:59) prochlorperazine [From Compazine] Adverse Reaction (Verified 05/11/19 16:59) Past Medical History - General Information source: Patient - Social History Smoking Status: Never Smoker Frequency of alcohol use: Rare Drug Abuse: None Lives with: Family Family History: Arthritis, COPD, CVA, DM, Hyperlipidemia, Hypertension, Malignancy Patient has suicidal ideation: No Patient has homicidal ideation: No - Past Medical History Cardiac Medical History: Reports: Hx Hypercholesterolemia Neurological Medical History: Reports: Hx Migraine Endocrine Medical History: Comment Only: Hx Diabetes Mellitus Type 2 - pre diabetic Renal/ Medical History: Reports: Hx Ovarian Cysts - PCOS. Denies: Hx Peritoneal Dialysis GI Medical History: Reports: Hx Gastroesophageal Reflux Disease, Hx Hiatal Hernia Musculoskeletal Medical History: Reports Hx Arthritis, Reports Hx Musculoskeletal Deformity - Scoliosis, Reports Hx Musculoskeletal Trauma Psychiatric Medical History: Reports: Hx Anxiety, Hx Depression Traumatic Medical History: Reports: Hx Fractures - Arm Past Surgical History: Reports: Hx Appendectomy, Hx Cholecystectomy, Hx Genitourinary Surgery - "BLADDER SLING", Hx Hysterectomy, Hx Orthopedic Surgery - Alexander rods - Immunizations Hx Diphtheria, Pertussis, Tetanus Vaccination: No - 2009 Physical Exam - Vital signs Vitals: Temp Pulse Resp BP Pulse Ox 99.1 F 98 20 131/85 H 98 06/13/19 23:51 06/13/19 23:51 06/13/19 23:51 06/13/19 23:51 06/13/19 23:51 - Notes Notes: I reexamined the patient [id number] she has exquisite tenderness along her sternum on the left extending down to the xiphoid process there is no bruising no crepitus or subcu emphysema lungs are clear Course - Re-evaluation Re-evalutation: 06/14/19 09:11 I reevaluated the patient she had exquisite chest tenderness some epigastric tenderness she is a long history of eosinophilic esophagitis. She did throw up one more time I gave her some Zofran and [place]. She was given water before her work appears very reassuring no sniffing lab abnormalities troponin is negative with my clinical exam my suspicion for ACS is extraordinarily low. Patient will be discharged home she stated that she has enough antiacid medicine at home she cannot take NSAIDs because of her von Willebrand's disease. Tylenol for pain is what I would recommend. - Vital Signs Vital signs: Temp Pulse Resp BP Pulse Ox 99.1 F 98 20 131/85 H 98 06/13/19 23:51 06/13/19 23:51 06/13/19 23:51 06/13/19 23:51 06/13/19 23:51 - Laboratory Result Diagrams: 06/14/19 05:20 06/14/19 05:20 Laboratory results interpreted by me: 06/14/19 05:20 Carbon Dioxide 21 L Discharge - Discharge Clinical Impression: Esophagitis, Costochondritis, acute Condition: Good Disposition: HOME, SELF-CARE Instructions: Esophagitis ([facility]), Costochondritis ([facility]) Additional Instructions: Please take Tylenol for your chest discomfort. This looks to be due to inflam mation along her sternal cartilages. Also continue with your usual regimen for your esophagitis. If you do not improve in 48 hours return to the ER to be reevaluated otherwise follow-up with your family doctor if dramatically worse return as soon as possible Referrals: FUNMI MARCOS JR, MD [Primary Care Provider] - Follow up as needed
[2019-06-14 09:35] VITALS: BP 113/72
--- NOTE | 2019-06-14 09:46 | EKG REPORT ---
SEVERITY:- NORMAL ECG - SINUS RHYTHM : Confirmed by: Lars Aaron 14-Jun-2019 09:46:09
== END 2019-06-14 09:30 | disposition home or self-care (01) ==
LOC: ER 23:36
DX: M94.0 Chondrocostal junction syndrome [Tietze] (principal); K20.9 Esophagitis, unspecified; R07.9 Chest pain, unspecified; E78.00 Pure hypercholesterolemia, unspecified; E11.9 Type 2 diabetes mellitus without complications; Z91.040 Latex allergy status; Z88.6 Allergy status to analgesic agent; Z88.3 Allergy status to other anti-infective agents; Z90.49 Acquired absence of other specified parts of digestive tract
CPT/HCPCS: 93005; 36415; 82553; 82550; 83690; 85025; 80053; 84484; 85379; 71046; 93010; J1200; J1170; J2405; 96374; 96375; 96376; 99285

== ENCOUNTER 2019-06-19 01:59 | Emergency (ER) | payer OTHER ==
[2019-06-19 02:18] VITALS: BP 138/90
[2019-06-19] MEDS ORDERED: PROMETHAZINE HCL INJ 50 MG/1 ML VIAL IM PRN (03:10)
[2019-06-19] MEDS ORDERED: NORMAL SALINE 1000 ML 1,000 ML IV ONE (03:10)
[2019-06-19] MEDS ORDERED: ONDANSETRON HCL INJ/PF 4 MG/2 ML SDV IV ONE (03:10)
--- NOTE | 2019-06-19 03:11 | ER Document Report ---
ED General - General Chief Complaint: Chest Pain Stated Complaint: CHEST PAIN Time Seen by Provider: 06/19/19 02:49 Primary Care Provider: FUNMI MARCOS JR, MD [Primary Care Provider] - 06/20/19 Mode of Arrival: Ambulatory Information source: [facility] Records Notes: This 44-year-old female patient comes emergency room complaining of left anterior chest pain that started about 4 PM on 06/18/2019. She states the pain would have been flow, but was never gone. She also reports she began vomiting about 10 PM. She saw her primary care on 06/16/2019 and received prescriptions for Phenergan and Percocet 5mg(#10 tabs) for the nausea and vomiting and the chest wall pain. She states she has Phenergan tablets and she has trouble keeping them down. She also can take Zofran and it helps if she starts it soon enough. She states Phenergan is what works best if she can get in her system. 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 She does have a history of eosinophilic esophagitis, von Willebrand's type II a. She was seen here on 06/13/2019 with the same symptoms. She ended up receiving IV narcotics and oral narcotics on that visit. Reviewing the [place] database shows that she has been receiving narcotic prescriptions on a regular basis from multiple prescribers for at least the past few years. She is also taking zolpidem 10 mg on a daily basis. TRAVEL OUTSIDE OF THE U[place] IN LAST 30 DAYS: No - Related Data Allergies/Adverse Reactions: ibuprofen Allergy (Verified 05/11/19 16:59) latex Allergy (Verified 05/11/19 16:59) metoclopramide [From Reglan] Allergy (Verified 05/11/19 16:59) NSAIDS (Non-Steroidal Anti-Inflamma Allergy (Verified 05/11/19 16:59) Penicillins Allergy (Verified 05/11/19 16:59) sulfamethoxazole [From Septra] Allergy (Verified 05/11/19 16:59) sumatriptan [From Imitrex] Allergy (Verified 05/11/19 16:59) tramadol Allergy (Verified 05/11/19 16:59) trimethoprim [From Septra] Allergy (Verified 05/11/19 16:59) zolmitriptan [From Zomig] Allergy (Verified 05/11/19 16:59) haloperidol [From Haldol] Adverse Reaction (Verified 05/11/19 16:59) prochlorperazine [From Compazine] Adverse Reaction (Verified 05/11/19 16:59) Past Medical History - General Information source: Patient, [facility] Records - Social History Smoking Status: Never Smoker Cigarette use (# per day): No Chew tobacco use (# tins/day): No Smoking Education Provided: No Frequency of alcohol use: Rare Drug Abuse: None Occupation: Unemployed Lives with: Spouse/Significant other Family History: Arthritis, COPD, CVA, DM, Hyperlipidemia, Hypertension, Malignancy Patient has suicidal ideation: No Patient has homicidal ideation: No - Past Medical History Cardiac Medical History: Reports: Hx Hypercholesterolemia Neurological Medical History: Reports: Hx Migraine Endocrine Medical History: Comment Only: Hx Diabetes Mellitus Type 2 - pre diabetic Renal/ Medical History: Reports: Hx Ovarian Cysts - PCOS GI Medical History: Reports: Hx Gastroesophageal Reflux Disease, Hx Hiatal Hernia Musculoskeletal Medical History: Reports Hx Arthritis, Reports Hx Musculoskeletal Deformity - Scoliosis, Reports Hx Musculoskeletal Trauma Psychiatric Medical History: Reports: Hx Anxiety, Hx Depression Traumatic Medical History: Reports: Hx Fractures - Arm Past Surgical History: Reports: Hx Appendectomy, Hx Cholecystectomy, Hx Genitourinary Surgery - "BLADDER SLING", Hx Hysterectomy, Hx Orthopedic Surgery - Alexander rods - Immunizations Hx Diphtheria, Pertussis, Tetanus Vaccination: No - 2009 Review of Systems - Review of Systems Constitutional: No symptoms reported EENT: No symptoms reported Cardiovascular: See HPI, Chest pain Respiratory: No symptoms reported Gastrointestinal: See HPI, Abdominal pain, Nausea, Vomiting Genitourinary: No symptoms reported Musculoskeletal: No symptoms reported Skin: No symptoms reported Hematologic/Lymphatic: No symptoms reported Neurological/Psychological: No symptoms reported Physical Exam - Vital signs Vitals: Temp Pulse Resp BP Pulse Ox 98.8 F 115 H 20 138/90 H 97 06/19/19 02:17 06/19/19 02:17 06/19/19 02:17 06/19/19 02:17 06/19/19 02:17 Interpretation: Normal - General General appearance: Alert In distress: Mild Notes: Patient is holding an emesis bag and occasionally retching. - HEENT Head: Normocephalic, Atraumatic Eyes: Normal Pupils: PERRL - Respiratory Respiratory status: No respiratory distress Breath sounds: Normal Chest palpation: Tender - Exquisitely tender to palpate left anterior chest wall. - Cardiovascular Rhythm: Regular Heart sounds: Normal auscultation Murmur: No - Abdominal Inspection: Obese Tenderness: Tender - Very tender to palpate the epigastrium - Back Back: Normal - Extremities General upper extremity: Normal inspection General lower extremity: Normal inspection - Neurological Neuro grossly intact: Yes - Psychological Associated symptoms: Normal affect, Normal mood - Skin Skin Temperature: Warm Skin Moisture: Dry Skin Color: Normal Course - Re-evaluation Re-evalutation: 06/19/19 04:35 The patient's nausea and vomiting has subsided after the IV Zofran and the IM Phenergan. She is requesting that we try to do something about the left anterior chest wall pain she is having. She cannot take NSAIDs due to her von Willebrand's disease. I did advise her that narcotic management is not appropriate. I did review records and found she does receive narcotic prescriptions on a regular basis from multiple prescribers. I told her this was not appropriate management for her chronic pain, and was found upon by the medical board. I further informed the patient that she was not going to receive narcotic pain management on this visit for her chronic pain issues. I do suspect she ran out of the Percocet prescription she got just 2 days ago. 06/19/19 05:25 The patient is requesting Toradol for her pain and states "I do not even care if it makes me bleed". I advised her that I am not going to take responsibility for that. Advised her she can take the pain medication she has been getting prescribed, and if she has none left and is having this much distress, that this should be a wake-up call about her narcotic usage and dependency issues. - Vital Signs Vital signs: Temp Pulse Resp BP Pulse Ox 98.8 F 115 H 20 138/90 H 97 06/19/19 02:17 06/19/19 02:17 06/19/19 02:17 06/19/19 02:17 06/19/19 02:17 - EKG Interpretation by Me EKG shows normal: Sinus rhythm, [place], Intervals, QRS Complexes, ST-T Waves Rate: Normal Rhythm: NSR When compared to previous EKG there are: No significant change Discharge - Discharge Clinical Impression: Anterior chest wall pain Nausea and vomiting Qualifiers: Vomiting type: unspecified Vomiting Intractability: non-intractable Qualified Code(s): R11.2 - Nausea with vomiting, unspecified Condition: Stable Disposition: HOME, SELF-CARE Additional Instructions: Chest Wall Pain: Your chest pain has been diagnosed as coming from the chest wall. This is often caused by straining the muscles or joints in the chest during physical activity, direct trauma, coughing, or vigorous vomiting. Persons with arthritis are especially prone to this type of pain, due to inflammation of the cartilage joints near the breast bone. Occasionally, no cause can be found. Rest from strenuous physical activity. This kind of chest pain is usually made worse by movement of the chest. If the pain is new, and seems to be due to muscle strain, cold packs can help. Otherwise, apply gentle warmth to the painful area for 15 minutes every hour or two. You should contact the doctor immediately if things change. Further evaluation is needed if you develop a fever or cough, if the nature of the pain changes, or if you become short of breath. Continue your regular medications. Take Tylenol for your chest wall pain. Try the Phenergan suppositories for nausea if you are unable to keep down the Phenergan tablets you prescribed. Follow-up with your primary care provider to manage your chest wall pain, and discuss seeing a pain management physician. Prescriptions: Promethazine HCl [Phenergan 25 mg Supp.rect] 1 - 2 supp NC ASDIR PRN #[id number] supp.rect PRN Reason: Referrals: FUNMI MARCOS JR, MD [Primary Care Provider] - 06/20/19
[2019-06-19] MEDS ORDERED: PANTOPRAZOLE SODIUM 40 MG VIAL IV ONE (03:12)
[2019-06-19] MEDS ORDERED: PROMETHAZINE HCL INJ 50 MG/1 ML VIAL ONE (04:28)
[2019-06-19] MEDS ORDERED: ACETAMINOPHEN 325 MG TABLET PO ONE (04:33)
[2019-06-19] MEDS ORDERED: PROMETHAZINE HCL 25 MG SUPP (4 SUPP/ER DISP) PR PRN (05:18)
--- NOTE | 2019-06-19 11:42 | EKG REPORT ---
SEVERITY:- BORDERLINE ECG - SINUS TACHYCARDIA BORDERLINE INFERIOR Q WAVES : Confirmed by: Lars Aaron 19-Jun-2019 11:41:20
== END 2019-06-19 05:36 | disposition home or self-care (01) ==
LOC: ER 01:59
DX: R07.89 Other chest pain (principal); R11.2 Nausea with vomiting, unspecified; Z79.899 Other long term (current) drug therapy; D68.0 Von Willebrand disease; R73.03 Prediabetes
CPT/HCPCS: 93005; 99284; 96372; 96361; 96374; 96375; 93010; J3490; S0164; J2550; J2405; J7030

== ENCOUNTER 2019-07-09 08:41 | Emergency (ER) | payer OTHER ==
[2019-07-09 10:16] LABS: APPEARANCE,URINE SLIGHTLY-CLOUDY; BILIRUBIN,URINE NEGATIVE (NEGATIVE); COLOR,URINE YELLOW; GLUCOSE, URINE NEGATIVE (NEGATIVE); KETONES,URINE TRACE mg/dL (NEGATIVE); LEUKOCYTE ESTERASE,URINE NEGATIVE (NEGATIVE); NITRITE,URINE NEGATIVE (NEGATIVE); PROTEIN,URINE NEGATIVE (NEGATIVE); URINE SPECIFIC GRAVITY 1.028; UROBILINOGEN,URINE NEGATIVE mg/dL (<2.0)
[2019-07-09 10:31] LABS: ABSOLUTE BASOPHILS # (AUTO) 0.1 10^3/uL (0.0-0.2); BASOPHILS % (AUTO) 1.1 % (0-2); EOSINOPHILS % (AUTO) 9.8 % (0-6); HEMATOCRIT 37.3 % (36.0-47.0); HEMOGLOBIN 12.4 g/dL (12.0-15.5); LYMPHOCYTES % (AUTO) 29.8 % (13-45); MEAN CORPUSCULAR HEMOGLOBIN 27.2 pg (27.0-33.4); MEAN CORPUSCULAR HGB CONC 33.2 g/dL (32.0-36.0); MEAN CORPUSCULAR VOLUME 82 fl (80-97); MONOCYTES % (AUTO) 10.2 % (3-13); PLATELET COUNT 285 10^3/uL (150-450); RED BLOOD COUNT 4.54 10^6/uL (3.72-5.28); RED CELL DISTRIBUTION WIDTH 13.2 % (11.5-14.0); SEGMENTED NEUTROPHILS % (AUTO) 49.1 % (42-78); TOTAL CELLS COUNTED % (AUTO) 100 %; WHITE BLOOD COUNT 10.1 10^3/uL (4.0-10.5)
--- NOTE | 2019-07-09 10:43 | ER Document Report ---
ED Medical Screen (RME) - General Chief Complaint: Abdominal Pain Stated Complaint: ABDOMINAL PAIN Primary Care Provider: FUNMI MARCOS JR, MD [Primary Care Provider] - Follow up as needed TRAVEL OUTSIDE OF THE [place] IN LAST 30 DAYS: No - Related Data Allergies/Adverse Reactions: ibuprofen Allergy (Verified 07/09/19 08:45) latex Allergy (Verified 07/09/19 08:45) metoclopramide [From Reglan] Allergy (Verified 07/09/19 08:45) NSAIDS (Non-Steroidal Anti-Inflamma Allergy (Verified 07/09/19 08:45) Penicillins Allergy (Verified 07/09/19 08:45) sulfamethoxazole [From Septra] Allergy (Verified 07/09/19 08:45) sumatriptan [From Imitrex] Allergy (Verified 07/09/19 08:45) tramadol Allergy (Verified 07/09/19 08:45) trimethoprim [From Septra] Allergy (Verified 07/09/19 08:45) zolmitriptan [From Zomig] Allergy (Verified 07/09/19 08:45) haloperidol [From Haldol] Adverse Reaction (Verified 07/09/19 08:45) prochlorperazine [From Compazine] Adverse Reaction (Verified 07/09/19 08:45) Past Medical History - Social History Frequency of alcohol use: Rare Drug Abuse: None Family history: Reviewed & Not Pertinent - Past Medical History Cardiac Medical History: Reports: Hx Hypercholesterolemia Neurological Medical History: Reports: Hx Migraine Endocrine Medical History: Comment Only: Hx Diabetes Mellitus Type 2 - pre diabetic Renal/ Medical History: Reports: Hx Ovarian Cysts - PCOS. Denies: Hx Peritoneal Dialysis GI Medical History: Reports: Hx Gastroesophageal Reflux Disease, Hx Hiatal Hernia Musculoskeltal Medical History: Reports Hx Arthritis, Reports Hx Musculoskeletal Deformity - Scoliosis, Reports Hx Musculoskeletal Trauma Psychiatric Medical History: Reports: Hx Anxiety, Hx Depression Traumatic Medical History: Reports: Hx Fractures - Arm Past Surgical History: Reports: Hx Appendectomy, Hx Cholecystectomy, Hx Genitourinary Surgery - "BLADDER SLING", Hx Hysterectomy, Hx Orthopedic Surgery - Alexander rods - Immunizations Hx Diphtheria, Pertussis, Tetanus Vaccination: No - 2009 History of Influenza Vaccine for 08/2017 - 12/2017 Season: Yes Influenza Administration Date for 08/2017 - 12/2017 Season: 12/03/16 Physical Exam - Vital signs Vitals: Temp Pulse Resp BP Pulse Ox 98.7 F 115 H 20 146/98 H 97 07/09/19 08:51 07/09/19 08:51 07/09/19 08:51 07/09/19 08:51 07/09/19 08:51 Course - Vital Signs Vital signs: Temp Pulse Resp BP Pulse Ox 98.6 F 115 H 20 146/98 H 97 07/09/19 10:26 07/09/19 08:51 07/09/19 08:51 07/09/19 08:51 07/09/19 08:51 - Laboratory Result Diagrams: 07/09/19 10:20 07/09/19 10:20 Laboratory results interpreted by me: 07/09/19 07/09/19 09:30 10:20 Eos % (Auto) 9.8 H Absolute Eos (auto) 1.0 H Urine Ketones TRACE H Urine Blood SMALL H Doctor's Discharge - Discharge Referrals: PRITI MENARD,FUNMI Croft MD [Primary Care Provider] - Follow up as needed
[2019-07-09 10:47] LABS: ALKALINE PHOSPHATASE 43 U/L (38-126); ANION GAP 9 (5-19); ASPARTATE AMINO TRANSFERASE 36 U/L (14-36); BILIRUBIN,DIRECT 0.2 mg/dL (0.0-0.4); BILIRUBIN,TOTAL 0.3 mg/dL (0.2-1.3); BLOOD UREA NITROGEN 13 mg/dL (7-20); CALCIUM 9.5 mg/dL (8.4-10.2); CARBON DIOXIDE 24 mmol/L (22-30); CHLORIDE 106 mmol/L (98-107); GLUCOSE 97 mg/dL (75-110); POTASSIUM 3.9 mmol/L (3.6-5.0); TOTAL PROTEIN 7.2 g/dL (6.3-8.2)
[2019-07-09] MEDS ORDERED: MORPHINE SULFATE 10 MG/ML INJ IV ONE ×2 (10:59→15:49)
[2019-07-09] MEDS ORDERED: ONDANSETRON HCL INJ/PF 4 MG/2 ML SDV IV ONE ×2 (11:00→12:54)
--- NOTE | 2019-07-09 11:06 | ER Document Report ---
ED GI/ - General Chief Complaint: Abdominal Pain Stated Complaint: ABDOMINAL PAIN Primary Care Provider: FUNMI MARCOS JR, MD [Primary Care Provider] - Follow up as needed Notes: Patient complains of abdominal pain that started yesterday. Its worse today. Worsened by eating. Pain is located on the left side of her abdomen. She had her gallbladder and appendix removed. She has had nausea and vomited, "more times than I can count", this morning and the vomiting continues here in the emergency department. No diarrhea. Urine has been dark. History of kidney stone in the past, but no symptoms like that currently. Did have lithotripsy. Patient has PCOS but has not had pain like this with that condition. Patient saw her dentist Thursday and needs a dental work, but was prescribed clindamycin 300 mg 3 times a day and she is been on that since Thursday. Other medical conditions include appendectomy, partial hysterectomy, chol ecystectomy, Alexander rods for scoliosis, bladder mesh. Patient has a history of PCOS, GERD, high cholesterol, kidney infections in the past, migraine headaches, von Willebrand's disease, depression. Patient says she once had a kidney infection with an inflamed liver, not hepatitis A, B, C. TRAVEL OUTSIDE OF THE [place] IN LAST 30 DAYS: No - Related Data Allergies/Adverse Reactions: ibuprofen Allergy (Verified 07/09/19 08:45) latex Allergy (Verified 07/09/19 08:45) metoclopramide [From Reglan] Allergy (Verified 07/09/19 08:45) NSAIDS (Non-Steroidal Anti-Inflamma Allergy (Verified 07/09/19 08:45) Penicillins Allergy (Verified 07/09/19 08:45) sulfamethoxazole [From Septra] Allergy (Verified 07/09/19 08:45) sumatriptan [From Imitrex] Allergy (Verified 07/09/19 08:45) tramadol Allergy (Verified 07/09/19 08:45) trimethoprim [From Septra] Allergy (Verified 07/09/19 08:45) zolmitriptan [From Zomig] Allergy (Verified 07/09/19 08:45) haloperidol [From Haldol] Adverse Reaction (Verified 07/09/19 08:45) prochlorperazine [From Compazine] Adverse Reaction (Verified 07/09/19 08:45) Past Medical History - Social History Smoking Status: Never Smoker Frequency of alcohol use: Rare Drug Abuse: None Family History: Arthritis, COPD, CVA, DM, Hyperlipidemia, Hypertension, Malignancy Patient has suicidal ideation: No Patient has homicidal ideation: No - Past Medical History Cardiac Medical History: Reports: Hx Hypercholesterolemia Neurological Medical History: Reports: Hx Migraine Endocrine Medical History: Comment Only: Hx Diabetes Mellitus Type 2 - pre diabetic Renal/ Medical History: Reports: Hx Ovarian Cysts - PCOS GI Medical History: Reports: Hx Gastroesophageal Reflux Disease, Hx Hiatal Hernia Musculoskeletal Medical History: Reports Hx Arthritis, Reports Hx Musculoskeletal Deformity - Scoliosis, Reports Hx Musculoskeletal Trauma Psychiatric Medical History: Reports: Hx Anxiety, Hx Depression Traumatic Medical History: Reports: Hx Fractures - Arm Past Surgical History: Reports: Hx Appendectomy, Hx Cholecystectomy, Hx Genitourinary Surgery - "BLADDER SLING", Hx Hysterectomy, Hx Orthopedic Surgery - Alexander rods - Immunizations Hx Diphtheria, Pertussis, Tetanus Vaccination: No - 2009 Review of Systems - Review of Systems Notes: REVIEW OF SYSTEMS: CONSTITUTIONAL : Denies fever. EENT: Denies eye, ear, nose or mouth or throat pain or other symptoms. CARDIOVASCULAR: Denies chest pain. RESPIRATORY: Denies cough, chest congestion, or shortness of breath. GASTROINTESTINAL: The HPI. GENITOURINARY: Denies difficulty or painful urinating, urinary frequency, blood in urine. MUSCULOSKELETAL: Denies back or neck pain. Denies joint pain or swelling. SKIN: Denies rash or skin lesions. NEUROLOGICAL: Denies LOC or altered mental status. Denies headache. Denies sensory loss or motor deficits. ALL OTHER SYSTEMS REVIEWED AND NEGATIVE. Physical Exam - Vital signs Vitals: Temp Pulse Resp BP Pulse Ox 98.7 F 115 H 20 146/98 H 97 07/09/19 08:51 07/09/19 08:51 07/09/19 08:51 07/09/19 08:51 07/09/19 08:51 Interpretation: Tachycardic. No: Febrile Notes: PHYSICAL EXAMINATION: GENERAL: Appears ill, actively vomiting in the ED.. HEAD: Atraumatic, normocephalic. EYES: Pupils equal round and reactive to light, extraocular movements intact. ENT: oropharynx clear without exudates. Moist mucous membranes. NECK: Normal range of motion, supple. LUNGS: Breath sounds clear and equal bilaterally. HEART: Regular rate and rhythm without murmurs. ABDOMEN: Soft, tender to palpate in the left side of the abdomen but no tenderness of the entire right abdomen. No guarding or rebound present. BACK: No tenderness throughout entire back. EXTREMITIES: Normal range of motion without pain. NEUROLOGICAL: Normal speech, normal gait. Normal sensory, motor, and reflex exams. Awake, alert, and oriented x3. Cranial nerves normal. PSYCH: Normal mood, normal affect. SKIN: Warm, dry, no rashes. Course - Re-evaluation Re-evalutation: 07/09/19 20:04 Patient continued to complain of severe left-sided gaby pain, in spite of all of her lab work is normal. Eventually, I ended up doing a CT scan with oral and IV contrast which was also unremarkable except for a heavy load of stool. Further discussed patient's history and ask about whether she been having normal bowel movements and she said she had been having at least a bowel movement daily, but did admit that her usually has 2 bowel movements daily and she has not been doing that. I provided the patient with information about constipation and told her that I cannot think of anything else to do the worker condition up. - Vital Signs Vital signs: Temp Pulse Resp BP Pulse Ox 98.0 F 95 20 118/78 96 07/09/19 15:59 07/09/19 15:59 07/09/19 12:51 07/09/19 15:59 07/09/19 15:59 - Laboratory Result Diagrams: 07/09/19 10:20 07/09/19 10:20 Laboratory results interpreted by me: 07/09/19 07/09/19 09:30 10:20 Eos % (Auto) 9.8 H Absolute Eos (auto) 1.0 H Urine Ketones TRACE H Urine Blood SMALL H Discharge - Discharge Clinical Impression: Abdominal pain, Constipation Condition: Stable Disposition: HOME, SELF-CARE Additional Instructions: ABDOMINAL PAIN: There are many causes of abdominal pain. Pain can mean a serious problem requiring surgery (such as appendicitis). It can also be an innocent problem that goes away on its own (such as a viral infection). Often, time must pass to determine the cause of pain. The physician does not feel that hospitalization is necessary, at present. Things may change within the next 24 hours. Call the doctor or come back for re- examination if any problems occur, such as: (1) Pain that becomes more severe, steady, or becomes concentrated in one specific area. Also, pain that is more severe with movement or coughing. (2) Vomiting that persists or becomes more frequent. (3) Blood in the vomitus, urine, or bowel movements. Blood in the stool may have a tarry or black appearance. (4) Shaking chills or fever greater than 100 degrees F. (5) The abdomen becomes more distended or swollen. (6) Bowel movements cease. (7) Failure to improve as expected. NORMAL EXAM AND WORKUP: At this time, your examination and workup show no significant abnormality. No significant abnormal physical findings are noted. All laboratory, EKG, and imaging (x-ray, CT scans, ultrasound) studies that were ordered show no significant abnormality. Although your examination and all studies that were ordered showed no significant abnormal finding, there are no examinations and no studies that are 100% accurate. There is always the possibility that some abnormality could exist and not be detected with physical examination or within the limits and capabilities of laboratory and other studies. You should return or follow up as you were instructed on your visit today for further evaluation if your symptoms do not resolve. PAIN MEDICATION INJECTION: You have received an injection of a pain medication. You should experience significant pain relief within 45 minutes. This drug is a narcotic -- it will impair your judgement, slow your reaction time and make you sleepy (as well as relieve your pain). Narcotics also can cause nausea. You should not drive, work with machinery, or perform any task requiring mental alertness until all effects of the medication are gone -- six to eight hours. Do not take any alcohol, or sedatives, and do not take any other medication without checking with your physician. AN[place] MEDICATION: You have been given a medication to suppress nausea and vomiting. This type of medication can be given as a shot, pill, or suppository. It will usually last for many hours. Pills and shots usually last six to eight hours, suppositories last about 12 hours. For the typical illness, only one or two doses of the medication may be necessary. Mild lightheadedness may occur. This type of medicine can cause drowsiness. Do not drive or operate dangerous machinery while under its influence. Do not mix with alcohol. See your doctor at once if you have muscle spasms or tightness, or uncontrollable motions (particularly of the neck, mouth, or jaw). Persistent vomiting or severe lightheadedness should also be evaluated by the physician. CONSTIPATION: Constipation is a common problem. It is especially likely as you get older. Constipation is a common cause of abdominal pain, but sometimes causes no symptoms at all. Causes of constipation include certain medications, dehydration, diets, inactivity, and low-fiber intake. Rarely, it can be a symptom of underlying disease. The physician has evaluated you for this. Avoid constipation by eating a diet high in fiber, fruits, and vegetables. Drink plenty of liquids. Get regular exercise. If possible, avoid constipating medicines like narcotic pain medication. Some vitamin tablets can cause constipation. Stool softeners may be needed for difficult cases. An excellent stool softener is Konsyl which is available at [employer]. Just add a teaspoon to a glass of pineapple or orange juice daily or twice a day if needed. Laxatives are useful for occasional constipation. You should use them only when necessary. Too-frequent use can make your bowels dependent on them. Some over the counter laxatives available without prescription are: Milk of Magnesia, 1-2 tablespoons twice a day Dulcolax, 5 mg pill or 10 mg suppository. Citrate of Magnesia, 4-5 ounces a day for a day or two For acute constipation, Fleet's Enemas and Dulcolax suppositories are helpful. Chronic, custodial use of laxatives or enemas is not a good idea. Your bowel may become dependant on them. You do not need to have a bowel movement every day. Many people do fine with a bowel movement every three or four days. You should call your doctor or return for re-evaluation if you pass blood in the stool, or if you develop fever or increasing abdominal pain. BULK LAXATIVES: Bulk laxatives make the stool softer and bulkier. They're useful for prev enting constipation. You can choose between psyllium, methylcellulose, and polycarbophil. They are available without a prescription. Psyllium brand names include Konsyl, Metamucil, Perdiem, Effer-Syllium and Hydrocil. It's available as powder, flavored drink powder, or chewable. The usual dose of psyllium powder is one heaping teaspoon in water each morning, increasing to twice a day if needed. [place] juice can disguise the slightly grainy texture. Methylcellulose is marketed as Citrucel and other brands. The average dose is two grams in a cup of water one to three times a day. Polycarbophil is marketed as Fiber-Con. Take two tablets with a cup of water one to three times a day. LAXATIVE: A laxative agent has been prescribed for your condition. This should resu lt in passage of stool within 12 hours. Some mild intestinal cramping is common as the hard stool begins to move. You may have loose or runny stools for a short time. Contact your doctor if there is severe cramping, vomiting, or passage of blood. Return for further care if this medicine fails to improve your condition. FOLLOW-UP CARE: If you have been referred to a physician for follow-up care, call the physicians office for an appointment as you were instructed or within the next two days. If you experience worsening or a significant change in your symptoms, notify the physician immediately or return to the Emergency Department at any time for re-evaluation. Referrals: FUNMI MARCOS JR, MD [Primary Care Provider] - Follow up as needed
[2019-07-09] MEDS ORDERED: DIPHENHYDRAMINE HCL 50 MG/ML VIAL IV ONE (11:09)
--- NOTE | 2019-07-09 11:19 | ER Document Report ---
ED GI/ - General Chief Complaint: Abdominal Pain Stated Complaint: ABDOMINAL PAIN Time Seen by Provider: 07/09/19 11:19 Primary Care Provider: FUNMI MARCOS JR, MD [Primary Care Provider] - Follow up as needed TRAVEL OUTSIDE OF THE [place] IN LAST 30 DAYS: No - Related Data Allergies/Adverse Reactions: ibuprofen Allergy (Verified 07/09/19 08:45) latex Allergy (Verified 07/09/19 08:45) metoclopramide [From Reglan] Allergy (Verified 07/09/19 08:45) NSAIDS (Non-Steroidal Anti-Inflamma Allergy (Verified 07/09/19 08:45) Penicillins Allergy (Verified 07/09/19 08:45) sulfamethoxazole [From Septra] Allergy (Verified 07/09/19 08:45) sumatriptan [From Imitrex] Allergy (Verified 07/09/19 08:45) tramadol Allergy (Verified 07/09/19 08:45) trimethoprim [From Septra] Allergy (Verified 07/09/19 08:45) zolmitriptan [From Zomig] Allergy (Verified 07/09/19 08:45) haloperidol [From Haldol] Adverse Reaction (Verified 07/09/19 08:45) prochlorperazine [From Compazine] Adverse Reaction (Verified 07/09/19 08:45) Past Medical History - Social History Smoking Status: Never Smoker Frequency of alcohol use: Rare Drug Abuse: None Family History: Arthritis, COPD, CVA, DM, Hyperlipidemia, Hypertension, Malignancy Patient has suicidal ideation: No Patient has homicidal ideation: No - Past Medical History Cardiac Medical History: Reports: Hx Hypercholesterolemia Neurological Medical History: Reports: Hx Migraine Endocrine Medical History: Comment Only: Hx Diabetes Mellitus Type 2 - pre diabetic Renal/ Medical History: Reports: Hx Ovarian Cysts - PCOS. Denies: Hx Peritoneal Dialysis GI Medical History: Reports: Hx Gastroesophageal Reflux Disease, Hx Hiatal Hernia Musculoskeletal Medical History: Reports Hx Arthritis, Reports Hx Musculoskeletal Deformity - Scoliosis, Reports Hx Musculoskeletal Trauma Psychiatric Medical History: Reports: Hx Anxiety, Hx Depression Traumatic Medical History: Reports: Hx Fractures - Arm Past Surgical History: Reports: Hx Appendectomy, Hx Cholecystectomy, Hx Genitourinary Surgery - "BLADDER SLING", Hx Hysterectomy, Hx Orthopedic Surgery - Alexander rods - Immunizations Hx Diphtheria, Pertussis, Tetanus Vaccination: No - 2009 Physical Exam - Vital signs Vitals: Temp Pulse Resp BP Pulse Ox 98.7 F 115 H 20 146/98 H 97 07/09/19 08:51 07/09/19 08:51 07/09/19 08:51 07/09/19 08:51 07/09/19 08:51 Course - Vital Signs Vital signs: Temp Pulse Resp BP Pulse Ox 98.6 F 115 H 20 146/98 H 97 07/09/19 10:26 07/09/19 08:51 07/09/19 08:51 07/09/19 08:51 07/09/19 08:51 - Laboratory Result Diagrams: 07/09/19 10:20 07/09/19 10:20 Laboratory results interpreted by me: 07/09/19 07/09/19 09:30 10:20 Eos % (Auto) 9.8 H Absolute Eos (auto) 1.0 H Urine Ketones TRACE H Urine Blood SMALL H Discharge - Discharge Referrals: PRITI MENARD,FUNMI Croft MD [Primary Care Provider] - Follow up as needed
[2019-07-09] MEDS ORDERED: PROMETHAZINE HCL 25 MG TABLET PO ONE (13:13)
--- NOTE | 2019-07-09 14:44 | RADIOLOGY REPORT (SQ) ---
EXAM DESCRIPTION: CT ABD/PELVIS WITH IV ORAL COMPLETED DATE/TIME: 07/09/2019 2:25 pm REASON FOR STUDY: L side abd pain, vomiting. Hx appy, hyst,choley COMPARISON: CT abdomen pelvis, 12/28/2018 TECHNIQUE: CT scan of the abdomen and pelvis performed using helical scanning technique with dynamic intravenous contrast injection. No oral contrast. Images reviewed with lung, soft tissue, and bone windows. Reconstructed coronal and sagittal MPR images reviewed. Delayed images for evaluation of the urinary system also acquired. All images stored on PACS. All CT scanners at this facility use dose modulation, iterative reconstruction, and/or weight based d osing when appropriate to reduce radiation dose to as low as reasonably achievable (ALARA). [facility]: Dose Right [facility]: CareDose [facility]: Dose Right [facility]: Teradose 4D [facility]: [employer] CONTRAST TYPE AND DOSE: contrast/concentration: Isovue 350.00 mg/ml; Total Contrast Delivered: 100.0 ml; Total Saline Delivered: 72.0 ml RENAL FUNCTION: None required. The patient is less than 50 years old. RADIATION DOSE: CT Rad equipment meets quality standard of care and radiation dose reduction techniq ues were employed. CTDIvol: 15.6 - 18.0 mGy. DLP: 1911 mGy-cm.. LIMITATIONS: None. FINDINGS: LOWER CHEST: No significant findings. No nodules or infiltrates. LIVER: Normal size. No masses. Hepatic steatosis. No dilated ducts. SPLEEN: Normal size. No focal lesions. PANCREAS: No masses. No significant calcifications. No adjacent inflammation or peripancreatic fluid collections. Pancreatic duct not dilated. GALLBLADDER: Surgically absent. ADRENAL GLANDS: No significant masses or asymmetry. RIGHT KIDNEY AND URETER: No solid masses. No significant calcifications. No hydronephrosis or hyd roureter. LEFT KIDNEY AND URETER: No solid masses. No significant calcifications. No hydronephrosis or hydr oureter. AORTA AND VESSELS: No aneurysm. No dissection. Renal arteries, SMA, celiac without stenosis. RETROPERITONEUM: No retroperitoneal adenopathy, hemorrhage or masses. BOWEL AND PERITONEAL CAVITY: No masses or inflammatory changes. No free fluid or peritoneal masses. Large burden of stool in the colon. APPENDIX: Surgically absent. PELVIS: No mass. Status posthysterectomy. Fluid attenuation lesion of the right ovary measuring 3.0 cm. No free fluid. Normal bladder. ABDOMINAL WALL: No masses. No hernias. BONES: No significant or acute findings. Posterior karlie fusion of the thoracic spine, partially image d. OTHER: No other significant finding. IMPRESSION: 1. No acute CT findings to explain left-sided abdominal pain. Large burden of stool in the colon. 2. Fluid attenuation lesion of the right ovary measuring 3.0 cm, almost certainly a benign functiona l cyst or follicle in the reproductive age setting. 3. Hepatic steatosis. TECHNICAL DOCUMENTATION: JOB ID: [id number] Quality ID # [id number]: Final reports with documentation of one or more dose reduction techniques (e.g., Au tomated exposure control, adjustment of the mA and/or kV according to patient size, use of iterative reconstruction technique) 2010 [employer]- All Rights Reserved Reading location - IP/workstation name: [email or web address]
[2019-07-09 16:00] VITALS: BP 118/78
== END 2019-07-09 16:18 | disposition home or self-care (01) ==
LOC: ER 08:41
DX: K59.00 Constipation, unspecified (principal); R10.9 Unspecified abdominal pain; R11.2 Nausea with vomiting, unspecified; R39.89 Other symptoms and signs involving the genitourinary system; Z87.442 Personal history of urinary calculi; Z87.440 Personal history of urinary (tract) infections; Z90.710 Acquired absence of both cervix and uterus; Z90.49 Acquired absence of other specified parts of digestive tract; Z88.8 Allergy status to other drugs, medicaments and biological substances; Z91.040 Latex allergy status; Z88.0 Allergy status to penicillin; Z88.1 Allergy status to other antibiotic agents; Z88.6 Allergy status to analgesic agent; Z88.5 Allergy status to narcotic agent
CPT/HCPCS: 96376; 99284; 96374; 96375; 36415; 83690; 85025; 80053; 81001; 74177; J1200; J2270; J2405

== ENCOUNTER 2019-07-21 17:56 | Emergency (ER) | payer OTHER ==
[2019-07-21] MEDS ORDERED: ONDANSETRON HCL INJ/PF 4 MG/2 ML SDV IV ONE ×2 (18:49→21:49)
[2019-07-21] MEDS ORDERED: NORMAL SALINE 1000 ML 1,000 ML IV ONE (18:49)
[2019-07-21] MEDS ORDERED: MORPHINE SULFATE 10 MG/ML INJ IV ONE ×3 (18:50→20:09)
--- NOTE | 2019-07-21 18:51 | ER Document Report ---
ED Medical Screen (RME) - General Chief Complaint: Pelvic Pain Stated Complaint: RIGHT SIDE PAIN Time Seen by Provider: 07/21/19 18:43 Primary Care Provider: FUNMI MARCOS JR, MD [Primary Care Provider] - Follow up as needed Notes: Patient is a 43-year-old female who presents to the emergency department with a chief complaint of right lower pelvic pain. Patient has history of an ovarian cyst on the right side, and states that the ovarian cyst was rather large. According to her CT from last visit was 3 cm. Patient states that her pain started last night, but his progressively gotten worse. She also states that she has had some nausea and vomiting. Exam: Tender right lower abdomen. Exam limited due to patient in the sitting position in triage. Patient will be reassessed when she gets back to her room. I have greeted and performed a rapid initial assessment of this patient. A comprehensive ED assessment and evaluation of the patient, analysis of test results and completion of medical decision making process will be conducted by an additional ED providers. TRAVEL OUTSIDE OF THE [place] IN LAST 30 DAYS: No - Related Data Allergies/Adverse Reactions: ibuprofen Allergy (Verified 07/21/19 18:00) latex Allergy (Verified 07/21/19 18:00) metoclopramide [From Reglan] Allergy (Verified 07/21/19 18:00) NSAIDS (Non-Steroidal Anti-Inflamma Allergy (Verified 07/21/19 18:00) Penicillins Allergy (Verified 07/21/19 18:00) sulfamethoxazole [From Septra] Allergy (Verified 07/21/19 18:00) sumatriptan [From Imitrex] Allergy (Verified 07/21/19 18:00) tramadol Allergy (Verified 07/21/19 18:00) trimethoprim [From Septra] Allergy (Verified 07/21/19 18:00) zolmitriptan [From Zomig] Allergy (Verified 07/21/19 18:00) haloperidol [From Haldol] Adverse Reaction (Verified 07/09/19 08:45) prochlorperazine [From Compazine] Adverse Reaction (Verified 07/09/19 08:45) Past Medical History - Social History Chew tobacco use (# tins/day): No Frequency of alcohol use: None Drug Abuse: None Family history: Reviewed & Not Pertinent - Past Medical History Cardiac Medical History: Reports: Hx Hypercholesterolemia Neurological Medical History: Reports: Hx Migraine Endocrine Medical History: Comment Only: Hx Diabetes Mellitus Type 2 - pre diabetic Renal/ Medical History: Reports: Hx Ovarian Cysts - PCOS. Denies: Hx Peritoneal Dialysis GI Medical History: Reports: Hx Gastroesophageal Reflux Disease, Hx Hiatal Hernia Musculoskeltal Medical History: Reports Hx Arthritis, Reports Hx Musculoskeletal Deformity - Scoliosis, Reports Hx Musculoskeletal Trauma Psychiatric Medical History: Reports: Hx Anxiety, Hx Depression Traumatic Medical History: Reports: Hx Fractures - Arm Past Surgical History: Reports: Hx Appendectomy, Hx Cholecystectomy, Hx Genitourinary Surgery - "BLADDER SLING", Hx Hysterectomy, Hx Orthopedic Surgery - Alexander rods - Immunizations Hx Diphtheria, Pertussis, Tetanus Vaccination: No - 2009 History of Influenza Vaccine for 08/2017 - 12/2017 Season: Yes Influenza Administration Date for 08/2017 - 12/2017 Season: 12/03/16 Physical Exam - Vital signs Vitals: Temp Pulse Resp BP Pulse Ox 98.0 F 95 16 116/77 96 07/21/19 18:02 07/21/19 18:02 07/21/19 18:02 07/21/19 18:02 07/21/19 18:02 Course - Vital Signs Vital signs: Temp Pulse Resp BP Pulse Ox 98.0 F 95 16 116/77 96 07/21/19 18:02 07/21/19 18:02 07/21/19 18:02 07/21/19 18:02 07/21/19 18:02 Doctor's Discharge - Discharge Referrals: FUNMI MARCOS JR, MD [Primary Care Provider] - Follow up as needed
[2019-07-21] MEDS ORDERED: DIPHENHYDRAMINE HCL 50 MG/ML VIAL IV ONE (19:37)
--- NOTE | 2019-07-21 20:00 | RADIOLOGY REPORT (SQ) ---
EXAM DESCRIPTION: U/S NON-OB PELVIS TV W/O DOP COMPLETED DATE/TIME: 07/21/2019 7:40 pm REASON FOR STUDY: right sided pelvic pain COMPARISON: None. TECHNIQUE: Dynamic and static grayscale images acquired of the pelvis via transvaginal approach and recorded on PACS. Additional selected color Doppler and spectral images recorded. LIMITATIONS: None. FINDINGS: The patient has had prior hysterectomy. The ovaries are not visualized. No free fluid. OTHER: No other significant finding. IMPRESSION: The patient has had prior hysterectomy. The ovaries are not visualized. No free fluid. TECHNICAL DOCUMENTATION: JOB ID: [id number] [place]-72 2010 [employer]- All Rights Reserved Reading location - IP/workstation name: [email or web address]
[2019-07-21 20:20] LABS: ABSOLUTE BASOPHILS # (AUTO) 0.1 10^3/uL (0.0-0.2); ABSOLUTE EOSINOPHILS # (AUTO) 0.4 10^3/uL (0.0-0.6); ABSOLUTE LYMPHOCYTES (AUTO) 2.6 10^3/uL (0.5-4.7); ABSOLUTE MONOCYTES (AUTO) 0.7 10^3/uL (0.1-1.4); ABSOLUTE NEUT (AUTO) 5.1 10^3/uL (1.7-8.2); BASOPHILS % (AUTO) 0.8 % (0-2); EOSINOPHILS % (AUTO) 4.6 % (0-6); HEMATOCRIT 41.3 % (36.0-47.0); HEMOGLOBIN 13.9 g/dL (12.0-15.5); LYMPHOCYTES % (AUTO) 29.5 % (13-45); MEAN CORPUSCULAR HEMOGLOBIN 27.5 pg (27.0-33.4); MEAN CORPUSCULAR HGB CONC 33.6 g/dL (32.0-36.0); MEAN CORPUSCULAR VOLUME 82 fl (80-97); MONOCYTES % (AUTO) 8.2 % (3-13); PLATELET COUNT 313 10^3/uL (150-450); RED BLOOD COUNT 5.04 10^6/uL (3.72-5.28); RED CELL DISTRIBUTION WIDTH 13.4 % (11.5-14.0); SEGMENTED NEUTROPHILS % (AUTO) 56.9 % (42-78); TOTAL CELLS COUNTED % (AUTO) 100 %; WHITE BLOOD COUNT 8.9 10^3/uL (4.0-10.5)
[2019-07-21 20:27] LABS: ALBUMIN 4.5 g/dL (3.5-5.0); ALKALINE PHOSPHATASE 48 U/L (38-126); ANION GAP 9 (5-19); ASPARTATE AMINO TRANSFERASE 35 U/L (14-36); BILIRUBIN,DIRECT 0.1 mg/dL (0.0-0.4); BILIRUBIN,TOTAL 0.5 mg/dL (0.2-1.3); BLOOD UREA NITROGEN 16 mg/dL (7-20); CALCIUM 9.9 mg/dL (8.4-10.2); CARBON DIOXIDE 26 mmol/L (22-30); CHLORIDE 106 mmol/L (98-107); GLUCOSE 100 mg/dL (75-110); POTASSIUM 4.2 mmol/L (3.6-5.0)
--- NOTE | 2019-07-21 21:45 | ER Document Report ---
ED General - General Chief Complaint: Pelvic Pain Stated Complaint: RIGHT SIDE PAIN Time Seen by Provider: 07/21/19 18:43 Primary Care Provider: FUNMI MARCOS JR, MD [Primary Care Provider] - Follow up as needed TRAVEL OUTSIDE OF THE [place] IN LAST 30 DAYS: No - HPI Notes: Patient has been experience right sided pelvic pain that started yesterday mid afternoon. She has had intermittent nausea she states. No recent fevers or chills. She has had a prior hysterectomy in the past. Per records she is having left-sided abdominal pain 07/09/2019 was found to have approximately 3 cm cyst on her right ovary. No concern for vaginal discharge or infection - Related Data Allergies/Adverse Reactions: ibuprofen Allergy (Verified 07/21/19 18:00) latex Allergy (Verified 07/21/19 18:00) metoclopramide [From Reglan] Allergy (Verified 07/21/19 18:00) NSAIDS (Non-Steroidal Anti-Inflamma Allergy (Verified 07/21/19 18:00) Penicillins Allergy (Verified 07/21/19 18:00) sulfamethoxazole [From Septra] Allergy (Verified 07/21/19 18:00) sumatriptan [From Imitrex] Allergy (Verified 07/21/19 18:00) tramadol Allergy (Verified 07/21/19 18:00) trimethoprim [From Septra] Allergy (Verified 07/21/19 18:00) zolmitriptan [From Zomig] Allergy (Verified 07/21/19 18:00) haloperidol [From Haldol] Adverse Reaction (Verified 07/09/19 08:45) prochlorperazine [From Compazine] Adverse Reaction (Verified 07/09/19 08:45) Past Medical History - Social History Smoking Status: Never Smoker Chew tobacco use (# tins/day): No Frequency of alcohol use: None Drug Abuse: None Family History: Arthritis, COPD, CVA, DM, Hyperlipidemia, Hypertension, Malignancy Patient has suicidal ideation: No Patient has homicidal ideation: No - Past Medical History Cardiac Medical History: Reports: Hx Hypercholesterolemia Neurological Medical History: Reports: Hx Migraine Endocrine Medical History: Comment Only: Hx Diabetes Mellitus Type 2 - pre diabetic Renal/ Medical History: Reports: Hx Ovarian Cysts - PCOS. Denies: Hx Peritoneal Dialysis GI Medical History: Reports: Hx Gastroesophageal Reflux Disease, Hx Hiatal Hernia Musculoskeletal Medical History: Reports Hx Arthritis, Reports Hx Musculoskeletal Deformity - Scoliosis, Reports Hx Musculoskeletal Trauma Psychiatric Medical History: Reports: Hx Anxiety, Hx Depression Traumatic Medical History: Reports: Hx Fractures - Arm Past Surgical History: Reports: Hx Appendectomy, Hx Cholecystectomy, Hx Genitourinary Surgery - "BLADDER SLING", Hx Hysterectomy, Hx Orthopedic Surgery - Alexander rods - Immunizations Hx Diphtheria, Pertussis, Tetanus Vaccination: No - 2009 Review of Systems - Review of Systems Constitutional: No symptoms reported EENT: No symptoms reported Cardiovascular: No symptoms reported Respiratory: No symptoms reported Gastrointestinal: See HPI Genitourinary: No symptoms reported Female Genitourinary: No symptoms reported Musculoskeletal: No symptoms reported Skin: No symptoms reported Hematologic/Lymphatic: No symptoms reported Neurological/Psychological: No symptoms reported Physical Exam - Vital signs Vitals: Temp Pulse Resp BP Pulse Ox 98.0 F 95 16 116/77 96 07/21/19 18:02 07/21/19 18:02 07/21/19 18:02 07/21/19 18:02 07/21/19 18:02 - General General appearance: Appears well, Alert - HEENT Head: Normocephalic, Atraumatic Eyes: Normal - Respiratory Respiratory status: No respiratory distress - Cardiovascular Rhythm: Regular Heart sounds: Normal auscultation Murmur: No - Abdominal Inspection: Normal Distension: No distension Bowel sounds: Normal Organomegaly: Other - Mild tenderness right lower quadrant - Back Back: Normal, Nontender - Extremities General upper extremity: Normal inspection, Normal ROM General lower extremity: Normal inspection, Normal ROM Course - Re-evaluation Re-evalutation: 07/21/19 21:41 Ovaries not visualized on ultrasound. Patient is well-appearing with remarkable labs. I discussed the findings of the ultrasound not be able to see her ovaries. I discussed that due to bowel gas patterns that this can affect the study. I recommended going back tomorrow morning for a second transvaginal ultrasound. Symptoms been going on for greater than 24 hours if this were indeed ovarian torsion she would have more vomiting and would not have a viable ovary at this time. She does not have any serum leukocytosis and the fact is been going on for greater than 24 hours lower probability of appendicitis. She had a CT on 07/09/2019 do not feel like reimaging is warranted at this time due to normal labs in combination with duration of symptoms. She is to be reevaluated tomorrow when she returns for consideration of repeat ultrasound versus imaging based on presentation. - Vital Signs Vital signs: Temp Pulse Resp BP Pulse Ox 98.0 F 95 16 116/77 96 07/21/19 18:02 07/21/19 18:02 07/21/19 18:02 07/21/19 18:02 07/21/19 18:02 - Laboratory Result Diagrams: 07/21/19 19:50 07/21/19 19:50 Discharge - Discharge Clinical Impression: Right lower quadrant pain Condition: Good Disposition: HOME, SELF-CARE Instructions: Pelvic Pain ([facility]) Additional Instructions: These return to the emergency department within the next 12 to 18 hours for reevaluation based on her conversation. Return sooner if symptoms are worsening or development of any fevers Prescriptions: Hydrocodone/Acetaminophen [[place] 5-325 mg Tablet] 1 tab PO ASDIR PRN #5 tablet PRN Reason: Ondansetron [Zofran Odt 4 mg Tablet] 1 tab PO ASDIR PRN #10 tab.rapdis PRN Reason: For Nausea/Vomiting Referrals: FUNMI MARCOS JR, MD [Primary Care Provider] - Follow up as needed
[2019-07-21] MEDS ORDERED: HYDROCODONE/ACETAMINOPHEN 5-325 MG (6 TAB/ER DISP) PO PRN (22:11)
[2019-07-22 00:23] VITALS: BP 110/60
== END 2019-07-21 22:20 | disposition home or self-care (01) ==
LOC: ER 17:56
DX: R10.31 Right lower quadrant pain (principal); R10.813 Right lower quadrant abdominal tenderness; R10.2 Pelvic and perineal pain; R11.0 Nausea; Z90.710 Acquired absence of both cervix and uterus; Z88.8 Allergy status to other drugs, medicaments and biological substances; Z91.040 Latex allergy status; Z88.0 Allergy status to penicillin; Z88.1 Allergy status to other antibiotic agents; Z88.6 Allergy status to analgesic agent; Z88.5 Allergy status to narcotic agent; Z90.49 Acquired absence of other specified parts of digestive tract
CPT/HCPCS: 96376; 99284; 96361; 96374; 96375; 36415; 85025; 80053; 76830; J1200; J2270; J2405; J7030

== ENCOUNTER 2019-07-22 16:20 | Emergency (ER) | payer OTHER ==
--- NOTE | 2019-07-22 16:35 | ER Document Report ---
ED Medical Screen (RME) - General Chief Complaint: Lower Abdominal Pain Stated Complaint: ABDOMINAL/PELVIC PAIN Time Seen by Provider: 07/22/19 16:31 Primary Care Provider: FUNMI MARCOS JR, MD [Primary Care Provider] - Follow up as needed Mode of Arrival: Ambulatory Information source: Patient Notes: 44-year-old female presents with lower quad abdominal pain. Reports she was evaluated in the emergency department yesterday and was told to come back if she still felt bad. Reports she has been vomiting since. Is been taking Zofran without relief of symptoms. Reports history of right ovarian cyst. Recent transvaginal ultrasound done yesterday CT of the abdomen pelvis done July 09. I have greeted and performed a rapid initial assessment of this patient. A comprehensive ED assessment and evaluation of the patient, analysis of test results and completion of the medical decision making process will be conducted by additional ED providers. Dictation of this chart was performed using voice recognition software; therefore, there may be some unintended grammatical errors. TRAVEL OUTSIDE OF THE [place] IN LAST 30 DAYS: No - Related Data Allergies/Adverse Reactions: ibuprofen Allergy (Verified 07/22/19 16:23) latex Allergy (Verified 07/22/19 16:23) metoclopramide [From Reglan] Allergy (Verified 07/22/19 16:23) NSAIDS (Non-Steroidal Anti-Inflamma Allergy (Verified 07/22/19 16:23) Penicillins Allergy (Verified 07/22/19 16:23) sulfamethoxazole [From Septra] Allergy (Verified 07/22/19 16:23) sumatriptan [From Imitrex] Allergy (Verified 07/22/19 16:23) tramadol Allergy (Verified 07/22/19 16:23) trimethoprim [From Septra] Allergy (Verified 07/22/19 16:23) zolmitriptan [From Zomig] Allergy (Verified 07/22/19 16:23) haloperidol [From Haldol] Adverse Reaction (Verified 07/22/19 16:23) prochlorperazine [From Compazine] Adverse Reaction (Verified 07/22/19 16:23) Past Medical History - Social History Family history: Reviewed & Not Pertinent - Past Medical History Cardiac Medical History: Reports: Hx Hypercholesterolemia Neurological Medical History: Reports: Hx Migraine Endocrine Medical History: Comment Only: Hx Diabetes Mellitus Type 2 - pre diabetic Renal/ Medical History: Reports: Hx Ovarian Cysts - PCOS. Denies: Hx Peritoneal Dialysis GI Medical History: Reports: Hx Gastroesophageal Reflux Disease, Hx Hiatal Hernia Musculoskeltal Medical History: Reports Hx Arthritis, Reports Hx Musculoskeletal Deformity - Scoliosis, Reports Hx Musculoskeletal Trauma Psychiatric Medical History: Reports: Hx Anxiety, Hx Depression Traumatic Medical History: Reports: Hx Fractures - Arm Past Surgical History: Reports: Hx Appendectomy, Hx Cholecystectomy, Hx Genitourinary Surgery - "BLADDER SLING", Hx Hysterectomy, Hx Orthopedic Surgery - Alexander rods - Immunizations Hx Diphtheria, Pertussis, Tetanus Vaccination: No - 2009 History of Influenza Vaccine for 08/2017 - 12/2017 Season: Yes Influenza Administration Date for 08/2017 - 12/2017 Season: 12/03/16 Physical Exam - Vital signs Vitals: Temp Pulse Resp BP Pulse Ox 98.4 F 92 18 129/83 H 97 07/22/19 16:23 07/22/19 16:23 07/22/19 16:23 07/22/19 16:23 07/22/19 16:23 Course - Vital Signs Vital signs: Temp Pulse Resp BP Pulse Ox 98.4 F 92 18 129/83 H 97 07/22/19 16:23 07/22/19 16:23 07/22/19 16:23 07/22/19 16:23 07/22/19 16:23 Doctor's Discharge - Discharge Referrals: FUNMI MARCOS JR, MD [Primary Care Provider] - Follow up as needed
[2019-07-22 17:24] LABS: ABSOLUTE BASOPHILS # (AUTO) 0.1 10^3/uL (0.0-0.2); ABSOLUTE EOSINOPHILS # (AUTO) 0.6 10^3/uL (0.0-0.6); ABSOLUTE LYMPHOCYTES (AUTO) 2.3 10^3/uL (0.5-4.7); ABSOLUTE MONOCYTES (AUTO) 0.6 10^3/uL (0.1-1.4); ABSOLUTE NEUT (AUTO) 3.7 10^3/uL (1.7-8.2); BASOPHILS % (AUTO) 1.2 % (0-2); EOSINOPHILS % (AUTO) 7.8 % (0-6); HEMATOCRIT 40.5 % (36.0-47.0); HEMOGLOBIN 13.5 g/dL (12.0-15.5); LYMPHOCYTES % (AUTO) 31.2 % (13-45); MEAN CORPUSCULAR HEMOGLOBIN 27.5 pg (27.0-33.4); MEAN CORPUSCULAR HGB CONC 33.3 g/dL (32.0-36.0); MEAN CORPUSCULAR VOLUME 83 fl (80-97); MONOCYTES % (AUTO) 8.6 % (3-13); PLATELET COUNT 298 10^3/uL (150-450); RED CELL DISTRIBUTION WIDTH 13.3 % (11.5-14.0); SEGMENTED NEUTROPHILS % (AUTO) 51.2 % (42-78); TOTAL CELLS COUNTED % (AUTO) 100 %; WHITE BLOOD COUNT 7.2 10^3/uL (4.0-10.5)
[2019-07-22 17:33] LABS: APPEARANCE,URINE CLEAR; BILIRUBIN,URINE NEGATIVE (NEGATIVE); COLOR,URINE YELLOW; GLUCOSE, URINE NEGATIVE (NEGATIVE); KETONES,URINE NEGATIVE (NEGATIVE); LEUKOCYTE ESTERASE,URINE NEGATIVE (NEGATIVE); NITRITE,URINE NEGATIVE (NEGATIVE); PROTEIN,URINE NEGATIVE (NEGATIVE); UROBILINOGEN,URINE NEGATIVE mg/dL (<2.0)
[2019-07-22 17:42] LABS: ALBUMIN 4.3 g/dL (3.5-5.0); ALKALINE PHOSPHATASE 49 U/L (38-126); ANION GAP 10 (5-19); ASPARTATE AMINO TRANSFERASE 69 U/L (14-36); BILIRUBIN,DIRECT 0.1 mg/dL (0.0-0.4); BILIRUBIN,TOTAL 0.5 mg/dL (0.2-1.3); BLOOD UREA NITROGEN 14 mg/dL (7-20); CALCIUM 9.4 mg/dL (8.4-10.2); CARBON DIOXIDE 25 mmol/L (22-30); CHLORIDE 105 mmol/L (98-107); GLUCOSE 95 mg/dL (75-110); POTASSIUM 4.3 mmol/L (3.6-5.0); TOTAL PROTEIN 7.7 g/dL (6.3-8.2)
[2019-07-22] MEDS ORDERED: ONDANSETRON HCL INJ/PF 4 MG/2 ML SDV IV ONE (18:06)
[2019-07-22] MEDS ORDERED: DIPHENHYDRAMINE HCL 50 MG/ML VIAL IV ONE ×2 (18:07→20:03)
[2019-07-22] MEDS ORDERED: MORPHINE SULFATE 10 MG/ML INJ IV ONE ×2 (18:07→20:03)
[2019-07-22] MEDS ORDERED: NORMAL SALINE 1000 ML 1,000 ML IV ONE (18:07)
--- NOTE | 2019-07-22 19:45 | RADIOLOGY REPORT (SQ) ---
EXAM DESCRIPTION: U/S NON OB PEL TV W/DOPPLER COMPLETED DATE/TIME: 07/22/2019 7:29 pm REASON FOR STUDY: pelvic pain, eval torsion COMPARISON: 07/21/2019 TECHNIQUE: Dynamic and static grayscale images acquired of the pelvis via transvaginal approach and recorded on PACS. Additional selected color Doppler and spectral images recorded. LIMITATIONS: None. FINDINGS: Prior hysterectomy. RIGHT OVARY AND DOPPLER: 2.3 x 1.9 x 1.6 cm right ovarian hemorrhagic cyst. . Normal arterial vascul ar flow without evidence for torsion. LEFT OVARY AND DOPPLER: Ovary not visualized. FREE FLUID: None noted. OTHER: No other significant finding. MEASUREMENTS: RIGHT OVARY: 3.5 x 2.2 x 1.8 cm LEFT OVARY: Not visualized. IMPRESSION: 2.3 x 1.9 x 1.6 cm right ovarian hemorrhagic cyst. . Normal arterial vascular flow with out evidence for torsion. Nonvisualized left ovary. No free fluid. TECHNICAL DOCUMENTATION: JOB ID: [id number] [place]-72 2010 [employer]- All Rights Reserved Rev Reading location - IP/workstation name: [email or web address]
--- NOTE | 2019-07-22 20:09 | ER Document Report ---
ED General - General Chief Complaint: Lower Abdominal Pain Stated Complaint: ABDOMINAL/PELVIC PAIN Time Seen by Provider: 07/22/19 16:31 Primary Care Provider: FUNMI MARCOS JR, MD [Primary Care Provider] - Follow up in 1 week Mode of Arrival: Ambulatory TRAVEL OUTSIDE OF THE [place] IN LAST 30 DAYS: No - HPI Notes: 44 year old female to the ED with C/O lower abdominal/pelvic pain. Reports she was evaluated in the emergency department yesterday and was told to come back if she still felt bad. Reports she has been vomiting since. has been taking Zof ran and [place] without relief of symptoms. Reports history of right ovarian cyst. Recent transvaginal ultrasound done yesterday and a CT of the abdomen pelvis done July 09. CT showed an ovarian cyst, but yesterday's US did not visualize the ovary. She was urged to return if her symptoms were worsening. She states that she has not been doing well and thinks she may be getting worse. - Related Data Allergies/Adverse Reactions: ibuprofen Allergy (Verified 07/22/19 16:23) latex Allergy (Verified 07/22/19 16:23) metoclopramide [From Reglan] Allergy (Verified 07/22/19 16:23) NSAIDS (Non-Steroidal Anti-Inflamma Allergy (Verified 07/22/19 16:23) Penicillins Allergy (Verified 07/22/19 16:23) sulfamethoxazole [From Septra] Allergy (Verified 07/22/19 16:23) sumatriptan [From Imitrex] Allergy (Verified 07/22/19 16:23) tramadol Allergy (Verified 07/22/19 16:23) trimethoprim [From Septra] Allergy (Verified 07/22/19 16:23) zolmitriptan [From Zomig] Allergy (Verified 07/22/19 16:23) haloperidol [From Haldol] Adverse Reaction (Verified 07/22/19 16:23) prochlorperazine [From Compazine] Adverse Reaction (Verified 07/22/19 16:23) Past Medical History - General Information source: Patient - Social History Smoking Status: Never Smoker Frequency of alcohol use: Rare Drug Abuse: None Family History: Arthritis, COPD, CVA, DM, Hyperlipidemia, Hypertension, Malignancy Patient has suicidal ideation: No Patient has homicidal ideation: No - Past Medical History Cardiac Medical History: Reports: Hx Hypercholesterolemia Neurological Medical History: Reports: Hx Migraine Endocrine Medical History: Comment Only: Hx Diabetes Mellitus Type 2 - pre diabetic Renal/ Medical History: Reports: Hx Ovarian Cysts - PCOS. Denies: Hx Peritoneal Dialysis GI Medical History: Reports: Hx Gastroesophageal Reflux Disease, Hx Hiatal Hernia Musculoskeletal Medical History: Reports Hx Arthritis, Reports Hx Musculoskeletal Deformity - Scoliosis, Reports Hx Musculoskeletal Trauma Psychiatric Medical History: Reports: Hx Anxiety, Hx Depression Traumatic Medical History: Reports: Hx Fractures - Arm Past Surgical History: Reports: Hx Appendectomy, Hx Cholecystectomy, Hx Genitourinary Surgery - "BLADDER SLING", Hx Hysterectomy, Hx Orthopedic Surgery - Alexander rods - Immunizations Hx Diphtheria, Pertussis, Tetanus Vaccination: No - 2009 Review of Systems - Review of Systems Constitutional: denies: Chills, Fever EENT: No symptoms reported Cardiovascular: denies: Chest pain, Palpitations, Heart racing, Orthopnea, Dyspnea, Syncope, Dizziness, Lightheaded Respiratory: denies: Cough, Short of breath Gastrointestinal: Abdominal pain, Nausea, Vomiting. denies: Diarrhea Genitourinary: No symptoms reported Female Genitourinary: denies: Vaginal bleeding Musculoskeletal: No symptoms reported Skin: No symptoms reported -: Yes All other systems reviewed and negative Physical Exam - Vital signs Vitals: Temp Pulse Resp BP Pulse Ox 98.4 F 92 18 129/83 H 97 07/22/19 16:23 07/22/19 16:23 07/22/19 16:23 07/22/19 16:23 07/22/19 16:23 Interpretation: Normal - General General appearance: Appears well, Alert - HEENT Head: Normocephalic, Atraumatic Eyes: Normal Pupils: PERRL - Respiratory Respiratory status: No respiratory distress Chest status: Nontender Breath sounds: Normal Chest palpation: Normal - Cardiovascular Rhythm: Regular Heart sounds: Normal auscultation Murmur: No - Abdominal Inspection: Morbidly Obese Distension: No distension Bowel sounds: Normal Tenderness: Tender - +TTP over the right lower pelvic area. There is mild voluntary guarding. Ther is no rebound.. No: Dong's sign, Guarding, Rebound Organomegaly: No organomegaly - Back Back: Normal, Nontender. 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 Would like to try to visualize ovary tonight to eval for possible torsion. Will control patient's pain and see if a better picture can be obtained. Spoke with US tech. She was able to get a view of the right ovary. Will await final rad reading IMpression: Hemorrhagic right ovarian cyst. No torsion. Patient with better pain control. Will discharge home. have her follow with [facility]. Gave strict precautions for return. Patient agrees with the plan. - Vital Signs Vital signs: Temp Pulse Resp BP Pulse Ox 98.1 F 83 15 122/85 98 07/22/19 20:40 07/22/19 20:40 07/22/19 20:40 07/22/19 20:40 07/22/19 20:40 - Laboratory Result Diagrams: 07/22/19 16:57 07/22/19 16:57 Laboratory results interpreted by me: 07/22/19 07/22/19 16:57 16:57 Eos % (Auto) 7.8 H AST 69 H Discharge - Discharge Clinical Impression: Pelvic pain, Hemorrhagic cyst of right ovary Condition: Stable Disposition: HOME, SELF-CARE Instructions: Pelvic Pain ([facility]) Additional Instructions: RETURN IF WORSENING SYMPTOMS SUCH INTRACTABLE VOMITING, INTRACTABLE PAIN, PASSING OUT, OR ANY OTHER CONCERNS. FOLLOW UP WITH [facility] SCHEDULED IN ONE WEEK. Prescriptions: Oxycodone HCl/Acetaminophen [Percocet 5-325 mg Tablet] 1 tab PO Q6H PRN #9 tablet PRN Reason: Referrals: FUNMI MARCOS JR, MD [Primary Care Provider] - Follow up in 1 week
[2019-07-22 20:43] VITALS: BP 122/85
== END 2019-07-22 20:40 | disposition home or self-care (01) ==
LOC: ER 16:20
DX: N83.201 Unspecified ovarian cyst, right side (principal); R10.2 Pelvic and perineal pain; R10.30 Lower abdominal pain, unspecified; R11.10 Vomiting, unspecified; R73.03 Prediabetes
CPT/HCPCS: 96376; 99284; 96361; 96374; 96375; 36415; 85025; 80053; 81001; 76830; 93976; J1200; J2270; J2405; J7030

== ENCOUNTER 2019-07-25 16:41 | Emergency (ER) | payer OTHER ==
[2019-07-25] MEDS ORDERED: ONDANSETRON HCL INJ/PF 4 MG/2 ML SDV IV ONE (17:17)
--- NOTE | 2019-07-25 17:19 | ER Document Report ---
ED Medical Screen (RME) - General Chief Complaint: Abdominal Pain Stated Complaint: RIGHT SIDE FLANK PAIN Time Seen by Provider: 07/25/19 17:08 Primary Care Provider: FUNMI MARCOS JR, MD [Primary Care Provider] - Follow up as needed Notes: Patient seen here 4 times in the last 2 weeks for the same complaint and diagnosed with a right ovarian cyst on July 22. Patient returns for pain control and states that pain got acutely worse overnight. Patient has associated nausea and vomiting. No fevers, no chest pain, no shortness of breath. Patient has an appointment with [facility] at the [facility] this Thu. Exam: Lungs clear to auscultation in all noble, regular cardiac rate and rhythm, abdominal exam deferred in triage I have greeted and performed a rapid initial assessment of this patient. A c omprehensive ED assessment and evaluation of the patient, analysis of test results and completion of medical decision making process will be conducted by an additional ED providers. TRAVEL OUTSIDE OF THE [place] IN LAST 30 DAYS: No - Related Data Allergies/Adverse Reactions: ibuprofen Allergy (Verified 07/22/19 16:23) latex Allergy (Verified 07/22/19 16:23) metoclopramide [From Reglan] Allergy (Verified 07/22/19 16:23) NSAIDS (Non-Steroidal Anti-Inflamma Allergy (Verified 07/22/19 16:23) Penicillins Allergy (Verified 07/22/19 16:23) sulfamethoxazole [From Septra] Allergy (Verified 07/22/19 16:23) sumatriptan [From Imitrex] Allergy (Verified 07/22/19 16:23) tramadol Allergy (Verified 07/22/19 16:23) trimethoprim [From Septra] Allergy (Verified 07/22/19 16:23) zolmitriptan [From Zomig] Allergy (Verified 07/22/19 16:23) haloperidol [From Haldol] Adverse Reaction (Verified 07/22/19 16:23) prochlorperazine [From Compazine] Adverse Reaction (Verified 07/22/19 16:23) Past Medical History - Social History Family history: Reviewed & Not Pertinent - Past Medical History Cardiac Medical History: Reports: Hx Hypercholesterolemia Neurological Medical History: Reports: Hx Migraine Endocrine Medical History: Comment Only: Hx Diabetes Mellitus Type 2 - pre diabetic Renal/ Medical History: Reports: Hx Ovarian Cysts - PCOS. Denies: Hx Peritoneal Dialysis GI Medical History: Reports: Hx Gastroesophageal Reflux Disease, Hx Hiatal Hernia Musculoskeltal Medical History: Reports Hx Arthritis, Reports Hx Musculoskeletal Deformity - Scoliosis, Reports Hx Musculoskeletal Trauma Psychiatric Medical History: Reports: Hx Anxiety, Hx Depression Traumatic Medical History: Reports: Hx Fractures - Arm Past Surgical History: Reports: Hx Appendectomy, Hx Cholecystectomy, Hx Genitourinary Surgery - "BLADDER SLING", Hx Hysterectomy, Hx Orthopedic Surgery - Alexander rods - Immunizations Hx Diphtheria, Pertussis, Tetanus Vaccination: No - 2009 History of Influenza Vaccine for 08/2017 - 12/2017 Season: Yes Influenza Administration Date for 08/2017 - 12/2017 Season: 12/03/16 Physical Exam - Vital signs Vitals: Temp Pulse Resp BP Pulse Ox 98.4 F 100 15 134/81 H 98 07/25/19 16:56 07/25/19 16:56 07/25/19 16:56 07/25/19 16:56 07/25/19 16:56 Course - Vital Signs Vital signs: Temp Pulse Resp BP Pulse Ox 98.4 F 100 15 134/81 H 98 07/25/19 16:56 07/25/19 16:56 07/25/19 16:56 07/25/19 16:56 07/25/19 16:56 Doctor's Discharge - Discharge Referrals: FUNMI MARCOS JR, MD [Primary Care Provider] - Follow up as needed
[2019-07-25] MEDS ORDERED: DIPHENHYDRAMINE HCL 50 MG/ML VIAL IV ONE (17:45)
[2019-07-25] MEDS ORDERED: NORMAL SALINE 1000 ML 1,000 ML IV ONE (17:46)
[2019-07-25] MEDS ORDERED: MORPHINE SULFATE 10 MG/ML INJ IV ONE ×2 (17:46→19:09)
--- NOTE | 2019-07-25 17:47 | ER Document Report ---
ED GI/ - General Chief Complaint: Abdominal Pain Stated Complaint: RIGHT SIDE FLANK PAIN Time Seen by Provider: 07/25/19 17:08 Primary Care Provider: FUNMI MARCOS JR, MD [Primary Care Provider] - Follow up tomorrow Mode of Arrival: Ambulatory Information source: Patient Notes: Patient states that she was recently seen here and diagnosed with an ovarian cyst. Patient states that her pain is making her nauseous and she has vomited being unable to keep her pain medication down. Patient states she does have an appointment with an [facility] this week. Patient denies any fever or urinary symptoms. TRAVEL OUTSIDE OF THE [place] IN LAST 30 DAYS: No - HPI Patient complains to provider of: Pelvic pain Onset: Other - 5 days Timing/Duration: Persistent Quality of pain: Sharp Pain Level: 5 Location: RLQ Vaginal bleeding (Compared to normal period): None Associated symptoms: Nausea, Vomiting. denies: Dysuria, Fever, Urinary hes itancy, Urinary frequency, Urinary retention, Urinary urgency Exacerbated by: Movement Relieved by: Denies Similar symptoms previously: Yes Recently seen / treated by doctor: Yes - Related Data Allergies/Adverse Reactions: ibuprofen Allergy (Verified 07/22/19 16:23) latex Allergy (Verified 07/22/19 16:23) metoclopramide [From Reglan] Allergy (Verified 07/22/19 16:23) NSAIDS (Non-Steroidal Anti-Inflamma Allergy (Verified 07/22/19 16:23) Penicillins Allergy (Verified 07/22/19 16:23) sulfamethoxazole [From Septra] Allergy (Verified 07/22/19 16:23) sumatriptan [From Imitrex] Allergy (Verified 07/22/19 16:23) tramadol Allergy (Verified 07/22/19 16:23) trimethoprim [From Septra] Allergy (Verified 07/22/19 16:23) zolmitriptan [From Zomig] Allergy (Verified 07/22/19 16:23) haloperidol [From Haldol] Adverse Reaction (Verified 07/22/19 16:23) prochlorperazine [From Compazine] Adverse Reaction (Verified 07/22/19 16:23) Past Medical History - General Information source: Patient - Social History Smoking Status: Never Smoker Frequency of alcohol use: Occasional Drug Abuse: None Occupation: None Lives with: Family Family History: Arthritis, COPD, CVA, DM, Hyperlipidemia, Hypertension, Malignancy Patient has suicidal ideation: No Patient has homicidal ideation: No - Past Medical History Cardiac Medical History: Reports: Hx Hypercholesterolemia Neurological Medical History: Reports: Hx Migraine Endocrine Medical History: Comment Only: Hx Diabetes Mellitus Type 2 - pre diabetic Renal/ Medical History: Reports: Hx Ovarian Cysts - PCOS. Denies: Hx Peritoneal Dialysis GI Medical History: Reports: Hx Gastroesophageal Reflux Disease, Hx Hiatal Hernia Musculoskeletal Medical History: Reports Hx Arthritis, Reports Hx Musculoskeletal Deformity - Scoliosis, Reports Hx Musculoskeletal Trauma Psychiatric Medical History: Reports: Hx Anxiety, Hx Depression Traumatic Medical History: Reports: Hx Fractures - Arm Past Surgical History: Reports: Hx Appendectomy, Hx Cholecystectomy, Hx Genitourinary Surgery - "BLADDER SLING", Hx Hysterectomy, Hx Orthopedic Surgery - Alexander rods - Immunizations Hx Diphtheria, Pertussis, Tetanus Vaccination: No - 2009 Review of Systems - Review of Systems Constitutional: No symptoms reported. denies: Fever, Recent illness EENT: No symptoms reported Cardiovascular: No symptoms reported. denies: Chest pain Respiratory: No symptoms reported Gastrointestinal: Abdominal pain, Nausea, Vomiting. denies: Diarrhea Genitourinary: No symptoms reported. denies: Dysuria Female Genitourinary: No symptoms reported. denies: , Vaginal discharge Musculoskeletal: No symptoms reported Skin: No symptoms reported Hematologic/Lymphatic: No symptoms reported Neurological/Psychological: No symptoms reported Physical Exam - Vital signs Vitals: Temp Pulse Resp BP Pulse Ox 98.4 F 100 15 134/81 H 98 07/25/19 16:56 07/25/19 16:56 07/25/19 16:56 07/25/19 16:56 07/25/19 16:56 - General General appearance: Appears well, Alert In distress: None - HEENT Head: Normocephalic, Atraumatic Eyes: Normal Conjunctiva: Normal Nasal: Normal Mouth/Lips: Normal Mucous membranes: Normal Neck: Normal, Supple - Respiratory Respiratory status: No respiratory distress Chest status: Nontender Breath sounds: Normal. No: Rales, Rhonchi, Stridor, Wheezing Chest palpation: Normal - Cardiovascular Rhythm: Regular Heart sounds: S1 appreciated, S2 appreciated - Abdominal Inspection: Morbidly Obese Distension: No distension Bowel sounds: Normal Tenderness: Tender - RLQ Organomegaly: No organomegaly - Back Back: Normal, Nontender. No: CVA tenderness - Extremities General upper extremity: Normal inspection, Normal strength General lower extremity: Normal inspection, Normal strength - Neurological Neuro grossly intact: Yes Cognition: Normal [place] Coma Scale Eye Opening: Spontaneous [place] Coma Scale Verbal: Oriented [place] Coma Scale Motor: Obeys Commands Noah Coma Scale Total: 15 - Psychological Associated symptoms: Normal affect, Normal mood - Skin Skin Temperature: Warm Skin Moisture: Dry Skin Color: Normal Course - Re-evaluation Re-evalutation: 07/25/19 19:10 Patient without any changes noted on ultrasound as compared to her study that was done several days ago. Patient with stable vital signs as well as stable H&H at this time. Patient states that she has both Phenergan and Zofran at home to help with her nausea and has had a recent prescription for narcotics yesterday from her primary doctor. Patient encouraged to take her medicines that she has at home and to follow-up with her primary doctor regarding pain control tomorrow. Patient does have an appointment this week with a felter tennis balls for further evaluation of her ovarian cyst. - Vital Signs Vital signs: Temp Pulse Resp BP Pulse Ox 98.5 F 84 16 113/67 99 07/25/19 19:26 07/25/19 19:26 07/25/19 19:26 07/25/19 19:26 07/25/19 19:26 - Laboratory Result Diagrams: 07/25/19 17:53 07/25/19 17:53 Laboratory results interpreted by me: 07/25/19 07/25/19 17:53 17:53 Eos % (Auto) 7.9 H Urine Blood SMALL H Labs- Entire Visit 07/25/19 07/25/19 07/25/19 17:53 17:53 17:53 WBC 7.4 RBC 4.95 Hgb 13.6 Hct 40.6 MCV 82 MCH 27.4 MCHC 33.4 RDW 13.2 Plt Count 273 Lymph % (Auto) 29.0 [place] % (Auto) 7.3 Eos % (Auto) 7.9 H Baso % (Auto) 1.1 Absolute Neuts (auto) 4.0 Absolute Lymphs (auto) 2.1 Absolute Monos (auto) 0.5 Absolute Eos (auto) 0.6 Absolute Basos (auto) 0.1 Seg Neutrophils % 54.7 Sodium 139.5 Potassium 4.2 Chloride 104 Carbon Dioxide 25 Anion Gap 11 BUN 12 Creatinine 0.72 Est GFR ( Amer) > 60 Est GFR (MDRD) Non-Af > 60 Glucose 94 Calcium 9.7 Urine Color YELLOW Urine Appearance SLIGHTLY-CLOUDY Urine pH 5.0 Ur Specific [place] 1.017 Urine Protein NEGATIVE Urine Glucose (UA) NEGATIVE Urine Ketones NEGATIVE Urine Blood SMALL H Urine Nitrite NEGATIVE Urine Bilirubin NEGATIVE Urine Urobilinogen NEGATIVE Ur Leukocyte Esterase NEGATIVE Urine WBC (Auto) 0 Urine RBC (Auto) 1 Squamous Epi Cells Auto 2 Urine Mucus (Auto) RARE Urine Ascorbic Acid NEGATIVE - Diagnostic Test Radiology reviewed: Reports reviewed Discharge - Discharge Clinical Impression: Hemorrhagic cyst of right ovary, Pelvic pain Condition: Stable Disposition: HOME, SELF-CARE Instructions: Nausea or Vomiting, Nonspecific ([facility]), Ovarian Cyst ([facility]) Additional Instructions: Return immediately for any new or worsening symptoms Followup with your primary care provider, call tomorrow to make a followup appointment Take your pain medication and your nausea medication that you have at home as prescribed Follow-up with your felter tennis balls as planned this week Referrals: FUNIM MARCOS JR, MD [Primary Care Provider] - Follow up tomorrow
[2019-07-25 18:18] LABS: ABSOLUTE BASOPHILS # (AUTO) 0.1 10^3/uL (0.0-0.2); ABSOLUTE EOSINOPHILS # (AUTO) 0.6 10^3/uL (0.0-0.6); ABSOLUTE LYMPHOCYTES (AUTO) 2.1 10^3/uL (0.5-4.7); ABSOLUTE MONOCYTES (AUTO) 0.5 10^3/uL (0.1-1.4); BASOPHILS % (AUTO) 1.1 % (0-2); EOSINOPHILS % (AUTO) 7.9 % (0-6); HEMATOCRIT 40.6 % (36.0-47.0); HEMOGLOBIN 13.6 g/dL (12.0-15.5); MEAN CORPUSCULAR HEMOGLOBIN 27.4 pg (27.0-33.4); MEAN CORPUSCULAR HGB CONC 33.4 g/dL (32.0-36.0); MEAN CORPUSCULAR VOLUME 82 fl (80-97); MONOCYTES % (AUTO) 7.3 % (3-13); PLATELET COUNT 273 10^3/uL (150-450); RED BLOOD COUNT 4.95 10^6/uL (3.72-5.28); RED CELL DISTRIBUTION WIDTH 13.2 % (11.5-14.0); SEGMENTED NEUTROPHILS % (AUTO) 54.7 % (42-78); TOTAL CELLS COUNTED % (AUTO) 100 %; WHITE BLOOD COUNT 7.4 10^3/uL (4.0-10.5)
[2019-07-25 18:23] LABS: APPEARANCE,URINE SLIGHTLY-CLOUDY; BILIRUBIN,URINE NEGATIVE (NEGATIVE); COLOR,URINE YELLOW; GLUCOSE, URINE NEGATIVE (NEGATIVE); KETONES,URINE NEGATIVE (NEGATIVE); LEUKOCYTE ESTERASE,URINE NEGATIVE (NEGATIVE); NITRITE,URINE NEGATIVE (NEGATIVE); PROTEIN,URINE NEGATIVE (NEGATIVE); URINE SPECIFIC GRAVITY 1.017; UROBILINOGEN,URINE NEGATIVE mg/dL (<2.0)
[2019-07-25 18:32] LABS: ANION GAP 11 (5-19); BLOOD UREA NITROGEN 12 mg/dL (7-20); CALCIUM 9.7 mg/dL (8.4-10.2); CARBON DIOXIDE 25 mmol/L (22-30); CHLORIDE 104 mmol/L (98-107); GLUCOSE 94 mg/dL (75-110); POTASSIUM 4.2 mmol/L (3.6-5.0)
--- NOTE | 2019-07-25 18:44 | RADIOLOGY REPORT (SQ) ---
EXAM DESCRIPTION: KUB/ABDOMEN (SINGLE VIEW) COMPLETED DATE/TIME: 07/25/2019 6:35 pm REASON FOR STUDY: RLQ pain COMPARISON: 02/10/2018 NUMBER OF VIEWS: One view. TECHNIQUE: Supine radiographic image of the abdomen acquired. LIMITATIONS: None. FINDINGS: BOWEL GAS PATTERN: Normal bowel gas pattern. No dilated loops. CALCIFICATIONS: No suspicious calcifications. SOFT TISSUES: No gross mass or suggestion of organomegaly. HARDWARE: Right upper quadrant clips. Pelvic clips. BONES: Scoliosis. Spine hardware. OTHER: No other significant finding. IMPRESSION: NO RADIOGRAPHIC EVIDENCE FOR ACUTE ABDOMINAL DISEASE. TECHNICAL DOCUMENTATION: JOB ID: [id number] [employer]- All Rights Reserved Reading location - IP/workstation name: [email or web address]
--- NOTE | 2019-07-25 18:49 | RADIOLOGY REPORT (SQ) ---
EXAM DESCRIPTION: U/S NON OB PEL TV W/DOPPLER COMPLETED DATE/TIME: 07/25/2019 6:31 pm REASON FOR STUDY: RLQ pain, hx ov cyst COMPARISON: None 2019 TECHNIQUE: Dynamic and static grayscale images acquired of the pelvis via transvaginal approach and recorded on PACS. Additional selected color Doppler and spectral images recorded. LIMITATIONS: None. FINDINGS: UTERUS: Surgically absent . RIGHT OVARY AND DOPPLER: Unchanged from the exam 3 days ago, likely 2 cm hemorrhagic cyst. 1.2 cm si mple cysts. LEFT OVARY AND DOPPLER: Ovary not visualized. FREE FLUID: None noted. OTHER: No other significant finding. MEASUREMENTS: UTERUS: Not applicable. ENDOMETRIAL STRIPE: Not applicable. RIGHT OVARY: 2.9 cm LEFT OVARY: Not visualized. IMPRESSION: There is been no change in the appearance of the likely 2 cm hemorrhagic cyst in the rig ht ovary since the previous study 3 days ago. There is a 1.2 cm simple cysts in the right ovary. The left ovary is not identified. TECHNICAL DOCUMENTATION: JOB ID: [id number] [employer]- All Rights Reserved Rev-03/19 Reading location - IP/workstation name: [email or web address]
[2019-07-25 19:27] VITALS: BP 113/67
== END 2019-07-25 19:27 | disposition home or self-care (01) ==
LOC: ER 16:41
DX: N83.201 Unspecified ovarian cyst, right side (principal); R10.2 Pelvic and perineal pain; R10.9 Unspecified abdominal pain; R11.2 Nausea with vomiting, unspecified; R73.03 Prediabetes
CPT/HCPCS: 96376; 99284; 96361; 96374; 96375; 36415; 85025; 80048; 81001; 74018; 76830; 93976; J1200; J2270; J2405; J7030

== ENCOUNTER 2019-07-31 05:49 | Emergency (ER) | payer OTHER ==
[2019-07-31 08:26] LABS: APPEARANCE,URINE SLIGHTLY-CLOUDY; BILIRUBIN,URINE NEGATIVE (NEGATIVE); COLOR,URINE YELLOW; GLUCOSE, URINE NEGATIVE (NEGATIVE); KETONES,URINE NEGATIVE (NEGATIVE); LEUKOCYTE ESTERASE,URINE NEGATIVE (NEGATIVE); NITRITE,URINE NEGATIVE (NEGATIVE); PROTEIN,URINE NEGATIVE (NEGATIVE); URINE SPECIFIC GRAVITY 1.021; UROBILINOGEN,URINE NEGATIVE mg/dL (<2.0)
[2019-07-31] MEDS ORDERED: NORMAL SALINE 1000 ML 1,000 ML IV ONE (08:36)
[2019-07-31] MEDS ORDERED: ONDANSETRON HCL INJ/PF 4 MG/2 ML SDV IV ONE (08:37)
--- NOTE | 2019-07-31 08:41 | ER Document Report ---
ED GI/ - General Chief Complaint: Flank Pain Stated Complaint: RIGHT SIDE PAIN Time Seen by Provider: 07/31/19 08:16 Primary Care Provider: FUNMI MARCOS JR, MD [Primary Care Provider] - Follow up as needed Notes: Patient is a 44-year-old female presents to the emergency department with a chief complaint of right sided pain. Patient reports around 4 AM this morning she woke up and felt an intense urge to urinate. Patient reports she sat on the toilet and had a difficult time passing her urine. Patient reports when she finally did pass urine she did have significant pain and burning with urination. Patient reports she is unsure if there was blood in the urine as it was dark in the restroom. Patient reports she feels like she is potentially passing a kidney stone and she has had this in the past before. Patient reports that she was seen here on July 25 and diagnosed with a ovarian cyst but reports this pain is completely different. Patient reports as she was walking back to get into the bed she had dizziness and passed out. Patient reports she did have a loss of consciousness and remembers waking up on the floor to her . Patient reports she did hit the left side of her head on the ground which was carpeted. Patient does report a history of von Willebrand's disease. Patient reports since then she has vomited 5-6 times. Patient denies fever. Patient denies abdominal pain. TRAVEL OUTSIDE OF THE [place] IN LAST 30 DAYS: No - Related Data Allergies/Adverse Reactions: ibuprofen Allergy (Verified 07/22/19 16:23) latex Allergy (Verified 07/22/19 16:23) metoclopramide [From Reglan] Allergy (Verified 07/22/19 16:23) NSAIDS (Non-Steroidal Anti-Inflamma Allergy (Verified 07/22/19 16:23) Penicillins Allergy (Verified 07/22/19 16:23) sulfamethoxazole [From Septra] Allergy (Verified 07/22/19 16:23) sumatriptan [From Imitrex] Allergy (Verified 07/22/19 16:23) tramadol Allergy (Verified 07/22/19 16:23) trimethoprim [From Septra] Allergy (Verified 07/22/19 16:23) zolmitriptan [From Zomig] Allergy (Verified 07/22/19 16:23) haloperidol [From Haldol] Adverse Reaction (Verified 07/22/19 16:23) prochlorperazine [From Compazine] Adverse Reaction (Verified 07/22/19 16:23) Past Medical History - General Information source: Patient - Social History Smoking Status: Never Smoker Chew tobacco use (# tins/day): No Frequency of alcohol use: None Drug Abuse: None Lives with: Family Family History: Arthritis, COPD, CVA, DM, Hyperlipidemia, Hypertension, Maligna ncy Patient has suicidal ideation: No Patient has homicidal ideation: No - Past Medical History Cardiac Medical History: Reports: Hx Hypercholesterolemia Pulmonary Medical History: Reports: None EENT Medical History: Reports: None Neurological Medical History: Reports: Hx Migraine Endocrine Medical History: Reports: NoneComment Only: Hx Diabetes Mellitus Type 2 - pre diabetic Renal/ Medical History: Reports: Hx Ovarian Cysts - PCOS. Denies: Hx Peritoneal Dialysis Malignancy Medical History: Reports: None GI Medical History: Reports: Hx Gastroesophageal Reflux Disease, Hx Hiatal Hernia Musculoskeletal Medical History: Reports Hx Arthritis, Reports Hx Musculoskeletal Deformity - Scoliosis, Reports Hx Musculoskeletal Trauma Skin Medical History: Reports None Psychiatric Medical History: Reports: Hx Anxiety, Hx Depression Traumatic Medical History: Reports: Hx Fractures - Arm Infectious Medical History: Reports: None Past Surgical History: Reports: Hx Appendectomy, Hx Cholecystectomy, Hx Genitourinary Surgery - "BLADDER SLING", Hx Hysterectomy, Hx Orthopedic Surgery - Alexander rods - Immunizations Hx Diphtheria, Pertussis, Tetanus Vaccination: No - 2009 Review of Systems - Review of Systems Constitutional: See HPI EENT: No symptoms reported Cardiovascular: No symptoms reported Respiratory: No symptoms reported Gastrointestinal: See HPI Genitourinary: See HPI Female Genitourinary: No symptoms reported Musculoskeletal: No symptoms reported Skin: No symptoms reported Hematologic/Lymphatic: No symptoms reported Neurological/Psychological: No symptoms reported Physical Exam - Vital signs Vitals: Temp Pulse Resp BP Pulse Ox 98.1 F 106 H 16 141/89 H 96 07/31/19 05:54 07/31/19 05:54 07/31/19 05:54 07/31/19 05:54 07/31/19 05:54 Interpretation: Tachycardic - Notes Notes: GENERAL: Well-appearing, well-nourished and in no acute distress. HEAD: Atraumatic, normocephalic. No ecchymosis, edema noted to the left side of the head with the patient reports she fell. Negative peoples sign. EYES: Pupils equal round and reactive to light, extraocular movements intact, sclera anicteric, conjunctiva are normal. ENT: Nares patent, oropharynx clear without exudates. Moist mucous membranes. NECK: Normal range of motion, supple without lymphadenopathy or JVD. LUNGS: Breath sounds clear to auscultation bilaterally and equal. No wheezes rales or rhonchi. HEART: Regular rate and rhythm without murmurs, rubs or gallops. ABDOMEN: Soft, nontender, normoactive bowel sounds. No guarding, no rebound. No masses appreciated. BACK: No cervical, thoracic, lumbar midline tenderness. No saddle anesthesia, normal distal neurovascular exam. GENITOURINARY: Deferred. EXTREMITIES: Normal range of motion, no pitting or edema. No clubbing or cyanosis. NEUROLOGICAL: Cranial nerves II through XII grossly intact. Normal speech, normal gait. PSYCH: Normal mood, normal affect. SKIN: Warm, Dry, normal turgor, no rashes or lesions noted. Course - Re-evaluation Re-evalutation: 07/31/19 08:40 Patient reports a history of von Willebrand's, did report falling having a loss of consciousness and vomiting afterwards. Will obtain a CT of the head to rule out intracranial abnormality basic labs had already been ordered in triage. Will give IV fluids and antinausea medication. 07/31/19 09:39 Patient was given Tylenol for her pain. Patient's IV fluids and antiemetic given. Patient CT of the head was negative for any acute intracranial abnormality. Patient currently in ultrasound. At this time patient's blood work and urinalysis is unremarkable. 07/31/19 11:10 Patient's blood work was unremarkable as well as the renal ultrasound. Patient reports the pain in her side has since improved. Patient reports she still having a headache. I did inform the patient that if she fell and hit her head like she has stated I do not want to give narcotics to alter her level of consciousness. Patient reports typically with migraine cocktail she gets steroids, Benadryl and Phenergan. Will give some medications for her headache, reevaluate and plan to discharge home. Patient does have a her at the bedside. Patient is in no acute distress. 07/31/19 12:11 Patient reports feeling better after receiving the steroids, Benadryl and Phenergan. Patient is a completely alert and oriented. I did discuss the discharge instructions with the patient and who is at the bedside. Favio hernandez in agreement with discharge plan. Patient to follow-up with her neurologist and primary care physician. - Vital Signs Vital signs: Temp Pulse Resp BP Pulse Ox 98.1 F 106 H 16 141/89 H 96 07/31/19 05:54 07/31/19 05:54 07/31/19 05:54 07/31/19 05:54 07/31/19 05:54 - Laboratory Result Diagrams: 07/31/19 08:30 07/31/19 08:30 Laboratory results interpreted by me: 07/31/19 05:57 Urine Blood SMALL H - Diagnostic Test Radiology reviewed: Reports reviewed Radiology results interpreted by me: 07/31/19 10:[address] 07/31/19 08:35 IMPRESSION: NORMAL BRAIN CT WITHOUT CONTRAST. EVIDENCE OF ACUTE STROKE: NO. Renal Ultrasound 07/31/19 08:36 IMPRESSION: NORMAL RENAL AND BLADDER ULTRASOUND. Discharge - Discharge Clinical Impression: Dizziness, Flank pain Head injury Qualifiers: Encounter type: initial encounter Qualified Code(s): S09.90XA - Unspecified injury of head, initial encounter Fall Qualifiers: Encounter type: initial encounter Qualified Code(s): W19.XXXA - Unspecified fall, initial encounter Headache Qualifiers: Headache type: unspecified Headache chronicity pattern: acute headache Intracta bility: not intractable Qualified Code(s): R51 - Headache Condition: Stable Disposition: HOME, SELF-CARE Additional Instructions: Today you are seen in the emergency department after a head injury and for flank pain. The CAT scan of your head was negative for any acute intracranial ab normality such as a bleed or skull fracture. We did obtain an ultrasound of the kidneys which did not show any stones or enlargement of the kidneys. Her blood work was unremarkable. We have treated you for your headache. He will be placed on head injury precautions as you did fall and reported a loss of consciousness. He may take Tylenol as needed for pain. Do not take any medication that may alter level of alertness. Limit activity for the next 24 hours. Please rest. During the first 24 hours have your stay with you so we can monitor your consciousness. Please return emergency department if you have persistent vomiting, difficulty arousing worsening headache or failure to improve. Head injuries can cause symptoms that practice for days or if you weeks. Head Injury Your child's examination shows no evidence of brain injury. The child can therefore be safely observed at home. Give clear liquids only for the first eight hours. Acetaminophen or ibuprofen can safely be given for pain. Follow the directions on the bottle. Do not give any medication that may alter her/his level of alertness. Limit activity for the first 24 hours -- bed rest is advisable at first. Several times during the first 24 hours, check the patient to see if the pupils are equal in size to each other, that the patient is easily arousable, and responds normally. Contact your doctor or go to the hospital if any of the following things occur: Persistent or projectile vomiting, a seizure, confusion, unequal pupil size, difficulty in arousing the patient, worsening or continued headache, or failure to improve as expected. Head Injury Precautions At this point, there is no evidence that your head injury is serious. Observation is necessary, however. Take only clear liquids for the first few hours, unless told otherwise by the doctor. If no pain medication was prescribed, you may take acetaminophen according to the directions on the bottle. Do not take any medication that may alter your level of alertness (unless you've discussed it with the doctor first). Limit activity for the first 24 hours. Bed rest is best. During the first 24 hours, check to see approximately every two to three hours that the patient is easily arousable, responds normally, and can perform common tasks such as walking without difficulty. Contact your doctor or go to the hospital if any of the following things occur: Persistent vomiting, difficulty in arousing the patient, worsening or continued headache, or failure to improve as expected. Head injuries can cause symptoms that persist for a few days or even a few weeks. Flank Pain We weren't able to prove an exact cause for your flank pain. Pain in the flank can be caused by a muscle strain or spasm. Sometimes a kidney stone causes pain, but can't be found on our tests. Infection in the kidney should be evident on a urine test. Early shingles can occasionally cause flank pain, without the rash that proves the diagnosis. On rare occasions, disease of the pancreas, aorta, spleen, or colon can create pain in the flank. At this time, there's no evidence of a dangerous condition, and it seems safe for you to be at home. If the pain goes away and does not come back, no further testing will be needed. If pain persists, or becomes more severe, we may need to repeat some tests or order additional new testing. Blood in the urine, urgency to urinate frequently, and pain that radiates to the groin can indicate a kidney stone. Fever may mean that the pain is due to infection, either of the kidney or the colon (diverticulitis). If your pain is early shingles, you should develop an eruption of blisters in the painful area within a few days. Call the doctor or return if you have pain that is spreading or becoming more severe, pain that does not resolve with time, fever, or any other new symptoms. Referrals: FUNMI MARCOS JR, MD [Primary Care Provider] - Follow up as needed
[2019-07-31 08:49] LABS: ABSOLUTE BASOPHILS # (AUTO) 0.1 10^3/uL (0.0-0.2); ABSOLUTE EOSINOPHILS # (AUTO) 0.5 10^3/uL (0.0-0.6); ABSOLUTE LYMPHOCYTES (AUTO) 2.5 10^3/uL (0.5-4.7); ABSOLUTE MONOCYTES (AUTO) 0.8 10^3/uL (0.1-1.4); EOSINOPHILS % (AUTO) 4.9 % (0-6); HEMATOCRIT 40.4 % (36.0-47.0); HEMOGLOBIN 13.5 g/dL (12.0-15.5); LYMPHOCYTES % (AUTO) 25.7 % (13-45); MEAN CORPUSCULAR HEMOGLOBIN 27.5 pg (27.0-33.4); MEAN CORPUSCULAR HGB CONC 33.4 g/dL (32.0-36.0); MEAN CORPUSCULAR VOLUME 82 fl (80-97); MONOCYTES % (AUTO) 7.9 % (3-13); PLATELET COUNT 281 10^3/uL (150-450); RED BLOOD COUNT 4.91 10^6/uL (3.72-5.28); RED CELL DISTRIBUTION WIDTH 13.4 % (11.5-14.0); SEGMENTED NEUTROPHILS % (AUTO) 60.5 % (42-78); TOTAL CELLS COUNTED % (AUTO) 100 %; WHITE BLOOD COUNT 9.9 10^3/uL (4.0-10.5)
[2019-07-31] MEDS ORDERED: ACETAMINOPHEN 325 MG TABLET PO ONE (09:11)
[2019-07-31 09:13] LABS: ALBUMIN 4.5 g/dL (3.5-5.0); ALKALINE PHOSPHATASE 57 U/L (38-126); ANION GAP 12 (5-19); ASPARTATE AMINO TRANSFERASE 30 U/L (14-36); BILIRUBIN,DIRECT 0.1 mg/dL (0.0-0.4); BILIRUBIN,TOTAL 0.6 mg/dL (0.2-1.3); BLOOD UREA NITROGEN 14 mg/dL (7-20); CARBON DIOXIDE 25 mmol/L (22-30); CHLORIDE 103 mmol/L (98-107); GLUCOSE 102 mg/dL (75-110); POTASSIUM 4.4 mmol/L (3.6-5.0); TOTAL PROTEIN 7.8 g/dL (6.3-8.2)
--- NOTE | 2019-07-31 09:34 | RADIOLOGY REPORT (SQ) ---
EXAM DESCRIPTION: CT HEAD WITHOUT COMPLETED DATE/TIME: 07/31/2019 9:25 am REASON FOR STUDY: fall, head injury, reports LOC COMPARISON: None. TECHNIQUE: Axial images acquired through the brain without intravenous contrast. Images reviewed wi th bone, brain and subdural windows. Additional sagittal and coronal reconstructions were generated. Images stored on PACS. All CT scanners at this facility use dose modulation, iterative reconstruction, and/or weight based d osing when appropriate to reduce radiation dose to as low as reasonably achievable (ALARA). [facility]: Dose Right [facility]: CareDose [facility]: Dose Right [facility]: Teradose 4D [facility]: Smart [employer] RADIATION DOSE: CT Rad equipment meets quality standard of care and radiation dose reduction techniq ues were employed. CTDIvol: 53.2 mGy. DLP: 964 mGy-cm. mGy. LIMITATIONS: None. FINDINGS: VENTRICLES: Normal size and contour. CEREBRUM: No masses. No hemorrhage. No midline shift. No evidence for acute infarction. Normal gra y/white matter differentiation. No areas of low density in the white matter. CEREBELLUM: No masses. No hemorrhage. No alteration of density. No evidence for acute infarction. EXTRAAXIAL SPACES: No fluid collections. No masses. ORBITS AND GLOBE: No intra- or extraconal masses. Normal contour of globe without masses. CALVARIUM: No fracture. PARANASAL SINUSES: No fluid or mucosal thickening. SOFT TISSUES: No mass or hematoma. OTHER: No other significant finding. IMPRESSION: NORMAL BRAIN CT WITHOUT CONTRAST. EVIDENCE OF ACUTE STROKE: NO. COMMENT: Quality ID # [id number]: Final reports with documentation of one or more dose reduction techniques (e.g., Automated exposure control, adjustment of the mA and/or kV according to patient size, use of iterative reconstruction technique) TECHNICAL DOCUMENTATION: JOB ID: [id number] [employer]- All Rights Reserved Reading location - IP/workstation name: [email or web address]
--- NOTE | 2019-07-31 10:30 | RADIOLOGY REPORT (SQ) ---
EXAM DESCRIPTION: U/S RETROPERITON (RENAL/AORTA) COMPLETED DATE/TIME: 07/31/2019 9:57 am REASON FOR STUDY: right flank pain, hx. stones COMPARISON: None. TECHNIQUE: Dynamic and static grayscale images acquired of the kidneys and bladder and recorded on P ACS. Additional selected color Doppler and spectral images recorded. LIMITATIONS: None. FINDINGS: RIGHT KIDNEY: Normal size. Normal echogenicity. No solid or suspicious masses. No hydronep hrosis. No calcifications. LEFT KIDNEY: Normal size. Normal echogenicity. No solid or suspicious masses. No hydronephrosis. No calcifications. BLADDER: Decompressed. OTHER FINDINGS: No other significant finding. IMPRESSION: NORMAL RENAL AND BLADDER ULTRASOUND. TECHNICAL DOCUMENTATION: JOB ID: [id number] [employer]- All Rights Reserved Reading location - IP/workstation name: [email or web address]
[2019-07-31] MEDS ORDERED: DIPHENHYDRAMINE HCL 50 MG/ML VIAL IV ONE (11:08)
[2019-07-31] MEDS ORDERED: DEXAMETHASONE SOD PHOS INJ 10 MG/1 ML VIAL IV ONE (11:09)
[2019-07-31] MEDS ORDERED: PROMETHAZINE HCL INJ 25 MG/1 ML VIAL IM ONE (11:09)
[2019-07-31 12:25] VITALS: BP 122/74
== END 2019-07-31 12:28 | disposition home or self-care (01) ==
LOC: ER 05:49
DX: S09.90XA Unspecified injury of head, initial encounter (principal); R42 Dizziness and giddiness; R10.9 Unspecified abdominal pain; R30.9 Painful micturition, unspecified; R55 Syncope and collapse; W19.XXXA Unspecified fall, initial encounter; D68.0 Von Willebrand disease; E11.9 Type 2 diabetes mellitus without complications
CPT/HCPCS: 99284; 96372; 96361; 96374; 96375; 36415; 83690; 84703; 85025; 80053; 81001; 76770; 70450; J1200; J2550; J2405; J7030; J1100

== ENCOUNTER 2019-12-19 10:37 | Emergency (ER) | payer OTHER ==
--- NOTE | 2019-12-19 11:01 | ER Document Report ---
ED Medical Screen (RME) - General Chief Complaint: Post Surgical Pain Stated Complaint: LEFT RIB PAIN Time Seen by Provider: 12/19/19 10:56 Primary Care Provider: FUNMI MARCOS JR, MD [Primary Care Provider] - Follow up as needed Mode of Arrival: Ambulatory Information source: Patient Notes: 44-year-old female presented to ED for left breast abdomen and flank pain. She states she had breast augmentation and an abdominal plasty on November 10, 2019. She states she is having severe pain to the left side with hot and cold flashes nausea not able to sleep due to the pain. She states she took Tylenol this morning at 930 this morning is not getting any relief. She was in [facility] in October the only travel out of the country. She does use alcohol couple times a year and does not use drugs. Her recently passed in August and she lives with her children. She states her last tetanus was November 15, 2009. I have greeted and performed a rapid initial assessment of this patient. A comprehensive ED assessment and evaluation of the patient, analysis of test results and completion of medical decision making process will be conducted by an additional ED providers. TRAVEL OUTSIDE OF THE [place] IN LAST 30 DAYS: No - Related Data Allergies/Adverse Reactions: ibuprofen Allergy (Verified 07/22/19 16:23) latex Allergy (Verified 07/22/19 16:23) metoclopramide [From Reglan] Allergy (Verified 07/22/19 16:23) NSAIDS (Non-Steroidal Anti-Inflamma Allergy (Verified 07/22/19 16:23) Penicillins Allergy (Verified 07/22/19 16:23) sulfamethoxazole [From Septra] Allergy (Verified 07/22/19 16:23) sumatriptan [From Imitrex] Allergy (Verified 07/22/19 16:23) tramadol Allergy (Verified 07/22/19 16:23) trimethoprim [From Septra] Allergy (Verified 07/22/19 16:23) zolmitriptan [From Zomig] Allergy (Verified 07/22/19 16:23) haloperidol [From Haldol] Adverse Reaction (Verified 07/22/19 16:23) prochlorperazine [From Compazine] Adverse Reaction (Verified 07/22/19 16:23) Past Medical History - Social History Family history: Reviewed & Not Pertinent - Past Medical History Cardiac Medical History: Reports: Hx Hypercholesterolemia Neurological Medical History: Reports: Hx Migraine Endocrine Medical History: Comment Only: Hx Diabetes Mellitus Type 2 - pre diabetic Renal/ Medical History: Reports: Hx Ovarian Cysts - PCOS. Denies: Hx Peritoneal Dialysis GI Medical History: Reports: Hx Gastroesophageal Reflux Disease, Hx Hiatal Hernia Musculoskeltal Medical History: Reports Hx Arthritis, Reports Hx Musculoskeletal Deformity - Scoliosis, Reports Hx Musculoskeletal Trauma Psychiatric Medical History: Reports: Hx Anxiety, Hx Depression Traumatic Medical History: Reports: Hx Fractures - Arm Past Surgical History: Reports: Hx Appendectomy, Hx Cholecystectomy, Hx Genitourinary Surgery - "BLADDER SLING", Hx Hysterectomy, Hx Orthopedic Surgery - Alexander rods - Immunizations Hx Diphtheria, Pertussis, Tetanus Vaccination: - 2009 Physical Exam - Vital signs Vitals: Temp Pulse Resp BP Pulse Ox 98.3 F 87 22 H 119/77 100 12/19/19 10:46 12/19/19 10:46 12/19/19 10:46 12/19/19 10:46 12/19/19 10:46 Course - Vital Signs Vital signs: Temp Pulse Resp BP Pulse Ox 98.3 F 87 22 H 119/77 100 12/19/19 10:46 12/19/19 10:46 12/19/19 10:46 12/19/19 10:46 12/19/19 10:46 Doctor's Discharge - Discharge Referrals: FUNMI MARCOS JR, MD [Primary Care Provider] - Follow up as needed
[2019-12-19 11:42] LABS: ABSOLUTE BASOPHILS # (AUTO) 0.1 10^3/uL (0.0-0.2); ABSOLUTE EOSINOPHILS # (AUTO) 0.6 10^3/uL (0.0-0.6); ABSOLUTE LYMPHOCYTES (AUTO) 2.9 10^3/uL (0.5-4.7); ABSOLUTE MONOCYTES (AUTO) 0.9 10^3/uL (0.1-1.4); ABSOLUTE NEUT (AUTO) 6.2 10^3/uL (1.7-8.2); BASOPHILS % (AUTO) 0.9 % (0-2); EOSINOPHILS % (AUTO) 5.9 % (0-6); HEMATOCRIT 39.6 % (36.0-47.0); HEMOGLOBIN 13.8 g/dL (12.0-15.5); LYMPHOCYTES % (AUTO) 26.7 % (13-45); MEAN CORPUSCULAR HEMOGLOBIN 27.9 pg (27.0-33.4); MEAN CORPUSCULAR HGB CONC 34.8 g/dL (32.0-36.0); MEAN CORPUSCULAR VOLUME 80 fl (80-97); MONOCYTES % (AUTO) 8.1 % (3-13); PLATELET COUNT 304 10^3/uL (150-450); RED BLOOD COUNT 4.93 10^6/uL (3.72-5.28); RED CELL DISTRIBUTION WIDTH 13.8 % (11.5-14.0); SEGMENTED NEUTROPHILS % (AUTO) 58.4 % (42-78); TOTAL CELLS COUNTED % (AUTO) 100 %; WHITE BLOOD COUNT 10.7 10^3/uL (4.0-10.5)
[2019-12-19 11:50] LABS: APPEARANCE,URINE CLEAR; BILIRUBIN,URINE NEGATIVE (NEGATIVE); COLOR,URINE STRAW; GLUCOSE, URINE NEGATIVE (NEGATIVE); KETONES,URINE NEGATIVE (NEGATIVE); PROTEIN,URINE NEGATIVE (NEGATIVE); URINE SPECIFIC GRAVITY 1.012; UROBILINOGEN,URINE NEGATIVE mg/dL (<2.0)
--- NOTE | 2019-12-19 11:57 | RADIOLOGY REPORT (SQ) ---
EXAM DESCRIPTION: ACUTE ABDOMEN SERIES COMPLETED DATE/TIME: 12/19/2019 11:39 am REASON FOR STUDY: Left chest/abdomen pain COMPARISON: None. NUMBER OF VIEWS: Three views. TECHNIQUE: A PA view of the chest, and supine and upright views of the abdomen were obtained. LIMITATIONS: None. FINDINGS: CHEST: The cardiomediastinal silhouette and pulmonary vasculature are within normal limits . There is no consolidation, pleural effusion or pneumothorax. FREE AIR: None. BOWEL GAS PATTERN: No dilated loops of bowel or differential air-fluid levels. CALCIFICATIONS: None. HARDWARE: Cholecystectomy clips and probable tubal ligation clips. SOFT TISSUES: No abnormality. BONES: S shaped rotoscoliotic curvature of the thoracolumbar spine with fixation hardware. OTHER: No other finding. IMPRESSION: 1. No acute cardiopulmonary process. 2. Nonobstructive bowel gas pattern. TECHNICAL DOCUMENTATION: JOB ID: [id number] [employer]- All Rights Reserved Reading location - IP/workstation name: [email or web address]
[2019-12-19 11:59] LABS: ALBUMIN 4.5 g/dL (3.5-5.0); ALKALINE PHOSPHATASE 50 U/L (38-126); ANION GAP 10 (5-19); ASPARTATE AMINO TRANSFERASE 27 U/L (14-36); BILIRUBIN,TOTAL 0.4 mg/dL (0.2-1.3); BLOOD UREA NITROGEN 12 mg/dL (7-20); CALCIUM 10.3 mg/dL (8.4-10.2); CARBON DIOXIDE 25 mmol/L (22-30); CHLORIDE 105 mmol/L (98-107); GLUCOSE 101 mg/dL (75-110); POTASSIUM 4.3 mmol/L (3.6-5.0)
--- NOTE | 2019-12-19 13:16 | ER Document Report ---
ED General - General Chief Complaint: Post Surgical Pain Stated Complaint: LEFT RIB PAIN Time Seen by Provider: 12/19/19 10:56 Primary Care Provider: FUNMI MARCOS JR, MD [Primary Care Provider] - Follow up as needed Mode of Arrival: Ambulatory Information source: Patient Notes: 44-year-old female presents emergency department with complaints of left-sided pain. She reports that on November 10 she had a breast augmentation and abdominoplasty. She has followed up with her plastic surgeon Dr. Velazquez in [place] November 22. She has another appointment with him on January 02. She reports she has been a little bit sore but yesterday she started to feel like maybe she pulled something. Denies fever reports some nausea but declined antinausea medicine. Denies vomiting diarrhea. She reports she took Tylenol at 930 without relief of symptoms. No chest pain no shortness of breath. Patient looks good speaking in clear sentences no shortness of breath. TRAVEL OUTSIDE OF THE [place] IN LAST 30 DAYS: No - HPI Onset: Yesterday Onset/Duration: Sudden, Persistent Quality of pain: Achy Associated symptoms: Nausea Exacerbated by: Movement Relieved by: Denies Similar symptoms previously: Yes Recently seen / treated by doctor: No - Related Data Allergies/Adverse Reactions: ibuprofen Allergy (Verified 07/22/19 16:23) latex Allergy (Verified 07/22/19 16:23) metoclopramide [From Reglan] Allergy (Verified 07/22/19 16:23) NSAIDS (Non-Steroidal Anti-Inflamma Allergy (Verified 07/22/19 16:23) Penicillins Allergy (Verified 07/22/19 16:23) sulfamethoxazole [From Septra] Allergy (Verified 07/22/19 16:23) sumatriptan [From Imitrex] Allergy (Verified 07/22/19 16:23) tramadol Allergy (Verified 07/22/19 16:23) trimethoprim [From Septra] Allergy (Verified 07/22/19 16:23) zolmitriptan [From Zomig] Allergy (Verified 07/22/19 16:23) haloperidol [From Haldol] Adverse Reaction (Verified 07/22/19 16:23) prochlorperazine [From Compazine] Adverse Reaction (Verified 07/22/19 16:23) Home Medications: ambien, amgality Past Medical History - General Information source: Patient Last Menstrual Period: 12/10/2019 - Social History Smoking Status: Never Smoker Chew tobacco use (# tins/day): No Frequency of alcohol use: Rare Drug Abuse: None Lives with: Family Family History: Arthritis, COPD, CVA, DM, Hyperlipidemia, Hypertension, Malignancy Patient has suicidal ideation: No Patient has homicidal ideation: No - Past Medical History Cardiac Medical History: Reports: Hx Hypercholesterolemia Neurological Medical History: Reports: Hx Migraine Endocrine Medical History: Comment Only: Hx Diabetes Mellitus Type 2 - pre diabetic Renal/ Medical History: Reports: Hx Ovarian Cysts - PCOS. Denies: Hx Peritoneal Dialysis GI Medical History: Reports: Hx Gastroesophageal Reflux Disease, Hx Hiatal Hernia Musculoskeletal Medical History: Reports Hx Arthritis, Reports Hx Musculos keletal Deformity - Scoliosis, Reports Hx Musculoskeletal Trauma Psychiatric Medical History: Reports: Hx Anxiety, Hx Depression Traumatic Medical History: Reports: Hx Fractures - Arm Past Surgical History: Reports: Hx Appendectomy, Hx Cholecystectomy, Hx Genitourinary Surgery - "BLADDER SLING", Hx Hysterectomy, Hx Orthopedic Surgery - Alexander rods - Immunizations Hx Diphtheria, Pertussis, Tetanus Vaccination: No - 2009 Review of Systems - Review of Systems Notes: Review HPI for review of systems., All other systems negative Physical Exam - Vital signs Vitals: Temp Pulse Resp BP Pulse Ox 98.3 F 87 22 H 119/77 100 12/19/19 10:46 12/19/19 10:46 12/19/19 10:46 12/19/19 10:46 12/19/19 10:46 - General General appearance: Appears well, Alert In distress: None - HEENT Head: Normocephalic Eyes: Normal Conjunctiva: Normal Extraocular movements intact: Yes Mucous membranes: Moist Pharynx: Normal Neck: Normal, Supple. No: Lymphadenopathy - Respiratory Respiratory status: No respiratory distress, Other - RR Even unlabored. No: Respiratory distress Chest status: Tender - left lateral ttp, no erythema/swelling/warmth. Breath sounds: Normal Chest palpation: Normal - Cardiovascular Rhythm: Regular Heart sounds: Normal auscultation Murmur: No - Abdominal Inspection: Normal Distension: No distension Bowel sounds: Normal Tenderness: Nontender Organomegaly: No organomegaly Adult front & back diagram: 1 - surgical site benign, no erythema, no swelling/warmth 2 - bilateral breast suture line sites benign, no signs of infection 3 - pt reports area ttp - Back Back: Normal - Extremities General upper extremity: Normal ROM General lower extremity: Normal ROM - Neurological Neuro grossly intact: Yes Cognition: Normal Orientation: AAOx4 Noah Coma Scale Eye Opening: Spontaneous Noah Coma Scale Verbal: Oriented Noah Coma Scale Motor: Obeys Commands [place] Coma Scale Total: 15 Speech: Normal - Psychological Associated symptoms: Normal affect, Normal mood - Skin Skin Temperature: Warm Skin Moisture: Dry Skin Color: Normal Notes: Surgical site noted under lower abdomen and under each breast,benign, no erythema no swelling no warmth no discharge Course - Re-evaluation Re-evalutation: 12/19/19 13:15 44-year-old female presents to the emergency department with complaints of left- sided pain that started yesterday with increased today. She took Tylenol without relief of symptoms. Patient gives history of recent breast augmentation and tummy tuck on November 10. She has followed up with plastic surgeon on November 22. She denies fever vomiting diarrhea reports some nausea but declines antinausea medicine. All labs unremarkable. I did contact Dr. Velazquez's office and talk to his nurse Romie. She reports patient does have a refill on her muscle relaxers. She reports more than likely it is sore muscles. She reports patient does have a follow-up visit January 02 with the patient but if it worsens she could come in next week just call for appointment. Patient was instructed on this. Instructed on Tylenol as indicated for pain. She was also instructed to do a refill on the muscle relaxer. She verbalized understanding to all instruction. Review of [facility] shows patient is prescribed narcotics on a regular basis. Romie, the nurse from [facility], reports patient received narcotics upon discharge. Patient also had a recent refill of hydrocodone at the end of November. Acute Abdomen Series 12/19/19 11:02 IMPRESSION: 1. No acute cardiopulmonary process. 2. Nonobstructive bowel gas pattern. Laboratory 12/19/19 12/19/19 12/19/19 11:22 11:22 11:22 WBC 10.7 H RBC 4.93 Hgb 13.8 Hct 39.6 MCV 80 MCH 27.9 MCHC 34.8 RDW 13.8 Plt Count 304 Lymph % (Auto) 26.7 [place] % (Auto) 8.1 Eos % (Auto) 5.9 Baso % (Auto) 0.9 Absolute Neuts (auto) 6.2 Absolute Lymphs (auto) 2.9 Absolute Monos (auto) 0.9 Absolute Eos (auto) 0.6 Absolute Basos (auto) 0.1 Seg Neutrophils % 58.4 Sodium 139.6 Potassium 4.3 Chloride 105 Carbon Dioxide 25 Anion Gap 10 BUN 12 Creatinine 0.72 Est GFR ( Amer) > 60 Est GFR (MDRD) Non-Af > 60 Glucose 101 Calcium 10.3 H Total Bilirubin 0.4 Direct Bilirubin 0.0 Neonat Total Bilirubin Not Reportable Neonat Direct Bilirubin Not Reportable Neonat Indirect Bili Not Reportable AST 27 ALT 44 H Alkaline Phosphatase 50 Total Protein 8.0 Albumin 4.5 Urine Color STRAW Urine Appearance CLEAR Urine pH 6.0 Ur Specific [place] 1.012 Urine Protein NEGATIVE Urine Glucose (UA) NEGATIVE Urine Ketones NEGATIVE Urine Blood NEGATIVE Urine Nitrite (Reflex) NEGATIVE Urine Bilirubin NEGATIVE Urine Urobilinogen NEGATIVE Leukocyte Esterase Rfl NEGATIVE Urine RBC (Auto) 2 Urine WBC (Reflex) < 1 Squamous Epi Cells Auto 2 Urine Ascorbic Acid NEGATIVE - Vital Signs Vital signs: Temp Pulse Resp BP Pulse Ox 98.1 F 84 18 118/74 100 12/19/19 13:22 12/19/19 13:22 12/19/19 13:22 12/19/19 13:22 12/19/19 13:22 - Laboratory Result Diagrams: 12/19/19 11:22 12/19/19 11:22 Laboratory results interpreted by me: 12/19/19 12/19/19 11:22 11:22 WBC 10.7 H Calcium 10.3 H ALT 44 H - Diagnostic Test Radiology reviewed: Image reviewed, Reports reviewed Discharge - Discharge Clinical Impression: left side pain Condition: Stable Disposition: HOME, SELF-CARE Instructions: Use of [id number] Ibuprofen ([facility]) Additional Instructions: *You have been evaluated for left side pain *Take your muscle relaxer as prescribed *Follow up with Dr Velazquez as scheduled *Take Ibuprofen as indicated *Return to ED for worsening condition, changes, needs Referrals: FUNMI MARCOS JR, MD [Primary Care Provider] - Follow up as needed
[2019-12-19 13:24] VITALS: BP 118/74
== END 2019-12-19 13:22 | disposition home or self-care (01) ==
LOC: ER 10:37
DX: R07.81 Pleurodynia (principal); Z98.890 Other specified postprocedural states; R11.0 Nausea; G43.909 Migraine, unspecified, not intractable, without status migrainosus; Z79.899 Other long term (current) drug therapy; Z79.891 Long term (current) use of opiate analgesic; Z88.8 Allergy status to other drugs, medicaments and biological substances; Z91.040 Latex allergy status; Z88.0 Allergy status to penicillin; Z88.1 Allergy status to other antibiotic agents; Z88.6 Allergy status to analgesic agent
CPT/HCPCS: 36415; 74022; 80053; 81001; 85025; 87040; 99283

== ENCOUNTER 2020-04-26 07:37 | Emergency (ER) | payer OTHER ==
[2020-04-26 07:42] VITALS: BP 120/83
== END 2020-04-26 09:06 | disposition left against medical advice (07) ==
LOC: ER 07:37
DX: Z53.21 Procedure and treatment not carried out due to patient leaving prior to being seen by health care provider (principal)